=== PATIENT | female | born 1965 | race Caucasian/White ===

== ENCOUNTER 2025-02-08 10:59 | Inpatient (IN) ==
--- OUTSIDE RECORDS SUMMARY | 2025-02-08 11:04 | External Medical Summary | Summary of Care ---
Author Name Unknown Organization [facility] Address [address] [place] [address] Phone [phone] Care Team Providers Care Trailhead Construction Worker Name Role Phone Cr COBURN MD, Bandar Mcdonnell Primary Care Provider [phone] Reason for Visit * Reason Onset Date Comments Test Results 02/08/2025 Encounter Details Date Type Department Care Team (Late st Contact Info) Description 02/08/2025 Telephone [facility] [address] [place] [address] Clovis Wise MD [address] [place] [address] Test Results Allergies Active Allergy Reactions Criticality Noted Date Comments Cat Dander 12/30/2010 Throat closes, hard time breathing Food (See Comments) Other (Please comment) Medium 04/25/2017 Pt states every time she eats a potato product it makes her vomit. [place] 10/25/2016 Shellfish Anaphylaxis,Other (Please comment) High 01/01/2009 Postop, Allergery band in place Throat closes If she even kisses her after he ate shellfish and she gets lip tingling. Wound Dressing Adhesive 10/24/2022 documented as of this encounter (statuses as of 02/08/2025) Medications Aspirin EC 81 MG Oral Tablet Delayed Release Take by mouth 1 Tablet in the morning. 100 Tablet 3 2 Active Pantoprazole Sodium 40 MG Oral Tablet Delayed Release (Protonix) take 1 tablet by mouth every morning 30 MINUTES before breakfast 90 Tablet 3 Active Atorvastatin Calcium 20 MG Oral Tablet (Lipitor) Take 1 Tablet by mouth in the morning. 30 Tablet 5 4 Active Lisinopril 10 MG Oral Tablet (Prinivil) Take 1 Tablet by mouth in the morning. 30 Tablet 5 4 Active Cefuroxime Axetil 500 MG Oral Tablet (Ceftin) Take 1 Tablet by mouth in the morning and 1 Tablet before bedtime. 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 pylori infection 05/28/2008 Other iron deficiency anemia 05/28/2008 Overview (08/13/2017): ICD-10 update of inactive term NAVA RESEARCH OTHER*[id number] 03/02/2008 Uterine prolapse 09/10/2007 Varicella without complication documented as of this encounter (statuses as of 02/08/2025) Resolved Problems Problem Noted Date Diagnosed Date Resolved Date Accelerometer Research Study*[id number] 12/11/2013 02/09/2014 ADVANCE DIRECTIVE INFORMATION 01/30/2012 09/15/2024 Overview (04/26/2005): No, Advance Directive brochure given to patient at prior appointment. Dyslipidemia, goal LDL below 100 10/21/2009 09/24/2024 Overview (10/21/2009): Per Lipid Taxonomy. DM Type 2 causing Renal Dz 09/09/2009 0 04/25/2017 Overview (09/09/2009): Per Diabetes Taxonomy. Morbid Obesity, BMI not known 10/31/2007 02/03/2010 Overview (02/03/2010): Per Obesity Taxonomy DM Type 2 causing Renal Dz 09/10/2007 1 Overview (09/09/2009): Per Diabetes Taxonomy. Dyslipidemia, goal to be determined 09/10/2007 10/21/2009 Overview (10/21/2009): Per Lipid Taxonomy. Type 2 diabetes mellitus wit h hemoglobin A1c goal of less than 7.0% 04/28/2005 09/09/2009 Overview (03/07/2016): Per Diabetes Taxonomy. ICD-10 update of inactive term documented as of this encounter (statuses as of 02/08/2025) Immunizations Name Administration Dates Next Due COVID-19 mRNA, LNP-s, No Pre serve, 2-Dose Series (Pfizer) 02/16/2021,01/24/2021 COVID-19, MRNA-LNP, PF, 30 M CG/0.3 mL, 12 YRS AND ABOVE, IM (PFIZER-Comirnaty) 09/25/2024 H1N1 2009 Influenza, IM 11/02/2009 Hepatitis B, 20+ yrs 02/23/2015,08/13/2014,02/11 Pneumococcal Polysaccharide PPV23 (Pneumovax) 09/24/2002 Seasonal Influenza Vac., MDV , IM, 0.5 mL (Fluzone) 08/23/2017,08/05/2014,07/28/2013,10/23,08/16/2011,08/17/2010,08/18/2009 ,09/04/2008,08/12/2007 Seasonal Influenza, PF, 6 M & above, IM , (FluLaval or Fluzone) 08/16/2022 Seasonal Influenza, Quadriva lent, No Preserve, IM 08/20/2020,08/14/2019,08/16/2016,08/25 Seasonal Influenza, Trivalen t, (IIV3), PF, (Fluzone) 09/23/2024,08/23/2018 TD, Preservative Free 05/03/2020 TDAP, Age 7 and older, IM (Adacel) 02/10/2010 Zoster Vaccine Recombinant (Shingrix) 08/26/2020 ,05/03/2020 documented as of this encounter Social History Tobacco Use Types Packs/Day Years Used Date Smoking Tobacco: Former Cigarettes 0.3 6 0 02/21/1995 - 02/21/2001 Smokeless Tobacco: Never Alcohol Use Standard Drinks/Week Comments Yes 0 (1 standard drink = 0.6 oz pur e alcohol) 1-2 times a year PHQ-2 Answer Date Recorded PHQ-2 Score 3 10/31/2019 Hunger Vital Sign Answer Date Recorded Within the past 12 months, y ou worried that your food would run out before you got the money to buy more. Never true 09/23/20 24 Within the past 12 months, t he food you bought just didn't last and you didn't have money to get more. Never true 09/23/2024 Childcare Answer Date Recorded Do you feel overwhelmed with taking care of a child, family member or friend? No 09/23/2024 Does your family need help f inding childcare? (Household - for ages 0-17 years) Not on file 09/23/2024 Clothing Answer Date Recorded Have you been unable to get clothing when it was really needed? No 09/23/2024 Is your family able to get c lothes or diapers when needed? (Household - for ages 0-17 years) Not on file 09/23/2024 Personal Safety Answer Date Recorded Do you feel unsafe or have concerns for your saf ety? No 09/23/2024 Do you have concerns for you r family's safety? (Household - for ages 0-17 years) Not on file 09/23/2024 Utilities Answer Date Recorded Do you have trouble paying y our heating, water, or electric bill? No 09/23/2024 Is your family able to pay t he heat, water, or electric bill? (Household - for ages 0-17 years) Not on file 09/23/2024 Does your family have access to good internet? (Household - for ages 0-17 years) Not on file 09/23/2024 Employment Status Answer Date Recorded Are you unemployed or without regular income? No 09/23/2024 Does the household have a re lar source of income? (Household - for ages 0-17 years) Not on file 09/23/2024 Social Connections Answer Date Recorded How often do you feel lonely or isolated from th ose around you? Never 09/23/2024 Financial Resource Strain Answer Date R ecorded Do you have any trouble payi ng for your medications, or do you think you might in the future? No 09/23/2024 Does your family have troubl e paying for medicine? (Household - for ages 0-17 years) Not on file 09/23/2024 Transportation Needs Answer Date Record ed Do you have trouble getting a ride to medical visits or work? (Adult - for ages 18 years and over) Not on file 09/23/2024 Does your family have a hard time getting a ride to doctors visits? (Household - for ages 0-17 years) Not on file 09/23/2024 Has lack of transportation k ept you from medical appointments, meetings, work, or from getting things needed for daily living? Check all that apply. No 09/23/2024 Do you (or your family) have trouble finding or paying for a ride (transportation)? (Household - for ages 0-17 years) Not on file 09/23/2024 Housing Stability Answer Date Recorded Do you currently live in a s helter or have no steady place to sleep at night? No 09/23/2024 Do you think you are at risk of becoming homeless? (Adult - for ages 18 years and over) Not on file 09/23/2024 Does your family worry about paying for your home or becoming homeless? (Household - for ages 0-17 years) Not on file 1 11/23/2023 Are you homeless or worried that you might be in the future? No 09/23/2024 Are you (or your family) joe eless or worried that you might be in the future? (Household - for ages 0-17 years) Not on file Food Insecurity Answer Date Recorded Do you need food for this week? No 09/23/2024 Are you able to get enough f ood for your family? (Household - for ages 0-17 years) Not on file 09/23/2024 Does your family need food t his week? (Household - for ages 0-17 years) Not on file 09/23/2024 Do you always have enough fo od for your family? (Household - for ages 0-17 years) Not on file 09/23/2024 Food Insecurity Answer Date Recorded Within the past 12 months, y ou worried that your food would run out before you got the money to buy more. Never true 09/23/20 24 Within the past 12 months, t he food you bought just didn't last and you didn't have money to get more. Never true 09/23/2024 Do you need food for this week? 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 As per patient preference, connection with the patient via audio only occurred. The patient was informed this was a phone call only visit and was identified by name and date of . The patient agreed to participate. Patient with noted left hydronephrosis secondary to an obstructing stone. Patient had a positive urine culture on 01/19/25. Advised to go to the ER, ideally with a urologist system integration engineer. Total call duration was 5 minutes. Clovis Cavazos MD documented in this encounter Plan of Treatment Upcoming Encounters Date Type Department Care Team (Late st Contact Info) Description 02/09/2025 1:00 PM EDT Office Visit Nephrology, Noreen Mireles [address] [facility] [place] [address] Sulma Sutton MD [address] [facility] [place] [address] 03/18/2025 1:30 PM EDT Procedure Only Urology Ramesh Kaur [address] [place] [address] Charlie Ramirez Jr., MD [address] [place] [address] Scheduled Procedures Name Priority Associated Diagnoses Date/Ti me COLONOSCOPY FLEXIBLE PROXIMA L DIAGNOSTIC Recall Special screening for malignant neoplasms, colon Health Maintenance Due Date Last Done Comments Cologuard 2010 Sigmoidoscopy 2010 Fecal Occult Blood Test 12/08/2011 12/08/2010, 09/28 Depression Screening 10/28/2020 10/28/2019 Diabetic Foot Exam 11/02/2021 11/02/2020, 1 , 08/16/2016, Additional history exists HbA1c 06/22/2025 12/23/2024, 09/12, 10/26/2022, Additional history exists Diabetic Eye Exam 09/24/2025 09/24/2024, , 09/17/2019, Additional history exists Mammogram 09/25/2025 09/25/2024, 10/13, 09/19/2019, Additional history exists Albumin/Creatinine Ratio 12/26/2025 025, 12/23/2024, 09/23/2024, Additional history exists GFR 01/19/2026 01/19/2025, 12/13, 09/23/2024, Additional history exists Lipid Panel 12/23/2029 12/23/2024, 10/12, 08/16/2022, Additional history exists DTap/Tdap Vaccines (3 - Td or Tdap) 05/03/2030 05/03/2020, 02/10/2010, 04/28/2005 Colonoscopy 07/01/2031 07/01/2021, 06/13, 12/26/2010 Colorectal Cancer Screening 07/01/2031 Hepatitis B Vaccine Completed 02/23/2015, 08/13/2014, 02/11/2014 Zoster Vaccines Completed 08/26/2020, 05/03/2020 Pneumococcal Vaccine: 50+ Years Completed 08/20/2023, 09/24/2002 Influenza Vaccine (FLU shot) Completed 10/2024, 08/20/2023, 08/16/2022, Additional history exists COVID-19 Vaccine Completed 09/25/2024, 07/2023, 04/07/2022, Additional history exists HPV (Gardasil) Vaccine Aged Out No lo nger eligible based on patient's age to complete this topic MENINGOCOCCAL (MENACTRA/MENVEO) Aged Out No longer eligible based on patient's age to complete this topic Meningitis B Vaccine (Bexsero/Trumemba) Aged Out No longer eligible based on patient's age to complete this topic documented as of this encounter Medical Devices Implanted Type Area Supervisor Fish Bait Processing Device Identifier Shelf Expiration Date Model / Serial / Lot Device Tvt [id number] - [id number] Implanted:Qty: 1 on 12/20/2011 [place] [facility] [place] Vagina JN : [employer] 05/11/2014 [id number] / / [id number] documented as of this encounter Advance Directives * Full Code (Latest Code Status on File) Date Activated Date Inactivated Comments 03/27/2014 9:04 AM 03/27/2014 3:31 PM This order r eflects the patients wishes and were consensually agreed upon. * Full Code Date Activated Date Inactivated Comments 12/20/2011 1:25 PM 12/21/2011 9:17 PM This order ref lects the patients wishes and were consensually agreed upon. * Full Code Date Activated Date Inactivated Comments 12/20/2011 8:56 AM 12/20/2011 1:25 PM This order ref lects the patients wishes and were consensually agreed upon. * Full Code Date Activated Date Inactivated Comments 01/01/2009 3:08 PM 01/03/2009 4:32 PM * Full Code Date Activated Date Inactivated Comments 01/01/2009 9:05 AM 01/01/2009 3:08 PM Care Teams Trailhead Construction Worker Relationship Specialty Start Date End Date Bandar Hankins III, MD [address] [place] [address] PCP - General 02/11/02 documented as of this encounter
--- OUTSIDE RECORDS SUMMARY | 2025-02-08 11:05 | External Medical Summary | Summary of Care ---
Author Name Unknown Organization [facility] Address [address] [facility] [place] [address] Phone [phone] Care Team Providers Care Video System Repairer Name Role Phone Cr COBURN MD, Bandar Mcdonnell Primary Care Provider [phone] Reason for Referral * Precert (Within 10 days (routine)) - Pending Review Specialty Diagnoses / Procedures Referred By Karen oquendo Referred To Contact Radiology Diagnoses Hydronephrosis, left Microhematuria Procedures CT UROGRAPHY W WO CONTRAST Margarita Ambrosio PA-C [address] [place] [address] Phone: tel: fax: Referral ID Status Reason Start Date Expiration Date V isits Requested Visits Authorized [id number] Pending Review 01/27/[phone] Reason for Visit * Reason Onset Date Comments Follow Up 01/27/2025 Returning Call 01/27/2025 Encounter Details Date Type Department Care Team (Late st Contact Info) Description 01/27/2025 Telephone Urology Ramesh Kaur [address] [facility] [address] [place] [address] Margarita Ambrosio PA-C [address] [place] [address] Follow Up; Returning Call Allergies Active Allergy Reactions Criticality Noted Date [...] as of this encounter (statuses as of 01/27/2025) Medications Aspirin EC 81 MG Oral Tablet [...] as of this encounter (statuses as of 01/27/2025) Active Problems Problem Noted Date Diagnosed Date [...] ICD-10 update of inactive term NAVA RESEARCH OTHER*[id number] 03/02/2008 Uterine prolapse 09/10/2007 Varicella without complication documented as of this encounter (statuses as of 01/27/2025) Resolved Problems Problem Noted Date Diagnosed Date Resolved Date Accelerometer Research Study*[id number] 12/11/2013 02/09/2014 ADVANCE DIRECTIVE INFORMATION 01/30/2012 09/15/2024 [...] as of this encounter (statuses as of 01/27/2025) Immunizations Name Administration Dates Next Due COVID-19 mRNA, LNP-s, No Pre serve, 2-Dose Series (Pfizer) 02/16/2021,01/24/2021 COVID-19, MRNA-LNP, PF, 30 M CG/0.3 mL, 12 YRS AND ABOVE, IM (PFIZER-Comirnaty) 09/25/2024 H1N1 2009 Influenza, IM 11/02/2009 Hepatitis B, 20+ yrs 02/23/2015,08/13/2014,02/11 Pneumococcal Polysaccharide PPV23 (Pneumovax) 09/24/2002 Seasonal Influenza Vac., MDV , IM, 0.5 mL (Fluzone) 08/23/2017,08/05/2014,07/28/2013,10/23,08/16/2011,08/17/2010,08/18/2009 ,09/04/2008,08/12/2007,09/24/2002 Seasonal Influenza, PF, 6 M & above, IM , (FluLaval or Fluzone) 08/16/2022 Seasonal Influenza, Quadriva lent, No Preserve, IM 08/20/2020,08/14/2019,08/16/2016,08/25 Seasonal Influenza, Trivalen t, (IIV3), PF, (Fluzone) 09/23/2024,08/23/2018 TD, Preservative Free 05/03/2020,04/28/2005 TDAP, Age 7 and older, IM (Adacel) [...] 09/23/2024 Does the household have a re gular source of income? (Household - for ages [...] encounter Miscellaneous Notes * Telephone Encounter - Jael Appiah MED ASSIST - 01/27/2025 11:16 AM EDT Pt is scheduled * Telephone Encounter - Maribell Navarro OSA - 01/27/2025 11:01 AM EDT Reason for patient's call: patient returning call Caller was transferred to [facility] at the clinic. * Telephone Encounter - Vivi Goyal MED ASSIST - 01/27/2025 10:54 AM EDT Left message for patient to call back, needs scheduled for a CT urogram * Telephone Encounter - Noemi Callejas LPN - 01/27/2025 10:10 AM EDT Patient needs scheduled for CT Urogram. * Telephone Encounter - Margarita Ambrosio PA-C - 01/27/2025 9:08 AM EDT Ok order placed. Will discontinue MR Urogram. Thanks! * Telephone Encounter - Manisha Teixeira OSA - 01/27/2025 7:58 AM EDT Per the radiologist he feels that pt can have a CTU, please advise thank you Radiology scheduling documented in this encounter Plan of Treatment Upcoming Encounters Date Type Department Care Team (Late st Contact Info) Description 02/04/2025 8:45 AM EDT Imaging Radiology [facility] [address] [facility] [place] [address] [place] [phone] 03/18/2025 1:30 PM EDT Procedure Only Urology Ramesh Kaur [address] [place] [address] Charlie Ramirez Jr., MD [address] [place] [address] Scheduled Orders Name Type Priority Associated Diagnoses Orde r Schedule CT UROGRAPHY W WO CONTRAST Medical Imaging Routine Hydronephrosis, left Microhematuria Expected: 01/27/2025 (Approximate), Expires: 02/27/2026 Scheduled Procedures Name Priority Associated Diagnoses Date/Ti [...] this encounter Medical Devices Implanted Type Area Speedboat Operator Device Identifier Shelf Expiration Date Model / Serial / Lot Device Tvt [id number] - [id number] Implanted:Qty: 1 on 12/20/2011 at OR [facility] [place] N/A: Vagina [place] : [employer] 05/11/2014 [id number] / / [id number] documented as of this encounter Visit Diagnoses Diagnosis Hydronephrosis, left- Primary Hydronephrosis Microhematuria Microscopic hematuria documented in this encounter Advance Directives * Full Code [...] 9:05 AM 01/01/2009 3:08 PM Care Teams Video System Repairer Relationship Specialty Start Date End Date Cr COBURN, Bandar Mcdonnell MD [address] [place] [address] PCP - General 02/11/02 documented as of this encounter
--- OUTSIDE RECORDS SUMMARY | 2025-02-08 11:05 | External Medical Summary | Summary of Care ---
Author Name Unknown Organization [facility] Address [address] [facility] [place] [address] Phone [phone] Care Team Providers Care Medical Equipment Repairer Name Role Phone Cr COBURN MD, Bandar Mcdonnell Primary Care Provider [phone] Reason for Referral * Precert (Within 10 days (routine)) - Pending Review Specialty Diagnoses / Procedures Referred By Karen oquendo Referred To Contact Radiology Diagnoses Hydronephrosis, left Microhematuria Procedures CT UROGRAPHY W WO CONTRAST Margarita Ambrosio PA-C [address] [place] [address] Phone: tel: fax: Referral ID Status Reason Start Date Expiration Date V isits Requested Visits Authorized [id number] Pending Review 01/27/[phone] Reason for Visit * Reason Onset Date Comments Follow Up 01/27/2025 Returning Call 01/27/2025 Encounter Details Date Type Department Care Team (Late st Contact Info) Description 01/27/2025 Telephone Urology Ramesh Kaur [address] [facility] [address] [address] Margarita Ambrosio PA-C [address] [place] [address] Follow Up; Returning Call Allergies Active Allergy [...] ICD-10 update of inactive term NAVA RESEARCH OTHER*[id number] 03/02/2008 Uterine prolapse 09/10/2007 Varicella without complication documented as of this encounter (statuses as of 01/27/2025) Resolved Problems Problem Noted Date Diagnosed Date Resolved Date Accelerometer Research Study*[id number] 12/11/2013 02/09/2014 ADVANCE DIRECTIVE INFORMATION 01/30/2012 09/15/2024 [...] patient returning call Caller was transferred to [facility] at the clinic. * Telephone Encounter [...] Description 02/04/2025 8:45 AM EDT Imaging Radiology [facility] [address] [facility] [place] [address] [place] [phone] 03/18/2025 1:30 PM EDT Procedure Only Urology [...] this encounter Medical Devices Implanted Type Area Rooms Director Device Identifier Shelf Expiration Date Model / Serial / Lot Device Tvt [id number] - [id number] Implanted:Qty: 1 on 12/20/[address] [facility] [place] N/A: Vagina [place] : [employer] 05/11/2014 [id number] / / [id number] documented as of this encounter Visit Diagnoses [...] 9:05 AM 01/01/2009 3:08 PM Care Teams Medical Equipment Repairer Relationship Specialty Start Date End Date Cr COBURN, Bandar Mcdonnell MD [address] [place] [address] PCP - General 02/11/02 documented as of this encounter
--- OUTSIDE RECORDS SUMMARY | 2025-02-08 11:05 | External Medical Summary | Summary of Care ---
Author Name Unknown Organization [facility] Address [address] [facility] [place] [address] Phone [phone] Care Team Providers Care Airconditioning Engineer Name Role Phone Cr COBURN MD, Jacinta Mcdonnell Primary Care Provider [phone] Reason for Visit * Reason Comments NEW PATIENT * Evaluate & Treat - Unlimited Visits (Within 10 days (routine)) - Authorized Specialty Diagnoses / Procedures Referred By Karen oquendo Referred To Contact Urology Diagnoses Hydronephrosis, unspecified hydronephrosis type History of UTI Sulma Sutton MD [address] [facility] [address] Phone: tel: fax: Referral ID Status Reason Start Date Expiration Date Visits Requested Visits Authorized [id number] Authorized Specialty Services Required 01/16/[phone] Encounter Details Date Type Department Care Team (Late st Contact Info) Description 01/23/2025 1:00 PM EDT Office Visit Urology Ramesh Kaur [address] [place] [address] Margarita Ambrosio PA-C [address] [place] [address] Hydronephrosis, left*; Microhematuria; Acute UTI Allergies Active Allergy Reactions Criticality Noted Date [...] update of inactive term 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 pylori infection 05/28/2008 Other iron deficiency anemia 05/28/2008 Overview (08/13/2017): ICD-10 update of inactive term NAVA RESEARCH OTHER*[id number] 03/02/2008 Uterine prolapse 09/10/2007 Varicella without complication documented as of this encounter (statuses as of 01/27/2025) Resolved Problems Problem Noted Date Diagnosed Date Resolved Date Accelerometer Research Study*[id number] 12/11/2013 02/09/2014 ADVANCE DIRECTIVE INFORMATION 01/30/2012 09/15/2024 [...] mRNA, LNP-s, No Pre serve, 2-Dose Series ([employer]) 02/16/2021,01/24/2021 COVID-19, MRNA-LNP, PF, 30 M CG/0.3 [...] lali e documented as of this encounter Progress Notes * Margarita Ambrosio PA-C - 01/23/2025 1:04 PM EDT [id number] PCP: JACINTA ACOSTA III, Dr [place], [place] [id number] Yuly Shipley is a 59 year old female who presents in referral for evaluation of hydronephrosis and history of UTI. Patient presents due to hydronephrosis found on routine renal ultrasound via inseminator. Patient was also noted to have microhematuria on urine specimen. She denied history of gross hematuria. She noted she has a history of recurrent UTIs over the past few months with a recent positive culture on 01/19/2025. She noted she has a history of frequent UTI but not as frequent as recently. She noted she does currently have dysuria and urgency. She noted she is also being evaluated for significant anemia and low energy. She noted she used to smoke cigarettes but quit about 20 years ago. She denied a history of kidney stones. She denied fever, chills, abdominal pain, and flank pain. Current Outpatient Medications Medication Sig Dispense Refill Aspirin EC 81 MG Oral Tablet Delayed Release Take by mouth 1 Tablet in the morning. 100 Tablet 3 Pantoprazole Sodium 40 MG Oral Tablet Delayed Release (Protonix) take 1 tablet by mouth every morning 30 MINUTES before breakfast 90 Tablet 0 Atorvastatin Calcium 20 MG Oral Tablet (Lipitor) Take 1 Tablet by mouth in the morning. 30 Tablet 5 Lisinopril 10 MG Oral Tablet (Prinivil) Take 1 Tablet by mouth in the morning. 30 Tablet 5 No current facility-administered medications for this visit. Review of patient's allergies indicates: Allergen Reactions Shellfish Anaphylaxis and Other (Please comment) Postop, Allergery band in place Throat closes If she even kisses her after he ate shellfish and she gets lip tingling. Food (See Comments) Other (Please comment) Pt states every time she eats a potato product it makes her vomit. Cat Dander Throat closes, hard time breathing Pomegranate Extract [Punica] Wound Dressing Adhesive Social History: Social History Tobacco Use Smoking status: Former Current packs/day: 0.00 Average packs/day: 0.3 packs/day for 6.0 years (1.8 ttl pk-yrs) Types: Cigarettes Start date: 02/21/1995 Quit date: 02/21/2001 Years since quittin.9 Smokeless tobacco: Never Substance Use Topics Alcohol use: Yes Comment: 1-2 times a year Vaping/E-Cigarette Use Vaping/E-Cigarette Use Never User Vaping/E-Cigarette Substances Nicotine No Other No Flavoring No THC No Cannabidiol (CBD) No Vaping/E-Cigarette Devices Disposable No Pre-filled or Refillable Cartridge No Refillable Tank No Pre-filled Pod No Family History Problem Relation Name Age of Onset Hypertension Mother Lung cancer Mother lung small cell brain mets Hypertension Father Other (Other) Father aaa ruptured 69 Heart Disorder Sister valve @62 Heart failure Sister Heart attack Sister No Known Problems Sister Heart Disorder Sister pacer, enlarged ventricle Cancer Grandfather (Maternal) unknown No Known Problems Son Breast Cancer Aunt (Maternal) Diabetes Other mother siblings Past Surgical History: Procedure Laterality Date COLONOSCOPY, DIAGNOSTIC (RECTUM) 12/26/2010 wnl COLONOSCOPY, DIAGNOSTIC (RECTUM) 07/01/2021 Normal exam, 10y recall/ COLONOSCOPY FLEXIBLE PROXIMAL DIAGNOSTIC performed by Lara Hendrix DO at ENDOSCOPY [facility] CYSTOSCOPY 03/16/2014 CYSTOSCOPY/URETERAL CATHETER 03/27/2014 CYSTOURETHROSCOPY WITH URETERAL CATHETER performed by Diana Chappell MD at OR [facility] EGD, FLEXIBLE, DIAGNOSTIC 01/01/2009 UPPER GI ENDOSCOPY DIAGNOSTIC performed by RAISA BELTRAN at OR [facility] EGD, FLEXIBLE, DIAGNOSTIC 12/26/2010 ulceration EGD, FLEXIBLE, DIAGNOSTIC 08/07/2011 previously seen anastamotic ulcer has healed angy removed EGD, FLEXIBLE, W/BIOPSY 03/22/2011 ulcer--benign inflammation--repeat in 4-6 weeks EGD, FLEXIBLE, W/BIOPSY 05/16/2011 gastroenteric anastamosis with anastamotic ulcer LAPAROSCOPE PROCEDURE, LIVER 01/01/2009 UNLISTED LAPAROSCOPIC PROCEDURE LIVER performed by RAISA BELTRAN at OR [facility] LAPAROSCOPIC GASTRIC BYPASS/LUIS-EN-Y 01/01/2009 LAPAROSCOPIC GASTRIC RESTRICTIVE BYPASS LUIS EN Y performed by RAISA BELTRAN at [facility] MAMMOGRAM SCREENING-BILATERAL 09/11/2007 birad 2 REMOVE GALLBLADDER lapro REPAIR BLADDER & VAGINA, CYSTOCELE REPAIR BLADDER DEFECT 12/20/2011 VAGINAL SLING PROCEDURE FOR STRESS INCONTINENCE performed by SILVIA GONZALEZ at OR [facility] REPAIR DETACHED RETINA, VITRECTOMY 2008 laser REPAIR OF VAGINAL PROLAPSE 12/20/2011 COLPOPEXY VAGINAL EXTRA PERITONEAL APPROACH performed by SILVIA GONZALEZ OR [facility] TOTAL ABD HYSTERECTOMY W/WO REMOVAL OF TUBE(S) 12/20/2011 ERECTOMY WITH OR WITHOUT TUBES AND OVARIES performed by SILVIA GONZALEZ OR [facility] VAGINAL HYSTERECTOMY 12/20/2011 VAGINAL HYSTERECTOMY performed by SILVIA GONZALEZ OR [facility] Past Medical History: Diagnosis Date DM type 2, goal A1c below 7 Dyslipidemia, goal LDL below 100 10/21/2009 Per Lipid Taxonomy. Gross hematuria 02/26/2014 H. 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) OBESITY, BMI 30-34 (SEE ACTUAL BMI) Postgastric surgery syndrome NAVA RESEARCH OTHER*[id number] HTN, goal below 140/90 Gross hematuria Non-seasonal allergic rhinitis due to animal hair and dander Type 2 diabetes mellitus with both eyes affected by mild nonproliferative retinopathy without macular edema, without long-term current use of insulin (HCC) Dyslipidemia, goal LDL below 70 Constitutional: (+) fatigue and (-) fever and (-) chills Abdominal/GI: (-) abdominal pain, (-) nausea, and (-) vomiting Female : (+) see HPI Skin: (-) new lesions or changing moles Neurology: (-) negative: no focal neurologic defect Physical Exam Nursing note reviewed. Constitutional: General: She is not in acute distress. Appearance: She is not toxic-appearing. Comments: Frail HENT: Head: Normocephalic and atraumatic. Right Ear: External ear normal. Left Ear: External ear normal. Nose: Nose normal. Mouth/Throat: Mouth: Mucous membranes are moist. Pharynx: Oropharynx is clear. Pulmonary: Effort: Pulmonary effort is normal. No respiratory distress. Skin: General: Skin is warm and dry. Coloration: Skin is pale. Neurological: General: No focal deficit present. Mental Status: She is alert and oriented to person, place, and time. Motor: Weakness present. Psychiatric: Mood and Affect: Mood normal. Behavior: Behavior normal. Thought Content: Thought content normal. Judgment: Judgment normal. Labs: Creatinine Results: Lab Results Component Value Date/Time CREATININE - [facility] 1.0 01/19/2025 09:33 AM CREATININE - [facility] 1.1 (H) 12/30/2024 12:54 PM CREATININE - [facility] 1.0 09/23/2024 09:06 AM CREATININE - [facility] 1.0 11/02/2020 09:31 AM CREATININE - [facility] 0.9 09/05/2019 10:43 AM CREATININE - [facility] 0.9 10/23/2016 08:19 AM CREATININE, RANDOM URINE - [facility] 188 12/30/2024 12:55 PM CREATININE, RANDOM URINE - [facility] 143 12/26/2024 12:36 PM CREATININE, RANDOM URINE - [facility] 140 12/26/2024 12:36 PM CREATININE, RANDOM URINE - [facility] 186 08/14/2016 07:42 AM CREATININE, RANDOM URINE - [facility] 145 08/25/2015 08:37 AM CREATININE, RANDOM URINE - [facility] 189 08/12/2014 07:20 AM Urine culture 01/19/25 Culture Growth >100,000 colonies/mL Streptococcus anginosus group Abnormal <10,000 colonies/ml mixed normal joseph Imaging: US Renal 01/09/25 IMPRESSION: Marked left hydronephrosis with associated cortical thinning, suggesting chronicity. Impression/Plan: 59 y/o F with left hydronephrosis, microhematuria, and acute UTI. Findings reviewed with patient, and we discussed microscopic vs gross hematuria today. Blood in theurine can be a sign infection, stones, medical kidney disease, trauma and cancer. Menstruation, vigorous exercise, viral illness and urologic instrumentation are also causes. Evaluation of microscopic hematuria includes upper and lower urinary tract evaluation. Sometimes evaluation by a inseminator is recommended due to urine test findings; however, that does not preclude urologic evaluation. The use of anticoagulants alone does not explain gross hematuria, and should not preclude urologic evaluation. Upper tract evaluation usually entails multiphasic CT urogram, though in some situations MRI or ultrasound may be used with or without retrograde studies. Lower tract evaluation involves cystoscopy for direct visual evaluation of the bladder. A cystoscopy is generally performed on all patients aged 35 years and older, and in those with risk factors for urinary tract cancer such as a history of smoking, irritative voiding symptoms, exposure to certain chemicals, and a history of radiation therapy. I would recommend obtaining a MR urogram to further assess etiology for hydronephrosis as she is unsure of contrast allergy and significant shellfish allergy. I would also recommend a cystoscopy at next available. Ordered antibiotic for recent positive urine culture. We will plan to follow up with i maging results and next available cysto. Patient should call in the meantime with any new or worsening symptoms. All questions and concerns addressed to patient's satisfaction. Margarita Ambrosio PA-C 1:04 PM 01/23/2025 Cosigned by Zhang Espinal MD at 01/27/2025 4:59 PM EDT documented in this encounter Nursing Notes * Suzanne Quijano LPN - 01/23/2025 12:54 PM EDT Chief Complaint Patient presents with NEW PATIENT Pt presents as a new pt for hydronephrosis and hx of UTI. Last seen 2019. US and CT completed. Pt denies any flank pain at this time. Pt gave urine culture on 01/19/25 and it is positive, has not beentreated at this time. documented in this encounter Plan of Treatment Upcoming Encounters Date Type Department Care Team (Late st Contact Info) Description 02/04/2025 8:45 AM EDT Imaging Radiology [facility] [address] [place] [id number] 03/18/2025 1:30 PM EDT Procedure Only Urology Ramesh Kaur [address] [address] Charlie Ramirez Jr., MD [address] [place] [address] Scheduled Procedures Name Priority Associated Diagnoses Date/Ti [...] this encounter Medical Devices Implanted Type Area Political Aide Device Identifier Shelf Expiration Date Model / Serial / Lot Device Tvt [id number] - [id number] Implanted:Qty: 1 on 12/20/2011 at OR [facility] N/A: Vagina [place] : [employer] 05/11/2014 [id number] / / [id number] documented as of this encounter Visit Diagnoses Diagnosis Hydronephrosis, left- Primary Hydronephrosis Microhematuria Microscopic hematuria Acute UTI Urinary tract infection, site not specified documented in this encounter Advance Directives * [...] 9:05 AM 01/01/2009 3:08 PM Care Teams Airconditioning Engineer Relationship Specialty Start Date End Date Jacinta Acosta III, MD [address] [facility] [place] [address] PCP - General 02/11/02 documented as of this encounter
--- OUTSIDE RECORDS SUMMARY | 2025-02-08 11:05 | External Medical Summary | Summary of Care ---
Author Name Unknown Organization [facility] Address [address] [facility] [address] Phone [phone] Care Team Providers Care Cement Contractor Name Role Phone Cr COBURN MD, Bandar Mcdonnell Primary Care Provider [phone] Reason for Referral * Precert (Within 10 days (routine)) - Pending Review Specialty Diagnoses / Procedures Referred By Karen oquendo Referred To Contact Radiology Diagnoses Hydronephrosis, left Microhematuria Procedures CT UROGRAPHY W WO CONTRAST Margarita Ambrosio PA-C [address] [address] Phone: tel: fax: Referral ID Status Reason Start Date Expiration Date V isits Requested Visits Authorized [id number] Pending Review 01/27/[phone] Reason for Visit * Reason Onset Date Comments Follow Up 01/27/2025 Returning Call 01/27/2025 Encounter Details Date Type Department Care Team (Late st Contact Info) Description 01/27/2025 Telephone Urology Ramesh Kaur [address] [facility] [address] [place] [address] Margarita Ambrosio PA-C [address] [place] [address] Follow Up; Returning Call Allergies Active Allergy [...] ICD-10 update of inactive term NAVA RESEARCH OTHER*[id number] 03/02/2008 Uterine prolapse 09/10/2007 Varicella without complication documented as of this encounter (statuses as of 01/27/2025) Resolved Problems Problem Noted Date Diagnosed Date Resolved Date Accelerometer Research Study*[id number] 12/11/2013 02/09/2014 ADVANCE DIRECTIVE INFORMATION 01/30/2012 09/15/2024 [...] patient returning call Caller was transferred to [facility] at the clinic. * Telephone Encounter [...] Description 02/04/2025 8:45 AM EDT Imaging Radiology [facility] [address] [place] [id number] 03/18/2025 1:30 PM EDT Procedure Only Urology [...] this encounter Medical Devices Implanted Type Area Heating Engineer Device Identifier Shelf Expiration Date Model / Serial / Lot Device Tvt [id number] - [id number] Implanted:Qty: 1 on 12/20/2011 at OR [facility] N/A: Vagina [place] : [employer] 05/11/2014 [id number] / / [id number] documented as of this encounter Visit Diagnoses [...] 9:05 AM 01/01/2009 3:08 PM Care Teams Cement Contractor Relationship Specialty Start Date End Date Cr COBURN, Bandar Mcdonnell MD [address] [place] [address] PCP - General 02/11/02 documented as of this encounter
--- OUTSIDE RECORDS SUMMARY | 2025-02-08 11:05 | External Medical Summary | Summary of Care ---
Author Name Unknown Organization [facility] Address [address] [place] [address] Phone [phone] Care Team Providers Care Furniture Removalist'S Assistant Name Role Phone Cr COBURN MD, Bandar Mcdonnell Primary Care Provider Reason for Visit * Reason Comments Outpatient Testing Encounter Details Date Type Department Care Team (Late st Contact Info) Description 01/19/2025 9:40 AM EDT Laboratory Laboratory, [facility] [address] [facility] [place] [phone] [facility] [address] [facility] [place] [address] Hydronephrosis, unspecified hydronephrosis type; History of UTI; Anemia, unspecified type Allergies Active Allergy Reactions Criticality Noted Date [...] as of this encounter (statuses as of 01/19/2025) Medications Aspirin EC 81 MG Oral Tablet [...] the morning. 30 Tablet 5 4 Active documented as of this encounter (statuses as of 01/19/2025) Active Problems Problem Noted Date Diagnosed Date [...] ICD-10 update of inactive term NAVA RESEARCH OTHER*[id number] 03/02/2008 Uterine prolapse 09/10/2007 Varicella without complication documented as of this encounter (statuses as of 01/19/2025) Resolved Problems Problem Noted Date Diagnosed Date Resolved Date Accelerometer Research Study*[id number] 12/11/2013 02/09/2014 ADVANCE DIRECTIVE INFORMATION 01/30/2012 09/15/2024 [...] as of this encounter (statuses as of 01/19/2025) Immunizations Name Administration Dates Next Due COVID-19 mRNA, LNP-s, No Pre serve, 2-Dose Series ([place]) 02/16/2021,01/24/2021 COVID-19, MRNA-LNP, PF, 30 M CG/0.3 [...] lali e documented as of this encounter Plan of Treatment Upcoming Encounters Date Type Department Care Team (Late st Contact Info) Description 01/23/2025 1:00 PM EDT Office Visit Urology Ramesh Kaur [address] [place] [address] Margarita Ambrosio PA-C [address] [place] [address] Pending Results Name Type Priority Associated Diagnoses Date /Time CULTURE, URINE, QUANTITATIVE Lab Routine Hydronephrosis, unspecified hydronephrosis type History of UTI 01/19/2025 11:14 AM EDT FERRITIN Lab Routine Anemia, unspecified type 01/19/2025 9:33 AM EDT Scheduled Procedures Name Priority Associated Diagnoses Date/Ti [...] this encounter Medical Devices Implanted Type Area Ammunition Storage Superintendent Device Identifier Shelf Expiration Date Model / Serial / Lot Device Tvt [id number] - [id number] Implanted:Qty: 1 on 12/20/2011 at OR [facility] N/A: Vagina JNJ : [employer] 05/11/2014 [id number] / / [id number] documented as of this encounter Procedures Procedure Name Priority Date/Time Associated Diagnosis Comments URINALYSIS WITH MICROSCOPIC EXAM Routine 01/19/2025 11:14 AM EDT Hydronephrosis, unspecified hydronephrosis type History of UTI DIFFERENTIAL, AUTOMATED Routine 01/19/2025 9:33 AM EDT Hydronephrosis, unspecified hydronephrosis type History of UTI BASIC METABOLIC PANEL Routine 01/19/2025 9:33 AM EDT Hydronephrosis, unspecified hydronephrosis type History of UTI CBC Routine 01/19/2025 9:33 AM EDT Hydronephrosis, unspecified hydronephrosis type History of UTI CBC Routine 01/19/2025 9:33 AM EDT Hydronephrosis, unspecified hydronephrosis type History of UTI DIFFERENTIAL, TECHNOLOGIST REVIEW Routine 01/19/2025 9:33 AM EDT Hydronephrosis, unspecified hydronephrosis type History of UTI documented in this encounter Results * (ABNORMAL) URINALYSIS WITH MICROSCOPIC EXAM (01/19/2025 11:14 AM EDT) Color, Urine Yellow Light Yellow, Yellow, Dark Yellow 01/19/2025 12:31 PM EDT [facility] 57-10 Clarity, Urine Cloudy(A) Clear 01/19/2025 12:31 PM EDT [facility] [place] 57-10 Glucose, Urine Negative Negative mg/dL 01/19/2025 12:31 PM EDT [facility] 57-10 Bilirubin, Urine Negative Negative 01/19/2025 12:31 PM EDT [facility] [place] 57-10 Ketone, Urine Trace(A) Negative mg/dL 01/19/2025 12:31 PM EDT [facility] 57-10 Specific Mabel, Urine >=1.030 1.003 - 1.030 01/19/2025 12:31 PM EDT [facility] [place] 57-10 Blood, Urine Moderate(A) Negative 01/19/2025 12:31 PM EDT [facility] 57-10 pH, Urine 6.0 5.0 - 7.5 Units 01/19/2025 12:31 PM EDT [facility] 57- Protein, Urine >=300(A) Negative mg/dL 01/19/2025 12:31 PM EDT [facility] 57- Urobilinogen, Urine 0.2 0.2, 1.0 mg/dL 01/19/2025 12:31 PM EDT [facility] 57-10 Nitrite, Urine Negative Negative 01/19/2025 12:31 PM EDT [facility] 57-10 Esterase, Urine Large(A) Negative 01/19/2025 12:31 PM EDT [facility] 57-10 RBC, Urine 6-9(A) 0 - 2 /HPF 01/19/2025 12:31 PM EDT [facility] 57-10 WBC, Urine 50+(A) 0 - 2 /HPF 01/19/2025 12:31 PM EDT [facility] 5710 Bacteria, Urine 51-100(A) 0 - 25 /HPF 01/19/2025 12:31 PM EDT [facility] 5710 Urine Non-blood Collection / Unknown 01/19/2025 11:14 AM EDT 01/19/2025 11:14 AM EDT us Sulma Sutton MD LAB URINE ORDERABLES Rosa l Result [facility] [place] 57-10 [address] [place] [address] * (ABNORMAL) DIFFERENTIAL, TECHNOLOGIST REVIEW (01/19/2025 9:33 AM EDT) nRBCs 01/19/2025 11:06 AM EDT [facility] [place] 57-10 Acanthocytes Moderate(A ) None Seen 01/19/2025 11:06 AM EDT [facility] [place] 57-10 Elliptocytes Many(A) None Seen 01/19/2025 11:06 AM EDT [facility] [place] 57-10 Polychromasia Moderate(A ) None Seen 01/19/2025 11:06 AM EDT [facility] [place] 57-10 Schistocytes Few(A) None Seen 01/19/2025 11:06 AM EDT [facility] [place] 57-10 Blood Venous blood specimen / Unknown Venipuncture / Unknown 01/19/2025 9:33 AM EDT 01/19/2025 9:33 AM EDT Sulma Sutton MD LAB BLOOD ORDERABLES Rsoa l Result [facility] [place] 57-10 [address] [place] [address] * DIFFERENTIAL, AUTOMATED (01/19/2025 9:33 AM EDT) WBC 8.57 4.00 - 10.80 K/uL 01/19/2025 11:06 AM EDT [facility] [place] 57-10 Neutrophils % 67.7 40.0 - 75.0 % 01/19/2025 11:06 AM EDT [facility] [place] 57-10 Lymphocytes % 24.2 18.0 - 42.0 % 01/19/2025 11:06 AM EDT [facility] [place] 57-10 Monocytes % 5.6 1.0 - 11.0 % 01/19/2025 11:06 AM EDT [facility] [place] 57-10 Eosinophils % 2.3 0.0 - 6.0 % 01/19/2025 11:06 AM EDT [facility] 57-10 Basophils % 0.2 0.0 - 2.0 % 01/19/2025 11:06 AM EDT [facility] [place] 57-10 Absolute Neutrophils 5.80 1.80 - 7.70 K/uL 01/19/2025 11:06 AM EDT [facility] [place] 57-10 Absolute Lymphocytes 2.07 1.00 - 4.80 K/ul 01/19/2025 11:06 AM EDT [facility] [place] 5710 Absolute Monocytes 0.48 0.00 - 1.10 K/uL 01/19/2025 11:06 AM EDT [facility] [place] 57-10 Absolute Eosinophils 0.20 0.00 - 0.70 K/uL 01/19/2025 11:06 AM EDT [facility] [place] 57-10 Absolute Basophils 0.02 0.00 - 0.20 K/uL 01/19/2025 11:06 AM EDT [facility] [place] 5710 Blood Venous blood specimen / Unknown Venipuncture / Unknown 01/19/2025 9:33 AM EDT 01/19/2025 9:33 AM EDT Sulma Sutton MD LAB BLOOD ORDERABLES Rosa l Result LABORATORY [address] [address] * (ABNORMAL) CBC (01/19/2025 9:33 AM EDT) [facility] WBC 8.57 4.00 - 10.80 K/uL 01/19/2025 11:06 AM EDT LAB[facility]ORY [place] 57-10 RBC 3.90 3.85 - 5.15 M/uL 01/19/2025 11:06 AM EDT [facility]ORY [place] 5710 HGB 7.2(L) 12.0 - 15.3 g/dL 01/19/2025 11:06 AM EDT [facility] [place] 5710 HCT 25.5(L) 36.0 - 45.2 % 01/19/2025 11:06 AM EDT LABORATORY [place] [address] MCV 65.4 81.5 - 97.5 fL 01/19/2025 11:06 AM EDT LABORATORY [address] MCH 18.5 27.0 - 34.0 pg 01/19/2025 11:06 AM EDT LAB[facility]ORY [place] [address] MCHC 28.2 32.0 - 36.0 g/dL 01/19/2025 11:06 AM EDT LAB[facility]ATORY [place] [address] RDW 23.8 11.5 - 15.5 % 01/19/2025 11:06 AM EDT LABORATORY [address] PLT 909(H) 140 - 400 K/uL 01/19/2025 11:06 AM EDT LAB[facility]ATORY [place] [address] MPV 8.7 6.6 - 11.1 fL 01/19/2025 11:06 AM EDT LAB[facility]ATORY [place] [address] Blood Venous blood specimen / Unknown Venipuncture / Unknown 01/19/2025 9:33 AM EDT 01/19/2025 9:33 AM EDT us Sulma Sutton MD LAB BLOOD ORDERABLES Rosa limon Result LABORATORY [place] [address] [place] [address] * (ABNORMAL) BASIC METABOLIC PANEL (01/19/2025 9:33 AM EDT) BUN 11 6 - 20 mg/dL 01/19/2025 1:18 PM EDT [facility] 56- CREATININE 1.0 0.5 - 1.0 mg/dL 01/19/2025 1:18 PM EDT [facility] 56- EGFR 65 >=60 mL/min 01/19/2025 1:18 PM EDT [facility] 56- Comment:eGFR is calculated b ased on the CKD-EPI 2020 equation. SODIUM 138 135 - 146 mmol/L 01/19/2025 1:18 PM EDT [facility] 56- POTASSIUM 4.2 3.5 - 5.1 mmol/L 01/19/2025 1:18 PM EDT [facility] 56- CHLORIDE 103 98 - 107 mmol/L 01/19/2025 1:[address]T [address] CO2 23 22 - 32 mmol/L 01/19/2025 1:18 PM EDT [address] ANION GAP 12 7 - 15 mmol/L 01/19/2025 1:18 PM EDT [address] GLUCOSE 153(H) 70 - 120 mg/dL 01/19/2025 1:18 PM EDT [address] CALCIUM 8.6 8.4 - 10.2 mg/dL 01/19/2025 1:18 PM EDT [address] Blood Venous blood specimen / Unknown Venipuncture / Unknown 01/19/2025 9:33 AM EDT 01/19/2025 9:33 AM EDT Sulma Sutton MD LAB BLOOD ORDERABLES Rosa limon Result [place] [address] [place] [address] documented in this encounter Visit Diagnoses Diagnosis Hydronephrosis, unspecified hydronephrosis type History of UTI Personal history of urinary (tract) infection Anemia, unspecified type documented in this encounter Advance Directives * [...] 9:05 AM 01/01/2009 3:08 PM Care Teams Furniture Removalist'S Assistant Relationship Specialty Start Date End Date Bandar Hankins III, MD [address] [facility] [place] [address] PCP - General 02/11/02 documented as of this encounter
--- OUTSIDE RECORDS SUMMARY | 2025-02-08 11:05 | External Medical Summary | Summary of Care ---
Author Name Unknown Organization [facility] Address [address] [facility] [place] [address] Phone [phone] Care Team Providers Care Harbor Boat Pilot Name Role Phone Cr COBURN MD, Bandar Mcdonnell Primary Care Provider [phone] Reason for Referral * Precert (Within 10 days (routine)) - Pending Review Specialty Diagnoses / Procedures Referred By Karen oquendo Referred To Contact Radiology Diagnoses Hydronephrosis, left Microhematuria Procedures CT UROGRAPHY W WO CONTRAST Margarita Ambrosio PA-C [address] [place] [address] Phone: tel: fax: Referral ID Status Reason Start Date Expiration Date V isits Requested Visits Authorized [id number] Pending Review 01/27/2025 999 999 Reason for Visit * Reason Onset Date Comments Follow Up 01/27/2025 Encounter Details Date Type Department Care Team (Late st Contact Info) Description 01/27/2025 Telephone Urology Ramesh Kaur [address] [place] [address] Margarita Ambrosio PA-C [address] [place] [address] Follow Up Allergies Active Allergy Reactions Criticality Noted Date [...] ICD-10 update of inactive term NAVA RESEARCH OTHER*[id number] 03/02/2008 Uterine prolapse 09/10/2007 Varicella without complication documented as of this encounter (statuses as of 01/27/2025) Resolved Problems Problem Noted Date Diagnosed Date Resolved Date Accelerometer Research Study*[id number] 12/11/2013 02/09/2014 ADVANCE DIRECTIVE INFORMATION 01/30/2012 09/15/2024 [...] No 09/23/2024 Does the household have a [facility]ension [facility] hospitalr source of income? (Household - for ages [...] encounter Miscellaneous Notes * Telephone Encounter - Noemi Callejas LPN [...] Care Team (Late st Contact Info) Description 03/18/2025 1:30 PM EDT Procedure Only Urology Ramesh Kaur [address] [place] [address] Charlie Ramirez Jr., MD [address] [place] [address] Scheduled Orders Name Type Priority Associated Diagnoses [...] this encounter Medical Devices Implanted Type Area Loan Clerk Device Identifier Shelf Expiration Date Model / Serial / Lot Device Tvt [id number] - [id number] Implanted:Qty: 1 on 12/20/2011 at [place] [facility] N/A: Vagina JNJ : [employer] 05/11/2014 [id number] / / [id number] documented as of this encounter Visit Diagnoses [...] 9:05 AM 01/01/2009 3:08 PM Care Teams Harbor Boat Pilot Relationship Specialty Start Date End Date Bandar Hankins III, MD [address] [place] [address] PCP - General 02/11/02 documented as of this encounter
--- OUTSIDE RECORDS SUMMARY | 2025-02-08 11:05 | External Medical Summary | Summary of Care ---
Author Name Unknown Organization [facility] Address [address] [facility] [place] [address] Phone [phone] Care Team Providers Care Industrial Hire Sales Assistant Name Role Phone rC COBURN MD, Bandar Mcdonnell Primary Care Provider Reason for Visit * Reason Comments Outpatient Testing Encounter Details Date Type Department Care Team (Late st Contact Info) Description 01/19/2025 11:20 AM EDT Laboratory Laboratory, [facility] [address] [facility] [place] [phone] [place], Specimen Drop Off [facility] [address] Arrived Allergies Active Allergy Reactions Criticality Noted Date [...] ICD-10 update of inactive term NAVA RESEARCH OTHER*[id number] 03/02/2008 Uterine prolapse 09/10/2007 Varicella without complication documented as of this encounter (statuses as of 01/19/2025) Resolved Problems Problem Noted Date Diagnosed Date Resolved Date Accelerometer Research Study*[id number] 12/11/2013 02/09/2014 ADVANCE DIRECTIVE INFORMATION 01/30/2012 09/15/2024 [...] [address] [place] [address] Margarita Ambrosio PA-C [address] [place] [address] Scheduled Procedures Name Priority Associated Diagnoses Date/Ti [...] this encounter Medical Devices Implanted Type Area Technical Documentation Specialist Device Identifier Shelf Expiration Date Model / Serial / Lot Device Tvt [id number] - [id number] Implanted:Qty: 1 on 12/20/2011 at OR [facility] N/A: Vagina JNJ : [employer] 05/11/2014 [id number] / / [id number] documented as of this encounter Advance Directives [...] 9:05 AM 01/01/2009 3:08 PM Care Teams Industrial Hire Sales Assistant Relationship Specialty Start Date End Date Cr COBURN, Bandar Mcdonnell MD [address] [place] [address] PCP - General 02/11/02 documented as of this encounter
--- OUTSIDE RECORDS SUMMARY | 2025-02-08 11:05 | External Medical Summary | Summary of Care ---
Author Name Unknown Organization [facility] Address [address] [facility] [place] [address] Phone [phone] Care Team Providers Care Paper Supervisor Name Role Phone Cr COBURN MD, Bandar Mcdonnell Primary Care Provider Encounter Details Date Type Department Care Team (Late st Contact Info) Description 01/22/2025 Result Scan Unspecified Department Amber Hernandez, DO [address] [facility] [place] [phone] <No scans attached> Allergies Active Allergy Reactions Criticality Noted Date [...] as of this encounter (statuses as of 01/24/2025) Medications Aspirin EC 81 MG Oral Tablet [...] as of this encounter (statuses as of 01/24/2025) Active Problems Problem Noted Date Diagnosed Date [...] ICD-10 update of inactive term NAVA RESEARCH OTHER*[id number] 03/02/2008 Uterine prolapse 09/10/2007 Varicella without complication documented as of this encounter (statuses as of 01/24/2025) Resolved Problems Problem Noted Date Diagnosed Date Resolved Date Accelerometer Research Study*[id number] 12/11/2013 02/09/2014 ADVANCE DIRECTIVE INFORMATION 01/30/2012 09/15/2024 [...] as of this encounter (statuses as of 01/24/2025) Immunizations Name Administration Dates Next Due COVID-19 [...] [address] [place] [address] Charlie Ramirez Jr., MD [address] [place] [address] Scheduled Procedures Name Priority Associated Diagnoses Date/Ti [...] this encounter Medical Devices Implanted Type Area Fuel Efficient Automobile Designer Device Identifier Shelf Expiration Date Model / Serial / Lot Device Tvt [id number] - [id number] Implanted:Qty: 1 on 12/20/2011 at [place] [facility] [place] N/A: Vagina JNJ : [employer] 05/11/2014 [id number] / / [id number] documented as of this encounter Procedures Procedure Name Priority Date/Time Associated Diagnosis Comments CARDIOLOGY SCANNED RESULT 01/22/2025 documented in this encounter Results * CARDIOLOGY SCANNED RESULT (01/22/2025) 01/22/2025 Amberclark Hernandez DO OTHER Final R esult documented in this encounter Advance Directives * [...] 9:05 AM 01/01/2009 3:08 PM Care Teams Paper Supervisor Relationship Specialty Start Date End Date Bandar Hankins III, MD [address] [place] [address] PCP - General 02/11/02 documented as of this encounter
--- OUTSIDE RECORDS SUMMARY | 2025-02-08 11:05 | External Medical Summary | Summary of Care ---
Author Name Unknown Organization [facility] Address [address] [place] [address] Phone [phone] Care Team Providers Care Senior Data Architect Name Role Phone Cr COBURN MD, Bandar Mcdonnell Primary Care Provider [phone] Reason for Referral * Precert (Within 10 days (routine)) - Pending Review Specialty Diagnoses / Procedures Referred By Contac t Referred To Contact Radiology Diagnoses Hydronephrosis, unspecified hydronephrosis type History of UTI Procedures CT ABD/PELVIS WO IV/ORAL CONTRAST Sulma Sutton MD [address] [place] [address] Phone: tel: fax: Referral ID Status Reason Start Date Expiration Date V isits Requested Visits Authorized [id number] Pending Review 01/17/2025 999 999 * Evaluate & Treat - Unlimited Visits (Within 10 days (routine)) - Authorized Specialty Diagnoses / Procedures Referred By Contjos t Referred To Contact Urology Diagnoses Hydronephrosis, unspecified hydronephrosis type History of UTI Sulma Sutton MD [address] [place] [address] Phone: tel: fax: Referral ID Status Reason Start Date Expiration Date Visits Requested Visits Authorized [id number] Authorized Specialty Services Required 01/16/2025 999 999 Question Answer Referral Priority Within 10 days (routine) Where should this appointment be scheduled? [facility] What is the patient being referred for? Other Conditions Comments Chronic L hydronephrosis with recurrent UTI Reason for Visit * Reason Onset Date Comments Test Results 01/16/2025 Encounter Details Date Type Department Care Team (Cherelle st Contact Info) Description 01/16/2025 Telephone Nephrology, Noreen Mireles [address] [facility] [place] [address] Sulma Sutton MD [address] [facility] [place] [address] Test Results (/) Allergies Active Allergy Reactions Criticality Noted Date [...] as of this encounter (statuses as of 01/20/2025) Medications Aspirin EC 81 MG Oral Tablet [...] as of this encounter (statuses as of 01/20/2025) Active Problems Problem Noted Date Diagnosed Date [...] ICD-10 update of inactive term NAVA RESEARCH OTHER*[id number] 03/02/2008 Uterine prolapse 09/10/2007 Varicella without complication documented as of this encounter (statuses as of 01/20/2025) Resolved Problems Problem Noted Date Diagnosed Date Resolved Date Accelerometer Research Study*[id number] 12/11/2013 02/09/2014 ADVANCE DIRECTIVE INFORMATION 01/30/2012 09/15/2024 [...] as of this encounter (statuses as of 01/20/2025) Immunizations Name Administration Dates Next Due COVID-19 [...] encounter Miscellaneous Notes * Telephone Encounter - Valente Leon MD - 01/19/2025 4:26 PM EDT I reviewed labs. There is no leukocytosis but patient has hemoglobin of 7.2. Will check ferritin levels. Patient following up with Urology in a few days. Dr. Valente Leon * Telephone Encounter - Audra Lobo RN - 01/19/2025 3:[address] Leon please review lab results from today. TE with pt. She is not having any fever,chills or acute pain. She states she feels she still has UTI. She is aware to go to ER if symptoms worsen. Scheduled to see Urology on Sunday in [place]. * Telephone Encounter - Audra Lobo RN - 01/19/2025 3:[address] Sutton has ordered a CT of abdomen for SHAINA. She does see Urology on 01/23. Would be helpful tohave test done prior to this appointment. Pt prefers to have done at [facility]. * Telephone Encounter - Sulma Sutton MD - 01/16/2025 5:18 PM EST Recent u/s shows chronic L hydronephrosis in pt w/ known stone though no stone seen. She also did urine testing 12/30 which showed UTI but PCP treated this w/ keflex. Note she had elevate dWBC that day as well.and mildly abnormal renal function. Attempted to contact pt > >went to ; left VM identifying myself and urging her to check myChart Orders in to repeat labs and for 10 day urology referral NEPH NURSE -pls contact pt on 01/19 to see how she's doing/eval for sx prompting ER eval (f/c, n/v, flank pain etc) -watch for labs she's to draw on Sunday and have covering MD review right away >>IF ongoing UTI and elevated WBC, pls ask him to consider blood cultures >>pls let her know I also ordered a CT scan and facilitate getting that done SHAINA on SUNDAY/ documented in this encounter Plan of Treatment Upcoming Encounters Date Type Department Care Team (Late st Contact Info) Description 01/23/2025 1:00 PM EDT Office Visit Urology Ramesh Kaur [address] [place] [address] Margarita Ambrosio PA-C [address] [place] [address] Pending Results Name Type Priority Associated Diagnoses Date /Time CULTURE, URINE, QUANTITATIVE Lab Routine Hydronephrosis, unspecified hydronephrosis type History of UTI 01/19/2025 11:14 AM EDT [facility] Lab Routine Anemia, unspecified type 01/19/2025 9:33 AM EDT Scheduled Orders Name Type Priority Associated Diagnoses Orde r Schedule CULTURE, URINE, QUANTITATIVE Lab Routine Hydronephrosis, unspecified hydronephrosis type History of UTI Expected: 01/16/2025, Expires: 01/16/2026 CT ABD/PELVIS WO IV/ORAL CONTRAST Medical Imaging Routine Hydronephrosis, unspecified hydronephrosis type History of UTI Expected: 01/17/2025, Expires: 02/16/2026 [facility] Lab Routine Anemia, unspecified type Expected: 01/19/2025, Expires: 01/19/2026 Scheduled Procedures Name Priority Associated Diagnoses Date/Ti me COLONOSCOPY FLEXIBLE PROXIMA L DIAGNOSTIC Recall Special screening for malignant neoplasms, colon Scheduled Referrals Name Type Priority Associated Diagnoses Orde r Schedule ADULT/PEDS UROLOGY REFERRAL OP Referral Within 10 days (routine) Hydronephrosis, unspecified hydronephrosis type History of UTI Ordered: 01/16/2025 Health Maintenance Due Date Last Done Comments [...] encounter Medical Devices Implanted Type Area Supervisor Area Device Identifier Shelf Expiration Date Model / Serial / Lot Device Tvt [id number] - [id number] Implanted:Qty: 1 on 12/20/[address] [facility] [place] N/A: Vagina [place] : [employer] 05/11/2014 [id number] / / [id number] documented as of this encounter Results * (ABNORMAL) URINALYSIS WITH MICROSCOPIC EXAM (01/19/2025 11:14 AM EDT) Color, Urine Yellow Light Yellow, Yellow, Dark Yellow 01/19/2025 12:31 PM EDT [facility] [place] [facility] Clarity, Urine Cloudy(A) Clear 01/19/2025 12:31 PM EDT [facility] [place] [facility] [facility] Glucose, Urine Negative Negative mg/dL 01/19/2025 12:31 PM EDT [facility] [place] [facility] [facility] Bilirubin, Urine Negative Negative 01/19/2025 12:31 PM EDT [facility] [place] [facility] Ketone, Urine Trace(A) Negative mg/dL 01/19/2025 12:31 PM EDT [facility] [place] [facility] Specific [place], Urine >=1.030 1.003 - 1.030 01/19/2025 12:31 PM EDT [facility] [place] [facility] Blood, Urine Moderate(A) Negative 01/19/2025 12:31 PM EDT [facility] [place] [address] pH, Urine 6.0 5.0 - 7.5 Units 01/19/2025 12:31 PM EDT [facility] [place] [facility] Protein, Urine >=300(A) Negative mg/dL 01/19/2025 12:31 PM EDT [facility] [place] [address] Urobilinogen, Urine 0.2 0.2, 1.0 mg/dL 01/19/2025 12:31 PM EDT [facility] [place] [address] Nitrite, Urine Negative Negative 01/19/2025 12:31 PM EDT [facility] [place] [address] Esterase, Urine Large(A) Negative 01/19/2025 12:31 PM EDT [facility] [place] [address] RBC, Urine 6-9(A) 0 - 2 /HPF 01/19/2025 12:31 PM EDT [facility] [place] [address] WBC, Urine 50+(A) 0 - 2 /HPF 01/19/2025 12:31 PM EDT [facility] [place] [address] Bacteria, Urine 51-100(A) 0 - 25 /HPF 01/19/2025 12:31 PM EDT [facility] [place] [address] Urine Non-blood Collection / Unknown 01/19/2025 11:14 AM EDT 01/19/2025 11:14 AM EDT us Sulma Sutton MD LAB URINE ORDERABLES Rosa l Result [place] [address] [address] [place] [address] * (ABNORMAL) BASIC METABOLIC PANEL (01/19/2025 9:33 AM EDT) BUN 11 6 - 20 mg/dL 01/19/2025 1:18 PM EDT [facility] 56- CREATININE 1.0 0.5 - 1.0 mg/dL 01/19/2025 1:18 PM EDT [facility] 56- EGFR 65 >=60 mL/min 01/19/2025 1:18 PM EDT [facility] 56 Comment:eGFR is calculated b ased on the CKD-EPI 2020 equation. SODIUM 138 135 - 146 mmol/L 01/19/2025 1:18 PM EDT [facility] 56 POTASSIUM 4.2 3.5 - 5.1 mmol/L 01/19/2025 1:18 PM EDT [facility] 56 CHLORIDE 103 98 - 107 mmol/L 01/19/2025 1:18 PM EDT [address] CO2 23 22 - 32 mmol/L 01/19/2025 1:18 PM EDT [address] ANION GAP 12 7 - 15 mmol/L 01/19/2025 1:18 PM EDT [address] GLUCOSE 153(H) 70 - 120 mg/dL 01/19/2025 1:18 PM EDT [place] [address] CALCIUM 8.6 8.4 - 10.2 mg/dL 01/19/2025 1:18 PM EDT [address] Blood Venous blood specimen / Unknown Venipuncture / Unknown 01/19/2025 9:33 AM EDT 01/19/2025 9:33 AM EDT us Sulma Sutton MD LAB BLOOD ORDERABLES Rosa limon Result Performing Organization Address City/State/[facility] Co de Phone Number [place] [address] [place] [address] documented in this encounter Visit Diagnoses Diagnosis Hydronephrosis, unspecified hydronephrosis type- Primary History of UTI Personal history of urinary [...] 9:05 AM 01/01/2009 3:08 PM Care Teams Senior Data Architect Relationship Specialty Start Date End Date Bandar Hankins III, MD [address] [place] [address] PCP - General 02/11/02 documented as of this encounter
--- OUTSIDE RECORDS SUMMARY | 2025-02-08 11:05 | External Medical Summary | Summary of Care ---
Author Name Unknown Organization [facility] Address [address] [place] [place] [address] Phone [phone] Care Team Providers Care Rubber Goods Finisher Name Role Phone Cr COBURN MD, Bandar Mcdonnell Primary Care Provider Reason for Referral * Precert (Within 10 days (routine)) - Authorized Specialty Diagnoses / Procedures Referred By Karen oquendo Referred To Contact Radiology Diagnoses Hydronephrosis, left Microhematuria Procedures CT UROGRAPHY W WO CONTRAST Margarita Ambrosio PA-C [address] [place] [address] Phone: tel: fax: Referral ID Status Reason Start Date Expiration Date V isits Requested Visits Authorized [id number] Authorized Precert 01/27/2025 03/28/2025 1 1 Reason for Visit * Reason Onset Date Comments Follow Up 01/27/2025 Returning Call 01/27/2025 Encounter Details Date Type Department Care Team (Late st Contact Info) Description 01/27/2025 Telephone Urology Ramesh Kaur [address] [place] [address] Margarita Ambrosio PA-C [address] [place] [address] Follow Up; Returning Call Allergies Active Allergy [...] ICD-10 update of inactive term NAVA RESEARCH OTHER*[id number] 03/02/2008 Uterine prolapse 09/10/2007 Varicella without complication documented as of this encounter (statuses as of 01/27/2025) Resolved Problems Problem Noted Date Diagnosed Date Resolved Date Accelerometer Research Study*[id number] 12/11/2013 02/09/2014 ADVANCE DIRECTIVE INFORMATION 01/30/2012 09/15/2024 [...] mRNA, LNP-s, No Pre serve, 2-Dose Series (ForeUp) 02/16/2021,01/24/2021 COVID-19, MRNA-LNP, PF, 30 M CG/0.3 [...] patient returning call Caller was transferred to [facility] at the clinic. * Telephone Encounter - [...] Description 02/04/2025 8:45 AM EDT Imaging Radiology [facility] [facility] [place] [address] [place] [address] 03/18/2025 1:30 PM EDT Procedure Only Urology Ramesh Kaur [address] [place] [address] Charlie Ramirez Jr., MD [address] [place] [address] Scheduled Orders Name Type Priority Associated [...] this encounter Medical Devices Implanted Type Area Sail Maker Device Identifier Shelf Expiration Date Model / Serial / Lot Device Tvt [id number] - [id number] Implanted:Qty: 1 on 12/20/2011 at OR [facility] [place] N/A: Vagina [place] : [employer] 05/11/2014 [id number] / / [id number] documented as of this encounter Visit Diagnoses [...] 9:05 AM 01/01/2009 3:08 PM Care Teams Rubber Goods Finisher Relationship Specialty Start Date End Date Bandar Hankins III, MD [address] [place] [address] PCP - General 02/11/02 documented as of this encounter
--- OUTSIDE RECORDS SUMMARY | 2025-02-08 11:06 | External Medical Summary ---
Author Name Unknown Address Unknown Organization K09:[facility] [place] [address] Laboratory Report Ordering Provider Test Date Status NICHELLERADHA 01/19/2025 09:33:56 Final Observation Date Value Abnormality Reference (Units ) Status BUN 01/19/2025 09:33:56 11 6-20 (mg/dL) Final Creatinine 01/19/2025 09:33:56 1.0 0.5-1.0 (mg/dL) Final Glomerular filtration rate/1.73 sq M.predicted [Volume Rate/Area] in Serum, Plasma or Blood by Creatinine-based formula (CKD-EPI) 01/19/2025 09:33:56 65 >=60 (mL/min) Final eGFR is calculated based on the CKD-EPI 2020 equation. Sodium 01/19/2025 09:33:56 138 135-146 (m mol/L) Final Potassium 01/19/2025 09:33:56 4.2 3.5-5.1 (m mol/L) Final Cl 01/19/2025 09:33:56 103 98-107 (mm ol/L) Final CO2 01/19/2025 09:33:56 23 22-32 (mmo l/L) Final Anion gap 01/19/2025 09:33:56 12 7-15 (mmol /L) Final Glucose 01/19/2025 09:33:56 153 Above high normal 70 -120 (mg/dL) Final Calcium 01/19/2025 09:33:56 8.6 8.4-10.2 ( mg/dL) Final Performing Location [facility] [place] [address]
--- OUTSIDE RECORDS SUMMARY | 2025-02-08 11:06 | External Medical Summary ---
Author Name Unknown Address Unknown Organization [id number]:[facility] - [address] [place] [address] Laboratory Report Ordering Provider Test Date Status RADHA STWEARD 01/19/2025 11:14:56 Final <10,000 colonies/ml mixed no rmal joseph Observation Date Value Abnormality Reference (Units ) Status Bacteria identified in Specimen by Culture 01/19/2025 11:14:56 [id number]^STREPTOC OCCUS ANGINOSUS GROUP Abnormal Final >100,000 colonies/mL Strepto coccus anginosus group
Test: Culture, Urine, Quantitative
Specimen Source: Urine, Clean Catch
Specimen Type: Urine
Specimen Date: 01/19/2025 1114
Result Date: 01/22/2025 1031
Result Status: Final result
Abnormal: Yes
Resulting Lab: [facility]
[address]
[place] [address]

CULTURE

>100,000 colonies/mL Streptococcus anginosus group (Abnormal)

<10,000 colonies/ml mixed normal joseph

null Performing Location [facility] - [address] [place] [address]
--- OUTSIDE RECORDS SUMMARY | 2025-02-08 11:06 | External Medical Summary ---
Author Name Unknown Address Unknown Organization K0G:[facility] [place] [facility] - [address] [place] [address] Laboratory Report Ordering Provider Test Date Status RADHA STEWARD 01/19/2025 09:33:56 Final Observation Date Value Abnormality Reference (Units ) Status SYNC LEUKOCYTES IN BLOOD BY AUTOMATED COUNT 01/19/2025 09:33:56 8.57 4.00-10.80 (K/uL) Final Segs 01/19/2025 09:33:56 67.7 40.0-75.0 (%) Final Lymphs % 01/19/2025 09:33:56 24.2 18.0-42.0 (%) Final Monos 01/19/2025 09:33:56 5.6 1.0-11.0 (%) Final Eosinophils 01/19/2025 09:33:56 2.3 0.0-6.0 (%) Final Basos 01/19/2025 09:33:56 0.2 0.0-2.0 (%) Final Absolute Segs 01/19/2025 09:33:56 5.80 1.80-7.70 (K/uL) Final Lymphs, absolute 01/19/2025 09:33:56 2.07 1.00-4.80 (K/ul) Final Monos, Abs 01/19/2025 09:33:56 0.48 0.00-1.10 (K/uL) Final Eos, Abs 01/19/2025 09:33:56 0.20 0.00-0.70 (K/uL) Final Basos, Abs 01/19/2025 09:33:56 0.02 0.00-0.20 (K/uL) Final Performing Location [facility] [place] [facility] - [address] [place] [address]
--- OUTSIDE RECORDS SUMMARY | 2025-02-08 11:06 | External Medical Summary | Summary of Care ---
Author Name Unknown Organization [facility] Address [address] [facility] [place] [address] Phone [phone] Care Team Providers Care Endodontics Dentist Name Role Phone Cr COBURN MD, Bandar Mcdonnell Primary Care Provider [phone] Reason for Visit * Reason Comments Re-Check Encounter Details Date Type Department Care Team (Latest Contact Info) Description 12/30/2024 11:40 AM EST Office Visit Family Practice [facility] [place] [address] [facility] [place] [address] Bandar Hankins III, MD [address] [facility] [place] [address] Muscular aches*; Type 2 diabetes mellitus with both eyes affected by mild nonproliferative retinopathy without macular edema, without long-term current use of insulin (HCC); Malaise and fatigue; Lightheaded Allergies Active Allergy Reactions Criticality Noted Date [...] as of this encounter (statuses as of 01/05/2025) Medications Aspirin EC 81 MG Oral Tablet [...] as of this encounter (statuses as of 01/05/2025) Active Problems Problem Noted Date Diagnosed Date [...] ICD-10 update of inactive term NAVA RESEARCH OTHER*[id number] 03/02/2008 Uterine prolapse 09/10/2007 Varicella without complication documented as of this encounter (statuses as of 01/05/2025) Resolved Problems Problem Noted Date Diagnosed Date Resolved Date Accelerometer Research Study*[id number] 12/11/2013 02/09/2014 ADVANCE DIRECTIVE INFORMATION 01/30/2012 09/15/2024 [...] as of this encounter (statuses as of 01/05/2025) Immunizations Name Administration Dates Next Due COVID-19 [...] lali e documented as of this encounter Last Filed Vital Signs Vital Sign Reading Time Taken Comments Blood Pressure 88/50 12/30/2024 11:50 AM EST Pulse 109 12/30/2024 11:50 AM EST Temperature 36.6 °C (97.9 °F) 12/30/2024 11:[address] Respiratory Rate 16 12/30/2024 11:50 AM EST Oxygen Saturation - - Inhaled Oxygen Concentration - - Weight 90.7 kg (200 lb) 12/30/2024 11:50 AM EST Height - - Body Mass Index 30.88 09/24/2024 11:36 AM EST documented in this encounter Progress Notes * Bandar Hankins III, MD - 12/30/2024 12:43 PM EST Subjective: Yuly Mahesh Shipley is a 59 year old female. Chief Complaint Patient presents with Re-Check HPI: Follow-up hypertension diabetes mellitus concerns today are diffuse muscle aches and pains fatigue light-headedness had telemedicine visit with Nephrology earlier multiple labs has been ordered including CBC comprehensive CK recent LDL was 30 has some urinary symptoms dysuria culture is pending denies fever chills no bleeding urine or bowels no chest pain or shortness of breath no swelling of her ankles PHM: Patient Active Problem List Diagnosis Varicella without complication Uterine prolapse H. 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 Type 2 diabetes mellitus with hemoglobin A1c goal of less than 7.0% ([facility]) OBESITY, BMI 30-34 (SEE ACTUAL BMI) Postgastric surgery syndrome NAVA RESEARCH OTHER*[id number] HTN, goal below 140/90 Gross hematuria Non-seasonal allergic rhinitis due to animal hair and dander Type 2 diabetes mellitus with both eyes affected by mild nonproliferative retinopathy without macular edema, without long-term current use of insulin ([facility]) Dyslipidemia, goal LDL below 70 Current Outpatient Medications Medication Sig Dispense Refill [...] No current facility-administered medications for this visit. Past Medical History: Diagnosis Date DM type 2, goal A1c below 7 Dyslipidemia, goal LDL below 100 10/21/2009 Per Lipid Taxonomy. Gross hematuria 02/26/2014 H. 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 Joint pain, hip Mixed dyslipidemia Other specified iron deficiency anemias 05/28/2008 Uterine prolapse 09/10/2007 Varicella without complication Past Surgical History: Procedure Laterality Date COLONOSCOPY, DIAGNOSTIC (RECTUM) 12/26/2010 wnl COLONOSCOPY, DIAGNOSTIC (RECTUM) 07/01/2021 Normal exam, 10y recall/ COLONOSCOPY FLEXIBLE PROXIMAL DIAGNOSTIC performed by Lara Hendrix DO at ENDOSCOPY [facility] CYSTOSCOPY 03/16/2014 CYSTOSCOPY/URETERAL CATHETER 03/27/2014 CYSTOURETHROSCOPY WITH URETERAL CATHETER performed by Diana Chappell MD at OR [facility] EGD, FLEXIBLE, DIAGNOSTIC 01/01/2009 UPPER GI ENDOSCOPY DIAGNOSTIC performed by RAISA BELTRAN [place] [facility] [place]GD, FLEXIBLE, DIAGNOSTIC 12/26/2010 ulceration EGD, FLEXIBLE, DIAGNOSTIC 08/07/2011 previously seen anastamotic ulcer has healed angy removed EGD, FLEXIBLE, W/BIOPSY 03/22/2011 ulcer--benign inflammation--repeat in 4-6 weeks EGD, FLEXIBLE, W/BIOPSY 05/16/2011 gastroenteric anastamosis with anastamotic ulcer LAPAROSCOPE PROCEDURE, LIVER 01/01/2009 UNLISTED LAPAROSCOPIC PROCEDURE LIVER performed by RAISA BELTRAN [place] [facility] LAPAROSCOPIC GASTRIC BYPASS/LUIS-EN-Y 01/01/2009 LAPAROSCOPIC GASTRIC RESTRICTIVE BYPASS LUIS EN Y performed by RAISA BELTRAN [place] [facility] MAMMOGRAM SCREENING-BILATERAL 09/11/2007 birad 2 REMOVE GALLBLADDER lapro REPAIR BLADDER & VAGINA, CYSTOCELE REPAIR BLADDER DEFECT 12/20/2011 VAGINAL SLING PROCEDURE FOR STRESS INCONTINENCE performed by SILVIA GONZALEZ [place] [facility] REPAIR DETACHED RETINA, VITRECTOMY 2008 laser REPAIR OF VAGINAL PROLAPSE 12/20/2011 COLPOPEXY VAGINAL EXTRA PERITONEAL APPROACH performed by SILVIA GONZALEZ [place] [facility] TOTAL ABD HYSTERECTOMY W/WO REMOVAL OF TUBE(S) 12/20/2011 ERECTOMY WITH OR WITHOUT TUBES AND OVARIES performed by SILVIA GONZALEZ [place] [facility] VAGINAL HYSTERECTOMY 12/20/2011 VAGINAL HYSTERECTOMY performed by SILVIA GONZALEZ [place] [facility] Review of patient's allergies indicates: Allergen Reactions [...] breathing Pomegranate Extract [Punica] Wound Dressing Adhesive Objective: BP 88/50 | Pulse 109 | Temp 97.9 °F (36.6 °C) | Resp 16 | Wt 200 lb (90.7 kg) | LMP 11/22/2011 | BMI 30.88 kg/m² | BSA 2.08 m² Physical Exam: General: alert, healthy, and no distress Eye Exam: PERRLA, extraocular movements intact, conjunctiva are pink and non- injected, sclera clear Oropharynx: no exudate, no erythema, lips, buccal mucosa, and tongue normal, and mucous membranes are moist Heart: regular rate & rhythm, no murmur, and no gallops Lungs: lungs clear to auscultation Extremities: no edema, no clubbing, no cyanosis ASSESSMENT/PLAN: Muscular aches (Primary) Type 2 diabetes mellitus with both eyes affected by mild nonproliferative retinopathy without macular edema, without long-term current use of insulin (HCC) Malaise and fatigue - TSH WITH FREE T4 IF INDICATED; Future; Expected date: 12/30/2024 Lightheaded Discontinue atorvastatin and lisinopril will monitor blood pressures at home home cuff will be checked await GFR for consideration of metformin dosage await say K results could consider low-dose rosuvastatin to see if this is tolerated potentially add TSH read malaise fatigue Total time 33 minutes Follow Up: Return in about 6 months (around 06/29/2025). Bandar Hankins III, MD * Delores Trinidad RN - 12/30/2024 11:52 AM EST Has muscle aches from atorvastatin. documented in this encounter Plan of Treatment Upcoming Encounters Date Type Department Care Team (Late st Contact Info) Description 01/09/2025 2:00 PM EST Imaging Radiology [facility] [address] [place] [address] Scheduled Procedures Name Priority Associated Diagnoses Date/Ti [...] 025, 12/23/2024, 09/23/2024, Additional history exists GFR 12/30/2025 12/30/2024, 09/12, 10/26/2022, Additional history exists Lipid Panel 12/23/2029 12/23/2024, [...] this encounter Medical Devices Implanted Type Area Heel Finisher Device Identifier Shelf Expiration Date Model / Serial / Lot Device Tvt [id number] - [id number] Implanted:Qty: 1 on 12/20/2011 [place] [facility] [place]/A: Vagina JN[place] : [employer] 05/11/2014 [id number] / / [id number] documented as of this encounter Results * TSH WITH FREE T4 IF INDICATED (12/30/2024 12:54 PM EST) TSH 1.79 0.27 - 4.20 uIU/mL 12/30/2024 9:39 PM EST LAB[facility] Blood Venous blood specimen / Unknown Venipuncture / Unknown 12/30/2024 12:54 PM EST 12/30/2024 12:55 PM EST us Bandar Hankins III, MD LAB BLOOD ORDERABLES Final Result LAB[facility]ATORY [facility] [address] [place] [address] documented in this encounter Visit Diagnoses Diagnosis Muscular aches- Primary Mylagia and myositis, unspecified Type 2 diabetes mellitus with both eyes affected by mild nonproliferative retinopathy without macular edema, without long-term current use of insulin ([facility]) Malaise and fatigue Other malaise and fatigue Lightheaded Dizziness and giddiness documented in this encounter Advance Directives * [...] 9:05 AM 01/01/2009 3:08 PM Care Teams Endodontics Dentist Relationship Specialty Start Date End Date Cr COBURN, Bandar Mcdonnell MD [address] [place] [address] PCP - General 02/11/02 documented as of this encounter"
--- OUTSIDE RECORDS SUMMARY | 2025-02-08 11:06 | External Medical Summary | Summary of Care ---
Author Name Unknown Organization [facility] Address [address] [facility] [place] [address] Phone [phone] Care Team Providers Care Presentation Manager Name Role Phone Cr COBURN MD, Bandar Mcdonnell Primary Care Provider Reason for Visit * Reason Comments Outpatient Testing Encounter Details Date Type Department Care Team (Late st Contact Info) Description 01/19/2025 9:40 AM EDT Laboratory Laboratory, [facility] [address] [place] [id number] [facility] [address] [place] [address] Hydronephrosis, unspecified hydronephrosis type; History of UTI Allergies Active Allergy Reactions Criticality Noted [...] ICD-10 update of inactive term NAVA RESEARCH OTHER*[id number] 03/02/2008 Uterine prolapse 09/10/2007 Varicella without complication documented as of this encounter (statuses as of 01/19/2025) Resolved Problems Problem Noted Date Diagnosed Date Resolved Date Accelerometer Research Study*[id number] 12/11/2013 02/09/2014 ADVANCE DIRECTIVE INFORMATION 01/30/2012 09/15/2024 [...] [address] [place] [address] Margarita Ambrosio PA-C [address] [place] [address] Pending Results Name Type Priority Associated Diagnoses Date /Time BASIC METABOLIC PANEL Lab Routine Hydronephrosis, unspecified hydronephrosis type History of UTI 01/19/2025 9:33 AM EDT CULTURE, URINE, QUANTITATIVE Lab Routine Hydronephrosis, unspecified hydronephrosis type History of UTI 01/19/2025 11:14 AM EDT Scheduled Procedures Name Priority Associated [...] this encounter Medical Devices Implanted Type Area Ict Business Analyst Device Identifier Shelf Expiration Date Model / Serial / Lot Device Tvt [id number] - [id number] Implanted:Qty: 1 on 12/20/2011 at [facility] N/A: Vagina JNJ : [employer] 05/11/2014 [id number] / / [id number] documented as of this encounter Procedures Procedure [...] mg/dL 01/19/2025 12:31 PM EDT LABORATORY [facility] 57-10 Bilirubin, Urine Negative Negative 01/19/2025 12:31 PM EDT LABORATORY [facility] 5710 Ketone, Urine Trace(A) Negative mg/dL 01/19/2025 12:31 PM EDT LABORATORY [facility] 5710 Specific [place], Urine >=1.030 1.003 - 1.030 01/19/2025 12:31 PM EDT LAB[facility]ATORY [facility] Blood, Urine Moderate(A) Negative 01/19/2025 12:31 PM EDT LAB[facility] [place] [address] pH, Urine 6.0 5.0 - 7.5 Units 01/19/2025 12:31 PM EDT LAB[facility]ATORY [facility] Protein, Urine >=300(A) Negative mg/dL 01/19/2025 12:31 PM EDT LAB[facility]ATORY [facility] Urobilinogen, Urine 0.2 0.2, 1.0 mg/dL 01/19/2025 12:31 PM EDT LABORATORY [place] [address] Nitrite, Urine Negative Negative 01/19/2025 12:31 PM EDT LAB[facility]ORY [place] [address] Esterase, Urine Large(A) Negative 01/19/2025 12:31 PM EDT LAB[facility]ATORY [facility] RBC, Urine 6-9(A) 0 - 2 /HPF 01/19/2025 12:31 PM EDT LAB[facility]ATORY [facility] WBC, Urine 50+(A) 0 - 2 /HPF 01/19/2025 12:31 PM EDT LAB[facility] [place] [address] Bacteria, Urine 51-100(A) 0 - 25 /HPF 01/19/2025 12:31 PM EDT LAB[facility] [place] [address] Urine Non-blood Collection / Unknown 01/19/2025 11:14 AM EDT 01/19/2025 11:14 AM EDT us Sulma Sutton MD LAB URINE ORDERABLES Rosa l Result LABORATORY [place] [address] [address] [facility] [place] [address] * (ABNORMAL) DIFFERENTIAL, TECHNOLOGIST REVIEW (01/19/2025 9:33 AM EDT) Pathologist [facility] nRBCs 01/19/2025 11:06 AM EDT LABORATORY PORT [...] LAB BLOOD ORDERABLES Rosa l Result [facility]ATORY [place] 57-[address] [place] [address] * DIFFERENTIAL, AUTOMATED (01/19/2025 9:33 AM EDT) Pathologist [facility] WBC 8.57 4.00 - 10.80 K/uL 01/19/2025 [...] 11:06 AM EDT LABORATORY [place] 57-10 Basophils % 0.2 0.0 - 2.0 % 01/19/2025 11:06 AM EDT LABORATORY [place] 57-10 Absolute Neutrophils 5.80 1.80 - 7.70 K/uL 01/19/2025 11:06 AM EDT LABORATORY [place] 57-10 Absolute Lymphocytes 2.07 1.00 - 4.80 K/ul 01/19/2025 11:06 AM EDT LABORATORY [place] 57-10 Absolute Monocytes 0.48 0.00 - 1.10 K/uL 01/19/2025 11:06 AM EDT LABORATORY [place] 5710 Absolute Eosinophils 0.20 0.00 - 0.70 K/uL 01/19/2025 11:06 AM EDT LABORATORY [place] 57-10 Absolute Basophils 0.02 0.00 - 0.20 K/uL 01/19/2025 11:06 AM EDT LABORATORY [place] 5710 Blood Venous blood specimen / Unknown Venipuncture / Unknown 01/19/2025 9:33 AM EDT 01/19/2025 9:33 AM EDT us Sulma Sutton MD LAB BLOOD ORDERABLES Rosa l Result LABORATORY [place] [address] [address] [place] [address] * (ABNORMAL) CBC (01/19/2025 9:33 AM EDT) WBC 8.57 4.00 - 10.80 K/uL 01/19/2025 11:06 AM EDT LABORATORY [place] 5710 RBC 3.90 3.85 - 5.15 M/uL 01/19/2025 11:06 AM EDT LABORATORY [place] 5710 HGB 7.2(L) 12.0 - 15.3 g/dL 01/19/2025 11:06 AM EDT LABORATORY [place] 5710 HCT 25.5(L) 36.0 - 45.2 % 01/19/2025 11:06 AM EDT LABORATORY [place] 5710 MCV 65.4 81.5 - 97.5 fL 01/19/2025 11:06 AM EDT LABORATORY [facility] 57-10 MCH 18.5 27.0 - 34.0 pg 01/19/2025 11:06 AM EDT LABORATORY [facility] 57-10 MCHC 28.2 32.0 - 36.0 g/dL 01/19/2025 11:06 AM EDT LABORATORY [facility] 57-10 RDW 23.8 11.5 - 15.5 % 01/19/2025 11:06 AM EDT LABORATORY [facility] 57-10 PLT 909(H) 140 - 400 K/uL 01/19/2025 11:06 AM EDT LABORATORY [facility] 57-10 MPV 8.7 6.6 - 11.1 fL 01/19/2025 11:06 AM EDT [facility] [address] Blood Venous blood specimen / Unknown Venipuncture / Unknown 01/19/2025 9:33 AM EDT 01/19/2025 9:33 AM EDT Sulma Sutton MD LAB BLOOD ORDERABLES Rosa limon Result LABORATORY [facility] [address] [place] [address] documented in this encounter Visit Diagnoses Diagnosis Hydronephrosis, unspecified hydronephrosis type History of UTI Personal history of urinary (tract) infection documented in this encounter Advance Directives * [...] 9:05 AM 01/01/2009 3:08 PM Care Teams Presentation Manager Relationship Specialty Start Date End Date Bandar Hankins III, MD [address] [facility] [place] [address] PCP - General 02/11/02 documented as of this encounter
--- OUTSIDE RECORDS SUMMARY | 2025-02-08 11:06 | External Medical Summary | Summary of Care ---
Author Name Unknown Organization [facility] Address [address] [place] [address] Phone [phone] Care Team Providers Care Tail Sawyer Name Role Phone Cr COBURN MD, Jacinta Mcdonnell Primary Care Provider [phone] Reason for Visit * Reason Comments Proteinuria * Evaluate & Treat - Unlimited Visits (Within 10 days (routine)) - Authorized Specialty Diagnoses / Procedures Referred By Karen oquendo Referred To Contact Nephrology Diagnoses Proteinuria, unspecified type Jacinta Acosta III, MD [address] [place] [address] Phone: tel: fax: Referral ID Status Reason Start Date Expiration Date Visits Requested Visits Authorized [id number] Authorized Specialty Services Required 12/24/[phone] Encounter Details Date Type Department Care Team (Latest Contact Info) Description 12/30/2024 8:20 AM EST Telemedicine [place], [facility] [place] [address] [place] [address] Sulma Sutton MD [address] [place] [address] Proteinuria, unspecified type*; Hematuria, microscopic; Chronic cystitis with hematuria; Type 2 diabetes mellitus with both eyes affected by mild nonproliferative retinopathy without macular edema, without long-term current use of insulin (HCC); Nephrolithiasis; History of Lakesha-en-Y gastric bypass; Myopathy Allergies Active Allergy Reactions Criticality Noted Date [...] as of this encounter (statuses as of 12/31/2024) Medications Aspirin EC 81 MG Oral Tablet [...] as of this encounter (statuses as of 12/31/2024) Active Problems Problem Noted Date Diagnosed Date [...] Intestinal postoperative nonabsorption 9 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 pylori infection 05/28/2008 Other iron deficiency anemia 05/28/2008 Overview (08/13/2017): ICD-10 update of inactive term NAVA RESEARCH OTHER*[id number] 03/02/2008 Uterine prolapse 09/10/2007 Varicella without complication documented as of this encounter (statuses as of 12/31/2024) Resolved Problems Problem Noted Date Diagnosed Date Resolved Date Accelerometer Research Study*[id number] 12/11/2013 02/09/2014 ADVANCE DIRECTIVE INFORMATION 01/30/2012 09/15/2024 [...] as of this encounter (statuses as of 12/31/2024) Immunizations Name Administration Dates Next Due COVID-19 mRNA, LNP-s, No Pre serve, 2-Dose Series ([employer]) 02/16/2021,01/24/2021 COVID-19, MRNA-LNP, PF, 30 M CG/0.3 [...] No 09/23/2024 Does the household have a [facility] source [facility] income? (Household - for [...] as of this encounter Progress Notes * Sulma Sutton MD - 12/30/2024 8:35 AM EST NEPHROLOGY REMOTE NEW PATIENT CLINIC NOTE Patient location: HOME. I was in a hospital or clinic location. After connecting through televideo,patient was verified with two unique identifiers. Patient (or authorized legal statement services representative) was then informed that this was a Telemedicine visit and being conducted confidentially over secure lines. Methods to assure confidentiality were taken. Patient acknowledged consent and understanding of pr ivacy and security of the Telemedicine visit. The patient agreed to participate. Patient Name: Yuly Shipley Yuly Shipley is a 59 year old female being seen in consultation today in Nephrology clinic, at the request of Jacinta Acosta III, MD for protein uria. Past Medical History: Diagnosis Date DM type [...] hemoglobin A1c goal of less than 7.0% (HCC) OBESITY, BMI 30-34 (SEE ACTUAL BMI) Postgastric surgery syndrome NAVA RESEARCH OTHER*[id number] HTN, goal below 140/90 Gross hematuria Non-seasonal allergic rhinitis due to animal hair and dander Type 2 diabetes mellitus with both eyes affected by mild nonproliferative retinopathy without macular edema, without long-term current use of insulin (HCC) Dyslipidemia, goal LDL below 70 HPI: 59 year old female presents for evaluation of proteinuria. PMH includes DM since at least 1999 w/ retinopathy, HTN, uterine prolapse, s/p gastric bypass 2007 Lakesha en Y, HL, NAVA; stroke in 2021 in wake of which notes slower psycomotor processing and occasional vertigo which she gets about once monthly. Normally no ambulatory dysfunction but will use cane prn at times w/ vertigo or walking on uneven ground. Denies neuropathy. Home blood pressure checks: N; has upper arm cuff History of stones: yes > before 2009 Family history of CKD or ESRD: N NSAID use: N apart from ASA Herbals/supplements: N Last hospital stay: stroke in [place] w/ pt for visit today. She collected urine for culture yesterday clean catch. Pushed fluid intake and had diarrhea resultant; normally only 1-2 bm daily. REVIEW OF SYSTEMS: No major changes in weight or energy > except after starting statin, constant aches and briusing>> to d/w Dr Acosta later today and mm weakness too; notes also less appetite w/ statin No shortness of breath No edema No new, worrisome voiding concerns >> occasional dysuria comes and goes >> had UTI tx in Nov w/ improvement but then recurred "w/ a vengeance" then eased off on own > had some recurrent burning early Dec but eased off by 12/26 labs; no foamy urine. 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 04/16 Other Topics Concern Not on file Social History Narrative Not on file Social Needs Financial Resource Strain: Low Risk (09/23/2024) Financial Resource Strain Do you have any trouble paying for your medications, or do you think you might in the future? (Adult - for ages 18 years and over): No Does your family have trouble paying for medicine? (Household - for ages 0-17 years): Not on file Food Insecurity: No Food Insecurity (09/23/2024) Food Insecurity Worried About Running Out of Food in the Last Year: Never true Ran Out of Food in the Last Year: Never true Do you need food for this week? (Adult - for ages 18 years and over): No Transportation Needs: No Transportation Needs (09/23/2024) Transportation Needs Do you have trouble getting a ride to medical visits or work? (Adult - for ages 18 years and over):Not on file Does your family have a hard time getting a ride to doctors’ visits? (Household - for ages 0-17 years): Not on file Has lack of transportation kept you from medical appointments, meetings, work, or from getting things needed for daily living? Check all that apply. (Adult - for ages 18 years and over): No Do you (or your family) have trouble finding or paying for a ride (transportation)? (Household - for ages 0-17 years): Not on file Social Connections: Socially Integrated (09/23/2024) Social Connections How often do you feel lonely or isolated from those around you? (Adult - for ages 18 years and over): Never Housing Stability: Low Risk (09/23/2024) Housing Stability Do you currently live in a custodial or have no steady place to sleep at night? (Adult - for ages 18 years and over): No Do you think you are at risk of becoming homeless? (Adult - for ages 18 years and over): Not on file Does your family worry about paying for your home or becoming homeless? (Household - for ages 0-17 years): Not on file Are you homeless or worried that you might be in the future? (Adult - for ages 18 years and over): No Are you (or your family) homeless or worried that you might be in the future? (Household - for ages0-17 years): Not on file Family History Problem Relation Name Age of Onset Hypertension Mother Lung cancer Mother lung small cell brain mets Hypertension Father Other (Other) Father aaa ruptured 69 Heart Disorder Sister valve @62 Heart failure Sister Heart attack Sister No Known Problems Sister Heart Disorder Sister pacer, enlarged ventricle Cancer Grandfather (Maternal) unknown No Known Problems Son Breast Cancer Aunt (Maternal) Diabetes Other mother siblings Family Status Relation Status Mo at age 66 small cell lung cancer, smoker Fa at age 69 abd. aorta aneurysm Sis at age 62 Sis (Not Specified) Sis (Not Specified) MGFA (Not Specified) Son Alive MAUNT (Not Specified) Other (Not Specified) PHYSICAL EXAMINATION: BP Readings from Last 6 Encounters: 12/30/24 88/50 09/24/24 110/65 01/25/23 118/62 10/26/22 124/80 10/24/22 118/74 08/23/22 114/68 Wt Readings from Last 6 Encounters: 12/30/24 90.7 kg (200 lb) 09/24/24 94.3 kg (208 lb) 01/25/23 78.8 kg (173 lb 12.8 oz) 10/26/22 77.7 kg (171 lb 4.8 oz) 10/24/22 79.3 kg (174 lb 12.8 oz) 08/23/22 79.3 kg (174 lb 12.8 oz) Pulse Readings from Last 6 Encounters: 12/30/24 109 09/24/24 83 01/25/23 64 10/26/22 68 10/24/22 76 08/23/22 102 NAD, oriented x 3, ambulatory w/o asst Normocephalic, eomi No labored breathing or respiratory distress Fluent speech, no focal or global weakness Good historian Euthymic LABS: Recent Labs Units 12/30/24 1254 09/23/24 0906 SODIUM - [facility] mmol/L 134* 139 POTASSIUM - [facility] mmol/L 3.9 4.7 CHLORIDE - [facility] mmol/L 97* 104 CO2 - [facility] mmol/L 21* 23 BUN - [facility] mg/dL 12 19 CREATININE - [facility] mg/dL 1.1* 1.0 Recent Labs Units 12/30/24 1254 WBC K/uL 16.35* HGB g/dL 7.7* PLT K/uL 924* Recent Labs Units 12/30/24 1254 09/23/24 0906 CALCIUM - [facility] mg/dL 8.7 9.4 PHOSPHORUS - [facility] mg/dL 3.1 -- Invalid input(s): "MAG" Invalid input(s): "URIC" Recent Labs Units 12/23/24 0857 09/23/24 0906 HEMOGLOBIN A1C - [facility] % 7.2* 6.5* Invalid input(s): "URINALYSIS" No results for input(s): "MICROALBUMIN", "PROCRRATIO" in the last [id number] hours. Recent Labs Units 12/26/24 1236 09/24/24 0000 CLARITY, URINE - [facility] Cloudy* Cloudy GLUCOSE, URINE - [facility] mg/dL Negative Negative BILIRUBIN, URINE - [facility] Small* Negative KETONE, URINE - [facility] mg/dL Trace* Negative SPECIFIC GRAVITY, URINE - [facility] 1.020 1.025 BLOOD, URINE - [facility] Moderate* Large PH, URINE - [facility] Units 6.0 6.0 PROTEIN, URINE - [facility] mg/dL >=300* >=300 PROTEIN, RANDOM URINE - [facility] mg/dL 330 -- UROBILINOGEN, URINE - [facility] mg/dL 0.2 0.2 NITRITE, URINE - [facility] Negative Negative ESTERASE, URINE - [facility] Large* Large BACTERIA, URINE - [facility] /HPF >200* -- WBC, URINE - [facility] /HPF 50+* -- RBC, URINE - [facility] /HPF 20-29* -- PERTINENT IMAGING INFO: 2014 renal u/s Right Kidney: Normal size and echotexture. The right kidney measures 11.1 x 6.1 x 6.3 cm. There is mild right hydronephrosis. No definite nephrolithiasis. Left Kidney: Normal size and echotexture. The left kidney measures 12.5 x 5.6 x 5.9 cm. There is nohydronephrosis. Nonobstructing nephrolithiasis measuring 16 x 10 x 14 mm. Bladder: Normal appearance of the bladder. Aorta: Visualized portions are normal. Other: Partially visualized simple cyst in the region of the right adnexa measuring up to 2.6 cm. IMPRESSION Mild right hydronephrosis. Nonobstructing left nephrolithiasis. Partially visualized simple cyst in the region of the right adnexa. ASSESSMENT AND PLAN: Proteinuria, unspecified type (Primary) - NEPHROLOGY FOLLOW UP APPT (DEPARTMENT USE ONLY); Future; Expected date: 02/27/2025 - COMPREHENSIVE METABOLIC PANEL; Future; Expected date: 12/30/2024 - CBC WITH WBC DIFFERENTIAL; Future; Expected date: 12/30/2024 - IRON SCREEN, INCLUDING TIBC; Future; Expected date: 12/30/2024 - MAGNESIUM; Future; Expected date: 12/30/2024 - PHOSPHORUS; Future; Expected date: 12/30/2024 - PTH; Future; Expected date: 12/30/2024 - 25-HYDROXY VITAMIN D; Future; Expected date: 12/30/2024 - MONOCLONAL GAMMOPATHIES SCREENING PANEL; Future; Expected date: 12/30/2024 - IMMUNOGLOBULIN QUANTITATIVE; Future; Expected date: 12/30/2024 - ERYTHROCYTE SEDIMENTATION RATE (ESR); Future; Expected date: 12/30/2024 - US RENAL; Future; Expected date: 12/30/2024 - CK; Future; Expected date: 12/30/2024 - HEPATITIS B SURFACE ANTIGEN; Future; Expected date: 12/30/2024 - HEPATITIS B SURFACE ANTIBODY; Future; Expected date: 12/30/2024 - HEPATITIS B CORE ANTIBODY IGM; Future; Expected date: 12/30/2024 - HEPATITIS B CORE ANTIBODIES IGG AND IGM; Future; Expected date: 12/30/2024 - HEPATITIS C ANTIBODY SCREEN WITH PROGRESSION TO HEPATITIS C RNA QUANTITATIVE; Future; Expected date: 12/30/2024 - COMPLEMENT C3; Future; Expected date: 12/30/2024 - COMPLEMENT C4; Future; Expected date: 12/30/2024 - ANCA REFLEX PANEL; Future; Expected date: 12/30/2024 - GLOMERULAR BASEMENT MEMBRANE ANTIBODY (IGG); Future; Expected date: 12/30/2024 - ANTINUCLEAR ANTIBODY (ASHLYN) EIA SCREEN WITH REFLEX AB QUANT; Future; Expected date: 12/30/2024 - DOUBLE STRANDED DNA (DSDNA) ANTIBODY, IFA; Future; Expected date: 12/30/2024 - URINE IMMUNOFIXATION, BENCE CABRERA PROTEIN, RANDOM URINE; Future; Expected date: 12/30/2024 - URINALYSIS WITH MICROSCOPIC EXAM; Future; Expected date: 12/30/2024 - PROTEIN/ CREATININE RATIO, URINE; Future; Expected date: 12/30/2024 Hematuria, microscopic 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 Some concerns though about microhematuria which could be c/w lower tract proteinuria versus nephritic process. Presence of retinopathy raises possibility of diabetic nephropathy -cont lisinopril -evaluate for other potential etiologies, including GN or myeloma >>multple labs pending >> labs so far notable for marked anemia, marked thrombocytopenia and leukocytosis With stones, need to evaluate CARROL labs. She does have large L renal stone nonobstructing. Myalgias on statin -check CK -dosing as per PCP There are no Patient Instructions on file for this visit. Sulma Sutton MD CC: REF: JACINTA ACOSTA III [address] [place] [address] (office) [phone] (fax) PCP: JACINTA ACOSTA III [address] [place] [address] [phone] This chart was completed in part utilizing [employer] Speech Voice Recognition Software. Randomword insertions, pronoun errors, and incomplete sentences are an occasional consequence of this system due to software limitations, and ambient noise. Any questions or concerns about the content, text, or information contained within the body of this dictation should be directly addressed to the provider for clarification. documented in this encounter Plan of Treatment Pending Results Name Type Priority Associated Diagnoses Date /Time MONOCLONAL GAMMOPATHIES SCREENING PANEL Lab Routine Proteinuria, unspecified type 12/30/2024 12:54 PM EST ANCA REFLEX PANEL Lab Routine Proteinuria, unspecified type 12/30/2024 12:54 PM EST GLOMERULAR BASEMENT MEMBRANE ANTIBODY (IGG) Lab Routine Proteinuria, unspecified type 12/30/2024 12:54 PM EST ANTINUCLEAR ANTIBODY (ASHLYN) EIA SCREEN WITH REFLEX AB QUANT Lab Routine Proteinuria, unspecified type 12/30/2024 12:54 PM EST DOUBLE STRANDED DNA (DSDNA) ANTIBODY, IFA Lab Routine Proteinuria, unspecified type 12/30/2024 12:54 PM EST Scheduled Orders Name Type Priority Associated Diagnoses Orde r Schedule MONOCLONAL GAMMOPATHIES SCREENING PANEL Lab Routine Proteinuria, unspecified type Expected: 12/30/2024, Expires: 12/30/2025 US RENAL Medical Imaging Routine Proteinuria, unspecified type Expected: 12/30/2024, Expires: 01/27/2026 ANCA REFLEX PANEL Lab Routine Proteinuria, unspecified type Expected: 12/30/2024, Expires: 12/30/2025 GLOMERULAR BASEMENT MEMBRANE ANTIBODY (IGG) Lab Routine Proteinuria, unspecified type Expected: 12/30/2024, Expires: 12/30/2025 ANTINUCLEAR ANTIBODY (ASHLYN) EIA SCREEN WITH REFLEX AB QUANT Lab Routine Proteinuria, unspecified type Expected: 12/30/2024, Expires: 12/30/2025 DOUBLE STRANDED DNA (DSDNA) ANTIBODY, IFA Lab Routine Proteinuria, unspecified type Expected: 12/30/2024, Expires: 12/30/2025 Scheduled Procedures Name Priority Associated Diagnoses Date/Ti [...] this encounter Medical Devices Implanted Type Area Pigment Processor Device Identifier Shelf Expiration Date Model / Serial / Lot Device Tvt [id number] - [id number] Implanted:Qty: 1 on 12/20/2011 at OR [facility] N/A: Vagina JNJ : [employer] 05/11/2014 [id number] / / [id number] documented as of this encounter Results * (ABNORMAL) PROTEIN/ CREATININE RATIO, URINE (12/30/2024 12:55 PM EST) Protein/ Creatinine Ratio, Urine 6,218(H) <150 mg/g 12/30/2024 7:41 PM EST [facility] Protein, Random Urine 1,169 mg/dL 12/30/2024 7:41 PM EST LABORATORY [facility] Creatinine, Random Urine 188 mg/dL 12/30/2024 7:41 PM EST LABORATORY [facility] Urine Non-blood Collection / Unknown 12/30/2024 12:55 PM EST 12/30/2024 12:55 PM EST Narrative LABORATORY [facility] - 12/30/2024 7:41 PM EST Normal: <150 mg/g creatinine High: 150-500 mg/g creatinine Very High: >500 mg/g creatinine Nephrotic: >3000 mg/g creatinine us Sulma Sutton MD LAB URINE ORDERABLES Rosa limon Result LABORATORY [facility] [address] [place] [address] * (ABNORMAL) URINALYSIS WITH MICROSCOPIC EXAM (12/30/2024 12:55 PM EST) Color, Urine Light Yellow Light Yellow, Yellow, Dark Yellow 12/30/2024 5:41 PM EST [facility] Clarity, Urine Turbid(A) Clear 12/30/2024 5:41 PM EST [facility] Glucose, Urine Negative Negative mg/dL 12/30/2024 5:41 PM EST [facility] Bilirubin, Urine Negative Negative 12/30/2024 5:41 PM EST [facility] Ketone, Urine Trace(A) Negative mg/dL 12/30/2024 5:41 PM EST [facility] Specific [place], Urine 1.023 1.003 - 1.030 12/30/2024 5:41 PM EST [facility] Blood, Urine Moderate(A) Negative 12/30/2024 5:41 PM EST [facility] pH, Urine 5.5 5.0 - 7.5 Units 12/30/2024 5:41 PM EST [facility] Protein, Urine >=300(A) Negative mg/dL 12/30/2024 5:41 PM EST [facility] Urobilinogen, Urine 0.2 0.2, 1.0 mg/dL 12/30/2024 5:41 PM EST [facility] Nitrite, Urine Negative Negative 12/30/2024 5:41 PM EST [facility] Esterase, Urine Large(A) Negative 12/30/2024 5:41 PM EST [facility] RBC, Urine 50+(A) 0 - 2 /HPF 12/30/2024 5:41 PM EST [facility] WBC, Urine 50+(A) 0 - 2 /HPF 12/30/2024 5:41 PM EST [facility] Bacteria, Urine >200(A) 0 - 25 /HPF 12/30/2024 5:41 PM EST [facility] WBC Clumps, Urine Present(A) None /HPF 12/30/2024 5:41 PM EST [facility] Urine Non-blood Collection / Unknown 12/30/2024 12:55 PM EST 12/30/2024 12:55 PM EST Sulma Sutton MD LAB URINE ORDERABLES Rosa l Result Performing Organization Address City/State/[facility] Co de Phone Number LABORATORY [facility] [address] [place] [address] * COMPLEMENT C4 (12/30/2024 12:54 PM EST) Complement C4 26 10 - 40 mg/dL 12/30/2024 9:52 PM EST [facility] Blood Venous blood specimen / Unknown Venipuncture / Unknown 12/30/2024 12:54 PM EST 12/30/2024 12:55 PM EST Sulma Sutton MD LAB BLOOD ORDERABLES Rosa l Result LABORATORY [facility] [address] [place] [address] * COMPLEMENT C3 (12/30/2024 12:54 PM EST) Pathologist [facility] Complement C3 177 90 - 180 mg/dL 12/30/2024 9:52 PM EST [facility] Blood Venous blood specimen / Unknown Venipuncture / Unknown 12/30/2024 12:54 PM EST 12/30/2024 12:55 PM EST Sulma Sutton MD LAB BLOOD ORDERABLES Rosa l Result LABORATORY [facility] [address] [place] [address] * HEPATITIS B CORE ANTIBODIES IGG AND IGM (12/30/2024 12:54 PM EST) Pathologist [facility] Hepatitis B Core Antibodies IgG and IgM Negative Negative 12/30/2024 8:12 PM EST [facility] Blood Venous blood specimen / Unknown Venipuncture / Unknown 12/30/2024 12:54 PM EST 12/30/2024 12:55 PM EST Sulma Sutton MD LAB BLOOD ORDERABLES Rosa l Result LABORATORY [facility] [address] [place] [address] * HEPATITIS B CORE ANTIBODY IGM (12/30/2024 12:54 PM EST) Pathologist [facility] Hepatitis B Core Antibody IgM Negative Negative 12/30/2024 8:12 PM EST [facility] Blood Venous blood specimen / Unknown Venipuncture / Unknown 12/30/2024 12:54 PM EST 12/30/2024 12:55 PM EST Sulma Sutton MD LAB BLOOD ORDERABLES Rosa l Result LABORATORY [facility] [address] [place] [address] * HEPATITIS B SURFACE ANTIBODY (12/30/2024 12:54 PM EST) [facility] Hepatitis B Surface Antibody, Quantitative >1,000.0 mIU/mL 12/30/2024 8:12 PM EST LABORATORY [facility] Hepatitis B Surface Antibody, Qualitative Positive 12/30/2024 8:12 PM EST LABORATORY [facility] Hepatitis B Surface Antibody, Interpretation Immune to Hepatitis B Virus 12/30/2024 8:12 PM EST LABORATORY [facility] Comment: POSITIVE: >=11.5 mIU/mL INDETERMINATE: 8.5-<11.5 mIU/mL NEGATIVE: <8.5 mIU/mL Blood Venous blood specimen / Unknown Venipuncture / Unknown 12/30/2024 12:54 PM EST 12/30/2024 12:55 PM EST Sulma Sutton MD LAB BLOOD ORDERABLES Rosa l Result LABORATORY [facility] [address] [place] [address] * HEPATITIS B SURFACE ANTIGEN (12/30/2024 12:54 PM EST) [facility] Hepatitis B Surface Antigen Negative Negative 12/30/2024 8:12 PM EST LABORATORY [facility] Blood Venous blood specimen / Unknown Venipuncture / Unknown 12/30/2024 12:54 PM EST 12/30/2024 12:55 PM EST Sulma Sutton MD LAB BLOOD ORDERABLES Rosa l Result LABORATORY [facility] [address] [place] [address] * CK (12/30/2024 12:54 PM EST) [facility] CK 49 26 - 192 U/L 12/30/2024 8:24 PM EST LABORATORY [facility] Blood Venous blood specimen / Unknown Venipuncture / Unknown 12/30/2024 12:54 PM EST 12/30/2024 12:55 PM EST Sulma Sutton MD LAB BLOOD ORDERABLES Rosa l Result Performing Organization Address City/[facility] Co de Phone Number LABORATORY [facility] [address] [place] [address] * (ABNORMAL) ERYTHROCYTE SEDIMENTATION RATE (ESR) (12/30/2024 12:54 PM EST) Pathologist [facility] ESR 103(H) <30 mm/hour 12/30/2024 5:42 PM EST [facility] Blood Venous blood specimen / Unknown Venipuncture / Unknown 12/30/2024 12:54 PM EST 12/30/2024 12:55 PM EST Sulma Sutton MD LAB BLOOD ORDERABLES Rosa l Result Performing Organization Address [facility] Phone Number LABORATORY [address] [address] * (ABNORMAL) IMMUNOGLOBULIN QUANTITATIVE (12/30/2024 12:54 PM EST) Pathologist [facility] IgG 2,096(H) 700 - 1,600 mg/dL 12/30/2024 8:24 PM EST [facility] IgA 746(H) 70 - 400 mg/dL 12/30/2024 8:24 PM EST [facility] IgM 88 40 - 230 mg/dL 12/30/2024 8:24 PM EST LABORATORY [facility] Blood Venous blood specimen / Unknown Venipuncture / Unknown 12/30/2024 12:54 PM EST 12/30/2024 12:55 PM EST Sulma Sutton MD LAB BLOOD ORDERABLES Rosa l Result Performing Organization Address City/[facility] Co de Phone Number LABORATORY [facility] [address] [place] [address] * (ABNORMAL) 25-HYDROXY VITAMIN D (12/30/2024 12:54 PM EST) 25-Hydroxy Vitamin D 8(L) >19 ng/mL 12/30/2024 9:39 PM EST LABORATORY [facility] [place] Blood Venous blood specimen / Unknown Venipuncture / Unknown 12/30/2024 12:54 PM EST 12/30/2024 12:55 PM EST Narrative LABORATORY [facility] [place] - 12/30/2024 9:39 PM EST Deficient: <20 ng/mL Insufficient: 20-29 ng/mL Recommended/Optimum:30-50 ng/mL Vitamin D intoxication is rare. If suspicious of Vitamin D toxicity, evaluation of serum Calcium and PTH is recommended. Sulma Sutton MD LAB BLOOD ORDERABLES Rosa l Result LABORATORY [address] [address] * PTH (12/30/2024 12:54 PM EST) PTH 47 15 - 65 pg/mL 12/30/2024 9:22 PM EST LABORATORY [facility] [place] Blood Venous blood specimen / Unknown Venipuncture / Unknown 12/30/2024 12:54 PM EST 12/30/2024 12:55 PM EST Sulma Sutton MD LAB BLOOD ORDERABLES Rosa l Result Performing Organization Address City/[facility]/ZIP Co de Phone Number LABORATORY [place] [address] [place] [address] * PHOSPHORUS (12/30/2024 12:54 PM EST) Phosphorus 3.1 2.5 - 4.8 mg/dL 12/30/2024 2:37 PM EST LABORATORY [place] 56-02 Blood Venous blood specimen / Unknown Venipuncture / Unknown 12/30/2024 12:54 PM EST 12/30/2024 12:55 PM EST Sulma Sutton MD LAB BLOOD ORDERABLES Rosa l Result LABORATORY [place] [address] [place] [address] * MAGNESIUM (12/30/2024 12:54 PM EST) Pathologist [facility] Magnesium 1.9 1.5 - 2.6 mg/dL 12/30/2024 2:37 PM EST [facility] 56- Blood Venous blood specimen / Unknown Venipuncture / Unknown 12/30/2024 12:54 PM EST 12/30/2024 12:55 PM EST Sulma uStton MD LAB BLOOD ORDERABLES Rosa l Result [facility] 56- [address] [place] [address] * (ABNORMAL) IRON SCREEN, INCLUDING TIBC (12/30/2024 12:54 PM EST) [facility] Iron 9(L) 33 - 151 ug/dL 12/30/2024 9:52 PM EST LABORATORY [facility] Iron Binding Capacity 192(L) 250 - 425 ug/dL 12/30/2024 9:52 PM EST LABORATORY [facility] Transferrin Saturation Percent 5(L) 15 - 55 % 12/30/2024 9:52 PM EST LAB[facility]ATORY [facility] Blood Venous blood specimen / Unknown Venipuncture / Unknown 12/30/2024 12:54 PM EST 12/30/2024 12:55 PM EST Sulma Sutton MD LAB BLOOD ORDERABLES Rosa l Result LABORATORY [facility] [address] [place] [address] * (ABNORMAL) COMPREHENSIVE METABOLIC PANEL (12/30/2024 12:54 PM EST) Pathologist [facility] BUN 12 6 - 20 mg/dL 12/30/2024 2:37 PM EST [facility] 56- CREATININE 1.1(H) 0.5 - 1.0 mg/dL 12/30/2024 2:37 PM EST [facility] 56- EGFR 55(L) >=60 mL/min 12/30/2024 2:37 PM [facility] 56 Comment:eGFR is calculated b ased on the CKD-EPI 2020 equation. SODIUM 134(L) 135 - 146 mmol/L 12/30/2024 2:37 PM [facility] 56 POTASSIUM 3.9 3.5 - 5.1 mmol/L 12/30/2024 2:37 PM [facility] 56 CHLORIDE 97(L) 98 - 107 mmol/L 12/30/2024 2:37 PM [facility] 56 CO2 21(L) 22 - 32 mmol/L 12/30/2024 2:37 PM [facility] 56 ANION GAP 16(H) 7 - 15 mmol/L 12/30/2024 2:37 PM [facility] 56 GLUCOSE 136(H) 70 - 120 mg/dL 12/30/2024 2:37 PM [facility] 56 Albumin 2.9(L) 3.8 - 5.0 g/dL 12/30/2024 2:37 PM [facility] 56 AST 14 10 - 35 U/L 12/30/2024 2:37 PM [facility] 56 Alkaline Phosphatase 108 35 - 130 U/L 12/30/2024 2:37 PM [facility] 56 Bilirubin, Total 0.3 <=1.2 mg/dL 12/30/2024 2:37 PM [facility] 56 CALCIUM 8.7 8.4 - 10.2 mg/dL 12/30/2024 2:37 PM [facility] 56 Protein 7.7 6.0 - 8.3 g/dL 12/30/2024 2:37 PM [facility] 56 ALT 8(L) 10 - 35 U/L 12/30/2024 2:37 PM [facility] 56 Blood Venous blood specimen / Unknown Venipuncture / Unknown 12/30/2024 12:54 PM EST 12/30/2024 12:55 PM EST us Sulma Sutton MD LAB BLOOD ORDERABLES Rosa l Result [facility] 56-[address] [place] [address] documented in this encounter Visit Diagnoses Diagnosis Proteinuria, unspecified type- Primary Hematuria, microscopic Microscopic hematuria Chronic cystitis with hematuria Type 2 diabetes mellitus with both eyes affected by mild nonproliferative retinopathy without macular edema, without long-term current use of insulin (HCC) Nephrolithiasis Calculus of kidney History of Lakesha-en-Y gastric bypass Bariatric surgery status Myopathy Myopathy, unspecified documented in this encounter Advance Directives * [...] 9:05 AM 01/01/2009 3:08 PM Care Teams Tail Sawyer Relationship Specialty Start Date End Date Jacinta Acosta III, MD 200 [place] [address] PCP - General 02/11/02 documented as of this encounter
--- OUTSIDE RECORDS SUMMARY | 2025-02-08 11:06 | External Medical Summary ---
Author Name Unknown Address Unknown Organization K0G:LABORATORY [place] [address] [place] [address] Laboratory Report Ordering Provider Test Date Status RADHA STEWARD 01/19/2025 09:33:56 Final Observation Date Value Abnormality Reference (Units ) Status Nucleated erythrocytes/100 leukocytes [Ratio] in Blood by Automated count 01/19/2025 09:33:56 Final Acanthocytes [Presence] in Blood by Light microscopy 01/19/2025 09:33:56 Moderate Abnormal None Seen Final Elliptocytes [Presence] in Blood by Light microscopy 01/19/2025 09:33:56 Many Abnormal None Seen Final Polychromasia [Presence] in Blood by Light microscopy 01/19/2025 09:33:56 Moderate Abnormal None Seen Final Schistocytes 01/19/2025 09:33:56 Few Abnormal None Seen Final Performing Location LABORATORY [place] [address] [place] [address]
--- OUTSIDE RECORDS SUMMARY | 2025-02-08 11:06 | External Medical Summary | Summary of Care ---
Author Name Unknown Organization [facility] Address [address] [facility] [place] [address] Phone [phone] Care Team Providers Care Merchandise Clerk Name Role Phone Cr COBURN MD, John E Primary Care Provider Reason for Visit * Reason Onset Date Comments Abnormal Test Results 01/01/2025 Encounter Details Date Type Department Care Team (Late st Contact Info) Description 01/01/2025 Telephone Family Practice [facility] [place] [address] [facility] [place] [address] Bandar Hankins III, MD 200 [facility] [place] [address] Abnormal Test Results Allergies Active Allergy Reactions Criticality [...] as of this encounter (statuses as of 01/02/2025) Medications Aspirin EC 81 MG Oral Tablet [...] the morning. 30 Tablet 5 4 Active Cephalexin 500 MG Oral Capsule (Keflex) Take 1 Capsule by mouth in the morning and 1 Capsule at noon and 1 Capsule before bedtime. Do all this for 5 days. 15 Capsule 5 01/06/20 25 Active documented as of this encounter (statuses as of 01/02/2025) Active Problems Problem Noted Date Diagnosed Date [...] ICD-10 update of inactive term NAVA RESEARCH OTHER*[id number] 03/02/2008 Uterine prolapse 09/10/2007 Varicella without complication documented as of this encounter (statuses as of 01/02/2025) Resolved Problems Problem Noted Date Diagnosed Date Resolved Date Accelerometer Research Study*[id number] 12/11/2013 02/09/2014 ADVANCE DIRECTIVE INFORMATION 01/30/2012 09/15/2024 [...] as of this encounter (statuses as of 01/02/2025) Immunizations Name Administration Dates Next Due COVID-19 mRNA, LNP-s, No Pre serve, 2-Dose Series ([employer]) 02/16/2021,01/24/2021 COVID-19, MRNA-LNP, PF, 30 M CG/0.3 [...] No 09/23/2024 Does the household have a [facility] source of income? (Household - for ages [...] encounter Miscellaneous Notes * Telephone Encounter - Kari Rashid LPN - 01/01/2025 3:34 PM EST Patient(s) returned call. Informed of message. Verbalized understanding. * Telephone Encounter - Katherin Yarbrough OSA - 01/01/2025 3:32 PM EST Reason for patient's call: calling to go over test results. Caller was transferred to [facility] at the nurse line. * Telephone Encounter - Manisha Lanza LPN - 01/01/2025 2:48 PM EST Left message for patient to return call. Please make her aware of Dr. Hankins's message below. I have also sent her a [employer] g message. * Telephone Encounter - Manisha Lanza LPN - 01/01/2025 2:47 PM EST ----- Message from Bandar Hankins MD sent at 01/01/2025 12:39 PM EST ----- Call please urinary tract infection cephalexin sent to pharmacy encourage fluids documented in this encounter Plan of Treatment Upcoming Encounters Date Type Department Care Team (Late st Contact Info) Description 01/09/2025 2:00 PM EST Imaging Radiology [facility] [address] [place] [address] Scheduled [...] this encounter Medical Devices Implanted Type Area Behavioral Consultant Device Identifier Shelf Expiration Date Model / Serial / Lot Device Tvt [id number] - [id number] Implanted:Qty: 1 on 12/20/2011 at OR [facility] [place] N/A: Vagina JN[place] : [employer] 05/11/2014 [id number] / / [id number] documented as of this encounter Advance Directives [...] 9:05 AM 01/01/2009 3:08 PM Care Teams Merchandise Clerk Relationship Specialty Start Date End Date Bandar Hankins III, MD [address] [place] [address] PCP - General 02/11/02 documented as of this encounter
--- OUTSIDE RECORDS SUMMARY | 2025-02-08 11:06 | External Medical Summary | Summary of Care ---
Author Name Unknown Organization [facility] Address [address] [facility] [address] Phone [phone] Care Team Providers Care Drum Stock Clerk Name Role Phone Cr COBURN MD, Bandar Mcdonnell Primary Care Provider Reason for Visit * Reason Comments Outpatient Testing Encounter Details Date Type Department Care Team (Late st Contact Info) Description 01/19/2025 9:40 AM EDT Laboratory Laboratory, [facility] [address] [facility] [id number] [facility] 132 [place] [address] Hydronephrosis, unspecified hydronephrosis type; History of UTI [...] ICD-10 update of inactive term NAVA RESEARCH OTHER*[id number] 03/02/2008 Uterine prolapse 09/10/2007 Varicella without complication documented as of this encounter (statuses as of 01/19/2025) Resolved Problems Problem Noted Date Diagnosed Date Resolved Date Accelerometer Research Study*[id number] 12/11/2013 02/09/2014 ADVANCE DIRECTIVE INFORMATION 01/30/2012 09/15/2024 [...] [address] [place] [address] Margarita Ambrosio PA-C [address] [place] [address] Pending Results Name Type Priority Associated Diagnoses [...] this encounter Medical Devices Implanted Type Area Account Executive Key Accounts Device Identifier Shelf Expiration Date Model / Serial / Lot Device Tvt [id number] - [id number] Implanted:Qty: 1 on 12/20/2011 at [place] [facility] [place] N/A: Vagina JNJ : [facility] [employer] 05/11/2014 [id number] / / [id number] documented as of this encounter Procedures Procedure [...] Negative 01/19/2025 12:31 PM EDT LABORATORY [facility] 57-10 Ketone, Urine Trace(A) Negative mg/dL 01/19/2025 12:31 PM EDT LABORATORY [facility] 57-10 Specific [place], Urine >=1.030 1.003 - 1.030 01/19/2025 12:31 PM EDT LABORATORY [facility] 57-10 Blood, Urine Moderate(A) Negative 01/19/2025 12:31 PM EDT LABORATORY [facility] 57-10 pH, Urine 6.0 5.0 - 7.5 Units 01/19/2025 12:31 PM EDT LABORATORY [facility] 57-10 Protein, Urine >=300(A) Negative mg/dL 01/19/2025 12:31 PM EDT LABORATORY [facility] 57-10 Urobilinogen, Urine 0.2 0.2, 1.0 mg/dL 01/19/2025 12:31 PM EDT LABORATORY [facility] 57-10 Nitrite, Urine Negative Negative 01/19/2025 12:31 PM EDT LABORATORY [facility] 57-10 Esterase, Urine Large(A) Negative 01/19/2025 12:31 PM EDT LABORATORY [facility] 57-10 RBC, Urine 6-9(A) 0 - 2 /HPF 01/19/2025 12:31 PM EDT LABORATORY [facility] 57-10 WBC, Urine 50+(A) 0 - 2 /HPF 01/19/2025 12:31 PM EDT LABORATORY [facility] 5710 Bacteria, Urine 51-100(A) 0 - 25 /HPF 01/19/2025 12:31 PM EDT LABORATORY [facility] 5710 Urine Non-blood Collection / Unknown 01/19/2025 11:14 AM EDT 01/19/2025 11:14 AM EDT us Sulma Sutton MD LAB URINE ORDERABLES Rosa l Result LABORATORY [facility] 57-10 [address] [facility] [address] * (ABNORMAL) DIFFERENTIAL, TECHNOLOGIST REVIEW (01/19/2025 9:33 AM EDT) Pathologist [facility] nRBCs 01/19/2025 11:06 AM EDT LABORATORY [place] [...] LAB BLOOD ORDERABLES Rosa l Result LABORATORY [place] 57-[address] [place] [address] * DIFFERENTIAL, AUTOMATED (01/19/2025 9:33 AM EDT) Pathologist [facility] WBC 8.57 4.00 - 10.80 K/uL 01/19/2025 [...] 2.0 % 01/19/2025 11:06 AM EDT LABORATORY [place] 57-10 Absolute Neutrophils 5.80 1.80 - 7.70 K/uL 01/19/2025 11:06 AM EDT LABORATORY [place] 57-10 Absolute Lymphocytes 2.07 1.00 - 4.80 K/ul 01/19/2025 11:06 AM EDT LABORATORY [place] 57-10 Absolute Monocytes 0.48 0.00 - 1.10 K/uL 01/19/2025 11:06 AM EDT LABORATORY [place] 57-10 Absolute Eosinophils 0.20 0.00 - 0.70 K/uL 01/19/2025 11:06 AM EDT LABORATORY [place] 57-10 Absolute Basophils 0.02 0.00 - 0.20 K/uL 01/19/2025 11:06 AM EDT LABORATORY [place] 57-10 Blood Venous blood specimen / Unknown Venipuncture / Unknown 01/19/2025 9:33 AM EDT 01/19/2025 9:33 AM EDT us Sulma Sutton MD LAB BLOOD ORDERABLES Rosa l Result LABORATORY [place] [address] [place] [address] * (ABNORMAL) CBC (01/19/2025 9:33 AM EDT) WBC 8.57 4.00 - 10.80 K/uL 01/19/2025 11:06 AM EDT LABORATORY [place] 57-10 RBC 3.90 3.85 - 5.15 M/uL 01/19/2025 11:06 AM EDT LABORATORY [place] 57-10 HGB 7.2(L) 12.0 - 15.3 g/dL 01/19/2025 11:06 AM EDT LABORATORY [place] 57-10 HCT 25.5(L) 36.0 - 45.2 % 01/19/2025 11:06 AM EDT LABORATORY [place] 57-10 MCV 65.4 81.5 - 97.5 fL 01/19/2025 11:06 AM EDT LABORATORY [place] [facility] MCH 18.5 27.0 - 34.0 pg 01/19/2025 11:06 AM EDT LABORATORY [place] [facility] MCHC 28.2 32.0 - 36.0 g/dL 01/19/2025 11:06 AM EDT LABORATORY [place] [address] RDW 23.8 11.5 - 15.5 % 01/19/2025 11:06 AM EDT LABORATORY [place] [address] PLT 909(H) 140 - 400 K/uL 01/19/2025 11:06 AM EDT LABORATORY [place] [address] MPV 8.7 6.6 - 11.1 fL 01/19/2025 11:06 AM EDT LABORATORY [place] [address] Blood Venous blood specimen / Unknown Venipuncture / Unknown 01/19/2025 9:33 AM EDT 01/19/2025 9:33 AM EDT us Sulma Sutton MD LAB BLOOD ORDERABLES Rosa l Result LABORATORY [place] [address] [address] [place] [address] * (ABNORMAL) BASIC METABOLIC PANEL (01/19/2025 9:33 AM EDT) BUN 11 6 - 20 mg/dL 01/19/2025 1:18 PM EDT [facility] 56- CREATININE 1.0 0.5 - 1.0 mg/dL 01/19/2025 1:18 PM EDT [facility] 56- EGFR 65 >=60 mL/min 01/19/2025 1:18 PM EDT [facility] 56- Comment:eGFR is calculated b ased on the CKD-EPI 2020 equation. SODIUM 138 135 - 146 mmol/L 01/19/2025 1:18 PM EDT [facility] 56- POTASSIUM 4.2 3.5 - 5.1 mmol/L 01/19/2025 1:18 PM EDT [facility] 56- CHLORIDE 103 98 - 107 mmol/L 01/19/2025 1:[address] CO2 23 22 - 32 mmol/L 01/19/2025 1:18 PM EDT [address] ANION GAP 12 7 - 15 mmol/L 01/19/2025 1:18 PM EDT [place] [address] GLUCOSE 153(H) 70 - 120 mg/dL 01/19/2025 1:18 PM EDT [address] CALCIUM 8.6 8.4 - 10.2 mg/dL 01/19/2025 1:18 PM EDT [address] Blood Venous blood specimen / Unknown Venipuncture / Unknown 01/19/2025 9:33 AM EDT 01/19/2025 9:33 AM EDT us Sulma Sutton MD LAB BLOOD ORDERABLES [place] Result [address] [place] [address] documented in this encounter Visit Diagnoses Diagnosis [...] 9:05 AM 01/01/2009 3:08 PM Care Teams Drum Stock Clerk Relationship Specialty Start Date End Date Bandar Hankins III, MD 200 [facility] [place] [address] PCP - General 02/11/02 documented as of this encounter
--- OUTSIDE RECORDS SUMMARY | 2025-02-08 11:06 | External Medical Summary | Summary of Care ---
Author Name Unknown Organization [facility] Address [address] [facility] [place] [address] Phone [phone] Care Team Providers Care Buffet Manager Name Role Phone Cr COBURN MD, John E Primary Care Provider Encounter Details Date Type Department Care Team (Late st Contact Info) Description 01/01/2025 Orders Only Family Practice [facility] [place] [address] [facility] [place] [address] Bandar Hankins III, MD 200 [facility] [place] [address] Allergies Active Allergy Reactions Criticality Noted Date [...] as of this encounter (statuses as of 01/01/2025) Medications Aspirin EC 81 MG Oral Tablet [...] as of this encounter (statuses as of 01/01/2025) Active Problems Problem Noted Date Diagnosed Date [...] ICD-10 update of inactive term NAVA RESEARCH OTHER*[id number] 03/02/2008 Uterine prolapse 09/10/2007 Varicella without complication documented as of this encounter (statuses as of 01/01/2025) Resolved Problems Problem Noted Date Diagnosed Date Resolved Date Accelerometer Research Study*[id number] 12/11/2013 02/09/2014 ADVANCE DIRECTIVE INFORMATION 01/30/2012 09/15/2024 [...] as of this encounter (statuses as of 01/01/2025) Immunizations Name Administration Dates Next Due COVID-19 [...] Description 01/09/2025 2:00 PM EST Imaging Radiology [facility] [address] [place] [address] [...] this encounter Medical Devices Implanted Type Area Director Operations Broadcast Device Identifier Shelf Expiration Date Model / Serial / Lot Device Tvt [id number] - [id number] Implanted:Qty: 1 on 12/20/2011 at [place] [facility] N/A: Vagina JNJ : [employer] 05/11/2014 [id number] / / [id number] documented as of this encounter Advance Directives [...] 9:05 AM 01/01/2009 3:08 PM Care Teams Buffet Manager Relationship Specialty Start Date End Date Bandar Hankins III, MD 200 [place] [address] PCP - General 02/11/02 documented as of this encounter
--- OUTSIDE RECORDS SUMMARY | 2025-02-08 11:06 | External Medical Summary ---
Author Name Unknown Address Unknown Organization K0G:[facility]ATORY [place] [address] [place] [address] Laboratory Report Ordering Provider Test Date Status RADHA STEWARD 01/19/2025 11:14:56 Final Observation Date Value Abnormality Reference (Units ) Status Color of Urine by Auto 01/19/2025 11:14:56 Yellow Light Yellow, Yellow, Dark Yellow Final Clarity, Urine 01/19/2025 11:14:56 Cloudy Abnormal Clear Final Glucose [Mass/volume] in Urine by Automated test strip 01/19/2025 11:14:56 Negative Negative (mg/dL) Final Bilirubin.total [Presence] in Urine by Automated test strip 01/19/2025 11:14:56 Negative Negative Final Ketones [Mass/volume] in Urine by Automated test strip 01/19/2025 11:14:56 Trace Abnormal Negative (mg/dL) Final Specific gravity, Urine 01/19/2025 11:14:56 >=1.030 1.003-1.030 Final Hemoglobin [Presence] in Urine by Automated test strip 01/19/2025 11:14:56 Moderate Abnormal Negative Final pH, Urine 01/19/2025 11:14:56 6.0 5.0-7.5 (Units) Final Protein [Mass/volume] in Urine by Automated test strip 01/19/2025 11:14:56 >=300 Abnormal Negative (mg/dL) Final Urobilinogen [Mass/volume] in Urine by Automated test strip 01/19/2025 11:14:56 0.2 0.2, 1.0 (mg/dL) Final Nitrite [Presence] in Urine by Automated test strip 01/19/2025 11:14:56 Negative Negative Final Leukocyte esterase [Presence] in Urine by Automated test strip 01/19/2025 11:14:56 Large Abnormal Negative Final RBC, Urine 01/19/2025 11:14:56 6-9 Abnormal 0-2 (/HPF) Final WBC, Urine 01/19/2025 11:14:56 50+ Abnormal 0-2 (/HPF) Final Bacteria [#/area] in Urine sediment by Microscopy high power field 01/19/2025 11:14:56 51-100 Abnormal 0-25 (/HPF) Final Performing Location LABORATORY [place] [address] [facility] [address]
--- OUTSIDE RECORDS SUMMARY | 2025-02-08 11:06 | External Medical Summary | Summary of Care ---
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 Hole Digging Machine Operator Name Role Phone Cr COBURN MD, Bandar Mcdonnell Primary Care Provider Reason for Visit * Reason Comments Outpatient Testing Encounter Details Date Type Department Care Team (Late st Contact Info) Description 12/30/2024 12:50 PM EST Laboratory Laboratory [facility] [place] [address] [place] [id number] [place], [facility] [address] [place] [address] Proteinuria, unspecified type; Malaise and fatigue Allergies Active Allergy Reactions Criticality Noted Date [...] as of this encounter (statuses as of 12/30/2024) Medications Aspirin EC 81 MG Oral Tablet Delayed Release Take by mouth 1 Tablet in the morning. 100 Tablet 3 10/05/202 2 Active Pantoprazole Sodium 40 MG Oral [...] as of this encounter (statuses as of 12/30/2024) Active Problems Problem Noted Date Diagnosed Date [...] ICD-10 update of inactive term NAVA RESEARCH OTHER*[id number] 03/02/2008 Uterine prolapse 09/10/2007 Varicella without complication documented as of this encounter (statuses as of 12/30/2024) Resolved Problems Problem Noted Date Diagnosed Date Resolved Date Accelerometer Research Study*[id number] 12/11/2013 02/09/2014 ADVANCE DIRECTIVE INFORMATION 01/30/2012 09/15/2024 [...] as of this encounter (statuses as of 12/30/2024) Immunizations Name Administration Dates Next Due COVID-19 [...] as of this encounter Plan of Treatment Pending Results Name Type Priority Associated Diagnoses Date /Time IRON SCREEN, INCLUDING TIBC Lab Routine Proteinuria, unspecified type 12/30/2024 12:54 PM EST PTH Lab Routine Proteinuria, unspecified type 12/30/2024 12:54 PM EST 25-HYDROXY VITAMIN D Lab Routine Proteinuria, unspecified type 12/30/2024 12:54 PM EST MONOCLONAL GAMMOPATHIES SCREENING PANEL Lab Routine Proteinuria, unspecified type 12/30/2024 12:54 PM EST IMMUNOGLOBULIN QUANTITATIVE Lab Routine Proteinuria, unspecified type 12/30/2024 12:54 PM EST CK Lab Routine Proteinuria, unspecified type 12/30/2024 12:54 PM EST HEPATITIS B SURFACE ANTIGEN Lab Routine Proteinuria, unspecified type 12/30/2024 12:54 PM EST HEPATITIS B SURFACE ANTIBODY Lab Routine Proteinuria, unspecified type 12/30/2024 12:54 PM EST HEPATITIS B CORE ANTIBODY IGM Lab Routine Proteinuria, unspecified type 12/30/2024 12:54 PM EST HEPATITIS B CORE ANTIBODIES IGG AND IGM Lab Routine Proteinuria, unspecified type 12/30/2024 12:54 PM EST HEPATITIS C ANTIBODY SCREEN WITH PROGRESSION TO HEPATITIS C RNA QUANTITATIVE Lab Routine Proteinuria, unspecified type 12/30/2024 12:54 PM EST COMPLEMENT C3 Lab Routine Proteinuria, unspecified type 12/30/2024 12:54 PM EST COMPLEMENT C4 Lab Routine Proteinuria, unspecified type 12/30/2024 12:54 PM EST ANCA REFLEX PANEL Lab Routine Proteinuria, unspecified type 12/30/2024 12:54 PM EST GLOMERULAR BASEMENT MEMBRANE ANTIBODY (IGG) Lab Routine Proteinuria, unspecified type 12/30/2024 12:54 PM EST ANTINUCLEAR ANTIBODY (ASHLNY) EIA SCREEN WITH REFLEX AB QUANT Lab Routine Proteinuria, unspecified type 12/30/2024 12:54 PM EST DOUBLE STRANDED DNA (DSDNA) ANTIBODY, IFA Lab Routine Proteinuria, unspecified type 12/30/2024 12:54 PM EST TSH WITH FREE T4 IF INDICATED Lab Routine Malaise and fatigue 12/30/2024 12:54 PM EST SERUM PROTEIN ELECTROPHORESIS REFLEX PROFILE Lab Routine Proteinuria, unspecified type 12/30/2024 12:54 PM EST SERUM FREE LIGHT CHAINS Lab Routine Proteinuria, unspecified type 12/30/2024 12:54 PM EST SERUM IMMUNOFIXATION Lab Routine Proteinuria, unspecified type 12/30/2024 12:54 PM EST URINE IMMUNOFIXATION, BENCE CABRERA PROTEIN, RANDOM URINE Lab Routine Proteinuria, unspecified type 12/30/2024 12:54 PM EST HEPATITIS C ANTIBODY Lab Routine Proteinuria, unspecified type 12/30/2024 12:54 PM EST HEPATITIS C RNA QUANTITATION REFLEX COLLECTION Lab Routine Proteinuria, unspecified type 12/30/2024 12:54 PM EST ANCA, IFA Lab Routine Proteinuria, unspecified type 12/30/2024 12:54 PM EST ANTINUCLEAR ANTIBODY (ASHLYN) SCREEN, PHYLLIS Lab Routine Proteinuria, unspecified type 12/30/2024 12:54 PM EST PROTEIN/ CREATININE RATIO, URINE Lab Routine Proteinuria, unspecified type 12/30/2024 12:55 PM EST PROTEIN, RANDOM URINE Lab Routine Proteinuria, unspecified type 12/30/2024 12:54 PM EST Scheduled Procedures Name Priority Associated Diagnoses Date/Ti [...] this encounter Medical Devices Implanted Type Area Basin Cleaner Device Identifier Shelf Expiration Date Model / Serial / Lot Device Tvt [id number] - [id number] Implanted:Qty: 1 on 12/20/2011 at [place] [facility] [place] N/A: Vagina [place] : [employer] 05/11/2014 [id number] / / [id number] documented as of this encounter Procedures Procedure Name Priority Date/Time Associated Diagnosis Comments URINALYSIS WITH MICROSCOPIC EXAM Routine 12/30/2024 12:55 PM EST Proteinuria, unspecified type DIFFERENTIAL, AUTOMATED Routine 12/30/2024 12:54 PM EST Proteinuria, unspecified type COMPREHENSIVE METABOLIC PANEL Routine 12/30/2024 12:54 PM EST Proteinuria, unspecified type CBC Routine 12/30/2024 12:54 PM EST Proteinuria, unspecified type PHOSPHORUS Routine 12/30/2024 12:54 PM EST Proteinuria, unspecified type ERYTHROCYTE SEDIMENTATION RATE (ESR) Routine 12/30/2024 12:54 PM EST Proteinuria, unspecified type CBC Routine 12/30/2024 12:54 PM EST Proteinuria, unspecified type DIFFERENTIAL, TECHNOLOGIST REVIEW Routine 12/30/2024 12:54 PM EST Proteinuria, unspecified type MAGNESIUM Routine 12/30/2024 12:54 PM EST Proteinuria, unspecified type documented in this encounter Results * (ABNORMAL) URINALYSIS WITH MICROSCOPIC EXAM (12/30/2024 12:55 PM EST) Color, Urine Light Yellow Light Yellow, Yellow, Dark Yellow 12/30/2024 5:41 PM EST LABORATORY [facility] [facility] Clarity, Urine Turbid(A) Clear 12/30/2024 5:41 PM EST [facility] Glucose, Urine Negative Negative mg/dL 12/30/2024 5:41 PM EST [facility] Bilirubin, Urine Negative Negative 12/30/2024 5:41 PM EST [facility] Ketone, Urine Trace(A) Negative mg/dL 12/30/2024 5:41 PM EST [facility] Specific [place], Urine 1.023 1.003 - 1.030 12/30/2024 5:41 [...] 12:55 PM EST 12/30/2024 12:55 PM EST us Sulma Sutton MD LAB URINE ORDERABLES Rosa limon Result [facility] [address] [place] [address] * (ABNORMAL) DIFFERENTIAL, TECHNOLOGIST REVIEW (12/30/2024 12:54 PM EST) Pathologist [facility] nRBCs 12/30/2024 1:49 PM EST [facility] 56-02 Elliptocytes Moderate(A ) None Seen 12/30/2024 1:49 PM EST [facility] 56-02 Polychromasia Moderate(A ) None Seen 12/30/2024 1:49 PM EST [facility] 56-02 Blood Venous blood specimen / Unknown Venipuncture / Unknown 12/30/2024 12:54 PM EST 12/30/2024 12:55 PM EST us Sulma Sutton MD LAB BLOOD ORDERABLES Rosa l Result [facility] 56- [address] [place] [address] * (ABNORMAL) DIFFERENTIAL, AUTOMATED (12/30/2024 12:54 PM EST) [facility] WBC 16.35(H) 4.00 - 10.80 K/uL 12/30/2024 1:49 PM [facility] 56-02 Neutrophils % 80.8(H) 40.0 - 75.0 % 12/30/2024 1:49 PM [facility] 56-02 Lymphocytes % 13.3(L) 18.0 - 42.0 % 12/30/2024 1:49 PM [facility] 56-02 Monocytes % 5.0 1.0 - 11.0 % 12/30/2024 1:49 PM [facility] 56-02 Eosinophils % 0.7 0.0 - 6.0 % 12/30/2024 1:49 PM EST [facility] 56-02 Basophils % 0.2 0.0 - 2.0 % 12/30/2024 1:49 PM [facility] 56-02 Absolute Neutrophils 13.21(H) 1.80 - 7.70 K/uL 12/30/2024 1:49 PM EST [facility] 56-02 Absolute Lymphocytes 2.18 1.00 - 4.80 K/ul 12/30/2024 1:49 PM EST [facility] 56-02 Absolute Monocytes 0.81 0.00 - 1.10 K/uL 12/30/2024 1:49 PM [facility] 56 Absolute Eosinophils 0.12 0.00 - 0.70 K/uL 12/30/2024 1:49 PM [facility] 56- Absolute Basophils 0.03 0.00 - 0.20 K/uL 12/30/2024 1:49 PM [facility] 56 Blood Venous blood specimen / Unknown Venipuncture / Unknown 12/30/2024 12:54 PM EST 12/30/2024 12:55 PM EST us Sulma Sutton MD LAB BLOOD ORDERABLES Rosa l Result [facility] [address] [place] [address] * (ABNORMAL) CBC (12/30/2024 12:54 PM EST) WBC 16.35(H) 4.00 - 10.80 K/uL 12/30/2024 1:49 PM [facility] 56 RBC 4.26 3.85 - 5.15 M/uL 12/30/2024 1:49 PM [facility] 56 HGB 7.7(L) 12.0 - 15.3 g/dL 12/30/2024 1:49 PM [facility] 56 HCT 26.3(L) 36.0 - 45.2 % 12/30/2024 1:49 PM [facility] 56 MCV 61.7 81.5 - 97.5 fL 12/30/2024 1:49 PM [facility] 56 MCH 18.1 27.0 - 34.0 pg 12/30/2024 1:49 PM [facility] 56 MCHC 29.3 32.0 - 36.0 g/dL 12/30/2024 1:49 PM [facility] 56 RDW 21.9 11.5 - 15.5 % 12/30/2024 1:49 PM [facility] 56 PLT 924(H) 140 - 400 K/uL 12/30/2024 1:49 PM [facility] 56 MPV 8.7 6.6 - 11.1 fL 12/30/2024 1:49 PM EST LABORATORY [place] 56-02 Blood Venous blood specimen / Unknown Venipuncture / Unknown 12/30/2024 12:54 PM EST 12/30/2024 12:55 PM EST Sulma Sutton MD LAB BLOOD ORDERABLES Rosa l Result [facility] 56-02 [address] [place] [address] * (ABNORMAL) ERYTHROCYTE SEDIMENTATION RATE (ESR) (12/30/2024 12:54 PM EST) ESR 103(H) <30 mm/hour 12/30/2024 5:42 PM EST LABORATORY [facility] Blood Venous blood specimen / Unknown Venipuncture / Unknown 12/30/2024 12:54 PM EST 12/30/2024 12:55 PM EST Sulma Sutton MD LAB BLOOD ORDERABLES Rosa l Result [facility] [address] [place] [address] * PHOSPHORUS (12/30/2024 12:54 PM EST) Phosphorus 3.1 2.5 - 4.8 mg/dL 12/30/2024 2:37 PM EST [facility] 56-02 Blood Venous blood specimen / Unknown Venipuncture / Unknown 12/30/2024 12:54 PM EST 12/30/2024 12:55 PM EST Sulma Sutton MD LAB BLOOD ORDERABLES Rosa l Result [facility] 56-02 [address] [place] [address] * MAGNESIUM (12/30/2024 12:54 PM EST) Magnesium 1.9 1.5 - 2.6 mg/dL 12/30/2024 2:37 PM EST [facility] 56 Blood Venous blood specimen / Unknown Venipuncture / Unknown 12/30/2024 12:54 PM EST 12/30/2024 12:55 PM EST us Sulma Sutton MD LAB BLOOD ORDERABLES Rosa l Result [facility] [address] [place], [place] [id number] * (ABNORMAL) COMPREHENSIVE METABOLIC PANEL (12/30/2024 12:54 PM EST) BUN 12 6 - 20 mg/dL 12/30/2024 2:37 PM [facility] CREATININE 1.1(H) 0.5 - 1.0 mg/dL 12/30/2024 2:37 PM [facility] EGFR 55(L) >=60 mL/min 12/30/2024 2:37 PM [facility] Comment:eGFR is calculated b ased on the CKD-EPI 2020 equation. SODIUM 134(L) 135 - 146 mmol/L 12/30/2024 2:37 PM [facility] POTASSIUM 3.9 3.5 - 5.1 mmol/L 12/30/2024 2:37 PM [facility] CHLORIDE 97(L) 98 - 107 mmol/L 12/30/2024 2:37 PM [facility] CO2 21(L) 22 - 32 mmol/L 12/30/2024 2:37 PM [facility] ANION GAP 16(H) 7 - 15 mmol/L 12/30/2024 2:37 PM [facility] 56 GLUCOSE 136(H) 70 - 120 mg/dL 12/30/2024 2:37 PM [facility] Albumin 2.9(L) 3.8 - 5.0 g/dL 12/30/2024 2:37 PM [facility] 56 AST 14 10 - 35 U/L 12/30/2024 2:37 PM [facility] 56 Alkaline Phosphatase 108 35 - 130 U/L 12/30/2024 2:37 PM EST [facility] 56- Bilirubin, Total 0.3 <=1.2 mg/dL 12/30/2024 2:37 PM EST [facility] 56- CALCIUM 8.7 8.4 - 10.2 mg/dL 12/30/2024 2:37 PM EST [facility] 56- Protein 7.7 6.0 - 8.3 g/dL 12/30/2024 2:37 PM EST [facility] 56- ALT 8(L) 10 - 35 U/L 12/30/2024 2:37 PM [facility] 56-02 Blood Venous blood specimen / Unknown Venipuncture / Unknown 12/30/2024 12:54 PM EST 12/30/2024 12:55 PM EST us Sulma Sutton MD LAB BLOOD ORDERABLES Rosa l Result [facility] [address] [facility] [address] documented in this encounter Visit Diagnoses Diagnosis Proteinuria, unspecified type Malaise and fatigue Other malaise and fatigue documented in this encounter Advance Directives * [...] 9:05 AM 01/01/2009 3:08 PM Care Teams Post Hole Digging Machine Operator Relationship Specialty Start Date End Date Bandar Hankins III, MD [address] [facility] [address] PCP - General 02/11/02 documented as of this encounter
--- OUTSIDE RECORDS SUMMARY | 2025-02-08 11:06 | External Medical Summary | Summary of Care ---
Author Name Unknown Organization [facility] Address [address] [facility] [place] [address] Phone [phone] Care Team Providers Care Plastic Mixer Name Role Phone Cr COBURN MD, Bandar Mcdonnell Primary Care Provider Reason for Visit * Reason Comments Outpatient Testing Encounter Details Date Type Department Care Team (Late st Contact Info) Description 01/19/2025 9:40 AM EDT Laboratory Laboratory, [facility] [address] [place] [phone] [facility] [address] [place] [address] Hydronephrosis, unspecified hydronephrosis type; History of UTI [...] ICD-10 update of inactive term NAVA RESEARCH OTHER*[id number] 03/02/2008 Uterine prolapse 09/10/2007 Varicella without complication documented as of this encounter (statuses as of 01/19/2025) Resolved Problems Problem Noted Date Diagnosed Date Resolved Date Accelerometer Research Study*[id number] 12/11/2013 02/09/2014 ADVANCE DIRECTIVE INFORMATION 01/30/2012 09/15/2024 [...] [address] [place] [address] Margarita Ambrosio PA-C [address] [place] [address] Pending Results Name Type Priority Associated Diagnoses [...] this encounter Medical Devices Implanted Type Area Extruding Press Operator Device Identifier Shelf Expiration Date Model / Serial / Lot Device Tvt [id number] - [id number] Implanted:Qty: 1 on 12/20/2011 at [place] [facility] [place] N/A: Vagina [place] : [facility] [employer] 05/11/2014 [id number] / / [id number] documented as of this encounter Procedures Procedure [...] Negative 01/19/2025 12:31 PM EDT LABORATORY [facility] 57-10 Ketone, Urine Trace(A) Negative mg/dL 01/19/2025 12:31 PM EDT LABORATORY [facility] 57-10 Specific [place], Urine >=1.030 1.003 - 1.030 01/19/2025 12:31 PM EDT LABORATORY [facility] 57-10 Blood, Urine Moderate(A) Negative 01/19/2025 12:31 PM EDT LABORATORY [facility] 57-10 pH, Urine 6.0 5.0 - 7.5 Units 01/19/2025 12:31 PM EDT LABORATORY [facility] 57-10 Protein, Urine >=300(A) Negative mg/dL 01/19/2025 12:31 PM EDT LABORATORY [facility] 57-10 Urobilinogen, Urine 0.2 0.2, 1.0 mg/dL 01/19/2025 12:31 PM EDT LABORATORY [facility] 57-10 Nitrite, Urine Negative Negative 01/19/2025 12:31 PM EDT LABORATORY [facility] 57-10 Esterase, Urine Large(A) Negative 01/19/2025 12:31 PM EDT LABORATORY [facility] 57-10 RBC, Urine 6-9(A) 0 - 2 /HPF 01/19/2025 12:31 PM EDT LABORATORY [facility] 57-10 WBC, Urine 50+(A) 0 - 2 /HPF 01/19/2025 12:31 PM EDT LABORATORY [facility] 5710 Bacteria, Urine 51-100(A) 0 - 25 /HPF 01/19/2025 12:31 PM EDT LABORATORY [facility] 5710 Urine Non-blood Collection / Unknown 01/19/2025 11:14 AM EDT 01/19/2025 11:14 AM EDT us Sulma Sutton MD LAB URINE ORDERABLES Rosa l Result LABORATORY [facility] 57-10 [address] [facility] [address] * (ABNORMAL) DIFFERENTIAL, TECHNOLOGIST REVIEW (01/19/2025 9:33 AM EDT) Pathologist [facility] nRBCs 01/19/2025 11:06 AM EDT LABORATORY [facility] [...] LAB BLOOD ORDERABLES Rosa l Result [facility] [place] 57-10 [address] [facility] [place] [address] * DIFFERENTIAL, AUTOMATED (01/19/2025 9:33 AM EDT) Pathologist [facility] WBC 8.57 4.00 - 10.80 K/uL 01/19/2025 [...] 2.0 % 01/19/2025 11:06 AM EDT [facility] [place] 57-10 Absolute Neutrophils 5.80 1.80 - 7.70 K/uL 01/19/2025 11:06 AM EDT [facility]ORY [place] 57-10 Absolute Lymphocytes 2.07 1.00 - 4.80 K/ul 01/19/2025 11:06 AM EDT [facility] [place] 57-10 Absolute Monocytes 0.48 0.00 - 1.10 K/uL 01/19/2025 11:06 AM EDT [facility] [place] 57-10 Absolute Eosinophils 0.20 0.00 - 0.70 K/uL 01/19/2025 11:06 AM EDT [facility] [place] 57-10 Absolute Basophils 0.02 0.00 - 0.20 K/uL 01/19/2025 11:06 AM EDT [facility] [place] 57-10 Blood Venous blood specimen / Unknown Venipuncture / Unknown 01/19/2025 9:33 AM EDT 01/19/2025 9:33 AM EDT us uSlma Sutton MD LAB BLOOD ORDERABLES Rosa l Result [facility] [place] 5710 [address] [place] [address] * (ABNORMAL) CBC (01/19/2025 9:33 AM EDT) WBC 8.57 4.00 - 10.80 K/uL 01/19/2025 11:06 AM EDT [facility] [place] 57-10 RBC 3.90 3.85 - 5.15 M/uL 01/19/2025 11:06 AM EDT [facility] [place] 57-10 HGB 7.2(L) 12.0 - 15.3 g/dL 01/19/2025 11:06 AM EDT [facility] [place] 57-10 HCT 25.5(L) 36.0 - 45.2 % 01/19/2025 11:06 AM EDT [facility] [place] 57-10 MCV 65.4 81.5 - 97.5 fL 01/19/2025 11:06 AM EDT [facility] [place] [facility] MCH 18.5 27.0 - 34.0 pg 01/19/2025 11:06 AM EDT [facility] [place] [facility] MCHC 28.2 32.0 - 36.0 g/dL 01/19/2025 11:06 AM EDT LABORATORY [place] [address] RDW 23.8 11.5 - 15.5 % 01/19/2025 11:06 AM EDT LABORATORY [place] [address] PLT 909(H) 140 - 400 K/uL 01/19/2025 11:06 AM EDT LABORATORY [place] [address] MPV 8.7 6.6 - 11.1 fL 01/19/2025 11:06 AM EDT LABORATORY [place] [address] Blood Venous blood specimen / Unknown Venipuncture / Unknown 01/19/2025 9:33 AM EDT 01/19/2025 9:33 AM EDT us Sulma Sutton MD LAB BLOOD ORDERABLES Rosa l Result LABORATORY [place] [address] [address] [place] [address] * (ABNORMAL) BASIC METABOLIC PANEL (01/19/2025 9:33 AM EDT) BUN 11 6 - 20 mg/dL 01/19/2025 1:18 PM EDT [facility] 56- CREATININE 1.0 0.5 - 1.0 mg/dL 01/19/2025 1:18 PM EDT [facility] 56- EGFR 65 >=60 mL/min 01/19/2025 1:18 PM EDT [facility] 56- Comment:eGFR is calculated b ased on the CKD-EPI 2020 equation. SODIUM 138 135 - 146 mmol/L 01/19/2025 1:18 PM EDT [facility] 56- POTASSIUM 4.2 3.5 - 5.1 mmol/L 01/19/2025 1:18 PM EDT [facility] 56- CHLORIDE 103 98 - 107 mmol/L 01/19/2025 1:18 PM EDT [address] CO2 23 22 - 32 mmol/L 01/19/2025 1:18 PM EDT [address] ANION GAP 12 7 - 15 mmol/L 01/19/2025 1:18 PM EDT [place] [address] GLUCOSE 153(H) 70 - 120 mg/dL 01/19/2025 1:18 PM EDT [address] CALCIUM 8.6 8.4 - 10.2 mg/dL 01/19/2025 1:18 PM EDT [address] Blood Venous blood specimen / Unknown Venipuncture / Unknown 01/19/2025 9:33 AM EDT 01/19/2025 9:33 AM EDT us Sulma Sutton MD LAB BLOOD ORDERABLES Rosa limon Result [address] [place] [address] documented in this encounter Visit Diagnoses Diagnosis [...] 9:05 AM 01/01/2009 3:08 PM Care Teams Plastic Mixer Relationship Specialty Start Date End Date Bandar Hankins III, MD [address] [place] [address] PCP - General 02/11/02 documented as of this encounter
--- OUTSIDE RECORDS SUMMARY | 2025-02-08 11:06 | External Medical Summary ---
Author Name Unknown Address Unknown Organization [id number]:LABORATORY [place] 57-10 - [address] [place] [address] Laboratory Report Ordering Provider Test Date Status RADHA STEWARD 01/19/2025 09:33:56 Final Observation Date Value Abnormality Reference (Units ) Status WBC, Total 01/19/2025 09:33:56 8.57 4.00-10.8 0 (K/uL) Final RBC 01/19/2025 09:33:56 3.90 3.85-5.15 (M/uL) Final Hemoglobin 01/19/2025 09:33:56 7.2 Below low normal 12 .0-15.3 (g/dL) Final HCT 01/19/2025 09:33:56 25.5 Below low normal 36. 0-45.2 (%) Final MCV 01/19/2025 09:33:56 65.4 81.5-97.5 (fL) Final MCH 01/19/2025 09:33:56 18.5 27.0-34.0 (pg) Final MCHC 01/19/2025 09:33:56 28.2 32.0-36.0 (g/dL) Final RDW 01/19/2025 09:33:56 23.8 11.5-15.5 (%) Final Platelets 01/19/2025 09:33:56 909 Above high normal 14 0-400 (K/uL) Final MPV 01/19/2025 09:33:56 8.7 6.6-11.1 ( fL) Final Performing Location LABORATORY [place] 57-1 0 - [address] [place] [address]
--- OUTSIDE RECORDS SUMMARY | 2025-02-08 11:06 | External Medical Summary ---
Author Name Unknown Address Unknown Organization K01:[facility] [place] [address] [place] [address] Laboratory Report Ordering Provider Test Date Status GÓMEZ NIESLEN 01/19/2025 09:33:56 Final Observation Date Value Abnormality Reference (Units ) Status Ferritin 01/19/2025 09:33:56 43 13-150 (ng /mL) Final Postmenopausal women have hi gher ferritin levels than pre-menopausal women. The above reference interval is based on pre-menopausal women. Performing Location LAB[facility]ATORY [facility] - [address] [place] [address]
--- OUTSIDE RECORDS SUMMARY | 2025-02-08 11:07 | External Medical Summary ---
Author Name Unknown Address Unknown Organization K01:LAB[facility]ATORY [facility] [place] - [address] [facility] [address] Laboratory Report Ordering Provider Test Date Status RADHA STEWARD 12/30/2024 12:54:57 Final Observation Date Value Abnormality Reference (Units) Status PARAPROTEIN NORMAL/ABNORMAL 12:54:57 Normal Normal Final Protein 12:54:57 7.5 6.0-8.3 (g/dL) Final Albumin/Protein.tota l [Pure mass fraction] in Serum or Plasma by Electrophoresis 12:54:57 2.17 Below low normal 3.30-4.40 (g/dL) Final Alpha 1 globulin/Protein.tot al [Pure mass fraction] in Serum or Plasma by Electrophoresis 12:54:57 0.52 Above high normal 0.10-0.30 (g/dL) Final Alpha 2 globulin/Protein.tot al [Pure mass fraction] in Serum or Plasma by Electrophoresis 12:54:57 1.35 Above high normal 0.60-1.00 (g/dL) Final Beta globulin/Protein.tot al [Pure mass fraction] in Serum or Plasma by Electrophoresis 12:54:57 1.28 0.80-1.30 (g/dL) Final Gamma globulin/Protein.tot al [Pure mass fraction] in Serum or Plasma by Electrophoresis 12:54:57 2.17 Above high normal 0.70-1.70 (g/dL) Final Protein Fractions [Interpretation] in Serum or Plasma by Electrophoresis Narrative 12:54:57 There is a small irregularity of undetermined clinical significance in the gamma fraction. See serum immunofixation results. There is a polyclonal increase in the gamma fraction. This finding may be seen in association with chronic inflammation, Final Protein Fractions [Interpretation] in Serum or Plasma by Electrophoresis Narrative 12:54:57 infection, chronic liver disease or collagen disorders. Final Performing Location LABORATORY [facility] [place] - [address] [facility] [address]
--- OUTSIDE RECORDS SUMMARY | 2025-02-08 11:07 | External Medical Summary | Summary of Care ---
Author Name Unknown Organization [facility] Address [address] [place] [address] Phone [phone] Care Team Providers Care Head Insulation Board Saw Operator Name Role Phone Cr COBURN MD, Bandar Mcdonnell Primary Care Provider [phone] Reason for Visit * Reason Comments Outpatient Testing Encounter Details Date Type Department Care Team (Late st Contact Info) Description 12/30/2024 12:50 PM EST Laboratory Laboratory [address] [place] [address] [place] [phone] [place], Lab [address] [place] [address] Proteinuria, unspecified type; Malaise and fatigue Allergies [...] ICD-10 update of inactive term NAVA RESEARCH OTHER*[id number] 03/02/2008 Uterine prolapse 09/10/2007 Varicella without complication documented as of this encounter (statuses as of 12/30/2024) Resolved Problems Problem Noted Date Diagnosed Date Resolved Date Accelerometer Research Study*[id number] 12/11/2013 02/09/2014 ADVANCE DIRECTIVE INFORMATION 01/30/2012 09/15/2024 [...] this encounter Medical Devices Implanted Type Area Powerhouse Attendant Device Identifier Shelf Expiration Date Model / Serial / Lot Device Tvt [id number] - [id number] Implanted:Qty: 1 on 12/20/2011 at [place] [facility] [place] N/A: Vagina [place] : [employer] 05/11/2014 [id number] / / [id number] documented as of this encounter Procedures Procedure [...] Dark Yellow 12/30/2024 5:41 PM EST LABORATORY [facility] Clarity, Urine Turbid(A) Clear 12/30/2024 5:41 PM EST [facility] Glucose, Urine Negative Negative mg/dL 12/30/2024 5:41 PM EST [facility] Bilirubin, Urine Negative Negative 12/30/2024 5:41 PM EST [facility] Ketone, Urine Trace(A) Negative mg/dL 12/30/2024 5:41 PM EST [facility] Specific [place], Urine 1.023 1.003 - 1.030 12/30/2024 5:41 [...] ORDERABLES Rosa limon Result [facility] [address] [place] [address] * (ABNORMAL) DIFFERENTIAL, TECHNOLOGIST REVIEW (12/30/2024 12:54 PM EST) Pathologist [facility] nRBCs 12/30/2024 1:49 PM EST [facility] 56-02 Elliptocytes Moderate(A ) None Seen 12/30/2024 1:49 PM EST [facility] 56-02 Polychromasia Moderate(A ) None Seen 12/30/2024 1:49 PM EST [facility] 56-02 Blood Venous blood specimen / Unknown Venipuncture / Unknown 12/30/2024 12:54 PM EST 12/30/2024 12:55 PM EST us Sulma Sutton MD LAB BLOOD ORDERABLES Rosa l Result [facility] [address]- [address] [place] [address] * (ABNORMAL) DIFFERENTIAL, AUTOMATED (12/30/2024 12:54 PM EST) [facility] WBC 16.35(H) 4.00 - 10.80 K/uL 12/30/2024 1:49 PM [facility] 56-02 Neutrophils % 80.8(H) 40.0 - 75.0 % 12/30/2024 1:49 PM [facility] 56-02 Lymphocytes % 13.3(L) 18.0 - 42.0 % 12/30/2024 1:49 PM [facility] 56-02 Monocytes % 5.0 1.0 - 11.0 % 12/30/2024 1:49 PM [facility] 56-02 Eosinophils % 0.7 0.0 - 6.0 % 12/30/2024 1:49 PM EST [facility] 56-02 Basophils % 0.2 0.0 - 2.0 % 12/30/2024 1:49 PM [facility] 56-02 Absolute Neutrophils 13.21(H) 1.80 - 7.70 K/uL 12/30/2024 1:49 PM EST [facility] 56-02 Absolute Lymphocytes 2.18 1.00 - 4.80 K/ul 12/30/2024 1:49 PM EST [facility] 56-02 Absolute Monocytes 0.81 0.00 - 1.10 K/uL 12/30/2024 1:49 PM [facility] 56 Absolute Eosinophils 0.12 0.00 - 0.70 K/uL 12/30/2024 1:49 PM [facility] 56- Absolute Basophils 0.03 0.00 - 0.20 K/uL 12/30/2024 1:49 PM [facility] 56 Blood Venous blood specimen / Unknown Venipuncture / Unknown 12/30/2024 12:54 PM EST 12/30/2024 12:55 PM EST us Sulma Sutton MD LAB BLOOD ORDERABLES Rosa l Result [facility] [address] [place] [address] * (ABNORMAL) CBC (12/30/2024 12:54 PM EST) WBC 16.35(H) 4.00 - 10.80 K/uL 12/30/2024 1:49 PM [facility] 56 RBC 4.26 3.85 - 5.15 M/uL 12/30/2024 1:49 PM [facility] 56 HGB 7.7(L) 12.0 - 15.3 g/dL 12/30/2024 1:49 PM [facility] 56 HCT 26.3(L) 36.0 - 45.2 % 12/30/2024 1:49 PM [facility] 56 MCV 61.7 81.5 - 97.5 fL 12/30/2024 1:49 PM [facility] 56 MCH 18.1 27.0 - 34.0 pg 12/30/2024 1:49 PM [facility] 56 MCHC 29.3 32.0 - 36.0 g/dL 12/30/2024 1:49 PM [facility] 56 RDW 21.9 11.5 - 15.5 % 12/30/2024 1:49 PM [facility] 56 PLT 924(H) 140 - 400 K/uL 12/30/2024 1:49 PM [facility] 56 MPV 8.7 6.6 - 11.1 fL 12/30/2024 1:49 PM EST LABORATORY [place] 56-02 Blood Venous blood specimen / Unknown Venipuncture / Unknown 12/30/2024 12:54 PM EST 12/30/2024 12:55 PM EST Sulma Sutton MD LAB BLOOD ORDERABLES Rosa l Result [facility] 56-02 [address] [place] [address] * (ABNORMAL) ERYTHROCYTE SEDIMENTATION RATE (ESR) (12/30/2024 12:54 PM EST) ESR 103(H) <30 mm/hour 12/30/2024 5:42 PM EST LABORATORY [facility] Blood Venous blood specimen / Unknown Venipuncture / Unknown 12/30/2024 12:54 PM EST 12/30/2024 12:55 PM EST Sulma Sutton MD LAB BLOOD ORDERABLES Rosa l Result [facility] [address] [place] [address] * PHOSPHORUS (12/30/2024 12:54 PM EST) Phosphorus 3.1 2.5 - 4.8 mg/dL 12/30/2024 2:37 PM EST [facility] 56-02 Blood Venous blood specimen / Unknown Venipuncture / Unknown 12/30/2024 12:54 PM EST 12/30/2024 12:55 PM EST Sulma Sutton MD LAB BLOOD ORDERABLES Rosa l Result [facility] 56-02 [address] [place] [address] * MAGNESIUM (12/30/2024 12:54 PM EST) Magnesium 1.9 1.5 - 2.6 mg/dL 12/30/2024 2:37 PM EST [facility] 56 Blood Venous blood specimen / Unknown Venipuncture / Unknown 12/30/2024 12:54 PM EST 12/30/2024 12:55 PM EST us Sulma Sutton MD LAB BLOOD ORDERABLES Rosa l Result [facility] [address] [place], [place] [id number] * (ABNORMAL) COMPREHENSIVE METABOLIC PANEL (12/30/2024 12:54 PM EST) BUN 12 6 - 20 mg/dL 12/30/2024 2:37 PM [facility] CREATININE 1.1(H) 0.5 - 1.0 mg/dL 12/30/2024 2:37 PM [facility] EGFR 55(L) >=60 mL/min 12/30/2024 2:37 PM [facility] Comment:eGFR is calculated b ased on the CKD-EPI 2020 equation. SODIUM 134(L) 135 - 146 mmol/L 12/30/2024 2:37 PM [facility] POTASSIUM 3.9 3.5 - 5.1 mmol/L 12/30/2024 2:37 PM [facility] CHLORIDE 97(L) 98 - 107 mmol/L 12/30/2024 2:37 PM [facility] CO2 21(L) 22 - 32 mmol/L 12/30/2024 2:37 PM [facility] ANION GAP 16(H) 7 - 15 mmol/L 12/30/2024 2:37 PM [facility] 56 GLUCOSE 136(H) 70 - 120 mg/dL 12/30/2024 2:37 PM [facility] Albumin 2.9(L) 3.8 - 5.0 g/dL 12/30/2024 2:37 PM [facility] 56 AST 14 10 - 35 U/L 12/30/2024 2:37 PM [facility] 56 Alkaline Phosphatase 108 35 - 130 U/L 12/30/2024 2:37 PM EST [facility] 56- Bilirubin, Total 0.3 <=1.2 mg/dL 12/30/2024 2:37 PM EST [facility] 56- CALCIUM 8.7 8.4 - 10.2 mg/dL 12/30/2024 2:37 PM EST [facility] 56- Protein 7.7 6.0 - 8.3 g/dL 12/30/2024 2:37 PM EST [facility] 56- ALT 8(L) 10 - 35 U/L 12/30/2024 2:37 PM [facility] 56-02 Blood Venous blood specimen / Unknown Venipuncture / Unknown 12/30/2024 12:54 PM EST 12/30/2024 12:55 PM EST us Sulma Sutton MD LAB BLOOD ORDERABLES Rosa l Result [facility] 56 [address] [facility] [address] documented in this encounter Visit Diagnoses Diagnosis [...] 9:05 AM 01/01/2009 3:08 PM Care Teams Head Insulation Board Saw Operator Relationship Specialty Start Date End Date Bandar Hankins III, MD [address] [facility] [address] PCP - General 02/11/02 documented as of this encounter
--- OUTSIDE RECORDS SUMMARY | 2025-02-08 11:07 | External Medical Summary | Summary of Care ---
Author Name Unknown Organization [facility] Address [address] [place] [address] Phone [phone] Care Team Providers Care Puzzle Assembler Name Role Phone Cr COBURN MD, Bandar Mcdonnell Primary Care Provider Reason for Visit * Reason Comments Outpatient Testing Encounter Details Date Type Department Care Team (Late st Contact Info) Description 12/29/2024 2:40 PM EST Laboratory Laboratory, [facility] [address] [facility] [place] [phone] [place], Specimen Drop Off [facility] [address] [facility] [address] Abnormal urinalysis Allergies Active Allergy Reactions Criticality Noted Date [...] as of this encounter (statuses as of 12/29/2024) Medications Aspirin EC 81 MG Oral Tablet [...] as of this encounter (statuses as of 12/29/2024) Active Problems Problem Noted Date Diagnosed Date [...] ICD-10 update of inactive term NAVA RESEARCH OTHER*[id number] 03/02/2008 Uterine prolapse 09/10/2007 Varicella without complication documented as of this encounter (statuses as of 12/29/2024) Resolved Problems Problem Noted Date Diagnosed Date Resolved Date Accelerometer Research Study*[id number] 12/11/2013 02/09/2014 ADVANCE DIRECTIVE INFORMATION 01/30/2012 09/15/2024 [...] as of this encounter (statuses as of 12/29/2024) Immunizations Name Administration Dates Next Due COVID-19 [...] Team (Late st Contact Info) Description 12/30/2024 8:20 AM EST Telemedicine Nephrology, [facility] [address] [place] [address] Sulma Sutton MD [address] [place] [address] 12/30/2024 11:40 AM EST Office Visit [facility] [address] [place] [address] Bandar Hankins III, MD [address] [place] [address] Pending Results Name Type Priority Associated Diagnoses Date /Time CULTURE, URINE, QUANTITATIVE Lab Routine Abnormal urinalysis 12/29/2024 2:25 PM EST Scheduled Procedures Name Priority Associated Diagnoses Date/Ti me COLONOSCOPY FLEXIBLE PROXIMA L DIAGNOSTIC Recall Special screening for malignant neoplasms, colon Health Maintenance Due Date Last Done Comments Cologuard 2010 Sigmoidoscopy 2010 Fecal Occult Blood Test 12/08/2011 12/08/2010, 09/28 Depression Screening 10/28/2020 10/28/2019 Diabetic Foot Exam 11/02/2021 11/02/2020, 1 , 08/16/2016, Additional history exists HbA1c 06/22/2025 12/23/2024, 09/12, 10/26/2022, Additional history exists GFR 09/23/2025 09/23/2024, 10/12, 08/16/2022, Additional history exists Diabetic Eye Exam 09/24/2025 09/24/2024, , 09/17/2019, Additional history exists Mammogram 09/25/2025 09/25/2024, 10/13, 09/19/2019, Additional history exists Albumin/Creatinine Ratio 12/26/2025 025, 12/23/2024, 09/23/2024, Additional history exists Lipid Panel 12/23/2029 [...] this encounter Medical Devices Implanted Type Area Lead Trainer Device Identifier Shelf Expiration Date Model / Serial / Lot Device Tvt [id number] - [id number] Implanted:Qty: 1 on 12/20/2011 at OR [facility] [place] N/A: Vagina JN[place] : [employer] 05/11/2014 [id number] / / [id number] documented as of this encounter Visit Diagnoses Diagnosis Abnormal urinalysis Other nonspecific finding on examination of urine documented in this encounter Advance Directives * [...] 9:05 AM 01/01/2009 3:08 PM Care Teams Puzzle Assembler Relationship Specialty Start Date End Date Bandar Hankins III, MD 200 [facility] [place] [address] PCP - General 02/11/02 documented as of this encounter
--- OUTSIDE RECORDS SUMMARY | 2025-02-08 11:07 | External Medical Summary ---
Author Name Unknown Address Unknown Organization K01:[facility] - [address] [place] [address] Laboratory Report Ordering Provider Test Date Status RADHA STEWARD 12/30/2024 12:54:57 Final Observation Date Value Abnormality Reference (Units ) Status Protein, Urine 12/30/2024 12:54:57 1208 (mg/d L) Final Performing Location [facility] - [address] [place] [address]
--- OUTSIDE RECORDS SUMMARY | 2025-02-08 11:07 | External Medical Summary ---
Author Name Unknown Address Unknown Organization K01:[facility]ATORY [facility] [place] - [address] [facility] [place] [address] Laboratory Report Ordering Provider Test Date Status RADHA STEWARD 12/30/2024 12:54:57 Final Observation Date Value Abnormality Reference (Units ) Status DNA double strand Ab [Presence] in Serum 12/30/2024 12:54:57 Negative Negative Final DNA double strand Ab [Titer] in Serum by Immunofluorescence (IF) Zoey montelongo 12/30/2024 12:54:57 <1:10 <1:10 (Titer) Final Performing Location LABORATORY [facility] [place] - [address] [place] [address]
--- OUTSIDE RECORDS SUMMARY | 2025-02-08 11:07 | External Medical Summary ---
Author Name Unknown Address Unknown Organization K01:[facility] - [address] [place] [address] Laboratory Report Ordering Provider Test Date Status RADHA STEWARD 12/30/2024 12:54:57 Final Observation Date Value Abnormality Reference (Units ) Status Hep B surface Ag 12/30/2024 12:54:57 Negative Neg ative Final Performing Location [facility] - [address] [place] [address]
--- OUTSIDE RECORDS SUMMARY | 2025-02-08 11:07 | External Medical Summary ---
Author Name Unknown Address Unknown Organization : Laboratory Report Ordering Provider Test Date Status RADHA STEWARD 12/30/2024 12:54:57 Final Observation Date Value Abnormality Reference (Units ) Status Basement membrane IgG Ab [Units/volume] in Serum by Immunoassay 12/30/2024 12:54:57 <1.0 <1.0 (AI) Final Value Interpretation
<1 .0 AI: No Antibody Detected
>or=1.0 AI: Antibody Detected

Test Performed at:
[employer] [facility]
[address] [facility] [place] [address]
Harrison Rick M.D., Ph.D.,Director of Laboratories Performing Location
--- OUTSIDE RECORDS SUMMARY | 2025-02-08 11:07 | External Medical Summary ---
Author Name Unknown Address Unknown Organization K01:[facility] - [address] [facility] [address] Laboratory Report Ordering Provider Test Date Status KARLA WORKMAN III 12/29/2024 14:25:27 Final Observation Date Value Abnormality Reference (Units ) Status Bacteria identified in Specimen by Culture 12/29/2024 14:25:27 [id number]^KLEBSIELL A PNEUMONIAE Abnormal Final >100,000 colonies/mL Klebsie lla pneumoniae Bacteria identified in Specimen by Culture 12/29/2024 14:25:27 [id number]^STREPTOCOCCUS ANGINOSUS GROUP Abnormal Final 10,000 to 100,000 colonies/m L Streptococcus anginosus group Performing Location LAB[facility] - [address] [facility] [address] [facility] [address] Ordering Provider Test Date Status JACINTAKARLA III 12/29/2024 14:25:27 Final Observation Date Value Abnormality Reference (Units ) Status Ampicillin + Sulbactam 12/29/2024 14:25:27 4 Susceptible Final Cefazolin 12/29/2024 14:25:27 <=4 Susceptible Final Cefepime susceptibility 12/29/2024 14:25:27 <=1 Susceptible Final Ceftriaxone suceptibility 12/29/2024 14:25:27 <=1 Susceptible Final Ciprofloxacin 12/29/2024 14:25:27 <=0.25 Susceptible Final Due to serious side effects, the FDA has advised against using Ciprofloxacin to treat uncomplicated UTIs and respiratory tract infections unless there are no alternative treatment options. Gentamicin susceptibility 12/29/2024 14:25:27 <=1 Susc eptible Final Nitrofurantoin susceptibility 12/29/2024 14:25:27 128 Resistant Final Piperacillin + Tazobactamsusceptibility 12/29/2024 14:25:27 <=4 Susceptible Final TMP-SMZ susceptibility 12/29/2024 14:25:27 <=20 Suscept ible Final Test: Culture, Urine, Quanti tative
Specimen Source: Urine, Clean Catch
Specimen Type: Urine
Specimen Date: 12/29/2024 1425
Result Date: 01/01/2025 1028
Result Status: Final result
Abnormal: Yes
Resulting Lab: [facility]
[address]
[place] [address]

CULTURE

>100,000 colonies/mL Klebsiella pneumoniae (Abnormal)

10,000 to 100,000 colonies/mL Streptococcus anginosus group (Abnormal)

SUSCEPTIBILITY

Klebsiella
pneumoniae
METHOD MICROBROTH
DILUTIONS

AMPICILLIN/SULBACTAM 4 Susceptible
CEFAZOLIN <=4 Susceptible
CEFEPIME <=1 Susceptible
CEFTRIAXONE <=1 Susceptible
CIPROFLOXACIN <=0.25 Susceptible
[1]
GENTAMICIN <=1 Susceptible
NITROFURANTOIN 128 Resistant
PIPERACILLIN TAZOBACTAM <=4 Susceptible
TRIMETH/SULFAMETHOXAZOLE <=20 Susceptible

[1] Due to serious side effects, the FDA has advised against using
Ciprofloxacin to treat uncomplicated UTIs and respiratory tract infections
unless there are no alternative treatment options.

null Performing Location LABOR[facility]ORY [facility] - [address] [place] [address]
--- OUTSIDE RECORDS SUMMARY | 2025-02-08 11:07 | External Medical Summary ---
Author Name Unknown Address Unknown Organization K01:[facility] [address] [place] [address] Laboratory Report Ordering Provider Test Date Status RADHA STEWARD 12/30/2024 12:54:57 Final Observation Date Value Abnormality Reference (Units) Status PARAPROTEIN NORMAL/ABNORMAL 12/30/2024 12:54:57 Normal Normal Final Immunofixation for Serum or Plasma 12/30/2024 12:54:57 There is a small abnormality in the gamma fraction. Recommend repeat testing in 3 to 6 months, if clinically necessary. Final Performing Location [facility] - [address] [place] [address]
--- OUTSIDE RECORDS SUMMARY | 2025-02-08 11:07 | External Medical Summary ---
Author Name Unknown Address Unknown Organization K01:[facility] - [address] [place] [address] Laboratory Report Ordering Provider Test Date Status RADHA STEWARD 12/30/2024 12:54:57 Final Observation Date Value Abnormality Reference (Units ) Status CK 12/30/2024 12:54:57 49 26-192 (U/ L) Final Performing Location [facility] - [address] [place] [address]
--- OUTSIDE RECORDS SUMMARY | 2025-02-08 11:07 | External Medical Summary ---
Author Name Unknown Address Unknown Organization K01:[facility] - [address] [place] [address] Laboratory Report Ordering Provider Test Date Status RADHA STEWARD 12/30/2024 12:54:57 Final Observation Date Value Abnormality Reference (Units ) Status C4 12/30/2024 12:54:57 26 10-40 (mg/ dL) Final Performing Location [facility] - [address] [place] [address]
--- OUTSIDE RECORDS SUMMARY | 2025-02-08 11:07 | External Medical Summary ---
Author Name Unknown Address Unknown Organization K09:[facility]ORATORY [place] [address] Laboratory Report Ordering Provider Test Date Status NICHELLEGARCIA 12/30/2024 12:54:57 Final Observation Date Value Abnormality Reference (Units ) Status WBC, Total 12/30/2024 12:54:57 16.35 Above high normal 4 .00-10.80 (K/uL) Final RBC 12/30/2024 12:54:57 4.26 3.85-5.15 (M/uL) Final Hemoglobin 12/30/2024 12:54:57 7.7 Below low normal 12 .0-15.3 (g/dL) Final HCT 12/30/2024 12:54:57 26.3 Below low normal 36. 0-45.2 (%) Final MCV 12/30/2024 12:54:57 61.7 81.5-97.5 (fL) Final MCH 12/30/2024 12:54:57 18.1 27.0-34.0 (pg) Final MCHC 12/30/2024 12:54:57 29.3 32.0-36.0 (g/dL) Final RDW 12/30/2024 12:54:57 21.9 11.5-15.5 (%) Final Platelets 12/30/2024 12:54:57 924 Above high normal 14 0-400 (K/uL) Final MPV 12/30/2024 12:54:57 8.7 6.6-11.1 ( fL) Final Performing Location [facility]ATORY [place] [address]
--- OUTSIDE RECORDS SUMMARY | 2025-02-08 11:07 | External Medical Summary | Summary of Care ---
Author Name Unknown Organization [facility] Address [address] [facility] [place] [address] Phone [phone] Care Team Providers Care Telesales Advisor Name Role Phone Cr COBURN MD, Bandar Mcdonnell Primary Care Provider Reason for Visit * Reason Comments Outpatient Testing Encounter Details Date Type Department Care Team (Late st Contact Info) Description 12/29/2024 10:00 AM EST Laboratory Laboratory, [facility] [address] [facility] [address] [phone] [facility] [address] [place] [address] Arrived Allergies Active Allergy Reactions Criticality Noted [...] ICD-10 update of inactive term NAVA RESEARCH OTHER*[id number] 03/02/2008 Uterine prolapse 09/10/2007 Varicella without complication documented as of this encounter (statuses as of 12/29/2024) Resolved Problems Problem Noted Date Diagnosed Date Resolved Date Accelerometer Research Study*[id number] 12/11/2013 02/09/2014 ADVANCE DIRECTIVE INFORMATION 01/30/2012 09/15/2024 [...] Description 12/30/2024 8:20 AM EST Telemedicine Nephrology, [facility] [address] [place] [address] Sulma Sutton MD [address] [place] [address] 12/30/2024 11:40 AM EST Office Visit Family Practice [facility] [address] [place] [address] Bandar Hankins III, MD [address] [place] [address] Scheduled Procedures Name Priority Associated Diagnoses Date/Ti [...] this encounter Medical Devices Implanted Type Area Manager Willow Device Identifier Shelf Expiration Date Model / Serial / Lot Device Tvt [id number] - [id number] Implanted:Qty: 1 on 12/20/2011 at [place] [facility] [place]/A: Vagina JNJ : [employer] 05/11/2014 [id number] / / [id number] documented as of this encounter Advance Directives [...] 9:05 AM 01/01/2009 3:08 PM Care Teams Telesales Advisor Relationship Specialty Start Date End Date Bandar Hankins III, MD [address] [place] [address] PCP - General 02/11/02 documented as of this encounter
--- OUTSIDE RECORDS SUMMARY | 2025-02-08 11:07 | External Medical Summary ---
Author Name Unknown Address Unknown Organization K01:[facility]ORY [facility] - [address] [facility] [address] Laboratory Report Ordering Provider Test Date Status RADHA STEWARD 12/30/2024 12:55:44 Final Observation Date Value Abnormality Reference (Units ) Status Color of Urine by Auto 12/30/2024 12:55:44 Light Yellow Light Yellow, Yellow, Dark Yellow Final Clarity, Urine 12/30/2024 12:55:44 Turbid Abnormal Clear Final Glucose [Mass/volume] in Urine by Automated test strip 12/30/2024 12:55:44 Negative Negative (mg/dL) Final Bilirubin.total [Presence] in Urine by Automated test strip 12/30/2024 12:55:44 Negative Negative Final Ketones [Mass/volume] in Urine by Automated test strip 12/30/2024 12:55:44 Trace Abnormal Negative (mg/dL) Final Specific gravity, Urine 12/30/2024 12:55:44 1.023 1.003-1.030 Final Hemoglobin [Presence] in Urine by Automated test strip 12/30/2024 12:55:44 Moderate Abnormal Negative Final pH, Urine 12/30/2024 12:55:44 5.5 5.0-7.5 (Units) Final Protein [Mass/volume] in Urine by Automated test strip 12/30/2024 12:55:44 >=300 Abnormal Negative (mg/dL) Final Urobilinogen [Mass/volume] in Urine by Automated test strip 12/30/2024 12:55:44 0.2 0.2, 1.0 (mg/dL) Final Nitrite [Presence] in Urine by Automated test strip 12/30/2024 12:55:44 Negative Negative Final Leukocyte esterase [Presence] in Urine by Automated test strip 12/30/2024 12:55:44 Large Abnormal Negative Final RBC, Urine 12/30/2024 12:55:44 50+ Abnormal 0-2 (/HPF) Final WBC, Urine 12/30/2024 12:55:44 50+ Abnormal 0-2 (/HPF) Final Bacteria [#/area] in Urine sediment by Microscopy high power field 12/30/2024 12:55:44 >200 Abnormal 0-25 (/HPF) Final Leukocyte clumps [#/area] in Urine sediment by Microscopy high power field 12/30/2024 12:55:44 Present Abnormal None (/HPF) Final Performing Location [facility] [place] [address] [facility] [address]
--- OUTSIDE RECORDS SUMMARY | 2025-02-08 11:07 | External Medical Summary ---
Author Name Unknown Address Unknown Organization K01:[facility] - [address] [place] [address] Laboratory Report Ordering Provider Test Date Status RADHA STEWARD 12/30/2024 12:54:57 Final Observation Date Value Abnormality Reference (Units ) Status Hep B Core IgM 12/30/2024 12:54:57 Negative Negat ryan Final Performing Location [facility] - [address] [place] [address]
--- OUTSIDE RECORDS SUMMARY | 2025-02-08 11:07 | External Medical Summary ---
Author Name Unknown Address Unknown Organization K09:[place] [address] Laboratory Report Ordering Provider Test Date Status RADHA STEWARD 12/30/2024 12:54:57 Final Observation Date Value Abnormality Reference (Units ) Status Nucleated erythrocytes/100 leukocytes [Ratio] in Blood by Automated count 12/30/2024 12:54:57 Final Elliptocytes [Presence] in Blood by Light microscopy 12/30/2024 12:54:57 Moderate Abnormal None Seen Final Polychromasia [Presence] in Blood by Light microscopy 12/30/2024 12:54:57 Moderate Abnormal None Seen Final Performing Location [place] [address]
--- OUTSIDE RECORDS SUMMARY | 2025-02-08 11:07 | External Medical Summary ---
Author Name Unknown Address Unknown Organization K01:[facility] [place] [address] [place] [address] Laboratory Report Ordering Provider Test Date Status RADHA STEWARD 12/30/2024 12:54:57 Final Observation Date Value Abnormality Reference (Units ) Status Iron 12/30/2024 12:54:57 9 Below low normal 33-151 (ug/dL) Final Iron-binding capacity 12/30/2024 12:54:57 192 Below low normal 250-425 (ug/dL) Final Transferrin Sat % 12/30/2024 12:54:57 5 Below low normal 15-55 (%) Final Performing Location [facility] [place] [address] [place] [address]
--- OUTSIDE RECORDS SUMMARY | 2025-02-08 11:07 | External Medical Summary ---
Author Name Unknown Address Unknown Organization K01:[facility]ATORY [facility] [place] [address] [place] [address] Laboratory Report Ordering Provider Test Date Status RADHA STEWARD 12/30/2024 12:55:30 Final Normal: � � � <150 mg/ g creatinine
High: � � � � � 150-500 mg/g creatinine
Very High: � >500 mg/g creatinine
Nephrotic: � >3000 mg/g creatinine Observation Date Value Abnormality Reference (Units ) Status Protein/Creatinine [Ratio] in Urine 12/30/2024 12:55:30 6218 Above high normal <150 (mg/g ) Final Protein, Urine 12/30/2024 12:55:30 1169 (mg/dL) Final Creatinine, Urine 12/30/2024 12:55:30 188 (mg/dL) Final Performing Location LABORATORY [facility] [place] - [address] [place] [address]
--- OUTSIDE RECORDS SUMMARY | 2025-02-08 11:07 | External Medical Summary ---
Author Name Unknown Address Unknown Organization K01:[facility] - [address] [place] [address] Laboratory Report Ordering Provider Test Date Status RADHA STEWARD 12/30/2024 12:54:57 Final Observation Date Value Abnormality Reference (Units ) Status Hep C Ab 12/30/2024 12:54:57 Negative Negative Final Further HCV quantitative preeti ting not performed per protocol. Performing Location [facility] - [address] [place] [address]
--- OUTSIDE RECORDS SUMMARY | 2025-02-08 11:07 | External Medical Summary ---
Author Name Unknown Address Unknown Organization K09:[facility] [place] [address] Laboratory Report Ordering Provider Test Date Status NICHELLERADHA 12/30/2024 12:54:57 Final Observation Date Value Abnormality Reference (Units ) Status SYNC LEUKOCYTES IN BLOOD BY AUTOMATED COUNT 12/30/2024 12:54:57 16.35 Above high normal 4.00-10.80 (K/uL) Final Segs 12/30/2024 12:54:57 80.8 Above high normal 40.0-75.0 (%) Final Lymphs % 12/30/2024 12:54:57 13.3 Below low normal 18.0-42.0 (%) Final Monos 12/30/2024 12:54:57 5.0 1.0-11.0 (%) Final Eosinophils 12/30/2024 12:54:57 0.7 0.0-6.0 (%) Final Basos 12/30/2024 12:54:57 0.2 0.0-2.0 (%) Final Absolute Segs 12/30/2024 12:54:57 13.21 Above high normal 1.80-7.70 (K/uL) Final Lymphs, absolute 12/30/2024 12:54:57 2.18 1.00-4.80 (K/ul) Final Monos, Abs 12/30/2024 12:54:57 0.81 0.00-1.10 (K/uL) Final Eos, Abs 12/30/2024 12:54:57 0.12 0.00-0.70 (K/uL) Final Basos, Abs 12/30/2024 12:54:57 0.03 0.00-0.20 (K/uL) Final Performing Location [facility] [place] [address]
--- OUTSIDE RECORDS SUMMARY | 2025-02-08 11:07 | External Medical Summary ---
Author Name Unknown Address Unknown Organization K01:[facility]ATORY [facility] [place] - [address] [place] [address] Laboratory Report Ordering Provider Test Date Status RADHA STEWARD 12/30/2024 12:54:57 Final Observation Date Value Abnormality Reference (Units ) Status Complement C3c [Mass/volume] in Serum or Plasma 12/30/2024 12:54:57 177 90-180 (mg/dL) Final Performing Location [facility] - [address] [place] [address]
--- OUTSIDE RECORDS SUMMARY | 2025-02-08 11:07 | External Medical Summary ---
Author Name Unknown Address Unknown Organization K01:[facility]ATORY [place] [address] [facility] [address] [place] [address] Laboratory Report Ordering Provider Test Date Status RADHA STEWARD 12/30/2024 12:54:57 Final Observation Date Value Abnormality Reference (Units) Status Hepatitis B virus surface Ab [Units/volume] in Serum or Plasma by Immunoassay 12/30/2024 12:54:57 >1000.0 (mIU/mL) Final Hepatitis B virus surface Ab [Presence] in Serum by Immunoassay 12/30/2024 12:54:57 Positive Final HEPATITIS B SURFACE ANTIBODY, INTERPRETATION 12/30/2024 12:54:57 Immune to Hepatitis B Virus Final POSITIVE: >=11.5 mIU/mL
INDETERMINATE: 8.5-<11.5 mIU/mL
NEGATIVE: <8.5 mIU/mL Performing Location LABORATORY [facility] [place] - [facility] [address] [place] [place] [address]
--- OUTSIDE RECORDS SUMMARY | 2025-02-08 11:07 | External Medical Summary ---
Author Name Unknown Address Unknown Organization K09:LABORATORY [place] 56-02 - [address] [place] [address] Laboratory Report Ordering Provider Test Date Status RADHA STEWARD 12/30/2024 12:54:57 Final Observation Date Value Abnormality Reference (Units ) Status BUN 12/30/2024 12:54:57 12 6-20 (mg/dL) Final Creatinine 12/30/2024 12:54:57 1.1 Above high normal 0.5-1.0 (mg/dL) Final Glomerular filtration rate/1.73 sq M.predicted [Volume Rate/Area] in Serum, Plasma or Blood by Creatinine-based formula (CKD-EPI) 12/30/2024 12:54:57 55 Below low normal >=60 (mL/min) Final eGFR is calculated based on the CKD-EPI 2020 equation. Sodium 12/30/2024 12:54:57 134 Below low normal 135 -146 (mmol/L) Final Potassium 12/30/2024 12:54:57 3.9 3.5-5.1 (m mol/L) Final Cl 12/30/2024 12:54:57 97 Below low normal 98- 107 (mmol/L) Final CO2 12/30/2024 12:54:57 21 Below low normal 22- 32 (mmol/L) Final Anion gap 12/30/2024 12:54:57 16 Above high normal 7- 15 (mmol/L) Final Glucose 12/30/2024 12:54:57 136 Above high normal 70 -120 (mg/dL) Final Albumin 12/30/2024 12:54:57 2.9 Below low normal 3.8 -5.0 (g/dL) Final AST (Aspartate aminotransferase) 12/30/2024 12:54:57 14 10-35 (U/L) Fin al Alk Phos 12/30/2024 12:54:57 108 35-130 (U/ L) Final Bilirubin, Total 12/30/2024 12:54:57 0.3 <=1 .2 (mg/dL) Final Calcium 12/30/2024 12:54:57 8.7 8.4-10.2 ( mg/dL) Final Protein 12/30/2024 12:54:57 7.7 6.0-8.3 (g /dL) Final ALT (Alanine aminotransferase) 12/30/2024 12:54:57 8 Below low normal 10-35 (U/L) Final Performing Location [facility] [place] [address] [place] [address]
--- OUTSIDE RECORDS SUMMARY | 2025-02-08 11:07 | External Medical Summary ---
Author Name Unknown Address Unknown Organization K01:[place] [place] [address] [facility] [place] [address] Laboratory Report Ordering Provider Test Date Status RADHA STEWARD 12/30/2024 12:54:57 Final Observation Date Value Abnormality Reference (Units ) Status Hepatitis B virus core Ab [Presence] in Serum 12/30/2024 12:54:57 Negative Negative Final Performing Location [facility] - [address] [place] [address]
--- OUTSIDE RECORDS SUMMARY | 2025-02-08 11:07 | External Medical Summary ---
Author Name Unknown Address Unknown Organization K01:[facility]ATORY [facility] [place] [address] [place] [address] Laboratory Report Ordering Provider Test Date Status RADHA STEWARD 12/30/2024 12:54:57 Final Observation Date Value Abnormality Reference (Units ) Status Erythrocyte sedimentation rate by Photometric method 12/30/2024 12:54:57 103 Above high normal <30 (mm/hour) Final Performing Location LAB[facility]ATORY [facility] - [address] [place] [address]
--- OUTSIDE RECORDS SUMMARY | 2025-02-08 11:07 | External Medical Summary | Summary of Care ---
Author Name Unknown Organization [facility] Address [address] [place] [address] Phone [phone] Care Team Providers Care Oven Tender Bagels Name Role Phone Cr COBURN MD, Bandar Mcdonnell Primary Care Provider Reason for Visit * Reason Comments Outpatient Testing Encounter Details Date Type Department Care Team (Late st Contact Info) Description 12/30/2024 12:50 PM EST Laboratory [facility] [address] [place] [address] [place] [phone] [place], [facility] [address] [place] [address] Proteinuria, unspecified type; Malaise and fatigue Allergies [...] ICD-10 update of inactive term NAVA RESEARCH OTHER*[id number] 03/02/2008 Uterine prolapse 09/10/2007 Varicella without complication documented as of this encounter (statuses as of 12/30/2024) Resolved Problems Problem Noted Date Diagnosed Date Resolved Date Accelerometer Research Study*[id number] 12/11/2013 02/09/2014 ADVANCE DIRECTIVE INFORMATION 01/30/2012 09/15/2024 [...] this encounter Medical Devices Implanted Type Area Central Lab Technician Device Identifier Shelf Expiration Date Model / Serial / Lot Device Tvt [id number] - [id number] Implanted:Qty: 1 on 12/20/2011 at [place] [facility] [place] N/A: Vagina EMERSON : [employer] 05/11/2014 [id number] / / [id number] documented as of this encounter Procedures Procedure [...] Dark Yellow 12/30/2024 5:41 PM EST LABORATORY [facility] [place] Clarity, Urine Turbid(A) Clear 12/30/2024 5:41 PM EST [facility] Glucose, Urine Negative Negative mg/dL 12/30/2024 5:41 PM EST [facility] Bilirubin, Urine Negative Negative 12/30/2024 5:41 PM EST [facility] Ketone, Urine Trace(A) Negative mg/dL 12/30/2024 5:41 PM EST [facility] Specific [place], Urine 1.023 1.003 - 1.030 12/30/2024 5:41 [...] ORDERABLES Rosa limon Result [facility] [address] [place] [address] * (ABNORMAL) DIFFERENTIAL, TECHNOLOGIST REVIEW (12/30/2024 12:54 PM EST) Pathologist [facility] nRBCs 12/30/2024 1:49 PM EST [facility] 56-02 Elliptocytes Moderate(A ) None Seen 12/30/2024 1:49 PM EST [facility] 56-02 Polychromasia Moderate(A ) None Seen 12/30/2024 1:49 PM EST [facility] 56-02 Blood Venous blood specimen / Unknown Venipuncture / Unknown 12/30/2024 12:54 PM EST 12/30/2024 12:55 PM EST us Sulma Sutton MD LAB BLOOD ORDERABLES Rosa l Result [facility] 56- [address] [place] [address] * (ABNORMAL) DIFFERENTIAL, AUTOMATED (12/30/2024 12:54 PM EST) [facility] WBC 16.35(H) 4.00 - 10.80 K/uL 12/30/2024 1:49 PM [facility] 56-02 Neutrophils % 80.8(H) 40.0 - 75.0 % 12/30/2024 1:49 PM [facility] 56-02 Lymphocytes % 13.3(L) 18.0 - 42.0 % 12/30/2024 1:49 PM [facility] 56-02 Monocytes % 5.0 1.0 - 11.0 % 12/30/2024 1:49 PM [facility] 56-02 Eosinophils % 0.7 0.0 - 6.0 % 12/30/2024 1:49 PM EST [facility] 56-02 Basophils % 0.2 0.0 - 2.0 % 12/30/2024 1:49 PM [facility] 56-02 Absolute Neutrophils 13.21(H) 1.80 - 7.70 K/uL 12/30/2024 1:49 PM EST [facility] 56-02 Absolute Lymphocytes 2.18 1.00 - 4.80 K/ul 12/30/2024 1:49 PM EST [facility] 56-02 Absolute Monocytes 0.81 0.00 - 1.10 K/uL 12/30/2024 1:49 PM [facility] 56 Absolute Eosinophils 0.12 0.00 - 0.70 K/uL 12/30/2024 1:49 PM [facility] 56- Absolute Basophils 0.03 0.00 - 0.20 K/uL 12/30/2024 1:49 PM [facility] 56 Blood Venous blood specimen / Unknown Venipuncture / Unknown 12/30/2024 12:54 PM EST 12/30/2024 12:55 PM EST us Sulma Sutton MD LAB BLOOD ORDERABLES Rosa l Result [facility] [address] [place] [address] * (ABNORMAL) CBC (12/30/2024 12:54 PM EST) WBC 16.35(H) 4.00 - 10.80 K/uL 12/30/2024 1:49 PM [facility] 56 RBC 4.26 3.85 - 5.15 M/uL 12/30/2024 1:49 PM [facility] 56 HGB 7.7(L) 12.0 - 15.3 g/dL 12/30/2024 1:49 PM [facility] 56 HCT 26.3(L) 36.0 - 45.2 % 12/30/2024 1:49 PM [facility] 56 MCV 61.7 81.5 - 97.5 fL 12/30/2024 1:49 PM [facility] 56 MCH 18.1 27.0 - 34.0 pg 12/30/2024 1:49 PM [facility] 56 MCHC 29.3 32.0 - 36.0 g/dL 12/30/2024 1:49 PM [facility] 56 RDW 21.9 11.5 - 15.5 % 12/30/2024 1:49 PM [facility] 56 PLT 924(H) 140 - 400 K/uL 12/30/2024 1:49 PM [facility] 56 MPV 8.7 6.6 - 11.1 fL 12/30/2024 1:49 PM EST LABORATORY [place] 56-02 Blood Venous blood specimen / Unknown Venipuncture / Unknown 12/30/2024 12:54 PM EST 12/30/2024 12:55 PM EST Sulma Sutton MD LAB BLOOD ORDERABLES Rosa l Result [facility] 56-[address] [place] [address] * (ABNORMAL) ERYTHROCYTE SEDIMENTATION RATE (ESR) (12/30/2024 12:54 PM EST) ESR 103(H) <30 mm/hour 12/30/2024 5:42 PM EST LABORATORY [facility] [place] Blood Venous blood specimen / Unknown Venipuncture / Unknown 12/30/2024 12:54 PM EST 12/30/2024 12:55 PM EST Sulma Sutton MD LAB BLOOD ORDERABLES Rosa l Result [facility] [address] [place] [address] * PHOSPHORUS (12/30/2024 12:54 PM EST) Phosphorus 3.1 2.5 - 4.8 mg/dL 12/30/2024 2:37 PM EST [facility] 56-02 Blood Venous blood specimen / Unknown Venipuncture / Unknown 12/30/2024 12:54 PM EST 12/30/2024 12:55 PM EST Sulma Sutton MD LAB BLOOD ORDERABLES Rosa l Result [facility] 56-[address] [place] [address] * MAGNESIUM (12/30/2024 12:54 PM EST) Magnesium 1.9 1.5 - 2.6 mg/dL 12/30/2024 2:37 PM EST [facility] 56 Blood Venous blood specimen / Unknown Venipuncture / Unknown 12/30/2024 12:54 PM EST 12/30/2024 12:55 PM EST us Sulma Sutton MD LAB BLOOD ORDERABLES Rosa l Result [facility] [address] [place], [place] [address] * (ABNORMAL) COMPREHENSIVE METABOLIC PANEL (12/30/2024 12:54 PM EST) BUN 12 6 - 20 mg/dL 12/30/2024 2:37 PM [facility] CREATININE 1.1(H) 0.5 - 1.0 mg/dL 12/30/2024 2:37 PM [facility] EGFR 55(L) >=60 mL/min 12/30/2024 2:37 PM [facility] Comment:eGFR is calculated b ased on the CKD-EPI 2020 equation. SODIUM 134(L) 135 - 146 mmol/L 12/30/2024 2:37 PM [facility] POTASSIUM 3.9 3.5 - 5.1 mmol/L 12/30/2024 2:37 PM [facility] CHLORIDE 97(L) 98 - 107 mmol/L 12/30/2024 2:37 PM [facility] CO2 21(L) 22 - 32 mmol/L 12/30/2024 2:37 PM [facility] ANION GAP 16(H) 7 - 15 mmol/L 12/30/2024 2:37 PM [facility] 56 GLUCOSE 136(H) 70 - 120 mg/dL 12/30/2024 2:37 PM [facility] Albumin 2.9(L) 3.8 - 5.0 g/dL 12/30/2024 2:37 PM [facility] 56 AST 14 10 - 35 U/L 12/30/2024 2:37 PM [facility] 56 Alkaline Phosphatase 108 35 - 130 U/L 12/30/2024 2:37 PM EST [facility] 56- Bilirubin, Total 0.3 <=1.2 mg/dL 12/30/2024 2:37 PM EST [facility] 56- CALCIUM 8.7 8.4 - 10.2 mg/dL 12/30/2024 2:37 PM EST [facility] 56- Protein 7.7 6.0 - 8.3 g/dL 12/30/2024 2:37 PM EST [facility] 56- ALT 8(L) 10 - 35 U/L 12/30/2024 2:37 PM [facility] 56-02 Blood Venous blood specimen / Unknown Venipuncture / Unknown 12/30/2024 12:54 PM EST 12/30/2024 12:55 PM EST us Sulma Sutton MD LAB BLOOD ORDERABLES Rosa l Result [facility] [address] [facility] [address] documented in this encounter Visit Diagnoses Diagnosis [...] 9:05 AM 01/01/2009 3:08 PM Care Teams Oven Tender Bagels Relationship Specialty Start Date End Date Bandar Hankins III, MD [address] [facility] [address] PCP - General 02/11/02 documented as of this encounter
--- OUTSIDE RECORDS SUMMARY | 2025-02-08 11:07 | External Medical Summary ---
Author Name Unknown Address Unknown Organization K01:LABORATORY [facility] [place] - [address] [place] [address] Laboratory Report Ordering Provider Test Date Status RADHA STEWARD 12/30/2024 12:54:57 Final Observation Date Value Abnormality Reference (Units ) Status Parathyrin.intact [Mass/volume] in Serum or Plasma 12/30/2024 12:54:57 47 15-65 (pg/mL) Final Performing Location LABORATORY [facility] [place] - [address] [place] [address]
--- OUTSIDE RECORDS SUMMARY | 2025-02-08 11:07 | External Medical Summary ---
Author Name Unknown Address Unknown Organization K01:LABORATORY [facility] [place] [address] [place] [address] Laboratory Report Ordering Provider Test Date Status KARLA WORKMAN III 12/30/2024 12:54:57 Final Observation Date Value Abnormality Reference (Units ) Status TSH 12/30/2024 12:54:57 1.79 0.27-4.20 (uIU/mL) Final Performing Location LABORATORY [facility] - [address] [place] [address]
--- OUTSIDE RECORDS SUMMARY | 2025-02-08 11:07 | External Medical Summary ---
Author Name Unknown Address Unknown Organization K09:[facility]ATORY [place] [address] Laboratory Report Ordering Provider Test Date Status RADHA STEWARD 12/30/2024 12:54:57 Final Observation Date Value Abnormality Reference (Units ) Status Magnesium 12/30/2024 12:54:57 1.9 1.5-2.6 (m g/dL) Final Performing Location [facility] [place] [address]
--- OUTSIDE RECORDS SUMMARY | 2025-02-08 11:07 | External Medical Summary ---
Author Name Unknown Address Unknown Organization K01:LABORATORY [facility] [place] - [address] [place] [address] Laboratory Report Ordering Provider Test Date Status RADHA STEWARD 12/30/2024 12:54:57 Final Observation Date Value Abnormality Reference (Units) Status PARAPROTEIN NORMAL/ABNORMAL 12/30/2024 12:54:57 Normal Normal Final Protein, Urine 12/30/2024 12:54:57 1208 (mg/dL) Final Immunofixation for Urine Narrative 12/30/2024 12:54:57 No monoclonal free light chains present (Bence Cabrera protein), in a background of glomerular proteinuria. Final Performing Location LABORATORY [facility] [place] - [address] [place] [address]
--- OUTSIDE RECORDS SUMMARY | 2025-02-08 11:08 | External Medical Summary | Summary of Care ---
Author Name Unknown Organization [facility] Address [address] [facility] [place] [address] Phone [phone] Care Team Providers Care Fitter Up Name Role Phone Cr COBURN MD, Bandar Mcdonnell Primary Care Provider [phone] Reason for Visit * Reason Onset Date Comments Test Results 12/24/2024 Encounter Details Date Type Department Care Team (Late st Contact Info) Description 12/24/2024 Telephone Family Practice [facility] [place] [address] [facility] [place] [address] Bandar Hankins III, MD [address] [facility] [place] [address] Test Results Allergies Active Allergy Reactions Criticality [...] as of this encounter (statuses as of 12/25/2024) Medications Aspirin EC 81 MG Oral Tablet [...] as of this encounter (statuses as of 12/25/2024) Active Problems Problem Noted Date Diagnosed Date [...] ICD-10 update of inactive term NAVA RESEARCH OTHER*[id number] 03/02/2008 Uterine prolapse 09/10/2007 Varicella without complication documented as of this encounter (statuses as of 12/25/2024) Resolved Problems Problem Noted Date Diagnosed Date Resolved Date Accelerometer Research Study*[id number] 12/11/2013 02/09/2014 ADVANCE DIRECTIVE INFORMATION 01/30/2012 09/15/2024 [...] as of this encounter (statuses as of 12/25/2024) Immunizations Name Administration Dates Next Due COVID-19 [...] encounter Miscellaneous Notes * Telephone Encounter - Soco Rojas LPN - 12/24/2024 2:28 PM EST Patient aware and verbalized understanding Pt would like to wait until appt next week with Dr Hankins to discuss metformin. This is FYI * Telephone Encounter - Kari Rashid LPN - 12/24/2024 2:17 PM EST Called, left message for patient to return call. Please send patient to dedicated nurse line for both messages. * Telephone Encounter - Kari Rashid LPN - 12/24/2024 2:15 PM EST ----- Message from Bandar Hankins MD sent at 12/24/2024 1:56 PM EST ----- Please A1c is increase to 7.2 would begin metformin if amenable there is another message phone in regards to Nephrology's recommendations for proteinuria as well documented in this encounter Plan of Treatment Upcoming Encounters Date Type Department Care Team (Late st Contact Info) Description 12/30/2024 8:20 AM EST Telemedicine Ne[place]rology, [address] [place] [address] Sulma Sutton MD 200 [facility] [place] [address] 12/30/2024 11:40 AM EST Office Visit Family Practice [facility] [address] [facility] [place] [address] Bandar Hankins III, MD [address] [facility] [place] [address] Scheduled Procedures Name Priority Associated Diagnoses Date/Ti [...] 10/13, 09/19/2019, Additional history exists Albumin/Creatinine Ratio 12/23/2025 025, 09/23/2024, 08/16/2022, Additional history exists Lipid Panel 12/23/2029 12/23/2024, [...] this encounter Medical Devices Implanted Type Area Hog Cooler Device Identifier Shelf Expiration Date Model / Serial / Lot Device Tvt [id number] - [id number] Implanted:Qty: 1 on 12/20/2011 [place] [facility] [place]: Vagina [place] : [employer] 05/11/2014 [id number] / / [id number] documented as of this encounter Advance Directives [...] 9:05 AM 01/01/2009 3:08 PM Care Teams Fitter Up Relationship Specialty Start Date End Date Bandar Hankins III, MD 200 [facility] [address] PCP - General 02/11/02 documented as of this encounter
--- OUTSIDE RECORDS SUMMARY | 2025-02-08 11:08 | External Medical Summary | Summary of Care ---
Author Name Unknown Organization [facility] Address [address] [facility] [place] [address] Phone [phone] Care Team Providers Care Biological Sciences Instructor Name Role Phone Cr COBURN MD, Bandar Mcdonnell Primary Care Provider Reason for Visit * Reason Onset Date Comments Test Results 12/24/2024 Encounter Details Date Type Department Care Team (Late st Contact Info) Description 12/24/2024 Telephone Family Practice [facility] [place] 200 [facility] [place] [address] Bandar Hankins III, MD 200 [facility] [place] [address] Test Results Allergies Active Allergy Reactions Criticality [...] ICD-10 update of inactive term NAVA RESEARCH OTHER*[id number] 03/02/2008 Uterine prolapse 09/10/2007 Varicella without complication documented as of this encounter (statuses as of 12/25/2024) Resolved Problems Problem Noted Date Diagnosed Date Resolved Date Accelerometer Research Study*[id number] 12/11/2013 02/09/2014 ADVANCE DIRECTIVE INFORMATION 01/30/2012 09/15/2024 [...] Description 12/30/2024 8:20 AM EST Telemedicine Nephrology, [address] [place] [address] Sulma Sutton MD 200 [facility] [place] [address] 12/30/2024 11:40 AM EST Office Visit Family Practice [facility] 200 [facility] [place] [address] Bandar Hankins III, MD 200 [facility] [place] [address] Scheduled Procedures Name Priority Associated Diagnoses Date/Ti [...] this encounter Medical Devices Implanted Type Area Business Reporting Developer Device Identifier Shelf Expiration Date Model / Serial / Lot Device Tvt [id number] - [id number] Implanted:Qty: 1 on 12/20/2011 at [place] [facility] [place]/A: Vagina JN[place] : [employer] 05/11/2014 [id number] / / [id number] documented as of this encounter Advance Directives [...] 9:05 AM 01/01/2009 3:08 PM Care Teams Biological Sciences Instructor Relationship Specialty Start Date End Date Bandar Hankins III, MD 200 [facility] [place] [address] PCP - General 02/11/02 documented as of this encounter
--- OUTSIDE RECORDS SUMMARY | 2025-02-08 11:08 | External Medical Summary | Summary of Care ---
Author Name Unknown Organization [facility] Address [address] [facility] [place] [address] Phone [phone] Care Team Providers Care Asset Protection Associate Name Role Phone Cr COBURN MD, Bandar Mcdonnell Primary Care Provider [phone] Encounter Details Date Type Department Care Team (Late st Contact Info) Description 10/16/2024 Result Scan Unspecified Department Amber Hernandez, DO [address] [place] [address] <No scans attached> Allergies Active Allergy Reactions [...] as of this encounter (statuses as of 10/16/2024) Medications Aspirin EC 81 MG Oral Tablet [...] as of this encounter (statuses as of 10/16/2024) Active Problems Problem Noted Date Diagnosed Date [...] ICD-10 update of inactive term NAVA RESEARCH OTHER*[id number] 03/02/2008 Uterine prolapse 09/10/2007 Varicella without complication documented as of this encounter (statuses as of 10/16/2024) Resolved Problems Problem Noted Date Diagnosed Date Resolved Date Accelerometer Research Study*[id number] 12/11/2013 02/09/2014 ADVANCE DIRECTIVE INFORMATION 01/30/2012 09/15/2024 [...] as of this encounter (statuses as of 10/16/2024) Immunizations Name Administration Dates Next Due COVID-19 [...] ages 0-17 years) Not on file 09/23/2024 Comments No Sex and Gender Information [...] Team (Late st Contact Info) Description 12/30/2024 11:40 AM EST Office [place] [facility] [place] [place] [address] [facility] [place] [address] Bandar Hankins III, MD [address] [facility] [place] [address] Scheduled Procedures Name Priority Associated Diagnoses Date/Ti me COLONOSCOPY FLEXIBLE PROXIMA L DIAGNOSTIC Recall Special screening for malignant neoplasms, colon Health Maintenance Due Date Last Done Comments Cologuard 2010 Sigmoidoscopy 2010 Fecal Occult Blood Test 12/08/2011 12/08/2010, 09/28 Depression Screening 10/28/2020 10/28/2019 Diabetic Foot Exam 11/02/2021 11/02/2020, 1 , 08/16/2016, Additional history exists HbA1c 03/23/2025 09/23/2024, 10/12, 08/16/2022, Additional history exists Albumin/Creatinine Ratio 09/23/202509/23/ 024, 08/16/2022, 08/14/2016, Additional history exists GFR 09/23/2025 09/23/2024, 10/12, 08/16/2022, Additional history exists Diabetic Eye Exam 09/24/2025 09/24/2024, , 09/17/2019, Additional history exists Mammogram 09/25/2025 09/25/2024, 10/13, 09/19/2019, Additional history exists Lipid Panel 10/26/2027 10/26/2022, 03/2022, 10/23/2016, Additional history exists DTap/Tdap Vaccines (3 - Td or Tdap) 05/03/2030 05/03/2020, 02/10/2010, 04/28/2005 Colonoscopy 07/01/2031 07/01/2021, 06/13, 12/26/2010 Colorectal Cancer Screening 07/01/2031 Hepatitis B Vaccine Completed 02/23/2015, 08/13/2014, 02/11/2014 Zoster Vaccines Completed 08/26/2020, 05/03/2020 Pneumococcal Vaccine: Pediatrics (0 to 5 Years) and At-Risk Patients (6 to 64 Years) Completed 08/20/2023, 09/24/2002 Influenza Vaccine (FLU shot) [...] this encounter Medical Devices Implanted Type Area In File Operator Device Identifier Shelf Expiration Date Model / Serial / Lot Device Tvt [id number] - [id number] Implanted:Qty: 1 on 12/20/2011 [place] [facility] [place]A: Vagina JNJ : [employer] 05/11/2014 [id number] / / [id number] documented as of this encounter Procedures Procedure Name Priority Date/Time Associated Diagnosis Comments CARDIOLOGY SCANNED RESULT 10/16/2024 documented in this encounter Results * CARDIOLOGY SCANNED RESULT (10/16/2024) 10/16/2024 Amber Hernandez DO OTHER Final R esult documented [...] 9:05 AM 01/01/2009 3:08 PM Care Teams Asset Protection Associate Relationship Specialty Start Date End Date Bandar Hankins III, MD [address] [place] [address] PCP - General 02/11/02 documented as of this encounter
--- OUTSIDE RECORDS SUMMARY | 2025-02-08 11:08 | External Medical Summary ---
Author Name Unknown Address Unknown Organization K01:LABORATORY [facility] [place] - [address] [place] [address] Laboratory Report Ordering Provider Test Date Status KARLA WORKMAN III 12/23/2024 08:57:29 Final Normal: <30 mg/g creatinine< br/>High: 30-300 mg/g creatinine
Very High: >300 mg/g creatinine
Nephrotic: >2200 mg/g creatinine Observation Date Value Abnormality Reference (Units ) Status Albumin, Urine 12/23/2024 08:57:29 169.00 (mg/dL) Final Creatinine, Urine 12/23/2024 08:57:29 285 (mg/dL) Final Albumin/Creatinine [Mass Ratio] in Urine 12/23/2024 08:57:29 593 Above high normal <30 (mg/g Creat) Final Performing Location LAB[facility]ATORY [facility] [place] - [address] [place] [address]
--- OUTSIDE RECORDS SUMMARY | 2025-02-08 11:08 | External Medical Summary | Summary of Care ---
Author Name Unknown Organization [facility] Address [address] [facility] [place] [address] Phone [phone] Care Team Providers Care Emergency Services Dispatcher Name Role Phone Cr COBURN MD, Bandar Mcdonnell Primary Care Provider [phone] Encounter Details Date Type Department Care Team (Late st Contact Info) Description 11/25/2024 Result Scan Unspecified Department Amber Hernandez, DO [address] [place] [address] <No scans attached> Allergies [...] as of this encounter (statuses as of 11/26/2024) Medications Aspirin EC 81 MG Oral Tablet [...] as of this encounter (statuses as of 11/26/2024) Active Problems Problem Noted Date Diagnosed Date [...] ICD-10 update of inactive term NAVA RESEARCH OTHER*[id number] 03/02/2008 Uterine prolapse 09/10/2007 Varicella without complication documented as of this encounter (statuses as of 11/26/2024) Resolved Problems Problem Noted Date Diagnosed Date Resolved Date Accelerometer Research Study*[id number] 12/11/2013 02/09/2014 ADVANCE DIRECTIVE INFORMATION 01/30/2012 09/15/2024 [...] as of this encounter (statuses as of 11/26/2024) Immunizations Name Administration Dates Next Due COVID-19 [...] 11:40 AM EST Office [place] [facility] [place] [facility] [place] [address] [place] [address] Bandar Hankins III, MD [address] [facility] [place] [address] Scheduled Procedures Name Priority Associated Diagnoses Date/Ti [...] Additional history exists Lipid Panel 10/26/2027 10/26/2022, 1003/2022, 10/23/2016, Additional history exists DTap/Tdap Vaccines (3 [...] encounter Medical Devices Implanted Type Area Manager Basketball Device Identifier Shelf Expiration Date Model / Serial / Lot Device Tvt [id number] - [id number] Implanted:Qty: 1 on 12/20/[address] [facility] [place] N/A: Vagina JNJ : [employer] 05/11/2014 [id number] / / [id number] documented as of this encounter Procedures Procedure Name Priority Date/Time Associated Diagnosis Comments CARDIOLOGY SCANNED RESULT 11/25/2024 documented in this encounter Results * CARDIOLOGY SCANNED RESULT (11/25/2024) 11/25/2024 Amber Hernandez DO OTHER Final R esult [...] 9:05 AM 01/01/2009 3:08 PM Care Teams Emergency Services Dispatcher Relationship Specialty Start Date End Date Bandar Hankins III, MD [address] [place] [address] PCP - General 02/11/02 documented as of this encounter
--- OUTSIDE RECORDS SUMMARY | 2025-02-08 11:08 | External Medical Summary | Summary of Care ---
Author Name Unknown Organization [facility] Address [address] [place] [facility] [place] [address] Phone [phone] Care Team Providers Care Investment Representative Name Role Phone Cr COBURN MD, Bandar Mcdonnell Primary Care Provider [phone] Reason for Visit * Reason Comments Outpatient Testing Encounter Details Date Type Department Care Team (Late st Contact Info) Description 12/26/2024 1:10 PM EST Laboratory Laboratory, [facility] [address] [place] [phone] [facility] [address] [place] [address] Proteinuria, unspecified type Allergies Active Allergy Reactions Criticality [...] as of this encounter (statuses as of 12/26/2024) Medications Aspirin EC 81 MG Oral Tablet [...] as of this encounter (statuses as of 12/26/2024) Active Problems Problem Noted Date Diagnosed Date [...] ICD-10 update of inactive term NAVA RESEARCH OTHER*[id number] 03/02/2008 Uterine prolapse 09/10/2007 Varicella without complication documented as of this encounter (statuses as of 12/26/2024) Resolved Problems Problem Noted Date Diagnosed Date Resolved Date Accelerometer Research Study*[id number] 12/11/2013 02/09/2014 ADVANCE DIRECTIVE INFORMATION 01/30/2012 09/15/2024 [...] as of this encounter (statuses as of 12/26/2024) Immunizations Name Administration Dates Next Due COVID-19 [...] Description 12/30/2024 8:20 AM EST Telemedicine Nephrology, [facility] [address] [place] [address] Sulma Sutton MD [address] [place] [address] 12/30/2024 11:40 AM EST Office [facility] [place] [address] [place] [address] Bandar Hankins III, MD [address] [place] [address] Pending Results Name Type Priority Associated Diagnoses Date /Time PROTEIN/ CREATININE RATIO, URINE Lab Routine Proteinuria, unspecified type 12/26/2024 12:36 PM EST ALBUMIN / CREATININE RATIO, URINE Lab Routine Proteinuria, unspecified type 12/26/2024 12:36 PM EST Scheduled Procedures Name Priority Associated [...] this encounter Medical Devices Implanted Type Area Roller Varnisher Device Identifier Shelf Expiration Date Model / Serial / Lot Device Tvt [id number] - [id number] Implanted:Qty: 1 on 12/20/2011 at [place] [facility] [place] N/A: Vagina JNJoan : [employer] 05/11/2014 [id number] / / [id number] documented as of this encounter Procedures Procedure Name Priority Date/Time Associated Diagnosis Comments URINALYSIS WITH MICROSCOPIC EXAM Routine 12/26/2024 12:36 PM EST Proteinuria, unspecified type documented in this encounter Results * (ABNORMAL) URINALYSIS WITH MICROSCOPIC EXAM (12/26/2024 12:36 PM EST) Color, Urine Yellow Light Yellow, Yellow, Dark Yellow 12/26/2024 1:36 PM EST LABORATORY [place] [facility] Clarity, Urine Cloudy(A) Clear 12/26/2024 1:36 PM EST LAB[facility] [place] [facility] Glucose, Urine Negative Negative mg/dL 12/26/2024 1:36 PM EST LAB[facility] [place] [facility] Bilirubin, Urine Small(A) Negative 12/26/2024 1:36 PM EST LAB[facility] [place] [facility] Ketone, Urine Trace(A) Negative mg/dL 12/26/2024 1:36 PM EST LAB[facility] [place] [facility] Specific [place], Urine 1.020 1.003 - 1.030 12/26/2024 1:36 PM EST LAB[facility] [place] [facility] Blood, Urine Moderate(A) Negative 12/26/2024 1:36 PM EST LAB[facility] [place] [facility] pH, Urine 6.0 5.0 - 7.5 Units 12/26/2024 1:36 PM EST LAB[facility] [place] [facility] Protein, Urine >=300(A) Negative mg/dL 12/26/2024 1:36 PM EST [facility] [place] [facility] Urobilinogen, Urine 0.2 0.2, 1.0 mg/dL 12/26/2024 1:36 PM EST LAB[facility] [place] [facility] Nitrite, Urine Negative Negative 12/26/2024 1:36 PM EST LAB[facility] [place] [facility] Esterase, Urine Large(A) Negative 12/26/2024 1:36 PM EST [facility] [place] [facility] RBC, Urine 20-29(A) 0 - 2 /HPF 12/26/2024 1:36 PM EST [facility] [place] [facility] WBC, Urine 50+(A) 0 - 2 /HPF 12/26/2024 1:36 PM EST [facility] [place] [facility] Bacteria, Urine >200(A) 0 - 25 /HPF 12/26/2024 1:36 PM EST LAB[facility] [place] [facility] Urine Non-blood Collection / Unknown 12/26/2024 12:36 PM EST 12/26/2024 12:36 PM EST Bandar Hankins III, MD LAB URINE ORDERABLES Final Result Performing Organization Address City/State/[facility] Co de Phone Number LABORATORY [place] [phone] [place] [address] documented in this encounter Visit Diagnoses Diagnosis Proteinuria, unspecified type documented in this encounter Advance [...] 9:05 AM 01/01/2009 3:08 PM Care Teams Investment Representative Relationship Specialty Start Date End Date Bandar Hankins III, MD [address] [facility] [place] [address] PCP - General 02/11/02 documented as of this encounter
--- OUTSIDE RECORDS SUMMARY | 2025-02-08 11:08 | External Medical Summary | Summary of Care ---
Author Name Unknown Organization [facility] Address [address] [place] [facility] [place] [address] Phone [phone] Care Team Providers Care Live Out Nanny Name Role Phone Cr COBURN MD, Bandar Mcdonnell Primary Care Provider Reason for Visit * Reason Comments Outpatient Testing Encounter Details Date Type Department Care Team (Late st Contact Info) Description 12/26/2024 1:10 PM EST Laboratory Laboratory, [facility] [address] [facility] [place] [phone] [facility] 132 [facility] [place] [address] Proteinuria, unspecified type Allergies Active Allergy Reactions [...] as of this encounter (statuses as of 12/28/2024) Medications Aspirin EC 81 MG Oral Tablet [...] as of this encounter (statuses as of 12/28/2024) Active Problems Problem Noted Date Diagnosed Date [...] ICD-10 update of inactive term NAVA RESEARCH OTHER*[id number] 03/02/2008 Uterine prolapse 09/10/2007 Varicella without complication documented as of this encounter (statuses as of 12/28/2024) Resolved Problems Problem Noted Date Diagnosed Date Resolved Date Accelerometer Research Study*[id number] 12/11/2013 02/09/2014 ADVANCE DIRECTIVE INFORMATION 01/30/2012 09/15/2024 [...] as of this encounter (statuses as of 12/28/2024) Immunizations Name Administration Dates Next Due COVID-19 [...] Description 12/30/2024 8:20 AM EST Telemedicine Nephrology, [facility] [address] [place] [address] Sulma Sutton MD [address] [place] [address] 12/30/2024 11:40 AM EST Office Visit [facility] [place] [address] [place] [place] [address] [address] Bandar Hankins III, MD [address] [place] [address] Scheduled Procedures Name Priority Associated Diagnoses Date/Ti [...] this encounter Medical Devices Implanted Type Area Fixed Income Portfolio Manager Device Identifier Shelf Expiration Date Model / Serial / Lot Device Tvt [id number] - [id number] Implanted:Qty: 1 on 12/20/2011 [place] [facility] [place]: Vagina EMERSON : [facility] [employer] 05/11/2014 [id number] / / [id number] documented as of this encounter Procedures Procedure Name Priority Date/Time Associated Diagnosis Comments PROTEIN/ CREATININE RATIO, URINE Routine 12/26/2024 12:36 PM EST Proteinuria, unspecified type URINALYSIS WITH MICROSCOPIC EXAM Routine 12/26/2024 12:36 PM EST Proteinuria, unspecified type ALBUMIN / CREATININE RATIO, URINE Routine 12/26/2024 12:36 PM EST Proteinuria, unspecified [...] PM EST LAB[facility] [place] [facility] Specific [place], Urine 1.020 1.003 - 1.030 12/26/2024 1:36 PM EST [facility] [place] [facility] Blood, Urine Moderate(A) Negative 12/26/2024 1:36 PM EST [facility] [place] [facility] pH, Urine 6.0 5.0 - 7.5 Units 12/26/2024 1:36 PM EST LAB[facility] [place] [facility]10 Protein, Urine >=300(A) Negative mg/dL 12/26/2024 1:36 PM EST [facility] Urobilinogen, Urine 0.2 0.2, 1.0 mg/dL 12/26/2024 1:36 PM EST LAB[facility]ORY [place] [facility]10 Nitrite, Urine Negative Negative 12/26/2024 1:36 PM EST [facility] Esterase, Urine Large(A) Negative 12/26/2024 1:36 PM EST [facility] RBC, Urine 20-29(A) 0 - 2 /HPF 12/26/2024 1:36 PM EST [facility] WBC, Urine 50+(A) 0 - 2 /HPF 12/26/2024 1:36 PM EST [facility] Bacteria, Urine >200(A) 0 - 25 /HPF 12/26/2024 1:36 PM EST [facility] Urine Non-blood Collection / Unknown 12/26/2024 12:36 PM EST 12/26/2024 12:36 PM EST Bandar Hankins III, MD LAB URINE ORDERABLES Final Result LABORATORY [address] [address] * (ABNORMAL) ALBUMIN / CREATININE RATIO, URINE (12/26/2024 12:36 PM EST) Albumin, Random Urine 66.00 mg/dL 12/26/2024 6:23 PM EST LAB[facility]ORY [facility] Creatinine, Random Urine 140 mg/dL 12/26/2024 6:23 PM EST [facility] [place] Albumin / Creatinine Ratio, Urine 471(H) <30 mg/g Creat 12/26/2024 6:23 PM EST [facility] Urine Urine specimen obtained by clean catch procedure / Unknown Non-blood Collection / Unknown 12/26/2024 12:36 PM EST 12/26/2024 12:36 PM EST Narrative LAB[facility] [place] - 12/26/2024 6:23 PM EST Normal: <30 mg/g creatinine High: 30-300 mg/g creatinine Very High: >300 mg/g creatinine Nephrotic: >2200 mg/g creatinine Bandar Hankins III, MD LAB URINE ORDERABLES Final Result Performing Organization Address [facility] Phone Number LABORATORY [address] [address] * (ABNORMAL) PROTEIN/ CREATININE RATIO, URINE (12/26/2024 12:36 PM EST) Protein/ Creatinine Ratio, Urine 2,308(H) <150 mg/g 12/26/2024 6:23 PM EST LAB[facility] Protein, Random Urine 330 mg/dL 12/26/2024 6:23 PM EST LAB[facility] Creatinine, Random Urine 143 mg/dL 12/26/2024 6:23 PM EST LAB[facility] Urine Non-blood Collection / Unknown 12/26/2024 12:36 PM EST 12/26/2024 12:36 PM EST Narrative [facility] - 12/26/2024 6:23 PM EST Normal: <150 mg/g creatinine High: 150-500 mg/g creatinine Very High: >500 mg/g creatinine Nephrotic: >3000 mg/g creatinine Bandar Hankins III, MD LAB URINE ORDERABLES Final Result Performing Organization Address [facility] Phone Number LABORATORY [address] [address] documented in this encounter Visit Diagnoses Diagnosis [...] 9:05 AM 01/01/2009 3:08 PM Care Teams Live Out Nanny Relationship Specialty Start Date End Date Bandar Hankins III, MD 200 [place] [address] PCP - General 02/11/02 documented as of this encounter
--- OUTSIDE RECORDS SUMMARY | 2025-02-08 11:08 | External Medical Summary | Summary of Care ---
Author Name Unknown Organization [facility] Address [address] [facility] [place] [address] Phone [phone] Care Team Providers Care Door Frame Assembler Machine Name Role Phone Cr COBURN MD, Bandar Mcdonnell Primary Care Provider Reason for Visit * Reason Comments Outpatient Testing Encounter Details Date Type Department Care Team (Late st Contact Info) Description 12/26/2024 12:20 PM EST Laboratory Laboratory, [facility] [address] [facility] [phone] [facility] 132 [place] [address] Arrived Allergies Active Allergy Reactions Criticality Noted [...] ICD-10 update of inactive term NAVA RESEARCH OTHER*[id number] 03/02/2008 Uterine prolapse 09/10/2007 Varicella without complication documented as of this encounter (statuses as of 12/26/2024) Resolved Problems Problem Noted Date Diagnosed Date Resolved Date Accelerometer Research Study*[id number] 12/11/2013 02/09/2014 ADVANCE DIRECTIVE INFORMATION 01/30/2012 09/15/2024 [...] Description 12/30/2024 8:20 AM EST Telemedicine Nephrology, [facility] [address] [place] [address] Sulma Sutton MD [address] [place] [address] 12/30/2024 11:40 AM EST Office Visit [facility] [address] [place] [address] Bandar Hankins III, MD [address] [place] [address] Scheduled Procedures Name Priority Associated Diagnoses Date/Ti [...] this encounter Medical Devices Implanted Type Area Rn Home Care Device Identifier Shelf Expiration Date Model / Serial / Lot Device Tvt [id number] - [id number] [place]ed:[place] 1 [place] [facility] [place] Vagina JNJ : [employer] 05/11/2014 [id number] / / [id number] documented as of this encounter Advance Directives [...] 9:05 AM 01/01/2009 3:08 PM Care Teams Door Frame Assembler Machine Relationship Specialty Start Date End Date Bandar Hankins III, MD [address] [place] [address] PCP - General 02/11/02 documented as of this encounter
--- OUTSIDE RECORDS SUMMARY | 2025-02-08 11:08 | External Medical Summary ---
Author Name Unknown Address Unknown Organization K01:LABORATORY [facility] [place] - [address] [place] [address] Laboratory Report Ordering Provider Test Date Status KARLA WORKMAN III 12/23/2024 08:57:29 Final Observation Date Value Abnormality Reference (Units ) Status HbA1C 12/23/2024 08:57:29 7.2 Above high normal 4. 0-5.6 (%) Final The use of HbA1c to monitor glycemic status is based on normal hemoglobin and HbA composition. This test should not be used in patients with abnormal hemoglobin that affects the half life of the red blood cell or the in vivo glycation rates. Glucose, estimated average 12/23/2024 08:57:29 160 Above high normal <126 (mg/dL) Samuel shelby Performing Location LABORATORY [facility] [place] - [address] [facility] [address]
--- OUTSIDE RECORDS SUMMARY | 2025-02-08 11:08 | External Medical Summary | Summary of Care ---
Author Name Unknown Organization [facility] Address [address] [facility] [place] [address] Phone [phone] Care Team Providers Care Terminal Worker Name Role Phone Cr COBURN MD, Bandar Mcdonnell Primary Care Provider Reason for Visit * Reason Comments Outpatient Testing Encounter Details Date Type Department Care Team (Latest Contact Info) Description 12/23/2024 9:00 AM EST Laboratory Laboratory, [facility] [address] [facility] [phone] [facility] [address] [place] [address] Type 2 diabetes mellitus with both eyes affected by mild nonproliferative retinopathy without macular edema, without long-term current use of insulin (HCC); Microalbuminuria Allergies Active Allergy Reactions Criticality Noted Date [...] as of this encounter (statuses as of 12/23/2024) Medications Aspirin EC 81 MG Oral Tablet [...] as of this encounter (statuses as of 12/23/2024) Active Problems Problem Noted Date Diagnosed Date [...] ICD-10 update of inactive term NAVA RESEARCH OTHER*[id number] 03/02/2008 Uterine prolapse 09/10/2007 Varicella without complication documented as of this encounter (statuses as of 12/23/2024) Resolved Problems Problem Noted Date Diagnosed Date Resolved Date Accelerometer Research Study*[id number] 12/11/2013 02/09/2014 ADVANCE DIRECTIVE INFORMATION 01/30/2012 09/15/2024 [...] as of this encounter (statuses as of 12/23/2024) Immunizations Name Administration Dates Next Due COVID-19 [...] [place] [address] [place] [address] Bandar Hankins III, MD [address] [facility] [place] [address] Scheduled Procedures Name Priority Associated Diagnoses Date/Ti [...] this encounter Medical Devices Implanted Type Area Cataract Lens Generator Device Identifier Shelf Expiration Date Model / Serial / Lot Device Tvt [id number] - [id number] Implanted:Qty: 1 on 12/20/2011 at OR [facility] [place] N/A: Vagina JNJ : [employer] 05/11/2014 [id number] / / [id number] documented as of this encounter Procedures Procedure Name Priority Date/Time Associated Diagnosis Comments HEMOGLOBIN A1C Routine 12/23/2024 8:57 AM EST Type 2 diabetes mellitus with both eyes affected by mild nonproliferative retinopathy without macular edema, without long-term current use of insulin (HCC) ALBUMIN / CREATININE RATIO, URINE Routine 12/23/2024 8:57 AM EST Microalbuminuria LDL CHOLESTEROL (DIRECT MEASURE) Routine 12/23/2024 8:57 AM EST Type 2 diabetes mellitus with both eyes affected by mild nonproliferative retinopathy without macular edema, without long-term current use of insulin (HCC) documented in this encounter Results * (ABNORMAL) ALBUMIN / CREATININE RATIO, URINE (12/23/2024 8:57 AM EST) Albumin, Random Urine 169.00 mg/dL 12/23/2024 1:06 PM EST LABORATORY [facility] [place] Creatinine, Random Urine 285 mg/dL 12/23/2024 1:06 PM EST LABORATORY [facility] [place] Albumin / Creatinine Ratio, Urine 593(H) <30 mg/g Creat 12/23/2024 1:06 PM EST LABORATORY [facility] [place] Urine Urine specimen obtained by clean catch procedure / Unknown Non-blood Collection / Unknown 12/23/2024 8:57 AM EST 12/23/2024 8:57 AM EST Narrative LABORATORY [facility] [place] - 12/23/2024 1:06 PM EST Normal: <30 mg/g creatinine High: 30-300 mg/g creatinine Very High: >300 mg/g creatinine Nephrotic: >2200 mg/g creatinine us Bandar Hankins III, MD LAB URINE ORDERABLES Final Result LABORATORY [facility] [address] [place] [address] * LDL CHOLESTEROL (DIRECT MEASURE) (12/23/2024 8:57 AM EST) LDL Cholesterol (Direct Measure) 30 <=129 mg/dL 12/23/2024 12:56 PM EST LABORATORY [facility] [place] Comment: LDL Cholesterol Reference Ranges (mg/dL): <70 Target level for high risk ASCVD patient <100 Optimal for general population 100-129 Near optimal for general population 130-159 Borderline high 160-189 High >=190 Very high Blood Venous blood specimen / Unknown Venipuncture / Unknown 12/23/2024 8:57 AM EST 12/23/2024 8:57 AM EST Bandar Hankins III, MD LAB BLOOD ORDERABLES Final Result Performing Organization Address [facility] Phone Number [address] [address] * (ABNORMAL) HEMOGLOBIN A1C (12/23/2024 8:57 AM EST) Pathologist [facility] Hemoglobin A1C 7.2(H) 4.0 - 5.6 % 12/23/2024 1:30 PM EST LABORATORY [facility] [place] Comment:The use of HbA1c to monitor glycemic status is based on normal hemoglobin and HbA composition. This test should not be used in patients with abnormal hemoglobin that affects the half life of the red blood cell or the in vivo glycation rates. Estimated Average Glucose 160(H) <126 mg/dL 12/23/2024 1:30 PM EST LABORATORY [facility] Blood Venous blood specimen / Unknown Venipuncture / Unknown 12/23/2024 8:57 AM EST 12/23/2024 8:57 AM EST Bandar Hankins III, MD LAB BLOOD ORDERABLES Final Result Performing Organization Address [facility] de Phone Number LABORATORY [address] [address] documented in this encounter Visit Diagnoses Diagnosis Type 2 diabetes mellitus with both eyes affected by mild nonproliferative retinopathy without macular edema, without long-term current use of insulin (HCC) Microalbuminuria Proteinuria documented in this encounter Advance Directives * [...] 9:05 AM 01/01/2009 3:08 PM Care Teams Terminal Worker Relationship Specialty Start Date End Date Bandar Hankins III, MD 200 [facility] [place] [address] PCP - General 02/11/02 documented as of this encounter
--- OUTSIDE RECORDS SUMMARY | 2025-02-08 11:08 | External Medical Summary ---
Author Name Unknown Address Unknown Organization [id number]:LABORATORY [facility] [address] [place] [address] Laboratory Report Ordering Provider Test Date Status KARLA WORKMAN III 12/26/2024 12:36:54 Final Observation Date Value Abnormality Reference (Units ) Status Color of Urine by Auto 12/26/2024 12:36:54 Yellow Light Yellow, Yellow, Dark Yellow Final Clarity, Urine 12/26/2024 12:36:54 Cloudy Abnormal Clear Final Glucose [Mass/volume] in Urine by Automated test strip 12/26/2024 12:36:54 Negative Negative (mg/dL) Final Bilirubin.total [Presence] in Urine by Automated test strip 12/26/2024 12:36:54 Small Abnormal Negative Final Ketones [Mass/volume] in Urine by Automated test strip 12/26/2024 12:36:54 Trace Abnormal Negative (mg/dL) Final Specific gravity, Urine 12/26/2024 12:36:54 1.020 1.003-1.030 Final Hemoglobin [Presence] in Urine by Automated test strip 12/26/2024 12:36:54 Moderate Abnormal Negative Final pH, Urine 12/26/2024 12:36:54 6.0 5.0-7.5 (Units) Final Protein [Mass/volume] in Urine by Automated test strip 12/26/2024 12:36:54 >=300 Abnormal Negative (mg/dL) Final Urobilinogen [Mass/volume] in Urine by Automated test strip 12/26/2024 12:36:54 0.2 0.2, 1.0 (mg/dL) Final Nitrite [Presence] in Urine by Automated test strip 12/26/2024 12:36:54 Negative Negative Final Leukocyte esterase [Presence] in Urine by Automated test strip 12/26/2024 12:36:54 Large Abnormal Negative Final RBC, Urine 12/26/2024 12:36:54 20-29 Abnormal 0-2 (/HPF) Final WBC, Urine 12/26/2024 12:36:54 50+ Abnormal 0-2 (/HPF) Final Bacteria [#/area] in Urine sediment by Microscopy high power field 12/26/2024 12:36:54 >200 Abnormal 0-25 (/HPF) Final Performing Location LABORATORY [facility] [address] [facility] [address]
--- OUTSIDE RECORDS SUMMARY | 2025-02-08 11:08 | External Medical Summary ---
Author Name Unknown Address Unknown Organization K01:LABORATORY [facility] [place] - [address] [place] [address] Laboratory Report Ordering Provider Test Date Status KARLA WORKMAN III 12/26/2024 12:36:54 Final Normal: � � � <150 mg/ g creatinine
High: � � � � � 150-500 mg/g creatinine
Very High: � >500 mg/g creatinine
Nephrotic: � >3000 mg/g creatinine Observation Date Value Abnormality Reference (Units ) Status Protein/Creatinine [Ratio] in Urine 12/26/2024 12:36:54 2308 Above high normal <150 (mg/g ) Final Protein, Urine 12/26/2024 12:36:54 330 (mg/dL) Final Creatinine, Urine 12/26/2024 12:36:54 143 (mg/dL) Final Performing Location LABORATORY [facility] [place] - [address] [place] [address]
--- OUTSIDE RECORDS SUMMARY | 2025-02-08 11:08 | External Medical Summary | Summary of Care ---
Author Name Unknown Organization [facility] Address [address] [facility] [place] [address] Phone [phone] Care Team Providers Care Health And Nutrition Specialist Name Role Phone Cr COBURN MD, Bandar Mcdonnell Primary Care Provider [phone] Reason for Visit * Reason Onset Date Comments Scan To Read 09/24/2024 Encounter Details Date Type Department Care Team (Late st Contact Info) Description 09/24/2024 Telephone Family Practice [facility] [place] 200 [facility] [place] [address] Bandar Hankins III, MD [facility] [address] Scan To Read Allergies Active Allergy Reactions Criticality Noted Date [...] as of this encounter (statuses as of 10/28/2024) Medications Aspirin EC 81 MG Oral Tablet [...] as of this encounter (statuses as of 10/28/2024) Active Problems Problem Noted Date Diagnosed Date [...] ICD-10 update of inactive term NAVA RESEARCH OTHER*[id number] 03/02/2008 Uterine prolapse 09/10/2007 Varicella without complication documented as of this encounter (statuses as of 10/28/2024) Resolved Problems Problem Noted Date Diagnosed Date Resolved Date Accelerometer Research Study*[id number] 12/11/2013 02/09/2014 ADVANCE DIRECTIVE INFORMATION 01/30/2012 09/15/2024 [...] as of this encounter (statuses as of 10/28/2024) Immunizations Name Administration Dates Next Due COVID-19 mRNA, LNP-s, No Pre serve, 2-Dose Series (Qbix) 02/16/2021,01/24/2021 H1N1 2009 Influenza, IM 11/02/2009 Hepatitis B, [...] encounter Miscellaneous Notes * Telephone Encounter - Rey Melo MD - 09/24/2024 2:01 PM EST Retinal Scan Imaging [facility] [id number] Retinal Scan Interpretation: There is no retinopathy in both eyes Diabetes Retinal Imaging Care Plan: The retinal scan results are normal - I will forward this encounter to the Ophthalmology DM Letter Pool [[id number]], they will send a normal retinal scan letter to the patient, and the patient will be seen back for a yearly scan. Rey Melo MD 09/24/2024 2:02 PM * Telephone Encounter - Delores Trinidad RN - 09/24/2024 12:45 PM EST A Diabetic Telemed Eye image was taken and requires your interpretation for Dr Bandar Hankins. Please check your inbasket for image. Patient prefers [facility] at [facility] if a follow-up appointment is needed. documented in this encounter Plan of Treatment Upcoming Encounters Date Type Department Care Team (Late st Contact Info) Description 12/30/2024 11:40 AM EST Office Visit Family [facility] [place] [address] [place] [address] Bandar Hankins III, MD 200 [place] [address] Scheduled Procedures Name Priority Associated Diagnoses Date/Ti me COLONOSCOPY FLEXIBLE PROXIMA L DIAGNOSTIC Recall Special screening for malignant neoplasms, colon Health Maintenance Due Date Last Done Comments Cologuard 2010 Sigmoidoscopy 2010 Fecal Occult Blood Test 12/08/2011 12/08/2010, 09/28 Depression Screening 10/28/2020 10/28/2019 Diabetic Foot Exam 11/02/2021 11/02/2020, 1 , 08/16/2016, Additional history exists HbA1c 03/23/2025 09/23/2024, 10/12, 08/16/2022, Additional history exists Albumin/Creatinine Ratio 09/23/2025 024, 08/16/2022, 08/14/2016, Additional history exists GFR [...] this encounter Medical Devices Implanted Type Area Fnp Device Identifier Shelf Expiration Date Model / Serial / Lot Device Tvt [id number] - [id number] Implanted:Qty: 1 on 12/20/2011 at OR [facility] [place] N/A: Vagina JNJ : [employer] 05/11/2014 [id number] / / [id number] documented as of this encounter Advance Directives [...] 9:05 AM 01/01/2009 3:08 PM Care Teams Health And Nutrition Specialist Relationship Specialty Start Date End Date Bandar Hankins III, MD 200 [place] [address] PCP - General 02/11/02 documented as of this encounter
--- OUTSIDE RECORDS SUMMARY | 2025-02-08 11:08 | External Medical Summary | Summary of Care ---
Author Name Unknown Organization [facility] Address [address] [facility] [place] [address] Phone [phone] Care Team Providers Care Armored Machine Operator Name Role Phone Cr COBURN MD, Bandar Mcdonnell Primary Care Provider [phone] Reason for Visit * Reason Onset Date Comments Test Results 12/24/2024 Encounter Details Date Type Department Care Team (Late st Contact Info) Description 12/24/2024 Telephone Family Practice [facility] [place] 200 [facility] [place] [address] Bandar Hankins III, MD 200 [facility] [place] [address] Test Results Allergies Active Allergy Reactions Criticality [...] as of this encounter (statuses as of 12/24/2024) Medications Aspirin EC 81 MG Oral Tablet [...] as of this encounter (statuses as of 12/24/2024) Active Problems Problem Noted Date Diagnosed Date [...] ICD-10 update of inactive term NAVA RESEARCH OTHER*[id number] 03/02/2008 Uterine prolapse 09/10/2007 Varicella without complication documented as of this encounter (statuses as of 12/24/2024) Resolved Problems Problem Noted Date Diagnosed Date Resolved Date Accelerometer Research Study*[id number] 12/11/2013 02/09/2014 ADVANCE DIRECTIVE INFORMATION 01/30/2012 09/15/2024 [...] as of this encounter (statuses as of 12/24/2024) Immunizations Name Administration Dates Next Due COVID-19 [...] Description 12/30/2024 8:20 AM EST Telemedicine Nephrology, [address] [place] [address] Sulma Sutton MD 200 [facility] [place] [address] 12/30/2024 11:40 AM EST Office Visit Family Practice [facility] 200 [facility] [place] [address] Bandar Hankins III, MD 200 [facility] [place] [address] Scheduled Procedures Name Priority Associated Diagnoses Date/Ti [...] this encounter Medical Devices Implanted Type Area Telemedicine Physician Device Identifier Shelf Expiration Date Model / Serial / Lot Device Tvt [id number] - [id number] Implanted:Qty: 1 on 12/20/2011 at [place] [facility] [place] N/A: Vagina JNJ : [employer] 05/11/2014 [id number] / / [id number] documented as of this encounter Advance Directives [...] 9:05 AM 01/01/2009 3:08 PM Care Teams Armored Machine Operator Relationship Specialty Start Date End Date Bandar Hankins III, MD 200 [place] [address] PCP - General 02/11/02 documented as of this encounter
--- OUTSIDE RECORDS SUMMARY | 2025-02-08 11:08 | External Medical Summary | Summary of Care ---
Author Name Unknown Organization [facility] Address [address] [facility] [address] Phone [phone] Care Team Providers Care Engine Hostler Name Role Phone Cr COBURN MD, Bandar Mcdonnell Primary Care Provider [phone] Encounter Details Date Type Department Care Team (Late st Contact Info) Description 09/29/2024 Orders Only Family Practice [facility] [place] 200 [facility] [place] [address] Bandar Hankins III, MD 200 [facility] [place] [address] Allergies Active Allergy Reactions Criticality Noted Date [...] as of this encounter (statuses as of 09/29/2024) Medications Aspirin EC 81 MG Oral Tablet Delayed Release Take by mouth 1 Tablet in the morning. 100 Tablet 3 2 Active Pantoprazole Sodium 40 MG Oral Tablet Delayed Release (Protonix) take 1 tablet by mouth every morning 30 MINUTES before breakfast 90 Tablet 11/20/202 3 Active Atorvastatin Calcium 20 MG Oral Tablet (Lipitor) Take 1 Tablet by mouth in the morning. 30 Tablet 5 4 Active Lisinopril 10 MG Oral Tablet (Prinivil) Take 1 Tablet by mouth in the morning. 30 Tablet 5 4 Active Nitrofurantoin Monohyd Macro 100 MG Oral Capsule (Macrobid) Take 1 Capsule by mouth in the morning and 1 Capsule before bedtime. Do all this for 7 days. With food until gone. 14 Capsule 4 10/06/20 24 Active documented as of this encounter (statuses as of 09/29/2024) Active Problems Problem Noted Date Diagnosed Date [...] ICD-10 update of inactive term NAVA RESEARCH OTHER*[id number] 03/02/2008 Uterine prolapse 09/10/2007 Varicella without complication documented as of this encounter (statuses as of 09/29/2024) Resolved Problems Problem Noted Date Diagnosed Date Resolved Date Accelerometer Research Study*[id number] 12/11/2013 02/09/2014 ADVANCE DIRECTIVE INFORMATION 01/30/2012 09/15/2024 [...] as of this encounter (statuses as of 09/29/2024) Immunizations Name Administration Dates Next Due COVID-19 mRNA, LNP-s, No Pre serve, 2-Dose Series ([employer]) 02/16/2021,01/24/2021 COVID-19, MRNA-LNP, PF, 30 M CG/0.3 [...] 11:40 AM EST Office Visit Family Practice [facility] [place] 200 [facility] [place] [address] Bandar Hankins III, MD 200 [facility] [place] [address] Scheduled Procedures Name Priority Associated Diagnoses Date/Ti [...] this encounter Medical Devices Implanted Type Area Ecd Device Identifier Shelf Expiration Date Model / Serial / Lot Device Tvt [id number] - [id number] Implanted:Qty: 1 on 12/20/2011 at OR [facility] [place] N/A: Vagina JNJ : [employer] 05/11/2014 [id number] / / [id number] documented as of this encounter Advance Directives [...] 9:05 AM 01/01/2009 3:08 PM Care Teams Engine Hostler Relationship Specialty Start Date End Date Bandar Hankins III, MD 200 [place] [address] PCP - General 02/11/02 documented as of this encounter
--- OUTSIDE RECORDS SUMMARY | 2025-02-08 11:08 | External Medical Summary | Summary of Care ---
Author Name Unknown Organization [facility] Address [address] [facility] [place] [address] Phone [phone] Care Team Providers Care Chairman Ceo Name Role Phone Cr COBURN MD, Bandar Mcdonnell Primary Care Provider Reason for Visit * Reason Comments Outpatient Testing Encounter Details Date Type Department Care Team (Latest Contact Info) Description 12/23/2024 9:00 AM EST Laboratory Laboratory, [facility] [place] [phone] [facility] 132 [place] [address] Type 2 diabetes mellitus with both eyes [...] ICD-10 update of inactive term NAVA RESEARCH OTHER*[id number] 03/02/2008 Uterine prolapse 09/10/2007 Varicella without complication documented as of this encounter (statuses as of 12/23/2024) Resolved Problems Problem Noted Date Diagnosed Date Resolved Date Accelerometer Research Study*[id number] 12/11/2013 02/09/2014 ADVANCE DIRECTIVE INFORMATION 01/30/2012 09/15/2024 [...] [place] [address] [place] [address] Bandar Hankins III, MD [address] [place] [address] [address] Pending Results Name Type Priority Associated Diagnoses Date /Time HEMOGLOBIN A1C Lab Routine Type 2 diabetes mellitus with both eyes affected by mild nonproliferative retinopathy without macular edema, without long-term current use of insulin (HCC) 12/23/2024 8:57 AM EST LDL CHOLESTEROL (DIRECT MEASURE) Lab Routine Type 2 diabetes mellitus with both eyes affected by mild nonproliferative retinopathy without macular edema, without long-term current use of insulin (HCC) 12/23/2024 8:57 AM EST ALBUMIN / CREATININE RATIO, URINE Lab Routine Microalbuminuria 12/23/2024 8:57 AM EST Scheduled Procedures Name Priority Associated Diagnoses [...] encounter Medical Devices Implanted Type Area Technical Associate Device Identifier Shelf Expiration Date Model / Serial / Lot Device Tvt [id number] - [id number] Implanted:Qty: 1 on 12/20/2011 [place] [facility] [place] Vagina JN[place] : [employer] 05/11/2014 [id number] / / [id number] documented as of this encounter Visit Diagnoses Diagnosis Type 2 [...] 9:05 AM 01/01/2009 3:08 PM Care Teams Chairman Ceo Relationship Specialty Start Date End Date Bandar Hankins III, MD 200 [place] [address] PCP - General 02/11/02 documented as of this encounter
--- OUTSIDE RECORDS SUMMARY | 2025-02-08 11:08 | External Medical Summary ---
Author Name Unknown Address Unknown Organization K01:[facility] [place] [address] [place] [address] Laboratory Report Ordering Provider Test Date Status KARLA WORKMAN III 12/26/2024 12:36:54 Final Normal: <30 mg/g creatinine< br/>High: 30-300 mg/g creatinine
Very High: >300 mg/g creatinine
Nephrotic: >2200 mg/g creatinine Observation Date Value Abnormality Reference (Units ) Status Albumin, Urine 12/26/2024 12:36:54 66.00 (mg/dL) Final Creatinine, Urine 12/26/2024 12:36:54 140 (mg/dL) Final Albumin/Creatinine [Mass Ratio] in Urine 12/26/2024 12:36:54 471 Above high normal <30 (mg/g Creat) Final Performing Location [facility] [place] [address] [place] [address]
--- OUTSIDE RECORDS SUMMARY | 2025-02-08 11:09 | External Medical Summary | Summary of Care ---
Author Name Unknown Organization [facility] Address [address] [place] [address] Phone [phone] Care Team Providers Care Substation Operator Chief Name Role Phone Cr COBURN MD, Bandar Mcdonnell Primary Care Provider [phone] Reason for Visit * Reason Onset Date Comments Appointment 09/26/2024 Annual device ch ted Encounter Details Date Type Department Care Team (Late st Contact Info) Description 09/26/2024 Telephone Cardiology, [facility] [address] [facility] [place] [address] Services, Scheduling [address] [place] [address] Appointment (Annual device check) Allergies Active Allergy Reactions Criticality Noted Date [...] as of this encounter (statuses as of 09/26/2024) Medications Aspirin EC 81 MG Oral Tablet [...] as of this encounter (statuses as of 09/26/2024) Active Problems Problem Noted Date Diagnosed Date [...] ICD-10 update of inactive term NAVA RESEARCH OTHER*[id number] 03/02/2008 Uterine prolapse 09/10/2007 Varicella without complication documented as of this encounter (statuses as of 09/26/2024) Resolved Problems Problem Noted Date Diagnosed Date Resolved Date Accelerometer Research Study*[id number] 12/11/2013 02/09/2014 ADVANCE DIRECTIVE INFORMATION 01/30/2012 09/15/2024 [...] as of this encounter (statuses as of 09/26/2024) Immunizations Name Administration Dates Next Due COVID-19 [...] encounter Miscellaneous Notes * Telephone Encounter - Harrison Arriaga OSA - 09/26/2024 2:53 PM EST I called patient, explained to her that she is remote, and that Malorie received a remote transmission on 09/13 and that there was no problems. Patient understood she does not need to come in for the appt. I stated to her, if there is any problems or questions, please let us know. Patient agreed, and understood. * Telephone Encounter - Harrison Arriaga OSA - 09/26/2024 2:32 PM EST Malorie, please let me know if this patient needs an inperson appt or is remote, thank you. * Telephone Encounter - Uzma Salamanca, DAVE - 09/26/2024 2:23 PM EST Person calling: Patient Relationship to patient: Patient Number to return call: [phone] Reason for call: device appt Pharmacy: N/A Provider Name: N/A Detailed message to office: Patient calling to schedule 1 year annual device check appt. Can be reached at the number above. documented in this encounter Plan of Treatment Upcoming Encounters Date Type Department Care Team (Late st Contact Info) Description 12/30/2024 11:40 AM EST Office Visit Family Practice [facility] [place] [address] [place] [address] Bandar Hankins III, MD [address] [facility] [place] [address] Scheduled Procedures Name Priority Associated Diagnoses Date/Ti [...] encounter Medical Devices Implanted Type Area Manager Acute Device Identifier Shelf Expiration Date Model / Serial / Lot Device Tvt [id number] - [id number] [place]ed:[place] 1 [place] [facility] [place] Vagina [place] : [employer] 05/11/2014 [id number] / / [id number] documented as of this encounter Advance Directives [...] 9:05 AM 01/01/2009 3:08 PM Care Teams Substation Operator Chief Relationship Specialty Start Date End Date Cr COBURN, Bandar Mcdonnell MD [address] [facility] [place] [address] PCP - General 02/11/02 documented as of this encounter
--- OUTSIDE RECORDS SUMMARY | 2025-02-08 11:09 | External Medical Summary | Summary of Care ---
Author Name Unknown Organization [facility] Address [address] [facility] [place] [address] Phone [phone] Care Team Providers Care Varnish Filterer Name Role Phone Cr COBURN MD, Bandar Mcdonnell Primary Care Provider [phone] Reason for Referral * Evaluate & Treat - Unlimited Visits (Within 10 days (routine)) - Authorized Specialty Diagnoses / Procedures Referred By Karen oquendo Referred To Contact Physical Therapy / Physical Medicine And Rehab Diagnoses Chronic bilateral low back pain without sciatica Bandar Hankins III, MD [facility] [address] [place] [address] Phone: tel: fax: Referral ID Status Reason Start Date Expiration Date Visits Requested Visits Authorized [id number] Authorized Specialty Services Required [phone] Question Answer Referral Priority Within 10 days (routine) Where should this appointment be scheduled? [facility] Reason for Visit * Reason Comments Physical-Exam Encounter Details Date Type Department Care Team (Latest Contact Info) Description 09/24/2024 11:40 AM EST Office Visit Family Practice [facility] [address] [place] [address] Bandar Hankins III, MD [address] [place] [address] Routine medical exam*; Type 2 diabetes mellitus with both eyes affected by mild nonproliferative retinopathy without macular edema, without long-term current use of insulin (HCC); Dysuria; Type 2 diabetes mellitus with hemoglobin A1c goal of less than 7.0% ([facility]); HTN, goal below 140/90; Encounter for screening mammogram for breast cancer; Microalbuminuria; Dyslipidemia, goal LDL below 70; Chronic bilateral low back pain without sciatica Allergies Active Allergy Reactions Criticality Noted Date [...] as of this encounter (statuses as of 09/27/2024) Medications Aspirin EC 81 MG Oral Tablet Delayed Release Take by mouth 1 Tablet in the morning. 100 Tablet 3 08/16/20 22 Active Pantoprazole Sodium 40 MG Oral Tablet Delayed Release (Protonix) take 1 tablet by mouth every morning 30 MINUTES before breakfast 90 Tablet 10/01/20 23 Active Atorvastatin Calcium 20 MG Oral Tablet (Lipitor) Take 1 Tablet by mouth in the morning. 30 Tablet 5 09/24/20 24 Active Lisinopril 10 MG Oral Tablet (Prinivil) Take 1 Tablet by mouth in the morning. 30 Tablet 5 09/24/20 24 Active Lisinopril 5 MG Oral Tablet (Prinivil) TAKE 1 TABLET BY MOUTH ONCE DAILY IN THE MORNING 30 Tablet 09/09/20 24 024 Discontinued documented as of this encounter (statuses as of 09/27/2024) Active Problems Problem Noted Date Diagnosed Date [...] ICD-10 update of inactive term NAVA RESEARCH OTHER*[id number] 03/02/2008 Uterine prolapse 09/10/2007 Varicella without complication documented as of this encounter (statuses as of 09/27/2024) Resolved Problems Problem Noted Date Diagnosed Date Resolved Date Accelerometer Research Study*[id number] 12/11/2013 02/09/2014 ADVANCE DIRECTIVE INFORMATION 01/30/2012 09/15/2024 [...] as of this encounter (statuses as of 09/27/2024) Immunizations Name Administration Dates Next Due COVID-19 mRNA, LNP-s, No Pre serve, 2-Dose Series (Pfizer) 02/16/2021,01/24/2021 H1N1 2009 Influenza, IM 11/02/2009 Hepatitis [...] Sign Reading Time Taken Comments Blood Pressure 110/65 09/24/2024 11:36 AM EST Pulse 83 09/24/2024 11:36 AM EST Temperature 36.9 °C (98.5 °F) 09/24/2024 11:[address] Respiratory Rate 16 09/24/2024 11:36 AM EST Oxygen Saturation - - Inhaled Oxygen Concentration - - Weight 94.3 kg (208 lb) 09/24/2024 11:36 AM EST Height 171.4 cm (5' 7.48") 09/24/2024 11:[address] Body Mass Index 32.12 09/24/2024 11:36 AM EST documented in this encounter Progress Notes * Bandar Hankins III, MD - 09/24/2024 12:44 PM EST Subjective: Yuly Shipley is a 59 year old female. Chief Complaint Patient presents with Physical-Exam HPI: Physical examination follow up diabetes mellitus dyslipidemia microalbumin nocturia hypertension currently having burning and pain urinary frequency eyes have not been checked has not seen dentist for several years no hearing concerns no swallowing difficulties no swelling of her ankles labs reviewed GFR of 67 electrolytes normal microalbumin elevated A1c 6.5 denies lightheadedness and dizziness PHM: Patient Active Problem List Diagnosis Varicella without complication Uterine prolapse H. 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 Type 2 diabetes mellitus with hemoglobin A1c goal of less than 7.0% (HCC) DYSLIPIDEMIA, GOAL LDL BELOW 100 OBESITY, BMI 30-34 (SEE ACTUAL BMI) Postgastric surgery syndrome NAVA RESEARCH OTHER*[id number] HTN, goal below 140/90 Gross hematuria Non-seasonal allergic rhinitis due to animal hair and dander Type 2 diabetes mellitus with both eyes affected by mild nonproliferative retinopathy without macular edema, without long-term current use of insulin (HCC) Current Outpatient Medications Medication Sig Dispense Refill [...] performed by Lara Hendrix DO at ENDOSCOPY [facility] CYSTOSCOPY 03/16/2014 CYSTOSCOPY/URETERAL CATHETER 03/27/2014 CYSTOURETHROSCOPY WITH URETERAL CATHETER performed by Diana Chappell MD at OR [facility] EGD, FLEXIBLE, DIAGNOSTIC 01/01/2009 UPPER GI ENDOSCOPY DIAGNOSTIC performed by RAISA BELTRAN [place] [facility] [place]GD, FLEXIBLE, DIAGNOSTIC 12/26/2010 ulceration EGD, FLEXIBLE, DIAGNOSTIC 08/07/2011 previously seen anastamotic ulcer has healed angy removed EGD, FLEXIBLE, W/BIOPSY 03/22/2011 ulcer--benign inflammation--repeat in 4-6 weeks EGD, FLEXIBLE, W/BIOPSY 05/16/2011 gastroenteric anastamosis with anastamotic ulcer LAPAROSCOPE PROCEDURE, LIVER 01/01/2009 UNLISTED LAPAROSCOPIC PROCEDURE LIVER performed by RAISA BELTRAN at [place] [facility] [place] LAPAROSCOPIC GASTRIC BYPASS/LUIS-EN-Y 01/01/2009 LAPAROSCOPIC GASTRIC RESTRICTIVE BYPASS LUIS EN Y performed by RAISA BELTRAN at [place] [facility] [place] MAMMOGRAM SCREENING-BILATERAL 09/11/2007 birad 2 REMOVE GALLBLADDER lapro REPAIR BLADDER & VAGINA, CYSTOCELE REPAIR BLADDER DEFECT 12/20/2011 VAGINAL SLING PROCEDURE FOR STRESS INCONTINENCE performed by SILVIA GONZALEZ at [place] [facility] [place] REPAIR DETACHED RETINA, VITRECTOMY 2009 laser REPAIR OF VAGINAL PROLAPSE 12/20/2011 COLPOPEXY VAGINAL EXTRA PERITONEAL APPROACH performed by SILVIA GONZALEZ [place] [facility] [place] TOTAL ABD HYSTERECTOMY W/WO REMOVAL OF TUBE(S) 12/20/2011 ERECTOMY WITH OR WITHOUT TUBES AND OVARIES performed by SILVIA GONZALEZ [place] [facility] [place] VAGINAL HYSTERECTOMY 12/20/2011 VAGINAL HYSTERECTOMY performed by SILVIA GONZALEZ [place] [facility] [place] Review of patient's allergies indicates: Allergen Reactions [...] Extract [Punica] Wound Dressing Adhesive Objective: BP 110/65 | Pulse 83 | Temp 36.9 °C (98.5 °F) | Resp 16 | Ht 1.714 m (5' 7.48") | Wt 94.3 kg (208lb) | LMP 11/22/2011 | BMI 32.12 kg/m² | BSA 2.12 m² Physical Exam: General: alert, healthy, and no distress Eye Exam: PERRLA, extraocular movements intact, conjunctiva are pink and non- injected, sclera clear Ears: External ears normal, Canals clear, TM's Normal Oropharynx: no exudate, no erythema, lips, buccal mucosa, and tongue normal, and mucous membranes are moist Neck: supple, no adenopathy, no bruits, thyroid normal size, non-tender, without nodularity Heart: regular rate & rhythm, no murmur, and no gallops Lungs: lungs clear to auscultation Pulses: carotid=2/4 w/o bruits Abdomen: abdomen soft, non-tender, normal bowel sounds, and no masses or organomegaly Extremities: no edema, no clubbing, no cyanosis Neuro Exam: alert & oriented x 3 with fluent speech, reflexes normal and symmetric ASSESSMENT/PLAN: Routine medical exam (Primary) Type 2 diabetes mellitus with both eyes affected by mild nonproliferative retinopathy without macular edema, without long-term current use of insulin ([facility]) - HEMOGLOBIN A1C; Future; Expected date: 09/24/2024 - LDL CHOLESTEROL (DIRECT MEASURE); Future; Expected date: 09/24/2024 - TELEMEDICINE DIABETIC EYE Dysuria - URINALYSIS, POINT OF CARE (ENTER/EDIT) Type 2 diabetes mellitus with hemoglobin A1c goal of less than 7.0% ([facility]) HTN, goal below 140/90 Encounter for screening mammogram for breast cancer - MAMMOGRAM SCREENING MICKY BILATERAL; Future; Expected date: 09/24/2024 Microalbuminuria - ALBUMIN / CREATININE RATIO, URINE; Future; Expected date: 09/24/2024 Dyslipidemia, goal LDL below 70 Chronic bilateral low back pain without sciatica - PHYSICAL THERAPY REFERRAL OP Other orders - Atorvastatin Calcium 20 MG Oral Tablet (Lipitor); Take 1 Tablet by mouth in the morning. - Lisinopril 10 MG Oral Tablet (Prinivil); Take 1 Tablet by mouth in the morning. Bandar Hankins III, MD * Deolres Trinidad RN - 09/24/2024 11:36 AM EST Pt has burning, urgency, documented in this encounter Plan of Treatment Upcoming Encounters Date Type Department Care Team (Late st Contact Info) Description 12/30/2024 11:40 AM EST Office Visit Family Practice [address] [place] [address] Band[facility] Hankins III, MD [facility] [address] Pending Results Name Type Priority Associated Diagnoses Date /Time CULTURE, URINE, QUANTITATIVE Lab Routine Dysuria 09/24/2024 2:56 PM EST Scheduled Orders Name Type Priority Associated Diagnoses Orde r Schedule HEMOGLOBIN A1C Lab Routine Type 2 diabetes mellitus with both eyes affected by mild nonproliferative retinopathy without macular edema, without long-term current use of insulin (HCC) Expected: 09/24/2024 (Approximate), Expires: 09/24/2025 LDL CHOLESTEROL (DIRECT MEASURE) Lab Routine Type 2 diabetes mellitus with both eyes affected by mild nonproliferative retinopathy without macular edema, without long-term current use of insulin (HCC) Expected: 09/24/2024 (Approximate), Expires: 09/24/2025 ALBUMIN / CREATININE RATIO, URINE Lab Routine Microalbuminuria Expected: 09/24/2024 (Approximate), Expires: 09/24/2025 Scheduled Procedures Name Priority Associated Diagnoses Date/Ti me COLONOSCOPY FLEXIBLE PROXIMA L DIAGNOSTIC Recall Special screening for malignant neoplasms, colon Scheduled Referrals Name Type Priority Associated Diagnoses Orde r Schedule PHYSICAL THERAPY REFERRAL OP Referral Within 10 days (routine) Chronic bilateral low back pain without sciatica Ordered: 09/24/2024 Health Maintenance Due Date Last Done Comments [...] this encounter Medical Devices Implanted Type Area Gauntlet Pairer Device Identifier Shelf Expiration Date Model / Serial / Lot Device Tvt [id number] - [id number] Implanted:Qty: 1 on 12/20/2011 [place] [facility] [place]/A: Vagina JN[place] : [employer] 05/11/2014 [id number] / / [id number] documented as of this encounter Procedures Procedure Name Priority Date/Time Associated Diagnosis Comments CULTURE, URINE, QUANTITATIVE Routine 09/24/2024 2:56 PM EST Dysuria URINALYSIS, POINT OF CARE (ENTER/EDIT) Routine 09/24/2024 Dysuria TELEMEDICINE DIABETIC EYE Routine 09/24/2024 Type 2 diabetes mellitus with both eyes affected by mild nonproliferative retinopathy without macular edema, without long-term current use of insulin (HCC) documented in this encounter Results * MAMMOGRAM SCREENING MICKY BILATERAL (09/25/2024 7:11 AM EST) Anatomical Region Laterality Modality Breast Bilateral Mammography Narrative 09/26/2024 11:43 AM EST Result MAMMOGRAM SCREENING MICKY BILATERAL History Encounter for screening mammogram for breast cancer Family medical history includes breast cancer in aunt (maternal). Films Compared 11/02/2020 MAMMOGRAM SCREENING MICKY BILATERAL and 09/19/2019 MAMMOGRAM SCREENING BILATERAL Findings The breasts are almost entirely fatty. There is no evidence of suspicious masses, calcifications, or other abnormal findings. Left chest loop recorder device. Impression Bilateral No mammographic evidence of malignancy. BI-RADS® Category: 1 - Negative. Recommendation Screening mammogram in 1 year is recommended for both breasts. Digital breast tomosynthesis was performed. This digital mammogram has been analyzed with the computer aided detection system. Breast tissue can be either dense or not dense. Dense tissue makes it harder to find breast cancer on a mammogram and also raises the risk of developing breast cancer. Your breast tissue is not dense. Talk to your healthcare provider about breast density, risks for breast cancer, and your individual situation. This examination was performed at [facility], [address] [place] [address]. [phone] Bandar Hankins III, MD RAD MAMMOGRAPHY Final Resul t * TELEMEDICINE DIABETIC EYE (09/24/2024) 09/24/2024 Bandar Hankins III, MD DIGITAL PHOTOGRAPHY Final R esult * URINALYSIS, POINT OF CARE (ENTER/EDIT) (09/24/2024) Color, Urine Light Yellow Yellow or Light Yellow Clarity, Urine Cloudy Clear Glucose, Urine Negative Negative mg/dL Bilirubin, Urine Negative Negative Ketone, Urine Negative Negative mg/dL Specific [place], Urine 1.025 1.003 - 1.030 Blood, Urine Large Negative pH, Urine 6.0 5.0 - 7.5 units Protein, Urine >=300 Negative mg/dL Urobilinogen, Urine 0.2 0.2 - 1.0 mg/dL Nitrite, Urine Negative Negative Esterase, Urine Large Negative Urine 09/24/2024 Bandar Hankins III, MD LAB POINT OF CARE TEST ENTE R/EDIT ORDERABLES Final Result documented in this encounter Visit Diagnoses Diagnosis Routine medical exam- Primary Routine general medical examination at a health care facility Type 2 diabetes mellitus with both eyes affected by mild nonproliferative retinopathy without macular edema, without long-term current use of insulin (HCC) Dysuria Type 2 diabetes mellitus with hemoglobin A1c goal of less than 7.0% (HCC) HTN, goal below 140/90 Unspecified essential hypertension Encounter for screening mammogram for breast cancer Microalbuminuria Proteinuria Dyslipidemia, goal LDL below 70 Other and unspecified hyperlipidemia Chronic bilateral low back pain without sciatica Encounter for screening mammogram for breast cancer documented in this encounter Advance Directives * [...] 9:05 AM 01/01/2009 3:08 PM Care Teams Varnish Filterer Relationship Specialty Start Date End Date Bandar Hankins III, MD [address] [place] [address] PCP - General 02/11/02 documented as of this encounter
--- OUTSIDE RECORDS SUMMARY | 2025-02-08 11:09 | External Medical Summary | Summary of Care ---
Author Name Unknown Organization [facility] Address [address] [facility] [place] [address] Phone [phone] Care Team Providers Care Men'S Designer Name Role Phone Cr COBURN MD, Jacinta Mcdonnell Primary Care Provider [phone] Reason for Visit * Reason Comments eRx-Medication Refill Encounter Details Date Type Department Care Team (Late st Contact Info) Description 09/05/2024 Refill Family Practice [facility] [address] [facility] [place] [address] Jacinta Acosta III, MD 200 [facility] [place] [address] Encounter for long-term (current) use of medications* Allergies Active Allergy Reactions Criticality Noted Date [...] as of this encounter (statuses as of 09/09/2024) Medications Medication Sig Dispensed Refills Start Date End Date Status Aspirin EC 81 MG Oral Tablet Delayed Release Take by mouth 1 Tablet in the morning. 100 Tablet 3 08/16/2022 Active Pantoprazole Sodium 40 MG Oral Tablet Delayed Release (Protonix) take 1 tablet by mouth every morning 30 MINUTES before breakfast 90 Tablet 10/01/2023 Active Lisinopril 5 MG Oral Tablet (Prinivil) TAKE 1 TABLET BY MOUTH ONCE DAILY IN THE MORNING 30 Tablet 09/09/2024 Active Lisinopril 5 MG Oral Tablet (Prinivil) Take 1 Tablet by mouth in the morning. 30 Tablet 11 09/12/2023 Discontinued documented as of this encounter (statuses as of 09/09/2024) Active Problems Problem Noted Date Diagnosed Date Type 2 diabetes mellitus wit h both eyes affected by mild nonproliferative retinopathy without macular edema, without long-term current use of insulin 09/19/2019 Non-seasonal allergic rhinit is due to animal hair and dander 07/26/2017 Gross hematuria 02/26/2014 HTN, goal below 140/90 12/02/2012 ADVANCE DIRECTIVE INFORMATION 01/30/2012 Overview: No, Advance Directive brochure given to patient at prior appointment. Postgastric surgery syndrome 05/18/2010 OBESITY, BMI 30-34 (SEE ACTUAL BMI) 02/03/2010 Overview: Per Obesity Taxonomy DYSLIPIDEMIA, GOAL LDL BELOW 100 10/21/2009 Overview: Per Lipid Taxonomy. Type 2 diabetes mellitus wit h hemoglobin A1c goal of less than 7.0% 09/09/2009 Overview: Per Diabetes Taxonomy. 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 pylori infection 05/28/2008 Other iron deficiency anemia 05/28/2008 Overview: ICD-10 update of inactive term NAVA RESEARCH OTHER*[id number] 03/02/2008 Uterine prolapse 09/10/2007 Varicella without complication documented as of this encounter (statuses as of 09/09/2024) Resolved Problems Problem Noted Date Diagnosed Date Resolved Date Accelerometer Research Study*[id number] 12/11/2013 02/09/2014 DM Type 2 causing Renal Dz 09/09/2009 0 04/25/2017 Overview: Per Diabetes Taxonomy. Morbid Obesity, BMI not known 10/31/2007 02/03/2010 Overview: Per Obesity Taxonomy DM Type 2 causing Renal Dz 09/10/2007 1 Overview: Per Diabetes Taxonomy. Dyslipidemia, goal to be determined 09/10/2007 10/21/2009 Overview: Per Lipid Taxonomy. Type 2 diabetes mellitus wit h hemoglobin A1c goal of less than 7.0% 04/28/2005 09/09/2009 Overview: Per Diabetes Taxonomy. ICD-10 update of inactive term documented as of this encounter (statuses as of 09/09/2024) Immunizations Name Administration Dates Next Due COVID-19 [...] Seasonal Influenza, Trivalen t, (IIV3), PF, (Fluzone) 08/23/2018 TD, Preservative Free 05/03/2020 TDAP, Age 7 [...] the money to buy more. Never true 08/12/20 22 Within the past 12 months, t he food you bought just didn't last and you didn't have money to get more. Never true 08/12/2022 Utilities Answer Date Recorded Do you have trouble paying y our heating, water, or electric bill? (Adult - for ages 18 years and over) Not on file 04/29/2024 Is your family able to pay t he heat, water, or electric bill? (Household - for ages 0-17 years) Not on file 04/29/2024 Does your family have access to good internet? (Household - for ages 0-17 years) Not on file 04/29/2024 Social Connections Answer Date Recorded How often do you feel lonely or isolated from those around you? (Adult - for ages 18 years and over) Not on file 04/29/2024 Sex and Gender Information Value Date Recorded Sex Assigned at Female 08/12/2022 1:47 PM EDT Gender Identity Female 08/12/2022 1:47 PM EDT Sexual Orientation Choose not to disclose 2021 1:47 PM EDT Job Start Date Occupation Industry Not on file Not on file Not on file documented as of this encounter Miscellaneous Notes * Telephone Encounter - Jacinta Acosta III, MD - 09/09/2024 11:01 AM EDTSigned Prescriptions: Disp Refills Lisinopril 5 MG Oral Tablet (Prinivil) 30 Tab*0 Sig: TAKE 1 TABLET BY MOUTH ONCE DAILY IN THE MORNINGAuthorizing Provider: JACINTA ACOSTA III * Telephone Encounter - Leda Cadet CPhT - 09/09/2024 10:33 AM EDTPending Prescriptions: Disp Refills Lisinopril 5 MG Oral Tablet (Prinivil) 30 Tab*0 Sig: TAKE 1 TABLET BY MOUTH ONCE DAILY IN THE MORNING * Telephone Encounter - Leda Cadet CPhT - 09/09/2024 10:33 AM EDT Received message from [facility] regarding patient needing an appointment. Call Placed, Left message on [employer] to call back and schedule appointment. Thank you, Leda Cadet CPhT Truck Driver Instructor [facility]) 09/09/2024,10:33 AM * Telephone Encounter - Aurea Mckeon [facility] - 09/08/2024 4:58 AM EDTPending Prescriptions: Disp Refills Lisinopril 5 MG Oral Tablet (Prinivil) 30 Tab*0 Sig: TAKE 1 TABLET BY MOUTH ONCE DAILY IN THE MORNING * Telephone Encounter - Aurea Mckeon [facility] - 09/08/2024 4:56 AM EDT Unable to authorize medication refills for pended medication(s) at this time. Part of the protocol criteria used for refill authorization was not satisfied. Per refill protocol patient should have routine exam and labs on file within past year. Reviewed AMP report, Care Gaps/Health Maintenance, medications list, and for any routine labs typically orderedfor this patient. Lab orders placed. Please contact patient to schedule office visit with PRIMARY CARE and advise of labs ordered for blood draw AND URINE specimen (patient will have to be able to void to provide sample).. Fasting is not required. Advise to obtain labs before her scheduled office visit Visit date not found. Last Visit: 08/16/2022 (in office), Visit date not found (telemedicine) Next Visit: Visit date not found After contacting patient, please forward request to Jacinta Acosta III, MD. Thank You, Aurea Mckeon [facility] Clinical Pharmacist [facility] ([facility]) [phone] [id number] 09/08/2024, 4:57 AM documented in this encounter Plan of Treatment Scheduled Orders Name Type Priority Associated Diagnoses Orde r Schedule BASIC METABOLIC PANEL Lab Routine Encounter for long-term (current) use of medications Expected: 09/08/2024 (Approximate), Expires: 09/08/2025 ALBUMIN / CREATININE RATIO, URINE Lab Routine Encounter for long-term (current) use of medications Expected: 09/08/2024 (Approximate), Expires: 09/08/2025 HEMOGLOBIN A1C Lab Routine Encounter for long-term (current) use of medications Expected: 09/08/2024 (Approximate), Expires: 09/08/2025 Scheduled Procedures Name Priority Associated Diagnoses Date/Ti me COLONOSCOPY FLEXIBLE PROXIMA L DIAGNOSTIC Recall Special screening for malignant neoplasms, colon Health Maintenance Due Date Last Done Comments Cologuard 2010 Sigmoidoscopy 2010 Fecal Occult Blood Test 12/08/2011 12/08/2010, 09/28 Depression Screening 10/28/2020 10/28/2019 Diabetic Eye Exam 10/04/2021 10/04/2020, , 09/05/2019, Additional history exists Diabetic Foot Exam 11/02/2021 11/02/2020, 1 , 08/16/2016, Additional history exists Mammogram 11/02/2021 11/02/2020, 110 06/2019, 08/24/2017, Additional history exists HbA1c 04/26/2023 10/26/2022, 100 03/2022, 04/25/2021, Additional history exists Albumin/Creatinine Ratio 08/16/2023 022, 08/14/2016, 08/25/2015, Additional history exists GFR 10/26/2023 10/26/2022, 100 03/2022, 11/02/2020, Additional history exists COVID-19 Vaccine ( season) 2024 08/20/2023, 04/07/2022, 02/16/2021, Additional history exists Influenza Vaccine (FLU shot) (#1) 2024 08/20/2023, 08/16/2022, 08/20/2020, Additional history exists Lipid Panel 10/26/2027 10/26/2022, 100 03/2022, 10/23/2016, Additional history exists DTap/Tdap Vaccines (3 - Td or Tdap) 05/03/2030 05/03/2020, 02/10/2010, 04/28/2005 Colonoscopy 07/01/2031 07/01/2021, 06/13, 12/26/2010 Colorectal Cancer Screening 07/01/2031 Hepatitis B Vaccine Completed 02/23/2015, 08/13/2014, 02/11/2014 Zoster Vaccines Completed 08/26/2020, 05/03/2020 Pneumococcal Vaccine: Pediatrics (0 to 5 Years) and At-Risk Patients (6 to 64 Years) Completed 08/20/2023, 09/24/2002 HPV (Gardasil) Vaccine Aged Out No lo nger eligible based on patient's age to complete this topic MENINGOCOCCAL (MENACTRA/MENVEO) Aged Out No longer eligible based on patient's age to complete this topic documented as of this encounter Medical Devices Implanted Type Area Guest Services Lead Device Identifier Shelf Expiration Date Model / Serial / Lot Device Tvt [id number] - [id number] Implanted:Qty: 1 on 12/20/2011 [place] [facility] [place] Vagina JNJ : [employer] 05/11/2014 [id number] / / [id number] documented as of this encounter Visit Diagnoses Diagnosis Encounter for long-term (current) use of medications- Primary Encounter for long-term (current) use of other medications documented in this encounter Advance Directives * [...] 9:05 AM 01/01/2009 3:08 PM Care Teams Men'S Designer Relationship Specialty Start Date End Date Jacinta Acosta III, MD [address] [place] [address] PCP - General 02/11/02 documented as of this encounter
--- OUTSIDE RECORDS SUMMARY | 2025-02-08 11:09 | External Medical Summary | Summary of Care ---
Author Name Unknown Organization [facility] Address [address] [facility] [place] [address] Phone [phone] Care Team Providers Care Consulting Business Developer Name Role Phone Cr COBURN MD, Bandar Mcdonnell Primary Care Provider [phone] Reason for Visit * Reason Comments Outpatient Testing Encounter Details Date Type Department Care Team (Late st Contact Info) Description 09/23/2024 9:20 AM EST Laboratory Laboratory, [facility] [address] [facility] [place] [address] [facility] [address] [place] [address] Encounter for long-term (current) use of medications; Encounter for long-term (current) use of medications Allergies Active Allergy Reactions Criticality Noted Date [...] as of this encounter (statuses as of 09/23/2024) Medications Aspirin EC 81 MG Oral Tablet Delayed Release Take by mouth 1 Tablet in the morning. 100 Tablet 3 2 Active Pantoprazole Sodium 40 MG Oral Tablet Delayed Release (Protonix) take 1 tablet by mouth every morning 30 MINUTES before breakfast 90 Tablet 3 Active Lisinopril 5 MG Oral Tablet (Prinivil) TAKE 1 TABLET BY MOUTH ONCE DAILY IN THE MORNING 30 Tablet 4 Active documented as of this encounter (statuses as of 09/23/2024) Active Problems Problem Noted Date Diagnosed Date [...] BMI) 02/03/2010 Overview (02/03/2010): Per Obesity Taxonomy DYSLIPIDEMIA, GOAL LDL BELOW 100 10/21/2009 Overview (10/21/2009): Per Lipid Taxonomy. Type 2 diabetes mellitus wit h hemoglobin A1c goal of less than 7.0% 09/09/2009 Overview (03/07/2016): Per Diabetes Taxonomy. 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 pylori infection 05/28/2008 Other iron deficiency anemia 05/28/2008 Overview (08/13/2017): ICD-10 update of inactive term NAVA RESEARCH OTHER*[id number] 03/02/2008 Uterine prolapse 09/10/2007 Varicella without complication documented as of this encounter (statuses as of 09/23/2024) Resolved Problems Problem Noted Date Diagnosed Date Resolved Date Accelerometer Research Study*[id number] 12/11/2013 02/09/2014 ADVANCE DIRECTIVE INFORMATION 01/30/2012 09/15/2024 Overview (04/26/2005): No, Advance Directive brochure given to patient at prior appointment. DM Type 2 causing Renal Dz 09/09/2009 [...] as of this encounter (statuses as of 09/23/2024) Immunizations Name Administration Dates Next Due COVID-19 mRNA, LNP-s, No Pre serve, 2-Dose Series ([employer]) 02/16/2021,01/24/2021 H1N1 2009 Influenza, IM 11/02/2009 Hepatitis [...] money to get more. Never true 08/12/2022 Comments No Sex and Gender Information Value [...] Care Team (Late st Contact Info) Description 09/23/2024 9:40 AM EST [facility] [address] [place] [address] [facility] [address] [place] [address] Arrived 09/24/2024 11:40 AM EST Office Visit Family Practice [place] [address] [place] [address] Bandar Hankins III, MD [address] [place] [address] Pending Results Name Type Priority Associated Diagnoses Date /Time ALBUMIN / CREATININE RATIO, URINE Lab Routine Encounter for long-term (current) use of medications 09/23/2024 9:06 AM EST HEMOGLOBIN A1C Lab Routine Encounter for long-term (current) use of medications 09/23/2024 9:06 AM EST MAGNESIUM Lab Routine Encounter for long-term (current) use of medications 09/23/2024 9:06 AM EST BASIC METABOLIC PANEL Lab Routine Encounter for long-term (current) use of medications 09/23/2024 9:06 AM EST Scheduled Procedures Name Priority Associated [...] 03/2022, 04/25/2021, Additional history exists Albumin/Creatinine Ratio 08/16/20232 022, 08/14/2016, 08/25/2015, Additional history exists GFR [...] this encounter Medical Devices Implanted Type Area Devulcanizer Charger Device Identifier Shelf Expiration Date Model / Serial / Lot Device Tvt [id number] - [id number] Implanted:Qty: 1 on 12/20/2011 at [place] [facility] [place] N/A: Vagina JNJ : [employer] 05/11/2014 [id number] / / [id number] documented as of this encounter Visit Diagnoses Diagnosis Encounter for long-term (current) use of medications Encounter for long-term (current) use of other [...] 9:05 AM 01/01/2009 3:08 PM Care Teams Consulting Business Developer Relationship Specialty Start Date End Date Bandar Hankins III, MD [address] [place] [address] PCP - General 02/11/02 documented as of this encounter
--- OUTSIDE RECORDS SUMMARY | 2025-02-08 11:09 | External Medical Summary ---
Author Name Unknown Address Unknown Organization K0G:[facility] [address] [place] [address] Laboratory Report Ordering Provider Test Date Status AMBAR MAYA 09/23/2024 09:06:05 Final Observation Date Value Abnormality Reference (Units ) Status BUN 09/23/2024 09:06:05 19 6-20 (mg/dL) Final Creatinine 09/23/2024 09:06:05 1.0 0.5-1.0 (mg/dL) Final Glomerular filtration rate/1.73 sq M.predicted [Volume Rate/Area] in Serum, Plasma or Blood by Creatinine-based formula (CKD-EPI) 09/23/2024 09:06:05 67 >=60 (mL/min) Final eGFR is calculated based on the CKD-EPI 2020 equation. Sodium 09/23/2024 09:06:05 139 135-146 (m mol/L) Final Potassium 09/23/2024 09:06:05 4.7 3.5-5.1 (m mol/L) Final Cl 09/23/2024 09:06:05 104 98-107 (mm ol/L) Final CO2 09/23/2024 09:06:05 23 22-32 (mmo l/L) Final Anion gap 09/23/2024 09:06:05 12 7-15 (mmol /L) Final Glucose 09/23/2024 09:06:05 149 Above high normal 70 -120 (mg/dL) Final Calcium 09/23/2024 09:06:05 9.4 8.4-10.2 ( mg/dL) Final Performing Location [facility] [place] [address]
--- OUTSIDE RECORDS SUMMARY | 2025-02-08 11:09 | External Medical Summary | Summary of Care ---
Author Name Unknown Organization [facility] Address [address] [facility] [place] [address] Phone [phone] Care Team Providers Care Tire Fabricator Name Role Phone Cr COBURN MD, Bandar Mcdonnell Primary Care Provider [phone] Encounter Details Date Type Department Care Team (Late st Contact Info) Description 09/26/2024 Orders Only PATIENT PORTAL DO NOT DELETE THIS DEPT USED BY [place] [id number] Allergies Active Allergy Reactions Criticality Noted Date [...] ICD-10 update of inactive term NAVA RESEARCH OTHER*[id number] 03/02/2008 Uterine prolapse 09/10/2007 Varicella without complication documented as of this encounter (statuses as of 09/26/2024) Resolved Problems Problem Noted Date Diagnosed Date Resolved Date Accelerometer Research Study*[id number] 12/11/2013 02/09/2014 ADVANCE DIRECTIVE INFORMATION 01/30/2012 09/15/2024 [...] Visit Family Practice [place] [address] [facility] [place] [address] Bandar Hankins III, MD [address] [facility] [place] [address] Scheduled Procedures Name Priority Associated Diagnoses Date/Ti me COLONOSCOPY FLEXIBLE PROXIMA L DIAGNOSTIC Recall Special screening for malignant neoplasms, colon Health Maintenance Due Date Last Done Comments Cologuard 2010 Sigmoidoscopy 2010 Fecal Occult Blood Test 12/08/2011 12/08/2010, 09/28 Depression Screening 10/28/2020 10/28/2019 Diabetic Foot Exam 11/02/2021 11/02/2020, 1 , 08/16/2016, Additional history exists Mammogram 11/02/2021 11/02/2020, 11/06/2019, 08/24/2017, Additional history exists COVID-19 Vaccine ( season) 2024 08/20/2023, 04/07/2022, 02/16/2021, Additional history exists HbA1c 03/23/2025 09/23/2024, 10/12, 08/16/2022, Additional history exists Albumin/Creatinine Ratio 09/23/202509/23/2 024, 08/16/2022, 08/14/2016, Additional history exists GFR 09/23/2025 09/23/2024, 10/12, 08/16/2022, Additional history exists Diabetic Eye Exam 09/24/2025 09/24/2024, , 09/17/2019, Additional history exists Lipid Panel 10/26/2027 10/26/2022, [...] Completed 10/2024, 08/20/2023, 08/16/2022, Additional history exists HPV (Gardasil) Vaccine Aged Out No lo nger eligible based on patient's age to complete this topic MENINGOCOCCAL (MENACTRA/MENVEO) Aged Out No longer eligible based on patient's age to complete this topic documented as of this encounter Medical Devices Implanted Type Area Technical Support Internship Device Identifier Shelf Expiration Date Model / Serial / Lot Device Tvt [id number] - [id number] Implanted:Qty: 1 on 12/20/2011 at [place] [facility] [place] N/A: Vagina JNJ : [employer] 05/11/2014 [id number] / / [id number] documented as of this encounter Advance Directives [...] 9:05 AM 01/01/2009 3:08 PM Care Teams Tire Fabricator Relationship Specialty Start Date End Date Bandar Hankins III, MD [address] [facility] [place] [address] PCP - General 02/11/02 documented as of this encounter
--- OUTSIDE RECORDS SUMMARY | 2025-02-08 11:09 | External Medical Summary ---
Author Name Unknown Address Unknown Organization K[facility] [place] [address] [facility] [address] [place] [address] Laboratory Report Ordering Provider Test Date Status SADIA STEIN 09/23/2024 09:06:05 Final Associated diagnosis code V5 8.69.ICD-9-CM was changed to [id number] on 08/12/24 as a result of a periodic change by regulatory authority. Observation Date Value Abnormality Reference (Units ) Status HbA1C 09/23/2024 09:06:05 6.5 Above high normal 4. 0-5.6 (%) Final The use of HbA1c to monitor glycemic status is based on normal hemoglobin and HbA composition. This test should not be used in patients with abnormal hemoglobin that affects the half life of the red blood cell or the in vivo glycation rates. Glucose, estimated average 09/23/2024 09:06:05 140 Above high normal <126 (mg/dL) Samuel shelby Performing Location [facility] [place] [address] [place] [address]
--- OUTSIDE RECORDS SUMMARY | 2025-02-08 11:09 | External Medical Summary | Summary of Care ---
Author Name Unknown Organization [facility] Address [address] [facility] [place] [address] Phone [phone] Care Team Providers Care Relay Tester Name Role Phone Cr COBURN MD, Bandar Mcdonnell Primary Care Provider Encounter Details Date Type Department Care Team (Late st Contact Info) Description 09/11/2024 Orders Only PATIENT PORTAL DO NOT DELETE THIS DEPT USED BY [place] [id number] Allergies Active Allergy Reactions Criticality Noted Date [...] as of this encounter (statuses as of 09/11/2024) Medications Medication Sig Dispensed Refills Start Date [...] IN THE MORNING 30 Tablet 09/09/2024 Active documented as of this encounter (statuses as of 09/11/2024) Active Problems Problem Noted Date Diagnosed Date [...] ICD-10 update of inactive term NAVA RESEARCH OTHER*[id number] 03/02/2008 Uterine prolapse 09/10/2007 Varicella without complication documented as of this encounter (statuses as of 09/11/2024) Resolved Problems Problem Noted Date Diagnosed Date Resolved Date Accelerometer Research Study*[id number] 12/11/2013 02/09/2014 DM Type 2 causing Renal [...] as of this encounter (statuses as of 09/11/2024) Immunizations Name Administration Dates Next Due COVID-19 [...] on file documented as of this encounter Plan of Treatment Scheduled Procedures Name Priority Associated Diagnoses Date/Ti [...] 08/16/2016, Additional history exists Mammogram 11/02/2021 11/02/2020, 06/2019, 08/24/2017, Additional history exists HbA1c 04/26/2023 10/26/2022, 03/2022, 04/25/2021, Additional history exists Albumin/Creatinine Ratio 08/16/2023 022, 08/14/2016, 08/25/2015, Additional history exists GFR 10/26/2023 10/26/2022, 03/2022, 11/02/2020, Additional history exists COVID-19 Vaccine [...] this encounter Medical Devices Implanted Type Area Spray I Painter Device Identifier Shelf Expiration Date Model / Serial / Lot Device Tvt [id number] - [id number] Implanted:Qty: 1 on 12/20/2011 at OR [facility] [place] N/A: Vagina JNJ : [employer] 05/11/2014 [id number] / / [id number] documented as of this encounter Advance Directives [...] 9:05 AM 01/01/2009 3:08 PM Care Teams Relay Tester Relationship Specialty Start Date End Date Bandar Hankins III, MD [address] [facility] [place] [address] PCP - General 02/11/02 documented as of this encounter
--- OUTSIDE RECORDS SUMMARY | 2025-02-08 11:09 | External Medical Summary ---
Author Name Unknown Address Unknown Organization K01:LABORATORY [facility] [place] - [address] [facility] [address] Laboratory Report Ordering Provider Test Date Status KARLA WORKMAN III 09/24/2024 14:56:29 Final <10,000 colonies/ml mixed no rmal joseph Observation Date Value Abnormality Reference (Units ) Status Bacteria identified in Specimen by Culture 09/24/2024 14:56:29 [id number]^ESCHE RICHIA COLI Abnormal Final >100,000 colonies/mL Escheri cruzito coli Performing Location LABORATORY [facility] [place] - [address] [facility] [address] Ordering Provider Test Date Status KARLA WORKMAN III 09/24/2024 14:56:29 Final Observation Date Value Abnormality Reference (Units ) Status Ampicillin 09/24/2024 14:56:29 >=32 Resistant Final Ampicillin + Sulbactam 09/24/2024 14:56:29 8 Susceptible Final Cefazolin 09/24/2024 14:56:29 <=4 Susceptible Final Cefepime susceptibility 09/24/2024 14:56:29 <=1 Susceptible Final Ceftriaxone suceptibility 09/24/2024 14:56:29 <=1 Susceptible Final Ciprofloxacin 09/24/2024 14:56:29 <=0.25 Susceptible Final Due to serious side effects, the FDA has advised against using Ciprofloxacin to treat uncomplicated UTIs and respiratory tract infections unless there are no alternative treatment options. Gentamicin susceptibility 09/24/2024 14:56:29 <=1 Susc eptible Final Levofloxacin susceptibility 09/24/2024 14:56:29 0.5 Green sceptible Final Due to serious side effects, the FDA has advised against using Levofloxacin to treat uncomplicated UTIs and respiratory tract infections unless there are no alternative treatment options. Nitrofurantoin susceptibility 09/24/2024 14:56:29 <=16 Susceptible Final Piperacillin + Tazobactamsusceptibility 09/24/2024 14:56:29 <=4 Susceptible Final TMP-SMZ susceptibility 09/24/2024 14:56:29 >=320 Resista nt Final Test: Culture, Urine, Quanti tative
Specimen Source: Urine, Clean Catch
Specimen Type: Urine
Specimen Date: 09/24/2024 1456
Result Date: 09/28/2024 1501
Result Status: Final result
Abnormal: Yes
Resulting Lab: LABORATORY [facility] [place]
[address]
[place] [id number]

CULTURE

>100,000 colonies/mL Escherichia coli (Abnormal)

<10,000 colonies/ml mixed normal joseph

SUSCEPTIBILITY

Escherichia coli
METHOD MICROBROTH
DILUTIONS

AMPICILLIN >=32 Resistant
AMPICILLIN/SULBACTAM 8 Susceptible
CEFAZOLIN <=4 Susceptible
CEFEPIME <=1 Susceptible
CEFTRIAXONE <=1 Susceptible
CIPROFLOXACIN <=0.25 Susceptible
[1]
GENTAMICIN <=1 Susceptible
LEVOFLOXACIN 0.5 Susceptible
[2]
NITROFURANTOIN <=16 Susceptible
PIPERACILLIN TAZOBACTAM <=4 Susceptible
TRIMETH/SULFAMETHOXAZOLE >=320 Resistant

[1] Due to serious side effects, the FDA has advised against using
Ciprofloxacin to treat uncomplicated UTIs and respiratory tract infections
unless there are no alternative treatment options.

[2] Due to serious side effects, the FDA has advised against using
Levofloxacin to treat uncomplicated UTIs and respiratory tract infections
unless there are no alternative treatment options.

null Performing Location LABORATORY [facility] [place] - [address] [facility] [address]
--- OUTSIDE RECORDS SUMMARY | 2025-02-08 11:09 | External Medical Summary | Summary of Care ---
Author Name Unknown Organization [facility] Address [address] [address] Phone [phone] Care Team Providers Care Etiquette Coach Name Role Phone Cr COBURN MD, Bandar Mcdonnell Primary Care Provider Encounter Details Date Type Department Care Team (Late st Contact Info) Description 09/23/2024 9:40 AM EST Immunization Ancillary [facility] [address] [place] [address] [facility], Flu Shot Clinic [facility] Prac [address] [place] [address] Arrived Allergies Active Allergy Reactions Criticality Noted [...] ICD-10 update of inactive term NAVA RESEARCH OTHER*[id number] 03/02/2008 Uterine prolapse 09/10/2007 Varicella without complication documented as of this encounter (statuses as of 09/23/2024) Resolved Problems Problem Noted Date Diagnosed Date Resolved Date Accelerometer Research Study*[id number] 12/11/2013 02/09/2014 ADVANCE DIRECTIVE INFORMATION 01/30/2012 09/15/2024 [...] Team (Late st Contact Info) Description 09/24/2024 11:40 AM EST Office Visit Family Practice [facility] [address] [place] [address] Bandar Hankins III, MD [address] [place] [address] Scheduled Procedures Name Priority Associated Diagnoses Date/Ti [...] exists Influenza Vaccine (FLU shot) (#1) 2024 09/23/2024, 08/20/2023, 08/16/2022, Additional history exists Lipid Panel 10/26/2027 10/26/2022, [...] this encounter Medical Devices Implanted Type Area Field Aide Device Identifier Shelf Expiration Date Model / Serial / Lot Device Tvt [id number] - [id number] Implanted:Qty: 1 on 12/20/2011 at OR [facility] [place] N/A: Vagina JNJ : [employer] 05/11/2014 [id number] / / [id number] documented as of this encounter Advance Directives [...] 9:05 AM 01/01/2009 3:08 PM Care Teams Etiquette Coach Relationship Specialty Start Date End Date Bandar Hankins III, MD [address] [place] [address] PCP - General 02/11/02 documented as of this encounter
--- OUTSIDE RECORDS SUMMARY | 2025-02-08 11:09 | External Medical Summary ---
Author Name Unknown Address Unknown Organization K01:LABORATORY [facility] - [address] [place] [address] Laboratory Report Ordering Provider Test Date Status SADIA STEIN 09/23/2024 09:06:05 Final Associated diagnosis code V5 8.69.ICD-9-CM was changed to 298053 on 08/12/24 as a result of a periodic change by regulatory authority. Observation Date Value Abnormality Reference (Units ) Status Magnesium 09/23/2024 09:06:05 1.8 1.5-2.6 (m g/dL) Final Performing Location LABORATORY [facility] - [address] [place] [address]
--- NOTE | 2025-02-08 11:23 | Emergency Department Note ---
Impression & Plan Nephrolithiasis, Hematuria, Symptomatic anemia ED Provider Note CHIEF COMPLAINT: Kidney stone HISTORY OF PRESENTING ILLNESS: The patient is a pleasant, 59-year-old female who arrives to the emergency department for evaluation of a known kidney stone with hydronephrosis. She reports she had a CT on Sunday, revealing a stone. She reports she spoke with her logistics/shipper, who stated she needed to come to the emergency department for urology consultation. She does report new burning with urination. She reports no significant pain, and just describes an intermittent discomfort of the left flank. She denies fever, nausea, vomiting, diarrhea, or constipation. She does report she has been following for a decreasing hemoglobin and hematocrit due to hematuria. The patient states a recent drop in hemoglobin over the last few months. She states, she is concerned for increasing weakness, and dyspnea on exertion. REVIEW OF SYSTEMS: See HPI for pertinent positives and pertinent negatives. ALLERGIES: See below MEDICATIONS: See below PAST MEDICAL HISTORY: See below PHYSICAL EXAM: VITALS: Vitals are noted on the nurse's note and reviewed by myself. Vital signs stable. GENERAL: 59-year-old female, in no acute distress, nondiaphoretic, well- developed well-nourished. SKIN: The skin was pale without rashes, erythema, edema, or bruising. HEAD: Normocephalic atraumatic. HEART: Regular rate and rhythm without murmurs gallops or rubs. LUNGS: Clear to auscultation bilaterally without wheezes, rales or rhonchi. No retractions or accessory muscle use. ABDOMEN: Positive bowel sounds x 4. Soft, nontender, without masses or organomegaly. Milton sign negative. No guarding or rebound tenderness. No CVA TTP. MUSCULOSKELETAL: No muscle atrophy, erythema, or edema noted. Normal gait. Strength 5/5 throughout. NEURO: Patient was alert and oriented to person place and time. No focal neurological deficits. DIFFERENTIAL DIAGNOSIS: Appendicitis, ovarian cyst, ovarian torsion, ectopic , TOA, PID, infections, diverticulitis, UTI, obstruction, mesenteric ischemia, aortic pathology, inflammatory bowel disease, renal colic, PUD, pancreatitis, biliary pathology, hernia, volvulus, constipation, as well as other pathologies. ED COURSE AND MEDICAL DECISION MAKING: MEDICATIONS GIVEN: 2 g IV Rocephin, 1 L NSS bolus, 15 mg IV Toradol, 4 mg IV Zofran MONITOR: Continuous beef lugger: Order was placed for continuous beef lugger. Patient was placed on the beef lugger and continuous pulse ox. Patient was noted to be in normal sinus rhythm at an initial rate of 84 bpm per my interpretation. EKG: EKG was interpreted by myself as normal sinus rhythm at a rate of 76 bpm, no ST elevation, depression, or ectopy. No previous EKG for comparison. INTERPRETATION OF LABS: I interpreted the labs with full lab results as below in the lab section of this note. Pertinent lab results discussed in the MDM section below. INTERPRETATION OF IMAGING: Imaging studies were interpreted by myself and read by radiology as per the imaging section of this note. EXTERNAL RECORDS REVIEWED: Clinic notes reviewed from [facility] outpatient nephrology as well as primary care services. CHRONIC MEDICAL/SOCIAL CONDITIONS AFFECTING CARE: Diabetes, hypertension, iron deficiency anemia CONSULTATIONS: Dr. Ellis from urology, who agreed to consult the patient during the patient's admission. MDM SUMMARY: Patient is a pleasant 59-year-old female who arrives to the emergency department for evaluation of the above-stated complaint. Saline lock was established, CBC, CMP, urinalysis were obtained. CBC shows leukocytosis, 11.92, with hemoglobin 7.6, hematocrit 28.1, platelets 1012. Urinalysis shows 3+ blood, 3+ leukocyte esterase, greater than 50 WBCs, 2+ bacteria. EKG was obtained after the finding of 7.6 hemoglobin, which is interpreted as above. Troponin was added, which was negative. Patient was provided IV Rocephin, IV fluids, IV Toradol, and IV Zofran. I spoke with Dr. Ellis from urology, who stated he was willing to consult if the patient was admitted for symptomatic anemia. Dr. Ellis states the patient does not require emergent intervention for the known kidney stone. He states he would like repeat CT imaging of the abdomen and pelvis, as we are unable to pull imaging into our system from [facility]. CT imaging of the abdomen pelvis with IV contrast was obtained which shows a 1.0 cm x 1.8 cm obstructing left proximal ureteral stone, with severe hydronephrosis. There is also chronic scarring of the right kidney. I spoke with Dr. Granados, from the [facility] hospitalist service, who agreed to evaluate the patient for admission. Dr. Ellis will consult during the patient's stay. Please refer to their documentation for further patient workup and care. DIAGNOSIS: Nephrolithiasis, UTI, Anemia The chart was completed utilizing [employer] Speech voice recognition software. Grammatical errors, random word insertions, pronoun errors, and incomplete sentences are an occasional consequence of this system due to software limitations, ambient noise, and hardware issues. Any formal questions or concerns about the content, text, or information contained within the body of this dictation should be directly addressed to the provider for clarification. Past Med/Surg History Problem List (Updated 02/08/25 @ 18:18 by STANISLAV Machado) Symptomatic anemia (Acute) Hematuria (Acute) Nephrolithiasis (Acute) Diabetes HTN (hypertension) Family history of other cardiovascular diseases (01/18/13) Iron deficiency anemia Gastric bypass status for obesity CVA (cerebral vascular accident) Surgical History Hx of cholecystectomy Hx of cystoscopy H/O colonoscopy History of esophagogastroduodenoscopy Social History Smoking Status: Never smoker Hx Alcohol Use: Yes Hx Substance Use: No Preferred Language: Polish Channel Process Supervisor Required: No Beliefs That Will Affect Care: None Current Living Situation: Spouse Feels Safe at Home: Yes Assistive Devices: Glasses Allergies Allergies Allergy/AdvReac Type Severity Reaction Status Date / Time shellfish derived Allergy Severe THROAT Verified 04/22/15 07:47 SWELLING cat dander Allergy Unknown SHORTNESS Verified 04/22/15 07:47 OF BREATH, facial swelling No Known Drug Allergies Allergy Unknown . Verified 04/22/15 07:47 Home Meds Home Medications Medication Instructions Recorded Confirmed albuterol sulfate 1 puff inhalation QID PRN sob ##0 04/02/15 02/08/25 lisinopril 10 mg tablet 10 mg PO QAM #0 tabs 04/02/15 02/08/25 aspirin 81 mg capsule 81 mg PO DAILY 11/21/22 02/08/25 pantoprazole 40 mg tablet,delayed 40 mg PO UD 11/21/22 02/08/25 release atorvastatin 20 mg tablet 20 mg PO QAM 02/08/25 02/08/25 Results & Data (ED) Vital Signs Vital Signs - 24 hr 02/08/25 11:10 02/08/25 11:47 02/08/25 12:13 Temperature 36.6 C Temperature Source Temporal Artery Scan Pulse Rate 103 H 84 Pulse Rate [Apical] 77 Respiratory Rate 18 20 Respiratory Effort / Characteristics Non-Labored Spontaneous Non-Labored Spontaneous Respiratory Depth Normal Normal Respiratory Pattern Regular Blood Pressure 121/73 Blood Pressure [Right Arm] 114/78 Blood Pressure Mean 89 Blood Pressure Mean [Right Arm] 90 Blood Pressure Position [Right Arm] Sitting Pulse Oximetry 97 99 Oxygen Delivery Method Room Air Room Air Sepsis Recent Fever Within 48 Hours No Sepsis New/Unexplained Change in Mental Status No Sepsis Action Taken by Nursing No Action Required 02/08/25 14:00 Temperature Temperature Source Pulse Rate Pulse Rate [Apical] 62 Respiratory Rate 20 Respiratory Effort / Characteristics Non-Labored Respiratory Depth Normal Respiratory Pattern Regular Blood Pressure Blood Pressure [Right Arm] 111/64 Blood Pressure Mean Blood Pressure Mean [Right Arm] 79 Blood Pressure Position [Right Arm] Sitting Pulse Oximetry 100 Oxygen Delivery Method Room Air Sepsis Recent Fever Within 48 Hours Sepsis New/Unexplained Change in Mental Status Sepsis Action Taken by Penitentiary Medications Current Medication List: was personally reviewed by me Laboratory Data Attestation: I reviewed the patient's lab results. 02/08/25 11:30 02/08/25 11:30 Lab Results 02/08/25 02/08/25 Range/Units 11:30 13:02 WBC 11.92 H (4.8-10.8) K/ul RBC 4.21 (4.20-5.40) M/uL Hgb 7.6 L (12.0-16.0) g/dl Hct 28.1 L (37.0-47.0) % MCV 66.7 L (80.0-100.0) fL MCH 18.1 L (25.0-34.0) pg MCHC 27.0 L (32.0-36.0) g/dL RDW Std Deviation 53.1 H (36.4-46.3) fL RDW Coeff of Norma 23.8 H (11.5-14.5) % Plt Count 1012 H* (130-400) K/uL MPV 8.5 L (9.4-12.4) fL Immature Gran % (Auto) 0.5 % Neut % (Auto) 75.2 % Lymph % (Auto) 17.8 % [place] % (Auto) 3.7 % Eos % (Auto) 2.4 % Baso % (Auto) 0.4 % Neut # (Auto) 8.96 H (1.40-6.50) K/uL Lymph # (Auto) 2.12 (1.20-3.40) K/uL [place] # (Auto) 0.44 (0.11-0.59) K/uL Eos # (Auto) 0.29 (0.00-0.50) K/uL Baso # (Auto) 0.05 (0.00-0.20) K/uL Immature Gran # (Auto) 0.06 (0.01-0.20) K/uL Polychromasia 2+ Hypochromasia Present Anisocytosis Present Microcytosis Present Tear Drop Cells 1+ Ovalocytes 1+ Sodium 136 (136-145) mmol/L Potassium 3.5 (3.5-5.1) mmol/L Chloride 103 (98-107) mmol/L Carbon Dioxide 25 (21-32) mmol/L Anion Gap 8 (3-11) BUN 10 (6-23) mg/dl Creatinine 0.87 (0.6-1.2) mg/dl Est Cr Clr Drug Dosing 78.9 ml/min eGFR 76.70 BUN/Creatinine Ratio 11.5 (10-20) Glucose 159 H (70-99(Fasting)) mg/dl Calcium 8.7 (8.6-10.3) mg/dl Total Bilirubin 0.5 (0.2-1.0) mg/dl AST 8 L (13-39) U/L ALT 5 L (7-52) U/L Alkaline Phosphatase 105 H (34-104) U/L Troponin I High Sens 4.6 (0-14) pg/ml Total Protein 9.3 H (6.0-8.3) gm/dl Albumin 2.9 L (3.4-5.0) gm/dl Globulin 6.4 H (2.5-4.0) gm/dl Albumin/Globulin Ratio 0.5 L (0.9-2) Urine Color Yellow Urine Appearance Cloudy A (Clear) Urine pH 6.0 (4.5-7.5) Ur Specific [place] >= 1.030 (1.000-1.030) Urine Protein 3+ H (Negative) Urine Glucose (UA) Negative (Negative) Urine Ketones Negative (Negative) Urine Blood 3+ H (Negative) Urine Nitrite Negative (Negative) Urine Bilirubin Negative (Negative) Urine Urobilinogen Negative (Negative) Ur Leukocyte Esterase 3+ H (Negative) Urine RBC >20 H (0-2) /hpf Urine WBC >50 H (0-5) /hpf Ur Epithelial Cells 0-2 (0-2) /hpf Urine Bacteria 2+ H (None Seen) Administered Medications Sodium Chloride (Nss) 1,000 mls @ 125 mls/hr IV .Q8H VERÓNICA Stop: 02/09/25 15:29 Last Admin: 02/08/25 15:26 Dose: 125 mls/hr Documented By: PIPPAB Discontinued Medications Sodium Chloride (Nss) 1,000 mls @ 999 mls/hr IV .Q1H1M ONE Stop: 02/08/25 12:23 Last Infusion: 02/08/25 12:31 Dose: Infused Documented By: Admin: 02/08/25 11:30 Dose: 999 mls/hr Documented By: NICHOLAS Ceftriaxone Sodium (Rocephin) 2,000 mg in 50 mls @ 100 mls/hr IV NOW STA Stop: 02/08/25 12:50 Last Infusion: 02/08/25 13:24 Dose: Infused Documented By: Admin: 02/08/25 12:29 Dose: 100 mls/hr Documented By: NICHOLAS Ketorolac Tromethamine (Ketorolac Tromethamine 15 Mg/Ml Vial) 15 mg IV ONE STA Stop: 02/08/25 11:24 Last Admin: 02/08/25 11:29 Dose: 15 mg Documented By: NICHOLAS Ondansetron HCl (Ondansetron Inj 2 Mg/Ml 2 Ml Vial) 4 mg IV NOW STA Stop: 02/08/25 11:24 Last Admin: 02/08/25 11:29 Dose: 4 mg Documented By: NICHOLAS Imaging Data Attestation: I personally reviewed and interpreted this imaging study as follows: Radiologist's Impression: Abdomen/Pelvis CT 02/08/25 12:39 EXAM: CT Abdomen and Pelvis Without Intravenous Contrast INDICATION: Left urinary stone and hydronephrosis. Dysuria. TECHNIQUE: Axial computed tomography images of the abdomen and pelvis without intravenous contrast. Sagittal and coronal reformatted images were created and reviewed. This CT exam was performed using one or more of the following dose reduction techniques: automated exposure control, adjustment of the mA and/or kV according to patient size, and/or use of iterative reconstruction technique. COMPARISON: No relevant prior studies available. FINDINGS: Limitations: None. Lung bases: No abnormality noted. Pleural space: No visualized pleural effusion or pneumothorax. Heart: No abnormality noted. Mediastinum: No abnormality noted. ABDOMEN: Liver: Lack of intravenous contrast limits detection of some masses. No abnormality noted. Gallbladder and bile ducts: No calcified stones or surrounding fluid. No ductal dilation. Pancreas: No pancreatic mass, calcification, inflammation or ductal dilation noted. Spleen: No significant abnormality noted. Adrenals: No significant abnormality noted. Kidneys and ureters: There is severe left hydronephrosis with marked cortical thinning of the left kidney and mild left perinephric inflammation. The left ureter is dilated to a 1.0 cm AP by 1.8 cm long stone in the proximal ureter at the level of L5. There is mild cortical scarring of the right kidney. There is no urinary gas. Stomach and bowel: Postoperative changes of the stomach. Staple lines are well-defined. No associated thickening or inflammatory change. Moderate amounts of scattered formed stool in the colon with scattered diverticula. No diverticulitis or obstruction. PELVIS: Appendix: No findings to suggest acute appendicitis. Bladder: Incompletely distended and not optimally assessed. No gas or stone. Reproductive: Hysterectomy. ABDOMEN and PELVIS: Intraperitoneal space: No free air. No significant fluid collection. Bones/joints: Degenerative changes noted throughout the spine. No acute osseous abnormality seen. Old L2 compression fracture. Soft tissues: No significant abnormality noted. Vasculature: Atherosclerotic calcification of the aorta and branches. No aneurysm. Lymph nodes: No pathologically enlarged lymph nodes. IMPRESSION: 1. 1.0 x 1.8 cm long obstructing stone in the left ureter at the level of L5 with severe left hydroureteronephrosis and moderate inflammation of the left urinary tract. 2. Scattered moderate colonic stool and few diverticula without diverticulitis or obstruction. ACT 112: N/A Electronically signed by Gladis Rivas 02-08-2025 13:07 PM Discharge Plan Visit Data Chief Complaint: Kidney Stone Stated Complaint: KIDNEY STONE/HAD CT ED Provider: [facility] Midlevel Provider: Yesica Fitzpatrick Discharge Problem: Nephrolithiasis, Hematuria, Symptomatic anemia Patient Disposition: Admitted As Inpatient Discharge Instructions Interventions: ED Discharge Assessment Last Done: 02/08/25 16:19
[2025-02-08] MEDS: ONDANSETRON INJ 2 MG/ML 2 ML VIAL IV STA (11:29)
[2025-02-08] MEDS: KETOROLAC TROMETHAMINE 15 MG/ML VIAL IV STA (11:29)
[2025-02-08] MEDS: SODIUM CHLORIDE 0.9% 1,000 ML IV ONE (11:30)
[2025-02-08 11:44] LABS: Basophils # (auto) 0.05 K/uL (0.00-0.20); Basophils % (auto) 0.4 %; Eosinophils # (auto) 0.29 K/uL (0.00-0.50); Eosinophils % (auto) 2.4 %; Hematocrit (blood only) 28.1 % (37.0-47.0); Hemoglobin 7.6 g/dl (12.0-16.0); Immature Granulocytes # (auto) 0.06 K/uL (0.01-0.20); Immature Granulocytes % (auto) 0.5 %; Lymphocytes # (auto) 2.12 K/uL (1.20-3.40); Lymphocytes % (auto) 17.8 %; Mean Corpuscular Hemoglobin 18.1 pg (25.0-34.0); Mean Corpuscular Volume 66.7 fL (80.0-100.0); Monocytes # (auto) 0.44 K/uL (0.11-0.59); Monocytes % (auto) 3.7 %; Neutrophils # (auto) 8.96 K/uL (1.40-6.50); Neutrophils % (auto) 75.2 %; RDW Coefficient of Variation 23.8 % (11.5-14.5); RDW Standard Deviation 53.1 fL (36.4-46.3); Red Blood Count 4.21 M/uL (4.20-5.40); White Blood Count 11.92 K/ul (4.8-10.8)
[2025-02-08 11:53] LABS: Mean Platelet Volume 8.5 fL (9.4-12.4); Platelet Count 1012 K/uL (130-400)
[2025-02-08 12:01] LABS: Anisocytosis Present; Hypochromasia Present; Microcytosis Present; Ovalocytes 1+; Polychromasia 2+; Tear Drop Cells 1+
[2025-02-08 12:05] LABS: Albumin Globulin Ratio 0.5 (0.9-2); Albumin Level 2.9 gm/dl (3.4-5.0); BUN Creatinine Ratio 11.5 (10-20); Bilirubin,Total 0.5 mg/dl (0.2-1.0); Calcium 8.7 mg/dl (8.6-10.3); Creatinine Clr Calc Pharmacy 78.9 ml/min; Globulin 6.4 gm/dl (2.5-4.0); Potassium 3.5 mmol/L (3.5-5.1); Total Protein 9.3 gm/dl (6.0-8.3)
[2025-02-08 12:07] LABS: Appearance Urine Cloudy (Clear); Bilirubin Urine Negative (Negative); Blood Urine 3+ (Negative); Color Urine Yellow; Glucose Urine UA Negative (Negative); Ketones Urine Negative (Negative); Leukocyte Esterase Urine 3+ (Negative); Nitrite Urine Negative (Negative); Protein Urine 3+ (Negative); Specific Gravity Urine >= 1.030 (1.000-1.030); Urobilinogen Urine Negative (Negative)
[2025-02-08 12:14] LABS: Bacteria Urine 2+ (None Seen); Epithelial Cell Urine 0-2 /hpf (0-2); RBC Urine >20 /hpf (0-2); WBC Urine >50 /hpf (0-5)
[2025-02-08] MEDS: cefTRIAXone SODIUM 2,000 MG/50 ML BAG IV STA (12:29)
--- NOTE | 2025-02-08 13:08 | CT Scan Report ---
EXAM: CT Abdomen and Pelvis Without Intravenous Contrast INDICATION: Left urinary stone and hydronephrosis. Dysuria. TECHNIQUE: Axial computed tomography images of the abdomen and pelvis without intravenous contrast. Sagittal and coronal reformatted images were created and reviewed. This CT exam was performed using one or more of the following dose reduction techniques: automated exposure control, adjustment of the mA and/or kV according to patient size, and/or use of iterative reconstruction technique. COMPARISON: No relevant prior studies available. FINDINGS: Limitations: None. Lung bases: No abnormality noted. Pleural space: No visualized pleural effusion or pneumothorax. Heart: No abnormality noted. Mediastinum: No abnormality noted. ABDOMEN: Liver: Lack of intravenous contrast limits detection of some masses. No abnormality noted. Gallbladder and bile ducts: No calcified stones or surrounding fluid. No ductal dilation. Pancreas: No pancreatic mass, calcification, inflammation or ductal dilation noted. Spleen: No significant abnormality noted. Adrenals: No significant abnormality noted. Kidneys and ureters: There is severe left hydronephrosis with marked cortical thinning of the left kidney and mild left perinephric inflammation. The left ureter is dilated to a 1.0 cm AP by 1.8 cm long stone in the proximal ureter at the level of L5. There is mild cortical scarring of the right kidney. There is no urinary gas. Stomach and bowel: Postoperative changes of the stomach. Staple lines are well-defined. No associated thickening or inflammatory change. Moderate amounts of scattered formed stool in the colon with scattered diverticula. No diverticulitis or obstruction. PELVIS: Appendix: No findings to suggest acute appendicitis. Bladder: Incompletely distended and not optimally assessed. No gas or stone. Reproductive: Hysterectomy. ABDOMEN and PELVIS: Intraperitoneal space: No free air. No significant fluid collection. Bones/joints: Degenerative changes noted throughout the spine. No acute osseous abnormality seen. Old L2 compression fracture. Soft tissues: No significant abnormality noted. Vasculature: Atherosclerotic calcification of the aorta and branches. No aneurysm. Lymph nodes: No pathologically enlarged lymph nodes. IMPRESSION: 1. 1.0 x 1.8 cm long obstructing stone in the left ureter at the level of L5 with severe left hydroureteronephrosis and moderate inflammation of the left urinary tract. 2. Scattered moderate colonic stool and few diverticula without diverticulitis or obstruction. ACT 112: N/A Electronically signed by Gladis Rivas 02-08-2025 13:07 PM
--- NOTE | 2025-02-08 15:05 | History & Physical Report ---
Date of Service February 08, 2025 Assessment & Plan (1) Nephrolithiasis: Plan #1.0x1.8 cm L sided obstructing ureteral stone w/hydroureteronephrosis & inflammation #Diverticulosis #UTI #Slight leukocytosis likely 2/2 above -urology referral -rocephin -ucx -IVF -pain control #Microcytic anemia likely 2/2 chronic hematuria #Hx JASON #Thrombocytosis -iron studies -trend, consider transfusion if <7 #Asthma #Hld, htn #GERD -cont home meds IVF, regular diet, NPO at [place] DVT ppx, heparin History of Present Illness Primary Care Provider: Bandar Hankins MD 59F pmh chronic hematuria, asthma, CVA w/o residual deficiency in 2021, hld, htn, gerd DM2, gastric bypass 2017, JASON who presents for evaluation of nephrolithiasis. Patient has been seeing nephrology for the evaluation of chronic hematuria, and CT of the abdomen and pelvis was performed for continued evaluation. Obstructing nephrolithiasis was observed, and she was referred to come to the ED for urologic evaluation. ED RAND TACKER talked to urology, Dr Ellis, who recommended admission without specific plan for surgical evaluation. Patient without significant symptoms, including fever, chills, abdominal or flank pain. She does have some intermittent L flank pain, but during this current episode has not been having them. Allergies Allergy/AdvReac Type Severity Reaction Status Date / Time shellfish derived Allergy Severe THROAT Verified 04/22/15 07:47 SWELLING cat dander Allergy Unknown SHORTNESS Verified 04/22/15 07:47 OF BREATH, facial swelling No Known Drug Allergies Allergy Unknown . Verified 04/22/15 07:47 Home Medications Medication Instructions Recorded Confirmed Type albuterol sulfate 1 puff inhalation QID PRN sob ##0 04/02/15 02/08/25 History lisinopril 10 mg tablet 10 mg PO QAM #0 tabs 04/02/15 02/08/25 History aspirin 81 mg capsule 81 mg PO DAILY 11/21/22 02/08/25 History pantoprazole 40 mg tablet,delayed 40 mg PO UD 11/21/22 02/08/25 History release atorvastatin 20 mg tablet 20 mg PO QAM 02/08/25 02/08/25 History Past Med/Surg History Problem List (Updated 02/08/25 @ 15:12 by Elvin Granados MD) Nephrolithiasis Diabetes HTN (hypertension) Family history of other cardiovascular diseases (01/18/13) Iron deficiency anemia Gastric bypass status for obesity CVA (cerebral vascular accident) Surgical History (Updated 11/21/22 @ 09:02 by Amber Hernandez DO) Hx of cholecystectomy Hx of cystoscopy H/O colonoscopy History of esophagogastroduodenoscopy Social History Smoking Status: Never smoker Hx Alcohol Use: Yes Hx Substance Use: No Preferred Language: [place] Silk Examiner Required: No Beliefs That Will Affect Care: None Current Living Situation: Spouse Feels Safe at Home: Yes Assistive Devices: Glasses Review of Systems Constitutional: no fever and no chills Gastrointestinal: no abdominal pain, no nausea, no vomiting and no constipation Genitourinary: no dysuria, no urinary frequency, no urinary hesitancy and no flank pain Physical Exam Constitutional: WD/WN, vitals as above Gastrointestinal (Abdomen): normal bowel sounds, soft, nontender, no hepatosplenomegaly Genitourinary: no significant flank pain Results & Data Results & Data Vital Signs (Past 12 Hours) Vital Signs Temp Pulse Pulse Resp BP BP Pulse Ox 02/08/25 14:00 62 20 111/64 100 02/08/25 12:13 77 20 114/78 99 02/08/25 11:47 84 02/08/25 11:10 36.6 C 103 H 18 121/73 97 O2 Del Method 02/08/25 14:00 Room Air 02/08/25 12:13 Room Air 02/08/25 11:47 02/08/25 11:10 Room Air Laboratory Results Abnormal lab results 02/08/25 Range/Units 11:30 WBC 11.92 H (4.8-10.8) K/ul Hgb 7.6 L (12.0-16.0) g/dl Hct 28.1 L (37.0-47.0) % MCV 66.7 L (80.0-100.0) fL MCH 18.1 L (25.0-34.0) pg MCHC 27.0 L (32.0-36.0) g/dL RDW Std Deviation 53.1 H (36.4-46.3) fL RDW Coeff of Norma 23.8 H (11.5-14.5) % Plt Count 1012 H* (130-400) K/uL MPV 8.5 L (9.4-12.4) fL Neut # (Auto) 8.96 H (1.40-6.50) K/uL Glucose 159 H (70-99(Fasting)) mg/dl AST 8 L (13-39) U/L ALT 5 L (7-52) U/L Alkaline Phosphatase 105 H (34-104) U/L Total Protein 9.3 H (6.0-8.3) gm/dl Albumin 2.9 L (3.4-5.0) gm/dl Globulin 6.4 H (2.5-4.0) gm/dl Albumin/Globulin Ratio 0.5 L (0.9-2) Urine Appearance Cloudy A (Clear) Urine Protein 3+ H (Negative) Urine Blood 3+ H (Negative) Ur Leukocyte Esterase 3+ H (Negative) Urine RBC >20 H (0-2) /hpf Urine WBC >50 H (0-5) /hpf Urine Bacteria 2+ H (None Seen) Diagnostic Findings Abdomen/Pelvis CT 02/08/25 12:39 EXAM: CT Abdomen and Pelvis Without Intravenous Contrast INDICATION: Left urinary stone and hydronephrosis. Dysuria. TECHNIQUE: Axial computed tomography images of the abdomen and pelvis without intravenous contrast. Sagittal and coronal reformatted images were created and reviewed. This CT exam was performed using one or more of the following dose reduction techniques: automated exposure control, adjustment of the mA and/or kV according to patient size, and/or use of iterative reconstruction technique. COMPARISON: No relevant prior studies available. FINDINGS: Limitations: None. Lung bases: No abnormality noted. Pleural space: No visualized pleural effusion or pneumothorax. Heart: No abnormality noted. Mediastinum: No abnormality noted. ABDOMEN: Liver: Lack of intravenous contrast limits detection of some masses. No abnormality noted. Gallbladder and bile ducts: No calcified stones or surrounding fluid. No ductal dilation. Pancreas: No pancreatic mass, calcification, inflammation or ductal dilation noted. Spleen: No significant abnormality noted. Adrenals: No significant abnormality noted. Kidneys and ureters: There is severe left hydronephrosis with marked cortical thinning of the left kidney and mild left perinephric inflammation. The left ureter is dilated to a 1.0 cm AP by 1.8 cm long stone in the proximal ureter at the level of L5. There is mild cortical scarring of the right kidney. There is no urinary gas. Stomach and bowel: Postoperative changes of the stomach. Staple lines are well-defined. No associated thickening or inflammatory change. Moderate amounts of scattered formed stool in the colon with scattered diverticula. No diverticulitis or obstruction. PELVIS: Appendix: No findings to suggest acute appendicitis. Bladder: Incompletely distended and not optimally assessed. No gas or stone. Reproductive: Hysterectomy. ABDOMEN and PELVIS: Intraperitoneal space: No free air. No significant fluid collection. Bones/joints: Degenerative changes noted throughout the spine. No acute osseous abnormality seen. Old L2 compression fracture. Soft tissues: No significant abnormality noted. Vasculature: Atherosclerotic calcification of the aorta and branches. No aneurysm. Lymph nodes: No pathologically enlarged lymph nodes. IMPRESSION: 1. 1.0 x 1.8 cm long obstructing stone in the left ureter at the level of L5 with severe left hydroureteronephrosis and moderate inflammation of the left urinary tract. 2. Scattered moderate colonic stool and few diverticula without diverticulitis or obstruction. ACT 112: N/A Electronically signed by Gladis Rivas 02-08-2025 13:07 PM
[2025-02-08] MEDS ORDERED: ONDANSETRON INJ 2 MG/ML 2 ML VIAL IV PRN (15:17)
[2025-02-08] MEDS ORDERED: MELATONIN 3 MG TAB PO PRN (15:17)
[2025-02-08] MEDS ORDERED: HYDROCODONE/ACETAMOPHEN 5/325MG TAB PO PRN (15:22)
[2025-02-08] MEDS ORDERED: MoRPHine SULFATE 2 MG/ML CARP IV PRN (15:22)
[2025-02-08] MEDS: SODIUM CHLORIDE 0.9% 1,000 ML IV SCH (15:26)
[2025-02-08] MEDS ORDERED: PANTOprazole 40 MG TAB PO SCH (16:42)
[2025-02-08] MEDS ORDERED: ALBUTEROL HFA 8 GM INHALER INH PRN (16:44)
[2025-02-08] MEDS: HEPARIN SOD 5,000 UNIT/0.5 ML VIAL SQ SCH (20:08)
[2025-02-09 06:26] LABS: Hematocrit (blood only) 20.1 % (37.0-47.0); Hemoglobin 5.5 g/dl (12.0-16.0); Mean Corpuscular Hemoglobin 18.1 pg (25.0-34.0); Mean Corpuscular Hgb Conc 27.4 g/dL (32.0-36.0); Mean Corpuscular Volume 66.1 fL (80.0-100.0); Mean Platelet Volume 8.7 fL (9.4-12.4); Platelet Count 551 K/uL (130-400); RDW Standard Deviation 53.1 fL (36.4-46.3); Red Blood Count 3.04 M/uL (4.20-5.40); White Blood Count 8.87 K/ul (4.8-10.8)
[2025-02-09] MEDS ORDERED: SODIUM CHLORIDE 0.9% 100 ML IV PRN ×2 (06:35→08:13)
[2025-02-09 06:47] LABS: Anisocytosis Present; Basophils # (auto) 0.04 K/uL (0.00-0.20); Basophils % (auto) 0.5 %; Eosinophils # (auto) 0.21 K/uL (0.00-0.50); Eosinophils % (auto) 2.4 %; Immature Granulocytes # (auto) 0.03 K/uL (0.01-0.20); Immature Granulocytes % (auto) 0.3 %; Lymphocytes # (auto) 1.23 K/uL (1.20-3.40); Lymphocytes % (auto) 13.9 %; Microcytosis Present; Monocytes # (auto) 0.39 K/uL (0.11-0.59); Monocytes % (auto) 4.4 %; Neutrophils # (auto) 6.97 K/uL (1.40-6.50); Neutrophils % (auto) 78.5 %; Poikilocytosis Present; Polychromasia 1+
[2025-02-09 06:48] LABS: INR 1.1 (0.9-1.1); Prothrombin Time 12.3 Seconds (9.0-12.0)
[2025-02-09 07:36] LABS: Hemoglobin 5.7 g/dl (12.0-16.0)
[2025-02-09 07:47] LABS: Albumin Globulin Ratio 0.5 (0.9-2); Albumin Level 2.1 gm/dl (3.4-5.0); BUN Creatinine Ratio 9.6 (10-20); Bilirubin,Total 0.3 mg/dl (0.2-1.0); Calcium 7.3 mg/dl (8.6-10.3); Ferritin 22.6 ng/ml (8-388); Globulin 4.4 gm/dl (2.5-4.0); Potassium 3.7 mmol/L (3.5-5.1); Total Protein 6.5 gm/dl (6.0-8.3)
--- NOTE | 2025-02-09 08:16 | Electrocardiogram Report ---
Test Reason : Blood Pressure : */* mmHG Vent. Rate : 76 BPM Atrial Rate : 76 BPM P-R Int : 174 ms QRS Dur : 78 ms QT Int : 396 ms P-R-T Axes : 33 -17 0 degrees QTcB Int : 445 ms Normal sinus rhythm Low voltage QRS Borderline ECG No previous ECGs available Confirmed by Karina Moses (Evelyn) on 02/09/2025 8:15:50 AM Referred By: REFERRED SELF Confirmed By: Karina Moses
[2025-02-09] MEDS: PANTOprazole 40 MG TAB PO SCH (08:25)
[2025-02-09] MEDS ORDERED: lisinopril 10 MG TAB PO SCH (09:00)
[2025-02-09] MEDS ORDERED: ATORVASTATIN 20 MG TAB PO SCH (09:00)
[2025-02-09] MEDS ORDERED: ASPIRIN 81 MG ECTAB PO SCH (09:00)
--- NOTE | 2025-02-09 09:54 | Hospitalist Progress Note ---
Date of Service February 09, 2025 Assessment & Plan (1) Nephrolithiasis: Plan Patient is 59-year-old female with past medical history of hypertension, diabetes mellitus who presented to the hospital for evaluation of ureteral stone with left-sided hydronephrosis. Patient had undergone CT urogram as part of the workup for microscopic hematuria; she was found to have 0.8 into 1.7 cm stone in left ureter for which she was recommended to go to the emergency department. Left-sided obstructive ureteral stone with hydronephrosis Complicated urine tract infection Patient was recommended to come to the ED for evaluation of left-sided hydronephrosis and ureteral stone by outpatient urology Urinalysis positive for infection Urine culture from 01/19 shows Streptococcus anginosus Urine culture growing Citrobacter freundii complex. Discussed with pharmacy; antibiotics changed to meropenem for coverage. Discussed with urology for possible intervention Obtain blood culture Iron deficiency anemia Patient presents with severe iron deficiency anemia. Hemoglobin of 5.7 in a.m. Iron study consistent with iron deficiency anemia Plan to transfuse 2 units of blood Appreciate urology and GI recommendation for evaluation of iron deficiency anemia Protonix daily. Chronic conditions; Hyperlipidemiacontinue on Lipitor GERDcontinue on pantoprazole Hypertensioncontinue on lisinopril Full code DVT prophylaxis SCDs Time spent evaluating patient, direct bedside care, chart review, placing orders, interpretation of diagnostic studies, discussion with consultants, patient, and family members, as well as other required patient management activities is 50 minutes Please note the above document was generated using voice recognition software. It may contain grammatical, syntax or spelling errors. Any formal questions or concerns about the content, text or information contained within the body of this dictation should be directly addressed to the provider for clarification Admission and Anticipated Discharge Date Admission Date: February 08, 2025 Subjective Patient seen and examined at bedside. She is comfortable; not in any distress. She denies any flank pain. She has low grade fever. Review of Systems Review of Systems: All systems reviewed & are unremarkable except as noted in Subjective Physical Exam Physical Exam: Constitutional: WD/WN, vitals as above, NAD, sitting up in bed, pleasant, conversing easily Respiratory: normal respiratory effort, lungs clear to auscultation, no wheeze, rales, rhonchi. Normal insp/exp effort, no accessory muscle use Cardiovascular: RRR, no murmur, no edema Vessels: no JVD or carotid bruit Chest: normal inspection of chest Abdomen: normal bowel sounds, soft, nontender, no hepatosplenomegaly Musculoskeletal: no cyanosis or clubbing, extremities motor strength 5/5 Skin: no rashes, warm and dry normal turgor Neurologic: PERRL, EOMI, accommodation nl, no face palsy, no dysarthria CN's II- XI intact bilaterally and moves all extremities Psychiatric: A+Ox3, euthymic affect Results & Data Results & Data Vital Signs (Past 12 Hours) Vital Signs Temp Pulse Pulse Pulse Resp BP BP 02/09/25 09:43 38.1 C H 88 18 106/69 02/09/25 09:23 37.8 C H 77 18 121/73 02/09/25 09:06 37.8 C H 83 18 101/63 02/09/25 07:30 37.5 C 75 16 100/64 02/09/25 07:15 Pulse Ox O2 Del Method 02/09/25 09:43 95 02/09/25 09:23 90 02/09/25 09:06 90 Room Air 02/09/25 07:30 93 Room Air 02/09/25 07:15 Room Air
--- NOTE | 2025-02-09 10:26 | Urology Consultation ---
Date of Consultation February 09, 2025 Assessment & Plan (1) Left ureteral stone: 59 yo/F admitted for a large left obstructing ureteral calculus and anemia. Patient with low-grade temp this morning, Tmax 38.1, hemodynamically stable Labs reviewedcreatinine 0.94, WBC 8.87, hemoglobin 5.5 (repeat 5.7) She is currently receiving transfusion of PRBCs, 2 units ordered Urinalysis with 3+ blood, 3+ LE, >20 RBC, >50 WBC and 2+ bacteria Urine culture pending Recommend continue broad-spectrum antibiotics and narrow per sensitivity data when available Discussed options for stone management including cystoscopy and left ureteral stent placement, discussed stone treatment at a later date Recommend medical optimization prior to surgical intervention unless it becomes emergent If she becomes febrile, then likely would proceed with stent placement acutely If she remains stable, then plan to reassess for intervention tomorrow Will keep NPO for now Recommend work-up for acute anemia Continue supportive care medical management per hospital medicine service Will follow closely along with primary team, please contact our service if she becomes febrile greater than 101 or acute changes to clinical status Case discussed and reviewed with attending urologist History of Present Illness Reason for Consultation: obstructing stone Attending Physician: Benjamin Jefferson MD History of Present Illness This is a 59-year-old female with past history of gastric bypass 2018, iron deficiency anemia, type 2 diabetes, CVA, hyperlipidemia, hypertension and nephrolithiasis who presented to the emergency department on 02/08/2025 for evaluation of a known kidney stone with hydronephrosis. She underwent outpatient CT abdomen pelvis on 02/04 performed at [facility] which showed an obstructing left stone with hydronephrosis and she was referred to the emergency department for further evaluation. On arrival to ED, she was afebrile, tachycardic, normotensive. Lab work showed WBC 11.92, hemoglobin 7.6, platelet count 1012, creatinine 0.87. Urinalysis showed 3+ blood, 3+ LE, >20 RBC, >50 WBC, 0-2 epithelial cells, 2+ bacteria. CT abdomen pelvis without contrast demonstrated an obstructing 1.0 x 1.8 cm obstructing stone in the left ureter with severe left hydroureteronephrosis. She was admitted to the hospital medicine service for nephrolithiasis and symptomatic anemia. Urology is consulted for obstructing stone. Labs today reviewedhemoglobin 5.5, repeat 5.7; creatinine 0.94, WBC 8.87 Patient seen and examined at bedside. She is awake and resting in bed receiving transfusion of PRBCs. She reports minimal flank pain at present. She is voiding spontaneously. She reports she was treated for UTI last week. No dysu douglas at present. Denies gross hematuria. Denies blood in her bowel movements. No nausea or vomiting. Reports low grade temp prior to starting transfusion this morning. She previously followed with Dr. Chappell for urology. History of kidney stones, no prior surgical intervention. Allergies Allergy/AdvReac Type Severity Reaction Status Date / Time shellfish derived Allergy Severe THROAT Verified 04/22/15 07:47 SWELLING cat dander Allergy Unknown SHORTNESS Verified 04/22/15 07:47 OF BREATH, facial swelling No Known Drug Allergies Allergy Unknown . Verified 04/22/15 07:47 pomegranate Allergy Hives upon Verified 02/08/25 18:16 skin contact, scratchy throat latex AdvReac Rash Verified 02/08/25 18:10 Home Medications Medication Instructions Recorded Confirmed Type albuterol sulfate 1 puff inhalation QID PRN sob ##0 04/02/15 02/08/25 History lisinopril 10 mg tablet 10 mg PO QAM #0 tabs 04/02/15 02/08/25 History aspirin 81 mg capsule 81 mg PO DAILY 11/21/22 02/08/25 History pantoprazole 40 mg tablet,delayed 40 mg PO UD 11/21/22 02/08/25 History release atorvastatin 20 mg tablet 20 mg PO QAM 02/08/25 02/08/25 History Patient History Surgical History Hx of cholecystectomy Hx of cystoscopy H/O colonoscopy History of esophagogastroduodenoscopy Social History Smoking Status: Former smoker Hx Alcohol Use: No Hx Substance Use: No Preferred Language: Dutch Communication Ability: Effective Shipwright Supervisor Required: No Beliefs That Will Affect Care: None Current Living Situation: Spouse Feels Safe at Home: Yes Assistive Devices: Glasses Review of Systems Review of Systems: All systems reviewed & are unremarkable except as noted in HPI & below Physical Exam Constitutional: well developed and well nourished; no acute distress Respiratory: normal respiratory effort; no respiratory distress and no labored breathing Gastrointestinal (Abdomen): Inspection/Auscultation: abdomen normal to inspection Musculoskeletal: Head/Neck/Chest: normocephalic Skin: + pallor Neurologic: moves all extremities and awake Psychiatric: Orientation: alert and oriented x 3 Results & Data Vital Signs (Past 12 Hours) Vital Signs Temp Pulse Pulse Pulse Resp BP BP 02/09/25 09:58 37.2 C 78 18 115/68 02/09/25 09:43 38.1 C H 88 18 106/69 02/09/25 09:23 37.8 C H 77 18 121/73 02/09/25 09:06 37.8 C H 83 18 101/63 02/09/25 07:30 37.5 C 75 16 100/64 02/09/25 07:15 Pulse Ox O2 Del Method 02/09/25 09:58 97 02/09/25 09:43 95 02/09/25 09:23 90 02/09/25 09:06 90 Room Air 02/09/25 07:30 93 Room Air 02/09/25 07:15 Room Air PG Care Time/CCT Total # of Minutes Spent Total Time Spent with Patient: Total time spent is greater than 50% in coordination of care (as documented) at patient's floor/unit and/or counseling patient: Coding Level of Care Code 64309 IN/OBS CONSULT LVL 5,80M Diagnoses Left ureteral stone N20.1
--- NOTE | 2025-02-09 12:30 | Gastrointestinal Consultation ---
Date of Consultation February 09, 2025 Assessment & Plan (1) Symptomatic anemia: Patient currently admitted with nephrolithiasis, GI asked to rule out GI causes of anemia. No obvious GI bleeding noted at this time. - continue to follow hgb/hct and transfuse as needed. - continue with protonix 40mg once daily. - will discuss case further with Dr. Pelaez, further recommendations to follow. Supervising Physician Co-Signing Physician Notes I personally saw and examined the patient. I have reviewed the chart and agree with the documentation provided by the INSULATION BOARD COATER OPERATOR including discussion about the assessment, treatment and plan. Briefly, 59 year old female who presented to the emergency department for evaluation of a known kidney stone with hydronephrosis. She reports she had a CT on Sunday, revealing a stone. She reports she spoke with her composite laminator, who stated she needed to come to the emergency department for urology consultation. She was found to have a hgb of 7.6 which trended down to 5.5. GI is asked to see the patient to rule out GI cause for anemia. she is getting 2 units of blood today. Patient denies any melena blood per rectum or dark tarry stools. Her last colonoscopy was in 2020 and she is status post gastric bypass. Plan is to take her for ureteral stent today for hydronephrosis with stone. Will keep her n.p.o. after midnight and consider an enteroscopy tomorrow. Certainly AVMs or an anastomotic ulcer can contribute to her anemia but she is completely asymptomatic and denies any bleeding. For now PPI IV once daily and supportive care today History of Present Illness Reason for Consultation: JASON r/o GI cause Requesting Physician: Benjamin Jefferson MD Attending Physician: Benjamin Jefferson MD History of Present Illness Patient is a 59 year old female who presented to the emergency department for evaluation of a known kidney stone with hydronephrosis. She reports she had a CT on Sunday, revealing a stone. She reports she spoke with her composite laminator, who stated she needed to come to the emergency department for urology consultation. She was found to have a hgb of 7.6 which trended down to 5.5. GI is asked to see the patient to rule out GI cause for anemia. Patient denies any blood in her stools or melena. she reports stools are usually regular and are szymanski in color. she denies nausea, vomiting, acid reflux, or abdominal pain. She reports being told there has been blood in her urine, though she has never seen this. She tells me she had a colonoscopy done last by [facility] in 2020. Patient reports that this was unremarkable. She had an EGD done years prior to this but was unsure of results. she admits to a history of gastric bypass. no nsaid use outside of a baby aspirin. Allergies Allergy/AdvReac Type Severity Reaction Status Date / Time shellfish derived Allergy Severe THROAT Verified 04/22/15 07:47 SWELLING cat dander Allergy Unknown SHORTNESS Verified 04/22/15 07:47 OF BREATH, facial swelling No Known Drug Allergies Allergy Unknown . Verified 04/22/15 07:47 pomegranate Allergy Hives upon Verified 02/08/25 18:16 skin contact, scratchy throat latex AdvReac Rash Verified 02/08/25 18:10 Home Medications Medication Instructions Recorded Confirmed Type albuterol sulfate 1 puff inhalation QID PRN sob ##0 04/02/15 02/08/25 History lisinopril 10 mg tablet 10 mg PO QAM #0 tabs 04/02/15 02/08/25 History aspirin 81 mg capsule 81 mg PO DAILY 11/21/22 02/08/25 History pantoprazole 40 mg tablet,delayed 40 mg PO UD 11/21/22 02/08/25 History release atorvastatin 20 mg tablet 20 mg PO QAM 02/08/25 02/08/25 History Patient History Surgical History Hx of cholecystectomy Hx of cystoscopy H/O colonoscopy History of esophagogastroduodenoscopy Social History Smoking Status: Former smoker Hx Alcohol Use: No Hx Substance Use: No Preferred Language: Syriac Communication Ability: Effective Foil Wrapper Required: No Beliefs That Will Affect Care: None Current Living Situation: Spouse Feels Safe at Home: Yes Assistive Devices: Cane and Glasses Review of Systems Review of Systems: All systems reviewed & are unremarkable except as noted in HPI & below Physical Exam Constitutional: WD/WN, vitals as above Respiratory: normal respiratory effort, lungs clear to auscultation Cardiovascular: Rate/Rhythm: regular rate and regular rhythm Gastrointestinal (Abdomen): normal bowel sounds, soft, nontender, no hepatosplenomegaly Psychiatric: Orientation: alert and oriented x 3 Affect: euthymic affect Results & Data Vital Signs (Past 12 Hours) Vital Signs Temp Pulse Pulse Pulse Resp BP BP 02/09/25 12:23 99.7 F H 74 18 105/67 02/09/25 11:52 85 02/09/25 11:28 99.1 F 79 18 106/66 02/09/25 10:28 98.6 F 82 18 109/69 02/09/25 09:58 99.0 F 78 18 115/68 02/09/25 09:43 100.6 F H 88 18 106/69 02/09/25 09:23 100.0 F H 77 18 121/73 02/09/25 09:06 100.0 F H 83 18 101/63 02/09/25 07:30 99.5 F 75 16 100/64 02/09/25 07:15 Pulse Ox O2 Del Method 02/09/25 12:23 95 02/09/25 11:52 02/09/25 11:28 96 02/09/25 10:28 94 02/09/25 09:58 97 02/09/25 09:43 95 02/09/25 09:23 90 02/09/25 09:06 90 Room Air 02/09/25 07:30 93 Room Air 02/09/25 07:15 Room Air Coding Level of Care Code 71415 IN/OBS CONSULT LVL 4,60M Diagnoses Symptomatic anemia D64.9
[2025-02-09] MEDS: cefTRIAXone SODIUM 2,000 MG/50 ML BAG IV SCH (13:13)
[2025-02-09] MEDS ORDERED: ONDANSETRON INJ 2 MG/ML 2 ML VIAL ONE (15:30)
[2025-02-09] MEDS ORDERED: DEXAMETHASONE SOD INJ 4 MG/ML VIAL ONE (15:30)
[2025-02-09] MEDS ORDERED: LIDOCAINE 2% 2 ML VIAL/AMP(20MG/ML) INFIL ONE (15:30)
[2025-02-09] MEDS ORDERED: PROPOFOL IV EMULSION 10 MG/ML 20 ML VIAL IV ONE (15:30)
[2025-02-09] MEDS ORDERED: MIDAZOLAM HCL 1 MG/ML 2ML VIAL ONE (15:31)
[2025-02-09] MEDS ORDERED: fentaNYL citrate PF 100 MCG/2 ML VIAL ONE (15:31)
[2025-02-09] MEDS ORDERED: ePHEDrine sulfate 50 MG/ML AMP IV PRN (15:56)
[2025-02-09] MEDS ORDERED: HYDROmorphone INJ 1 MG/ML SYRINGE IV PRN (15:56)
[2025-02-09] MEDS ORDERED: ATROPINE SULFATE 0.1 MG/ML 10ML SYR IV PRN (15:56)
[2025-02-09] MEDS ORDERED: ONDANSETRON INJ 2 MG/ML 2 ML VIAL IV PRN (15:56)
[2025-02-09] MEDS ORDERED: fentaNYL citrate PF 100 MCG/2 ML VIAL IV PRN (15:56)
--- NOTE | 2025-02-09 15:56 | Anesthesiology Consultation ---
Date of Service February 09, 2025 Assessment & Plan ASA ASA3 Proposed Anesthesia Anesthesia Type: MAC Risk / Benefits Reviewed With: PT / POA / Parent / Guardian, Accepts Plan and Informed Consent Obtained History Surgery Operation Date: 02/09/25 09:20 Proposed Procedures p Cystoscopy, Left Ureteral Stent Placement, Possible Stone Treatment - Sarkis Gillette DO Height/Weight Height: 5 ft 7 in Weight: 87.1 kg Allergies Allergy/AdvReac Type Severity Reaction Status Date / Time shellfish derived Allergy Severe THROAT Verified 04/22/15 07:47 SWELLING cat dander Allergy Unknown SHORTNESS Verified 04/22/15 07:47 OF BREATH, facial swelling No Known Drug Allergies Allergy Unknown . Verified 04/22/15 07:47 pomegranate Allergy Hives upon Verified 02/08/25 18:16 skin contact, scratchy throat latex AdvReac Rash Verified 02/08/25 18:10 Medications Home Medications Medication Instructions Recorded Confirmed Last Taken albuterol sulfate 1 puff inhalation QID PRN sob ##0 04/02/15 02/08/25 Unknown lisinopril 10 mg tablet 10 mg PO QAM #0 tabs 04/02/15 02/08/25 Unknown aspirin 81 mg capsule 81 mg PO DAILY 11/21/22 02/08/25 Unknown pantoprazole 40 mg tablet,delayed 40 mg PO UD 11/21/22 02/08/25 Unknown release atorvastatin 20 mg tablet 20 mg PO QAM 02/08/25 02/08/25 Unknown Active Medications Generic Name Dose Route Start Last Admin Trade Name Freq PRN Reason Stop Dose Admin Pantoprazole Sodium 40 mg 02/09/25 09:00 02/09/25 08:25 Pantoprazole 40 Mg Tab PO 03/10/25 16:41 40 mg DAILY VERÓNICA Administration NPO Date Last Intake of Fluids: 02/08/25 Time Last Intake of Fluids: 23:59 Date Last Intake of Solids: 02/09/25 Time Last Intake of Solids: 23:59 Exercise / Class Metabolic Activity II 4-5 Yardwork/Stairs/Walk up hill Past Surgical History Surgical History Hx of cholecystectomy Hx of cystoscopy H/O colonoscopy History of esophagogastroduodenoscopy Past Anesthesia History No Hx of Anesthesia Complications and No Family Hx of Anesthesia Complications History of PONV No Hx of PONV and No Hx of Motion Sickness Social History Smoking Status: Former smoker Hx Alcohol Use: No alcohol intake frequency: holidays/special occasions only Hx Substance Use: No Review of Systems denies fever/cough/ colds/ chest pain/ SOB/ DAVE denies DAVE Physical Exam Vital Signs Last Vital Signs Temp 37.6 C H 02/09/25 15:32 Pulse 78 02/09/25 15:37 Resp 16 02/09/25 15:32 BP 123/70 02/09/25 15:32 Pulse Ox 96 02/09/25 15:32 O2 Del Method Room Air 02/09/25 15:32 ENMT Mouth: + poor dentition; no TMJ abnormality and no dentition abnormality Thyromental Distance: > or= 3.5 Finger Breadths Mallampati Class: II Mouth / Teeth: 2 1. missing Neck neck extension not limited Respiratory normal respiratory effort; no respiratory distress Auscultation: lungs clear to auscultation bilaterally Cardiovascular Rate/Rhythm: regular rate and regular rhythm Neurologic moves all extremities Psychiatric Orientation: alert and oriented x 3 Testing Laboratory Results 02/09/25 06:45 02/09/25 05:35 PT 12.3 Seconds (9.0-12.0) H 02/09/25 05:35 INR 1.1 (0.9-1.1) 02/09/25 05:35 Urine Color Yellow 02/08/25 11:30 Urine Appearance Cloudy (Clear) A 02/08/25 11:30 Urine pH 6.0 (4.5-7.5) 02/08/25 11:30 Ur Specific [place] >= 1.030 (1.000-1.030) 02/08/25 11:30 Urine Protein 3+ (Negative) H 02/08/25 11:30 Urine Glucose (UA) Negative (Negative) 02/08/25 11:30 Urine Ketones Negative (Negative) 02/08/25 11:30 Urine Nitrite Negative (Negative) 02/08/25 11:30 Ur Leukocyte Esterase 3+ (Negative) H 02/08/25 11:30 Urine RBC >20 /hpf (0-2) H 02/08/25 11:30 Urine WBC >50 /hpf (0-5) H 02/08/25 11:30 Ur Epithelial Cells 0-2 /hpf (0-2) 02/08/25 11:30 Blood Type O Positive 02/09/25 06:45 Antibody Screen NEGATIVE 02/09/25 06:45 02/08/25 11:30 Urine Culture - Preliminary Urine,Clean Catch Citrobacter freundii complex
[2025-02-09] MEDS ORDERED: CEFEPIME 2000MG 2,000 MG/20 ML SYR IV SCH (16:00)
[2025-02-09] MEDS: MEROPENEM 500 MG in SYRINGE 0 ML IV SCH (16:10)
[2025-02-09] MEDS ORDERED: ACETAMINOPHEN 1000 MG/100 ML IV IV ONE (16:50)
[2025-02-09] MEDS ORDERED: KETAMINE HCL 10MG/ML SYR ONE (16:53)
--- NOTE | 2025-02-09 17:18 | Operative Report ---
PG Post Operative Report Pre & Post Diagnosis Operation Date: 02/09/25 09:20 Pre-Op Diagnosis: left kidney stone Post-Op Diagnosis: left kidney stone I identified the patient and participated in the time-out.: Yes Procedure Operation Date: 02/09/25 09:20 Actual Procedures Cystoscopy with irrigation of bladder. Left Retrograde pyelogram, Aspiration of Urine Left kidney, Ureteral Dilation, Laser Destruction of Stone, Left Ureteral Stent Insertion(Left) - Sarkis Gillette, Surgeon Sarkis Gillette, II, DO Campaign Associate None Estimated Blood Loss 1 Findings Consistent with Post-Op Diagnosis Severely purulent urine within left kidney with severe hydronephrosis. Very large impacted stone within the proximal/mid ureter with severe hydronephrosis and hydroureter proximal. Wires would not bypass due to severe impaction. Laser was able to destroy the stone and fracture to free the stone and allow displacement of remainder of stone to the renal pelvis. Over 50cc of purulent urine aspirated from kidney. Bladder copiously irrigated utilizing scope after to clear purulent draining urine. Specimens Urine Left Kidney Drains 7 Fr x 24 Stent Left 18 Fr Silicone Catheter Anesthesia Type General Complications none Disposition Disposition: Recovery Room Indications Patient with sepsis likely secondary to pyelonephritis with large obstructing stones. Risks and benefits discussed at length. Description of Procedure Patient was consented and brought back to the operating room. Patient was placed under anesthesia in the supine position and moved to the dorsal lithotomy position. Patient was prepped and draped in the regular sterile fashion. A time out was completed identifying the correct patient and procedure. A 30degree Cystoscope was placed into the bladder and the entire bladder was examined. The UO's were identified. The UO was cannulized with a catheter and a retrograde pyelogram was completed. Contrast did not appear to go past the midportion of the ureter. What appeared to be a large stone was visualized approximately a centimeter proximal to the cessation of the contrast. No contrast appeared to go around this the stone appeared to be visible on the fluoroscopy imaging. A wire was then attempted to be placed. Multiple attempts to place a wire and then a second wire were attempted. However due to the severe obstruction the wire would not pass the area of significant narrowing. 2 wires were able to be situated just distall to what appeared to be the stone. The flexible ureteroscope was taken into the ureter. The stone was immediately identified at the spot of impaction. The ureter was severely inflamed in this region. The ureter was completely obstructed with the stone involving the entire lumen of the ureter. A retrograde pyelogram was attempted through the scope and yet again no contrast would pass. There was no appreciable area that the wire would be able to be passed past the very large stone. A laser fiber was selected and the stones were pulverized to dust and small fragments. The stone was found to be extremely hard. It was also found to be extremely long with over a centimeter and a half of length involving the ureter. The stone was severely impacted into the sidewall especially towards the distal portion. Care was taken to avoid any significant injuries to the ureteral wall however severe inflammatory changes fibrotic changes and edematous changes were noted throughout the ureter. The area of severe impaction once freed had to be dilated to allow the scope to further advance and be able to access the stone further. Gentle dilation was completed and no obvious trauma or major issue was noted except for the severe trauma from the severely impacted stone. After the stone was somewhat freed and attempt to bypassed with the scope was attempted however due to the very large length of the stone the scope was unable to bypassed. Due to this it was decided to attempt to fracture the stone into multiple pieces to allow and access point with plans to displace majority of the stone burden back into the proximal ureter and renal pelvis. After extensive lasering the stone was able to be fractured. After fracturing there was what appeared to be an lumen and channel. The stone was further freed and was able to be displaced into the significant hydronephrotic ureter. The scope was then able to advance to the UPJ and renal pelvis. Within the renal pelvis was severely purulent urine visualization was severely limited. Aspiration was attempted however due to the severely thickened purulent fluid the aspiration was slow the scope was able to be advanced somewhat and severely purulent urine was able to be aspirated. Approximately 50 cc of purulent urine was aspirated and sent for culture. A large amount of fluid was appreciated still remaining in the renal pelvis. A retrograde pyelogram was completed in order to outline the renal pelvis. The kidney was found to be severely hydronephrotic. A wire was placed through the scope and found to be in good position in the renal pelvis. The scope was slowly removed with the wire left in place. Contrast was placed through the scope for a pyelogram to assist in stent placement. There was no obvious signs of extravasation or major concern of injury seen within the ureter. The entire ureter was examined as the scope was slowly removed. With the wire in place, a 7 Fr Double J stent was placed. It was confirmed with fluoroscopy. With the stent in place, the bladder was emptied. The bladder had to be irrigated multiple times in order to drain off the severely purulent fluid draining from the left kidney. After extensive irrigation it did appear to somewhat clear. The scope was removed. A 18 Sinhala silicone catheter was then placed. It had been noted in the timeout the patient does have a latex allergy. The patient was cleaned, aroused from anesthesia, and transferred to the pacu in stable condition having tolerated the procedure well with no complications. I was present and participated in all aspects of the procedure. The patient will be monitored in the PACU until transferred. Will plan to maintain catheter for approximately 2 to 3 days to allow adequate drainage. Will maintain stent and plan for continued broad-spectrum antibiotics and close monitoring. Patient completed her second unit of packed red blood cells during the procedure. Patient had been stable throughout the procedure. Was still dealing with significant febrile episodes. I attest to the content of the Intraoperative Record and any orders documented therein. Any exceptions are noted below.
[2025-02-09] MEDS: LACTATED RINGER'S 1,000 ML IV SCH (17:59)
[2025-02-09] MEDS: DIATRIZOATE MEGLUMINE 30% 100ML VIAL INSTIL ONE (18:00)
--- NOTE | 2025-02-09 18:12 | Anesthesiology Progress Note ---
Date of Service February 09, 2025 Anesthesia Post Procedure Vital Signs Vital Signs: Temp Pulse Pulse Pulse Resp BP BP 02/09/25 17:40 80 13 129/84 02/09/25 17:30 86 24 126/78 02/09/25 17:20 90 19 125/72 02/09/25 17:13 36.6 C 86 19 119/70 02/09/25 16:27 37.6 C H 78 16 113/72 02/09/25 15:37 78 02/09/25 15:32 37.6 C H 92 H 16 123/70 02/09/25 15:27 37.6 C H 78 16 113/72 02/09/25 15:04 38.0 C H 81 18 113/72 02/09/25 14:57 38.0 C H 81 18 113/72 02/09/25 14:42 37.9 C H 77 18 111/65 02/09/25 14:23 38.2 C H 83 18 99/65 L 02/09/25 12:23 37.6 C H 74 18 105/67 02/09/25 11:52 85 02/09/25 11:28 37.3 C 79 18 106/66 02/09/25 10:28 37.0 C 82 18 109/69 02/09/25 09:58 37.2 C 78 18 115/68 02/09/25 09:43 38.1 C H 88 18 106/69 02/09/25 09:23 37.8 C H 77 18 121/73 02/09/25 09:06 37.8 C H 83 18 101/63 02/09/25 07:30 37.5 C 75 16 100/64 02/09/25 07:15 02/08/25 21:30 36.8 C 72 15 BP Pulse Ox O2 Del Method O2 Flow Rate 02/09/25 17:40 98 Oxymask 2 02/09/25 17:30 98 Oxymask 6 02/09/25 17:20 96 Oxymask 6 02/09/25 17:13 97 Oxymask 6 02/09/25 16:27 96 02/09/25 15:37 02/09/25 15:32 96 Room Air 02/09/25 15:27 96 02/09/25 15:04 94 02/09/25 14:57 94 02/09/25 14:42 95 02/09/25 14:23 93 02/09/25 12:23 95 02/09/25 11:52 02/09/25 11:28 96 02/09/25 10:28 94 02/09/25 09:58 97 02/09/25 09:43 95 02/09/25 09:23 90 02/09/25 09:06 90 Room Air 02/09/25 07:30 93 Room Air 02/09/25 07:15 Room Air 02/08/25 21:30 100/64 97 Room Air Pain Intensity Back: Pain Intensity: 3 Transfer of Care Handoff Completed per policy Notes Mental Status: alert / awake / arousable and participated in evaluation Patient Amnestic to Procedure: Yes Nausea / Vomiting: adequately controlled Pain: adequately controlled Airway Patency, RR, SpO2: stable & adequate BP & HR: stable & adequate Hydration State: stable & adequate Anesthetic Complications: no major complications apparent and Pt Satisfied with anesthetic care
[2025-02-09 20:04] LABS: Anisocytosis Present; Basophils # (auto) 0.04 K/uL (0.00-0.20); Basophils % (auto) 0.3 %; Eosinophils # (auto) 0.06 K/uL (0.00-0.50); Eosinophils % (auto) 0.4 %; Hematocrit (blood only) 28.4 % (37.0-47.0); Hemoglobin 8.5 g/dl (12.0-16.0); Immature Granulocytes # (auto) 0.08 K/uL (0.01-0.20); Immature Granulocytes % (auto) 0.6 %; Lymphocytes # (auto) 0.43 K/uL (1.20-3.40); Lymphocytes % (auto) 3.1 %; Mean Corpuscular Hemoglobin 21.2 pg (25.0-34.0); Mean Corpuscular Hgb Conc 29.9 g/dL (32.0-36.0); Mean Corpuscular Volume 70.8 fL (80.0-100.0); Mean Platelet Volume 8.4 fL (9.4-12.4); Monocytes # (auto) 0.13 K/uL (0.11-0.59); Monocytes % (auto) 0.9 %; Neutrophils # (auto) 13.01 K/uL (1.40-6.50); Neutrophils % (auto) 94.7 %; Ovalocytes 1+; Platelet Count 532 K/uL (130-400); Polychromasia 1+; RDW Coefficient of Variation 27.1 % (11.5-14.5); RDW Standard Deviation 67.5 fL (36.4-46.3); Red Blood Count 4.01 M/uL (4.20-5.40); White Blood Count 13.75 K/ul (4.8-10.8)
[2025-02-10 00:58] LABS: Hemoglobin 9.1 g/dl (12.0-16.0); Mean Corpuscular Hgb Conc 29.4 g/dL (32.0-36.0); Mean Corpuscular Volume 71.4 fL (80.0-100.0); Mean Platelet Volume 8.1 fL (9.4-12.4); Platelet Count 545 K/uL (130-400); RDW Coefficient of Variation 26.9 % (11.5-14.5); RDW Standard Deviation 67.1 fL (36.4-46.3); Red Blood Count 4.34 M/uL (4.20-5.40); White Blood Count 15.62 K/ul (4.8-10.8)
[2025-02-10 01:12] LABS: Albumin Globulin Ratio 0.5 (0.9-2); Albumin Level 2.4 gm/dl (3.4-5.0); BUN Creatinine Ratio 10.7 (10-20); Bilirubin,Total 0.7 mg/dl (0.2-1.0); Creatinine Clr Calc Pharmacy 81.7 ml/min; Globulin 5.2 gm/dl (2.5-4.0); Magnesium 1.6 mg/dl (1.7-2.4); Potassium 3.9 mmol/L (3.5-5.1); Total Protein 7.6 gm/dl (6.0-8.3)
[2025-02-10 01:18] LABS: Troponin I High Sensitivity 4.4 pg/ml (0-14)
[2025-02-10 01:21] LABS: Anisocytosis Present; Basophils # (auto) 0.03 K/uL (0.00-0.20); Basophils % (auto) 0.2 %; Hypochromasia Present; Immature Granulocytes % (auto) 0.6 %; Lymphocytes # (auto) 0.47 K/uL (1.20-3.40); Monocytes # (auto) 0.21 K/uL (0.11-0.59); Monocytes % (auto) 1.3 %; Neutrophils # (auto) 14.81 K/uL (1.40-6.50); Neutrophils % (auto) 94.9 %; Ovalocytes 1+; Polychromasia 1+; Tear Drop Cells 1+
[2025-02-10 06:39] LABS: Hematocrit (blood only) 35.8 % (37.0-47.0); Hemoglobin 10.7 g/dl (12.0-16.0); Mean Corpuscular Hemoglobin 21.4 pg (25.0-34.0); Mean Corpuscular Hgb Conc 29.9 g/dL (32.0-36.0); Mean Corpuscular Volume 71.6 fL (80.0-100.0); Platelet Count 673 K/uL (130-400); RDW Coefficient of Variation 26.9 % (11.5-14.5); RDW Standard Deviation 67.9 fL (36.4-46.3); White Blood Count 22.98 K/ul (4.8-10.8)
[2025-02-10 07:26] LABS: Acanthocytes 1+; Basophils # (auto) 0.03 K/uL (0.00-0.20); Basophils % (auto) 0.1 %; Hypochromasia Present; Immature Granulocytes # (auto) 0.15 K/uL (0.01-0.20); Immature Granulocytes % (auto) 0.7 %; Lymphocytes # (auto) 0.54 K/uL (1.20-3.40); Lymphocytes % (auto) 2.3 %; Monocytes # (auto) 0.41 K/uL (0.11-0.59); Monocytes % (auto) 1.8 %; Neutrophils # (auto) 21.85 K/uL (1.40-6.50); Neutrophils % (auto) 95.1 %; Ovalocytes 1+; Polychromasia 2+; Tear Drop Cells 1+
--- NOTE | 2025-02-10 07:34 | Fluoroscopy Report ---
INTRAOPERATIVE FLUOROSCOPIC IMAGES: CLINICAL HISTORY: Left retrograde exam with stent placement. Fluoroscopy time: 54 seconds. Number of fluoroscopic images: 5. Ka,r: 14.23 mGy: FINDINGS: Fluoroscopy was provided during left retrograde pyelogram and left ureteral stent insertion . Marked left hydronephrosis is again noted. The left ureteral stent is well-positioned. IMPRESSION: Fluoroscopy provided during left retrograde pyelogram and left ureteral stent insertion. Electronically signed by: Soy Leung M.D. 02/10/2025 7:33 AM
--- NOTE | 2025-02-10 07:54 | Electrocardiogram Report ---
Test Reason : Blood Pressure : */* mmHG Vent. Rate : 48 BPM Atrial Rate : 48 BPM P-R Int : 166 ms QRS Dur : 76 ms QT Int : 500 ms P-R-T Axes : 9 -9 0 degrees QTcB Int : 446 ms Sinus bradycardia with sinus arrhythmia Low voltage QRS Borderline ECG When compared with ECG of 08-Feb-2025 13:00, Vent. rate has decreased by 28 bpm Confirmed by Noble Recio ([id number]) on 02/10/2025 7:54:48 AM Referred By: REFERRED SELF Confirmed By: Noble Recio
[2025-02-10] MEDS: ACETAMINOPHEN 325 MG TAB PO PRN (09:11)
--- NOTE | 2025-02-10 09:30 | Gastroenterology Progress Note ---
Date of Service February 10, 2025 Assessment & Plan (1) Symptomatic anemia: Plan Patient has not had any signs of active gi bleeding. Anemia has improved and continues to improve post transfusion. - continue with protonix 40mg once daily. - can advance diet to full liquids and advance further as tolerated. - In light of no active GI bleeding, no plans for endoscopic evaluation at this time. Would recommend she follow with her regular GI group at [facility] as outpatient. Admission and Anticipated Discharge Date Admission Date: February 08, 2025 Supervising Physician Co-Signing Physician Notes I personally saw and examined the patient. I have reviewed the chart and agree with the documentation provided by the REPORTER ANCHOR including discussion about the assessment, treatment and plan. Briefly, no bleeding overnight and hgb went up to 10.7. Outpt GI followup with [facility]. GI will sign off. Please call us back with questions. Subjective Patient has not moved her bowels since admission, though admits she has not been eating. she had her ureteral stent placed yesterday. no nausea, vomiting, abdominal pain, acid reflux, brbpr, or melena. hgb improved to 10.7 (previously 9.4). Review of Systems Review of Systems: All systems reviewed & are unremarkable except as noted in HPI & below Physical Exam Constitutional: WD/WN, vitals as above Respiratory: normal respiratory effort, lungs clear to auscultation Cardiovascular: Rate/Rhythm: regular rate and regular rhythm Gastrointestinal (Abdomen): normal bowel sounds, soft, nontender, no hepatosplenomegaly Psychiatric: Orientation: alert and oriented x 3 Affect: euthymic affect Results & Data Results & Data Vital Signs (Past 12 Hours) Vital Signs Temp Pulse Pulse Resp BP BP Pulse Ox 02/10/25 09:10 100.4 F H 02/10/25 08:00 70 02/10/25 07:13 100.8 F H 84 18 110/65 95 02/10/25 05:42 99.5 F 88 18 136/75 96 02/10/25 02:22 97.5 F L 02/10/25 02:06 97.5 F L 53 L 18 125/74 97 02/10/25 00:00 94.8 F L 64 16 119/63 95 02/09/25 23:30 97.3 F L 68 18 114/72 97 02/09/25 22:40 39 L 02/09/25 21:44 59 L O2 Del Method 02/10/25 09:10 02/10/25 08:00 02/10/25 07:13 Room Air 02/10/25 05:42 Room Air 02/10/25 02:22 02/10/25 02:06 Room Air 02/10/25 00:00 Room Air 02/09/25 23:30 Room Air 02/09/25 22:40 02/09/25 21:44 Coding Level of Care Code 37656 SUB INP/OBS CARE 2/35MIN Diagnoses Symptomatic anemia D64.9
--- NOTE | 2025-02-10 10:59 | Urology Progress Note ---
Date of Service February 10, 2025 Assessment & Plan (1) Left ureteral stone: Plan: 59 yo/F admitted for a large left obstructing ureteral calculus and anemia. - Pt POD#1 s/p Cystoscopy with irrigation of bladder. Left Retrograde pyelogram, Aspiration of Urine Left kidney, Ureteral Dilation, Laser Destruction of Stone, Left Ureteral Stent Insertion - Operative findings of large impacted stone with severe hydronephrosis and hydroureter, severely purulent urine within the kidney, aspirated for urine culture - Febrile this morning, Tmax 38.2 - Lab work reviewed - creatinine 0.84, WBC 22.98 - Urine culture prelim with Citrobacter freundii - Blood cultures pending - Kidney aspirate culture pending - Tolerating left ureteral stent with minimal bother - Continue IV antibiotics per culture, transition to oral antibiotics upon discharge for complicated UTI - Maintain Bowens catheter for 2 to 3 days - Expected clinical course reviewed, all questions answered - Will arrange outpatient follow-up with our service to discuss and coordinate second procedure for stone treatment - will sign off, please contact our service with any additional questions or concerns Admission and Anticipated Discharge Date Admission Date: February 08, 2025 Subjective Patient seen and examined at bedside this morning. She is sitting up at the edge of the bed getting cleaned up. Denies flank pain at present. Bowens patent and draining blood-tinged purulent urine. Febrile this morning, 38.2. Labs reviewedcreatinine 0.84, WBC 22.98, hemoglobin 10.7. Review of Systems Constitutional: as per Subjective / HPI Genitourinary: as per Subjective / HPI Physical Exam Constitutional: no acute distress Respiratory: no respiratory distress and no labored breathing Gastrointestinal (Abdomen): Inspection/Auscultation: abdomen normal to inspection Musculoskeletal: Head/Neck/Chest: normocephalic Skin: + pallor Neurologic: moves all extremities and awake Psychiatric: Orientation: alert and oriented x 3 Genitourinary: Bowens draining blood tinged purulent urine Results & Data Vital Signs (Past 12 Hours) Vital Signs Temp Pulse Pulse Resp BP BP Pulse Ox 02/10/25 09:10 38.0 C H 02/10/25 08:00 70 02/10/25 07:13 38.2 C H 84 18 110/65 95 02/10/25 05:42 37.5 C 88 18 136/75 96 02/10/25 02:22 36.4 C L 02/10/25 02:06 36.4 C L 53 L 18 125/74 97 02/10/25 00:00 34.9 C L 64 16 119/63 95 02/09/25 23:30 36.3 C L 68 18 114/72 97 O2 Del Method 02/10/25 09:10 02/10/25 08:00 02/10/25 07:13 Room Air 02/10/25 05:42 Room Air 02/10/25 02:22 02/10/25 02:06 Room Air 02/10/25 00:00 Room Air 02/09/25 23:30 Room Air PG Care Time/CCT Total # of Minutes Spent Total Time Spent with Patient: Total time spent is greater than 50% in coordination of care (as documented) at patient's floor/unit and/or counseling patient: Coding Level of Care Code 78359 SUB INP/OBS CARE 2/35MIN Diagnoses Left ureteral stone N20.1
--- NOTE | 2025-02-10 15:10 | Hospitalist Progress Note ---
Date of Service February 10, 2025 Assessment & Plan (1) Nephrolithiasis: Plan Patient is 59-year-old female with past medical history of hypertension, diabetes mellitus who presented to the hospital for evaluation of ureteral stone with left-sided hydronephrosis. Patient had undergone CT urogram as part of the workup for microscopic hematuria; she was found to have 0.8 into 1.7 cm stone in left ureter for which she was recommended to go to the emergency department. Left-sided obstructive ureteral stone with hydronephrosis Complicated urine tract infection Patient was recommended to come to the ED for evaluation of left-sided hydronephrosis and ureteral stone by outpatient urology Urinalysis positive for infection Urine culture from 01/19 shows Streptococcus anginosus Urine culture growing Citrobacter freundii complex. Blood cultureno growth till date CT abdomen pelvis showed 1.0 into 1.8 cm long obstructive stone in left ureter with severe hydronephrosis and moderate inflammation of left urinary tract Status post cystoscopy with irrigation of bladder, left retrograde pyelogram, aspiration of urine of left kidney, ureteral dilation, laser destruction of stone and left ureteral stent placement on 02/09/2025 Aspirate from the kidney shows many WBC, rare gram-positive cocci; culture pending Plan to continue meropenem; possible switch to oral antibiotic with fluoroquinolones depending on final culture from aspirate of the kidney and resolution of fever Continue Bowens catheter for 2 more days as per urology Follow-up with urology for definitive stone management as outpatient Iron deficiency anemia Patient presents with severe iron deficiency anemia. Hemoglobin of 5.7 in a.m. Iron study consistent with iron deficiency anemia Possible source of iron loss could be hematuria or GI loss. Patient has history of hysterectomy. GI was consulted; recommended outpatient follow-up Hemoglobin is stable after transfusion of 2 units of packed RBCs. I discussed with patient regarding following up with GI for possible endoscopy and colonoscopy as outpatient symptoms she agrees with the plan. Plan to place on oral iron at the time of discharge. Chronic conditions; Hyperlipidemiacontinue on Lipitor GERDcontinue on pantoprazole Hypertensioncontinue on lisinopril Full code DVT prophylaxis heparin Time spent evaluating patient, direct bedside care, chart review, placing orders, interpretation of diagnostic studies, discussion with consultants, patient, and family members, as well as other required patient management activities is 50 minutes Please note the above document was generated using voice recognition software. It may contain grammatical, syntax or spelling errors. Any formal questions or concerns about the content, text or information contained within the body of this dictation should be directly addressed to the provider for clarification Admission and Anticipated Discharge Date Admission Date: February 08, 2025 Subjective Patient seen and examined at bedside She is lying on the bed comfortably; denies any pain or discomfort Continues to have low-grade fever; denies chills Bowens catheter in place draining cloudy urine Review of Systems Review of Systems: All systems reviewed & are unremarkable except as noted in Subjective Physical Exam Physical Exam: Constitutional: WD/WN, vitals as above, NAD, sitting up in bed, pleasant, conversing easily Respiratory: normal respiratory effort, lungs clear to auscultation, no wheeze, rales, rhonchi. Normal insp/exp effort, no accessory muscle use Cardiovascular: RRR, no murmur, no edema Vessels: no JVD or carotid bruit Chest: normal inspection of chest Abdomen: normal bowel sounds, soft, nontender, no hepatosplenomegaly Musculoskeletal: no cyanosis or clubbing, extremities motor strength 5/5 Skin: no rashes, warm and dry normal turgor Neurologic: PERRL, EOMI, accommodation nl, no face palsy, no dysarthria CN's II- XI intact bilaterally and moves all extremities Psychiatric: A+Ox3, euthymic affect Results & Data Results & Data Vital Signs (Past 12 Hours) Vital Signs Temp Pulse Pulse Resp BP Pulse Ox O2 Del Method 02/10/25 14:13 81 02/10/25 09:10 38.0 C H 02/10/25 08:00 70 02/10/25 07:13 38.2 C H 84 18 110/65 95 Room Air 02/10/25 05:42 37.5 C 88 18 136/75 96 Room Air
[2025-02-10] MEDS: LACTATED RINGER'S 1,000 ML IV SCH (15:46)
[2025-02-10] MEDS: LACTATED RINGER'S 500 ML IV ONE (15:46)
[2025-02-10] MEDS: HEPARIN SOD 5,000 UNIT/0.5 ML VIAL SQ SCH (22:44)
[2025-02-11 06:54] LABS: BUN Creatinine Ratio 13.1 (10-20); Calcium 7.5 mg/dl (8.6-10.3); Creatinine Clr Calc Pharmacy 81.7 ml/min; Potassium 3.8 mmol/L (3.5-5.1)
[2025-02-11 07:03] LABS: Hematocrit (blood only) 25.1 % (37.0-47.0); Hemoglobin 7.4 g/dl (12.0-16.0); Mean Corpuscular Hemoglobin 20.8 pg (25.0-34.0); Mean Corpuscular Hgb Conc 29.5 g/dL (32.0-36.0); Mean Corpuscular Volume 70.7 fL (80.0-100.0); Mean Platelet Volume 8.7 fL (9.4-12.4); Platelet Count 443 K/uL (130-400); RDW Coefficient of Variation 27.8 % (11.5-14.5); Red Blood Count 3.55 M/uL (4.20-5.40)
[2025-02-11 07:05] LABS: Anisocytosis Present; Basophils # (auto) 0.01 K/uL (0.00-0.20); Basophils % (auto) 0.1 %; Eosinophils # (auto) 0.07 K/uL (0.00-0.50); Eosinophils % (auto) 0.6 %; Hypochromasia Present; Immature Granulocytes # (auto) 0.07 K/uL (0.01-0.20); Immature Granulocytes % (auto) 0.6 %; Lymphocytes # (auto) 0.94 K/uL (1.20-3.40); Lymphocytes % (auto) 8.6 %; Microcytosis Present; Monocytes # (auto) 0.35 K/uL (0.11-0.59); Monocytes % (auto) 3.2 %; Neutrophils # (auto) 9.46 K/uL (1.40-6.50); Neutrophils % (auto) 86.9 %; Ovalocytes 1+; Poikilocytosis Present; Polychromasia 1+; Tear Drop Cells 1+
[2025-02-11 13:30] LABS: Hematocrit (blood only) 27.1 % (37.0-47.0); Hemoglobin 7.9 g/dl (12.0-16.0)
--- NOTE | 2025-02-11 15:11 | Hospitalist Progress Note ---
Date of Service February 11, 2025 Assessment & Plan (1) Nephrolithiasis: Plan 59-year-old female with past medical history of hypertension, diabetes mellitus who presented to the hospital for evaluation of ureteral stone with left-sided hydronephrosis. Patient had undergone CT urogram as part of the workup for microscopic hematuria; she was found to have 0.8 x 1.7 cm stone in left ureter for which she was recommended to go to the emergency department. She is being managed for the following: Left-sided obstructive ureteral stone with hydronephrosis Complicated urine tract infection Patient was recommended to come to the ED for evaluation of left-sided hydronephrosis and ureteral stone by outpatient urology Admitting urinalysis positive for infection Admitting CT abdomen pelvis showed 1.0 x 1.8 cm long obstructive stone in left ureter with severe hydronephrosis and moderate inflammation of left urinary tract Urine culture from 01/19 shows Streptococcus anginosus 02/08 Urine culture growing Citrobacter freundii complex. 02/09 Blood cultureno growth till date 02/09 left kidney aspirate culture: streptococcus anginosus 02/09 --> Status post cystoscopy with irrigation of bladder, left retrograde pyelogram, aspiration of urine of left kidney, ureteral dilation, laser destruction of stone and left ureteral stent placement. 02/09 meropenem --> switch to levaquin 02/11 [d/w pharmacy who had d/w ID sharepoint consultant, recs is levaquin x 2 weeks from 02/09] Uro evaled, maintain ross for 2-3 days, appreciate recs. Fu w/ uro on dc. Iron deficiency anemia Patient presents with severe iron deficiency anemia. Admitting Hb of 7.6, MCV of 66 --> Hb dropped to 5.5 on 02/09. Iron studies c/w iron def. Will get folate and b12 level in am, likely start on supplement after the draw. Possible source of iron loss could be hematuria or GI loss. Patient has history of hysterectomy. GI was consulted; recommended outpatient follow-up s/p 2 units prbc, Hb was 7.4 in AM, back to 7.9 in repeat check, repeat twice a day or prn. s/p 2 unit prbc so far. Start po iron supplement in next few days. monitor for further prbc transfusion need. Chronic conditions; Hyperlipidemiacontinue on Lipitor GERDcontinue on pantoprazole Hypertensioncontinue on lisinopril Full code DVT prophylaxis: heparin sq Please note the above document was generated using voice recognition software. It may contain grammatical, syntax or spelling errors. Any formal questions or concerns about the content, text or information contained within the body of this dictation should be directly addressed to the provider for clarification Admission and Anticipated Discharge Date Admission Date: February 08, 2025 Subjective Patient seen and examined at bedside She is lying on the bed comfortably; denies any pain or discomfort Continues to have low-grade fever; denies chills Ross catheter in place draining performance tester red urine, is less cloudy appearing today per pt's at bedside. Pt reports eating ok and moving bowels ok, Denies blood in stool or black stool. Patient denies headache/dizziness/palpitation/chest pain/belly pain. Physical Exam Physical Exam: Constitutional: WD/WN, vitals as above, NAD, pleasant, conversing easily Respiratory: normal respiratory effort, lungs clear to auscultation, no wheeze, rales, rhonchi. Normal insp/exp effort, no accessory muscle use Cardiovascular: RRR, no murmur, no edema Vessels: no JVD or carotid bruit Chest: normal inspection of chest Abdomen: normal bowel sounds, soft, nontender, no hepatosplenomegaly Musculoskeletal: no cyanosis or clubbing, extremities motor strength 5/5 Skin: no rashes, warm and dry normal turgor Neurologic: PERRL, EOMI, accommodation nl, no face palsy, no dysarthria CN's II- XI intact bilaterally and moves all extremities Psychiatric: A+Ox3, euthymic affect UC w/ performance tester red color urine collection in bag. Results & Data Results & Data Vital Signs (Past 12 Hours) Vital Signs Temp Pulse Resp BP Pulse Ox O2 Del Method 02/11/25 14:18 36.8 C 93 H 18 110/68 96 Room Air 02/11/25 07:47 36.9 C 73 18 108/70 96 Room Air 02/11/25 03:11 36.7 C 75 20 96/61 L 94 Room Air
[2025-02-11] MEDS: levoFLOXacin 750 MG TAB PO SCH (16:48)
[2025-02-11 19:38] LABS: Hematocrit (blood only) 25.4 % (37.0-47.0); Hemoglobin 7.6 g/dl (12.0-16.0)
[2025-02-11] MEDS: MAGNESIUM SULFATE / D5W 1 GM/100 ML BAG IV ONE (23:23)
[2025-02-12 06:10] LABS: Hematocrit (blood only) 26.1 % (37.0-47.0); Hemoglobin 7.7 g/dl (12.0-16.0); Mean Corpuscular Hemoglobin 21.3 pg (25.0-34.0); Mean Corpuscular Hgb Conc 29.5 g/dL (32.0-36.0); Mean Corpuscular Volume 72.1 fL (80.0-100.0); Mean Platelet Volume 8.9 fL (9.4-12.4); Platelet Count 375 K/uL (130-400); RDW Coefficient of Variation 27.9 % (11.5-14.5); RDW Standard Deviation 70.6 fL (36.4-46.3); Red Blood Count 3.62 M/uL (4.20-5.40); White Blood Count 6.77 K/ul (4.8-10.8)
[2025-02-12 06:24] LABS: Calcium 7.8 mg/dl (8.6-10.3); Creatinine Clr Calc Pharmacy 82.7 ml/min; Magnesium 1.7 mg/dl (1.7-2.4); Phosphorus 2.8 mg/dl (2.5-4.9)
[2025-02-12 11:24] LABS: Folate (Folic Acid),Ser orPlas 11.37 ng/ml (>5.38)
--- NOTE | 2025-02-12 11:55 | Discharge Summary ---
Date of Service February 12, 2025 Admission HPI Per Admitting Provider 59F pmh chronic hematuria, asthma, CVA w/o residual deficiency in 2021, hld, htn, gerd DM2, gastric bypass 2017, JASON who presents for evaluation of nephrolithiasis. Patient has been seeing nephrology for the evaluation of chronic hematuria, and CT of the abdomen and pelvis was performed for continued evaluation. Obstructing nephrolithiasis was observed, and she was referred to come to the ED for urologic evaluation. ED TELEPHONE INFORMATION SUPERVISOR talked to urology, Dr Ellis, who recommended admission without specific plan for surgical evaluation. Patient without significant symptoms, including fever, chills, abdominal or flank pain. She does have some intermittent L flank pain, but during this current episode has not been having them. Admission Exam Per Admitting Provider Constitutional: WD/WN, vitals as above Gastrointestinal (Abdomen): normal bowel sounds, soft, nontender, no hepatosplenomegaly Genitourinary: no significant flank pain Principal Diagnosis Left-sided obstructive ureteral stone with hydronephrosis Complicated urine tract infection Iron deficiency anemia Discharge Exam Constitutional: WD/WN, vitals as above, NAD, pleasant, conversing easily Respiratory: normal respiratory effort, lungs clear to auscultation, no wheeze, rales, rhonchi. Normal insp/exp effort, no accessory muscle use Cardiovascular: RRR, no murmur, no edema Vessels: no JVD or carotid bruit Chest: normal inspection of chest Abdomen: normal bowel sounds, soft, nontender, no hepatosplenomegaly Musculoskeletal: no cyanosis or clubbing, extremities motor strength 5/5 Skin: no rashes, warm and dry normal turgor Neurologic: PERRL, EOMI, accommodation nl, no face palsy, no dysarthria CN's II- XI intact bilaterally and moves all extremities Psychiatric: A+Ox3, euthymic affect UC w/ no osito colored slightly cloudy urine Discharge Data Allergies Allergy/AdvReac Type Severity Reaction Status Date / Time shellfish derived Allergy Severe THROAT Verified 04/22/15 07:47 SWELLING cat dander Allergy Unknown SHORTNESS Verified 04/22/15 07:47 OF BREATH, facial swelling No Known Drug Allergies Allergy Unknown . Verified 04/22/15 07:47 pomegranate Allergy Hives upon Verified 02/08/25 18:16 skin contact, scratchy throat latex AdvReac Rash Verified 02/08/25 18:10 Consultations 02/08/25 14:14 ED Decision to Admit Stat 02/08/25 15:18 Consult Urology Routine 02/09/25 09:42 Consult Gastroenterology Routine Procedures Performed Operation Date: 02/09/25 09:20 Actual Procedures p Cystoscopy, Laser Destruction of Stone, (Left) - Sarkis Gillette DO s Left Ureteral Stent Insertion(Left) - Sarkis Gillette DO Ordered Studies 02/08/25 12:39 CT abd pelvis wo con Stat 02/09/25 FL retrograde includes kub Routine Hospital Course (1) Nephrolithiasis: Plan 59-year-old female with past medical history of hypertension, diabetes mellitus who presented to the hospital for evaluation of ureteral stone with left-sided hydronephrosis. Patient had undergone CT urogram as part of the workup for microscopic hematuria; she was found to have 0.8 x 1.7 cm stone in left ureter for which she was recommended to go to the emergency department. She was managed for the following: Left-sided obstructive ureteral stone with hydronephrosis Complicated urine tract infection Patient was recommended to come to the ED for evaluation of left-sided hydronephrosis and ureteral stone by outpatient urology Admitting urinalysis positive for infection Admitting CT abdomen pelvis showed 1.0 x 1.8 cm long obstructive stone in left ureter with severe hydronephrosis and moderate inflammation of left urinary tract Urine culture from 01/19 shows Streptococcus anginosus 02/08 Urine culture growing Citrobacter freundii complex. 02/09 Blood cultureno growth till date 02/09 left kidney aspirate culture: streptococcus anginosus 02/09 --> Status post cystoscopy with irrigation of bladder, left retrograde pyelogram, aspiration of urine of left kidney, ureteral dilation, laser destruction of stone and left ureteral stent placement. 02/09 meropenem --> switch to levaquin / [d/w pharmacy who had d/w ID human performance consultant, recs is levaquin x 2 weeks from 02/09] Uro evaled, maintain ross for 2-3 days, appreciate recs. Fu w/ uro on dc. Pt afebrile and HnH stable more than 24 hrs, pt is Hemodynamically stable and would like to go home. Patient will be discharged on Levaquin to complete 2 weeks treatment, patient advised to have follow-up EKG weekly while on antibiotic. Patient advised to follow-up with urology in 2 weeks time upon discharge. Iron deficiency anemia Patient presents with severe iron deficiency anemia. Admitting Hb of 7.6, MCV of 66 --> Hb dropped to 5.5 on 02/09. Iron studies c/w iron def. Will get folate and b12 level in am, likely start on supplement after the draw. Possible source of iron loss could be hematuria or GI loss. Patient has history of hysterectomy. GI was consulted; recommended outpatient follow-up s/p 2 units prbc, Hb was 7.4 in AM, back to 7.9 in repeat check, repeat twice a day or prn. s/p 2 unit prbc so far. Start po iron supplement in next few days. monitor for further prbc transfusion need. Patient agreeable to IV iron, will give IV iron before discharge today. Will initiate on folate/vitamin B12/p.o. iron. Chronic conditions; Hyperlipidemiacontinue on Lipitor GERDcontinue on pantoprazole Hypertensioncontinue on lisinopril Full code DVT prophylaxis: heparin sq Patient is being discharged with following instructions at the point of discharge: Follow-up with your primary care physician within a week time and likely you will need labs CBC/CMP/magnesium/phosphorus. You will be discharged on antibiotic for your complicated urinary tract infection to complete 2 weeks antibiotic treatment. You will need weekly EKG to monitor your QTc while on antibiotic, coordinate with your PCP office to set up the test. You will be discharged on probiotic while on antibiotic. Follow-up with your urology in 1 to 2 weeks time upon discharge. You were noted to have iron deficiency anemia with low iron stores. You will be receiving IV iron before you are discharged today. You will be discharged on oral iron and oral vitamin B12 and folate supplements. As discussed at the bedside, follow-up on repeat iron studies in about 3 months time, coordinate with your PCP office to set up the test. Follow-up with GI as an outpatient for possible need for colonoscopy/endoscopy. Hold your aspirin until further evaluation at your PCP office within a week time of discharge to ensure stability of your hemoglobin levels. Further recomm endation on resuming aspirin as per your PCP evaluation. Take your medications as prescribed. Please make sure that you are able to get your medications today by calling your pharmacy before you leave the hospital so that your treatment continuity is not broken. Please note the above document was generated using voice recognition software. It may contain grammatical, syntax or spelling errors. Any formal questions or concerns about the content, text or information contained within the body of this dictation should be directly addressed to the provider for clarification Home Health Attestation I certify that this patient is under my care and that I, or a physicians assistant accounting manager working with me, had a face to-face encounter that meets the home health [id number] encounter requirements with this patient. The encounter with the patient was in whole, or in part, for the following medical condition, which is the primary reason for home health care (list medical condition): I certify that, based on my findings, the following services are medically necessary home health services: My clinical findings support the need for the above services because: Further, I certify that my clinical findings support that this patient is homebound (i.e. absences from home require considerable and taxing effort and are for medical reasons or oriental orthodox services or infrequently or of short duration when for other reasons) because: Certification for Home Health Services: Based on the above findings, I certify that this patient is confined to the home and needs intermittent shelter care, physical therapy and/or speech therapy or continues to need occupational therapy. The patient is under my care, and I have initiated the establishment of the plan of care. This patient will be followed by a physician who will periodically review the plan of care. Total Time Total Time Spent Total Time Spent (In Minutes): 35 Discharge Plan Discharge Items Patient Disposition: Home - Self-Care Reason For Visit: KIDNEY STONE Discharge Diagnosis: Left-sided obstructive ureteral stone with hydronephrosis Complicated urine tract infection Iron deficiency anemia Activity: Resume your previous activity Non-emergency contact: Primary Care Provider Call non-emergency contact if: you have any medication questions and your symptoms worsen Follow-up/Referrals: Bandar Hankins MD [Primary Care Provider] - (Date & Time 02/17/2025 11:00 AM Provider: Bandar Hankins III, MD [facility] ) Diet: Regular Addtl Attending Provider Instructions: Follow-up with your primary care physician within a week time and likely you will need labs CBC/CMP/magnesium/phosphorus. You will be discharged on antibiotic for your complicated urinary tract infection to complete 2 weeks antibiotic treatment. You will need weekly EKG to monitor your QTc while on antibiotic, coordinate with your PCP office to set up the test. You will be discharged on probiotic while on antibiotic. Follow-up with your urology in 1 to 2 weeks time upon discharge. You were noted to have iron deficiency anemia with low iron stores. You will be receiving IV iron before you are discharged today. You will be discharged on oral iron and oral vitamin B12 and folate supplements. As discussed at the bedside, follow-up on repeat iron studies in about 3 months time, coordinate with your PCP office to set up the test. Follow-up with GI as an outpatient for possible need for colonoscopy/endoscopy. Hold your aspirin until further evaluation at your PCP office within a week time of discharge to ensure stability of your hemoglobin levels. Further recommendation on resuming aspirin as per your PCP evaluation. Take your medications as prescribed. Please make sure that you are able to get your medications today by calling your pharmacy before you leave the hospital so that your treatment continuity is not broken. Pending Studies at Discharge: Yes Stand-Alone Forms: My [facility], Smoking Cessation Medications and DC Order Prescriptions: New levofloxacin 750 mg Tablet 750 mg PO Q24H 10 Days Qty: 10 0RF cyanocobalamin (vitamin B-12) 500 mcg Tablet 500 mcg PO QAM Qty: 30 0RF folic acid 1 mg Tablet 1 mg PO QAM Qty: 30 0RF ferrous gluconate 324 mg (37.5 mg iron) tablet 324 mg PO DAILY Qty: 30 0RF Probiotic 3 billion cell capsule 3,000 mmu cells PO DAILY 14 Days Qty: 14 0RF Rx Instructions: administer with a meal Continued lisinopril 10 mg Tablet 10 mg PO QAM Qty: 0 Rx Instructions: last filled 12/13 30 day supply #30 albuterol sulfate AEROSOL,SOLN 1 puff Inhalation QID PRN (Reason: sob) Qty: 0 Rx Instructions: no fill history available. unable to verify pantoprazole 40 mg Tablet,Delayed Release (Dr/Ec) 40 mg PO UD Rx Instructions: 40 mg po daily. No fill history unable to verify atorvastatin 20 mg tablet 20 mg PO QAM Rx Instructions: last filled 12/13 30 day supply Held aspirin 81 mg Capsule 81 mg PO DAILY Hold Instructions: Resume on 02/18/25. Resume aspirin w/ PCP eval/recs within a week time Rx Instructions: otc unable to verify Discharge Orders: Discharge Order (Routine); Ordered 02/12/25 Ordered By: Janet Mckeon Admission Data Admit Date/Time: 02/08/25 15:17 Attending Provider: Janet Mcekon Admit Provider: Elvin Granados Primary Care Provider: Bandar Hankins Other Providers: Elvin Granados; Yaniv Ellis; Serg Pelaez
[2025-02-12] MEDS: IRON SUCROSE 200 MG in SODIUM CHLORIDE 0.9% 100 ML IV ONE (12:15)
[2025-02-12] MEDS: FOLIC ACID 1 MG TAB PO SCH (12:15)
[2025-02-12] MEDS: CYANOCOBALAMIN (B-12) 500 MCG TABLET PO SCH (12:15)
[2025-02-12 12:36] VITALS: RESP 20; TEMP 98.2; O2SAT 97
[2025-02-12 13:40] VITALS: BP 104/69; PULSE 80
== END 2025-02-12 13:40 | disposition home or self-care (01) | DRG 661 ==
LOC: ED 10:59 → 3E 15:17 → SUATTDRO 15:17 → 3E 16:19 → 2W 02-09 08:35 → 4W 02-10 02:07